=== PATIENT | male | born 1970 | race Caucasian/White ===

== ENCOUNTER 2018-05-17 09:54 | Emergency (ER) | payer OTHER ==
[~2018-05-17] VITALS: Ht 193 cm; Wt 104.3 kg
[2018-05-17] MEDS ORDERED: LISINOPRIL10 MG PO (10:18)
[2018-05-17] MEDS ORDERED: METFORMIN HCL1000 MG PO (10:18)
[2018-05-17] MEDS ORDERED: LANTUS SOL100 UNIT/1 SUB-Q (10:19)
[2018-05-17] MEDS ORDERED: NOVOLOG FL100 UNIT/1 SUB-Q (10:19)
[2018-05-17] MEDS ORDERED: AUGMENTIN 875-1 EACH PO (10:24)
[2018-05-17] MEDS ORDERED: SILVADENE20 GM TOP (10:24)
[2018-05-17] MEDS ORDERED: IRON18 MG PO (10:25)
[2018-05-17] MEDS ORDERED: AMITRIPTYLINE H25 MG PO (10:25)
[2018-05-17] MEDS ORDERED: NORCO 5-325 TA1 EACH PO (23:12)
== END 2018-05-17 10:55 | disposition home or self-care (01) ==
LOC: ED 09:54
PROC: 2W2TX4Z Dressing of Left Foot using Bandage (ICD-10-PCS; principal; 2018-05-17)
PROC: 2W2SX4Z Dressing of Right Foot using Bandage (ICD-10-PCS; principal; 2018-05-17)
DX: T25.222A Burn of second degree of left foot, initial encounter (principal); T25.221A Burn of second degree of right foot, initial encounter; T31.0 Burns involving less than 10% of body surface; E11.40 Type 2 diabetes mellitus with diabetic neuropathy, unspecified; F17.200 Nicotine dependence, unspecified, uncomplicated; Z88.8 Allergy status to other drugs, medicaments and biological substances; Z79.4 Long term (current) use of insulin; Z79.899 Other long term (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; X19.XXXA Contact with other heat and hot substances, initial encounter; Y93.01 Activity, walking, marching and hiking
CPT/HCPCS: 16020; 99283

== ENCOUNTER 2018-05-17 21:56 | Emergency (ER) | payer OTHER ==
[~2018-05-17] VITALS: Ht 193 cm; Wt 104.3 kg
[~2018-05-17 21:56] MED LIST: AMITRIPTYLINE H25 MG PO; AUGMENTIN 875-1 EACH PO; IRON18 MG PO; LANTUS SOL100 UNIT/1 SUB-Q; LISINOPRIL10 MG PO; METFORMIN HCL1000 MG PO; NOVOLOG FL100 UNIT/1 SUB-Q; SILVADENE20 GM TOP
[2018-05-17] MEDS ORDERED: NORCO 5-325 TA1 EACH PO (23:12)
== END 2018-05-17 23:50 | disposition home or self-care (01) ==
LOC: ED 21:56
PROC: 2W2TX4Z Dressing of Left Foot using Bandage (ICD-10-PCS; principal; 2018-05-17)
PROC: 2W2SX4Z Dressing of Right Foot using Bandage (ICD-10-PCS; principal; 2018-05-17)
DX: T25.222A Burn of second degree of left foot, initial encounter (principal); T25.221A Burn of second degree of right foot, initial encounter; T31.0 Burns involving less than 10% of body surface; E11.40 Type 2 diabetes mellitus with diabetic neuropathy, unspecified; F17.200 Nicotine dependence, unspecified, uncomplicated; Z88.8 Allergy status to other drugs, medicaments and biological substances; Z79.4 Long term (current) use of insulin; Z79.899 Other long term (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; X19.XXXA Contact with other heat and hot substances, initial encounter
CPT/HCPCS: 16020; 99283

== ENCOUNTER 2018-05-18 19:21 | Emergency (ER) | payer OTHER ==
[~2018-05-18] VITALS: Ht 193 cm; Wt 104.3 kg
[~2018-05-18 19:21] MED LIST changes: +NORCO 5-325 TA1 EACH PO
== END 2018-05-18 20:58 | disposition home or self-care (01) ==
LOC: ED 19:21
DX: T25.222D Burn of second degree of left foot, subsequent encounter (principal); T25.221D Burn of second degree of right foot, subsequent encounter; T31.0 Burns involving less than 10% of body surface; E11.40 Type 2 diabetes mellitus with diabetic neuropathy, unspecified; F17.200 Nicotine dependence, unspecified, uncomplicated; Z88.8 Allergy status to other drugs, medicaments and biological substances; Z79.4 Long term (current) use of insulin; Z79.899 Other long term (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; X19.XXXD Contact with other heat and hot substances, subsequent encounter
CPT/HCPCS: 99281

== ENCOUNTER 2019-02-28 15:12 | Emergency (ER) | payer OTHER ==
[~2019-02-28] VITALS: Ht 193 cm; Wt 81.6 kg
--- OUTSIDE RECORDS SUMMARY | ~2019-02-28 | XMS | Clinical Summary ---
Demographics + + + | Address | [address] | | | [place] [address] | + + + | Home Phone | | + + + | Preferred Language | Unknown | + + + | Marital Status | | + + + | Judaism Affiliation | Unknown | + + + | Race | Unknown | + + + | Ethnic Group | Unknown | + + + Author + + + | Author | [facility] | | | and [place] | + + + | Organization | [facility] | | | [...] Team Providers + +------+ + | Care Statistical Engineer Name | Role | Phone | [...] + +---------+------+------+-------+ Active Problems Not on file Encounters +--------+ + + + + | Date | Type | Specialty | Care Team | Description | +--------+ + + + + | 12/23/ | Telephone | | Carina Soria, | Other | | 2019 | | | RN | | +--------+ + + + + from Last 3 Months Family History + + +------+ + | [...] +--------+-------+---------+--------+ | [facility] | [facility] | [id number] | | | | Indemn | | [...] | [address] | | | al/Graeme | | 1970 | [phone] | [place] [address] | | | paul | | | 1 (Home) | | + +--------+ +--------+ + + Advance Directives Patient has advance care planning documents on file. For more information, please contact:[facility] [place] [address]
--- OUTSIDE RECORDS SUMMARY | ~2019-02-28 | XMS | Clinical Summary ---
Demographics + + + | Address | [address] | | | [place] [address] | + + + | Home Phone [...] + | Author | [facility] | | | and [place] | + + + | Organization | [facility] | | | [...] Team Providers + +------+ + | Care Coordinator Hotels Name | Role | Phone | + [...] +--------+-------+---------+--------+ | [facility] | VETERA | [id number] | | | | Indemn | | [...] | 1970 | [phone] | [place] [address] | | | paul | | | 1 (Home) | | + +--------+ +--------+ + + Advance Directives Patient has advance care planning documents on file. For more information, please contact:[facility] [place] [address]
--- OUTSIDE RECORDS SUMMARY | ~2019-02-28 | XMS | Encounter Summary ---
Demographics + + + | Address | [address] | | | [place] [address] | + + + | Home Phone | | + + + | Preferred Language | Unknown | + + + | Marital Status | | + + + | Latter-Day Affiliation | Unknown | + + + | Race | Unknown | + + + | Ethnic Group | Unknown | + + + Author + + + | Author | [facility] | | | and [place] | + + + | Organization | [facility] | | [...] Team Providers + +------+ + | Care Fibre Optics Jointer Name | Role | Phone | + +------+ + | Imer Woodard MD | PCP | | + +------+ + Reason for Visit +--------+ + | Reason | Comments | +--------+ + | Other | | +--------+ + Encounter Details +--------+ + + + + | Date | Type | Department | Care Team | Description | +--------+ + + + + | 01/31/ | Telephone | [facility] | Yang Beverlynayaan Dunaway, | Other | | 2018 | | [facility] | RN | | | | | SURGERY [address] | | | | | | [address] [place], | | | | | | [place] [address] | | | | | | [phone] | | | +--------+ + + + [...]
--- OUTSIDE RECORDS SUMMARY | ~2019-02-28 | XMS | Encounter Summary ---
Demographics + + + | Address | [address] | | | [place] [address] | + + + | Home Phone [...] Team Providers + +------+ + | Care Ball Winder Name | Role | Phone | + [...] | Telephone | [facility] | Yang Beverlynayana Dunaway, | Other | | 2018 | | HOSPITAL [facility] | RN | | | | | SURGERY [address] | | | | | | [address] [place] [place], | | | | | | [place] [address] | | | | | | [phone] | | | +--------+ + + + [...]
[2019-02-28] MEDS ORDERED: DOXYCYCLINE HY100 MG PO (15:34)
[2019-02-28] MEDS ORDERED: KEFLEX500 MG PO (15:34)
[2019-02-28] MEDS ORDERED: ONDANSETRON ODT8 MG PO (18:36)
[2019-02-28] MEDS ORDERED: PROMETHAZINE HC25 M1 PO (18:36)
== END 2019-02-28 19:00 | disposition home or self-care (01) ==
LOC: ED 15:12
DX: K29.00 Acute gastritis without bleeding (principal); D64.9 Anemia, unspecified; E11.40 Type 2 diabetes mellitus with diabetic neuropathy, unspecified; F43.10 Post-traumatic stress disorder, unspecified; Z87.891 Personal history of nicotine dependence; Z88.8 Allergy status to other drugs, medicaments and biological substances; Z79.899 Other long term (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
CPT/HCPCS: 80053; 83690; 85025; 96361; 96374; 99284-25; J2405; J7030

== ENCOUNTER 2019-03-31 08:40 | Emergency (ER) | payer OTHER ==
[~2019-03-31] VITALS: Ht 193 cm; Wt 84.4 kg
--- OUTSIDE RECORDS SUMMARY | ~2019-03-31 | XMS | Clinical Summary ---
Demographics + + + | Address | [address] | | | [place] [address] | + + + | Home Phone | | + + + | Preferred Language | Unknown | + + + | Marital Status | | + + + | Latter Day Affiliation | Unknown | + + + | Race | Unknown | + + + | Ethnic Group | Unknown | + + + Author + + + | Author | [facility] | | | and [place] | + + + | Organization | [facility] | | | and [...] Team Providers + +------+ + | Care Manager Acquisition Name | Role | Phone | + +------+ + | Imer Woodard MD | PP | | + +------+ + Allergies + [...] | + + + +---------+------+------+-------+ Active Problems Not on file Family History + + +------+ + | Medical History | Relation | Name | Comments | + + +------+ + | Diabetes [...] | | | + + +------+ + + +------+--------+ + | Relation | Name | Status | Comments | + +------+--------+ + | Father | | | | + +------+--------+ + | Paternal Grandfather | | | | + +------+--------+ + | Paternal Grandmother | | | | + +------+--------+ + Social History + +-------+ +--------+------+ | [...] + | Blood Pressure | 162/98 | 09/21/20181405 PDT | + + + [...] Weight | 94.3 kg (208 lb) | 09/08/20181328 PDT | + + + [...] | Vaccine: | | | | | Dtap/Tdap/Td (1 - | 1 | | | | Tdap) | | | | + + + + + | Vaccine: Influenza | | | | | (Season Ended) | 9 | | | + + + + [...] +--------+-------+---------+--------+ | [facility] [facility]MIN | VETERA | [id number] | | | | Indemn | | | NS | | 018-Pr | | | ity | | | CHOICE | | esent | | | | [...] Person | Self | [birth year] | [address] | | | al/Fam | | 1970 | [phone] | [place] [address] | | | paul | | | 1 (Home) | | + +--------+ +--------+ + + Advance Directives Patient has advance care planning documents on file. For more information, please contact:[facility] [place] [address]
--- OUTSIDE RECORDS SUMMARY | ~2019-03-31 | XMS | Clinical Summary ---
Demographics + + + | Address | [address] | | | [place] [address] | + + + | Home Phone | | + + + | Preferred Language | Unknown | + + + | Marital Status | | + + + | Anglican Affiliation | Unknown | + + + | Race | Unknown | + + + | Ethnic Group | Unknown | + + + Author + + + | Author | [facility] | | | and [place] | + + + | Organization | [facility] | | [...] Team Providers + +------+ + | Care Baggage Porter Name | Role | Phone | + [...] +--------+-------+---------+--------+ | [facility] | VETERA | [id number] | | | | Indemn | | [...] | 1970 | [phone] | [place] [address] | | | paul | | | 1 (Home) | | + +--------+ +--------+ + + Advance Directives Patient has advance care planning documents on file. For more information, please contact:[facility] [place] [address]
[~2019-03-31 08:40] MED LIST changes: +DOXYCYCLINE HY100 MG PO; +KEFLEX500 MG PO; +ONDANSETRON ODT8 MG PO; +PROMETHAZINE HC25 M1 PO
[2019-03-31] MEDS ORDERED: PROBIOTIC1 EAC1 PO (09:12)
[2019-03-31] MEDS ORDERED: ZOFRAN4 MG PO (11:36)
== END 2019-03-31 11:45 | disposition home or self-care (01) ==
LOC: ED 08:40
DX: G43.A0 Cyclical vomiting, in migraine, not intractable (principal); E11.9 Type 2 diabetes mellitus without complications; Z95.5 Presence of coronary angioplasty implant and graft; Z88.5 Allergy status to narcotic agent; Z88.8 Allergy status to other drugs, medicaments and biological substances; Z79.84 Long term (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; Z79.899 Other long term (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
CPT/HCPCS: 80053; 81001; 83690; 85025; 96361; 96374; 99283-25; J2405; J7030

== ENCOUNTER 2019-05-23 16:21 | Observation (INO) | payer OTHER ==
[~2019-05-23] VITALS: Ht 193 cm; Wt 82.3 kg
[~2019-05-23 16:21] MED LIST changes: -METFORMIN HCL1000 MG PO; +METFORMIN HCL500 M3 PO; +PROBIOTIC1 EAC1 PO; +ZOFRAN4 MG PO
[2019-05-23] MEDS ORDERED: FERROUS GLUCON324 M1 PO (17:04)
[2019-05-23] MEDS ORDERED: ASPIRIN325 MG PO (17:04)
[2019-05-23] MEDS ORDERED: VITAMIN C500 M1 PO (17:04)
--- NOTE | 2019-05-23 21:45 | NUR ---
PT ADMITTED TO ROOM 115, FROM ED. PLAN IS TO RECEIVED PRBC, BOWEL PREP. A/O, ROOM AIR, SELF TRANSFERED FROM STRETCHER TO THE BED. HAS WALKING BOOT ON RIGHT FOOT, STATING THAT HE HAS "SORE" ON BOTTOM OF HIS FOOT, IS DIABETIC. 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 PT DAUGHTER WITH PT.
--- NOTE | 2019-05-23 22:45 | NUR ---
FIRST UNIT OF PRBC STARTED, VERIFIED WITH INVENTORY CONTROL ASSOCIATE. PATIENT'S VS STABLE, BP ELEAVTED. PATIENT STATES THIS IS NORMAL FOR HIM. NO REACTION NOTED AFTER 15MINS. INCREASED RATE TO RUN OVER 2 HOURS. EDUCATION PROVIDED ON SIGNS OF REACTION FROM BLOOD ADMINISTRATION.
--- NOTE | 2019-05-23 23:30 | NUR ---
ASSESSMENT COMPLETE. PATIENT IS AAOX4. REPORTS MILD ANXIETY. PAIN 8/10, CHRONICALLY 5/10 IN BACK/NECK/KNEES. PRN MEDS PROVIDED. PATIENT REPORTS CHRONIC NAUSEA, DECLINES NEED FOR PRN ZOFRAN THE NAUSEA IS RELATED TO "NASAL DRIP" PER THE PATIENT. ABD IS FLAT, NONTENDER, BOWEL SOUNDS ACTIVE. WOUND NOTED ON LEFT SANTOYO, PATIENT REPORTS FRAGILE SKIN IN THIS AREA AND FREQUENT INJURY. WOUND ON LATERAL SIDE OF PAD ON RIGHT FOOT, [facility] TODAY. PATIENT REPORTS THIS IS TO BE LEFT UNTIL HIS FOLLOW UP NEXT WEEK. HE HAS SUPPLIES IF DRESSING BECOMES SOILED. PATIENT HAS BEEN DRINKING THE BOWEL PREP, 1 LARGE BM OF NOW. GOOD URINE OUTPUT. PATIENT REPORTS TROUBLE EMPTYING HIS BLADDER, THIS IS A CHRONIC PROBLEM HE RELATED TO AN ENLARGED PROSTATE. PATIENT IS STEADY ON HIS FEET. HIS DAUGHTER IS IN THE ROOM.
--- NOTE | 2019-05-24 01:35 | NUR ---
FIRST UNIT PRBC FINISHED. VS STABLE. NO SIGN OF REACTION. PATIENT UP TO THE BATHROOM. HAVING MULTIPLE BMS, BUT STILL SEMI-FORMED. PATIENT REPORTS PHANTOM PAIN IN HIS FEET, THIS IS NORMAL FOR HIM AT NIGHT. SECOND UNIT OF PRBC STARTED. VERIFIED WITH PROTECTION CHIEF INDUSTRIAL PLANT. RN IN ROOM FOR FIRST 15MINS. NO SIGN OF REACTION. VS DONE. PATIENT RESTING IN BED. DENIES NEEDS. CALL LIGHT IN REACH.
--- NOTE | 2019-05-24 03:50 | NUR ---
SECOND UNIT PRBC FINSIHED. VS STABLE. NO SIGN OF REACTION. PATIENT ATTEMPTING TO SLEEP. DENIES ANY NEEDS. REPORTS FREQUENT TRIPS TO THE BATHROOM. STOOL CONTINUES TO BE FORMED. IV FLUIDS PER ORDER.
--- NOTE | 2019-05-24 05:00 | NUR ---
PATIENT UP TO THE BATHROOM. MEDIUM LIDUID STOOL, DARK BROWN IN COLOR. PATIENT RETURNED TO BED. DENIES ANY NEEDS.
--- NOTE | 2019-05-24 06:27 | NUR ---
PT CALLED, HAD ANOTHER BM, LOOSE, BROWN WITH FLECKS OF SOLID. BACK TO BED, EYES CLOSED, RESP EVEN AND UNLABORED.
--- NOTE | 2019-05-24 06:43 | NUR ---
PATIENT RECEIVED 2 UNITS PRBC. LR @ 75. BOWEL PREP FINISHED. SEVERAL BMS, DARK BROWN LIQUID THIS AM. URINE OUTPUT QS. VS STABLE. CBG Q6H. INDEPENDENT IN THE ROOM. PRN PAIN MEDS FOR CHRONIC PAIN. NPO AT 0800. CHRONIC NAUSEA, NO EMESIS. WOUND ON RIGHT FOOT, WRAPPED BY PRIMARY AT [facility]. APPEARS CDI.
--- NOTE | 2019-05-24 07:00 | NUR ---
SPOKE TO ABOUT PATIENT'S BOWEL CARE. 1 BOTTLE OF MAG CITRATE ORDERED. VERIFIED VIA REPEAT BACK.
--- NOTE | 2019-05-24 08:10 | NUR ---
Pt now npo per doc order. Personal supplies and call light within reach.
--- NOTE | 2019-05-24 14:58 | NUR ---
PATIENT WAITING TO GO FOR SCOPE PROCEDURE. HE HAS BEEN WAITING ALL DAY. WANTS TO GET IT OVER WITH SO HE CAN EAT. STATES HE HAS A DIETITIAN AT [facility]. HE WAS DIAGNOSED WITH DIABETES ABOUT 12 YRS AGO. USED TO BE ON INSULIN. HE USED TO WEIGH 320 LBS 10 YRS AGO. SMOKES POT AND EATS SMALLER PORTIONS AND HE CONTRIBUTES THESE TO HELPING CONTROL HIS BLOOD SUGARS. HE JUST WENT SHOPPING THE OTHER DAY AND BOUGHT MORE HEALTHY FOODS. HE SAID HE IS GOING TO START PAYING MORE ATTENTION TO WHAT HE EATS. HE DRINKS WATER AND GATORADE ZERO. I MENTIONED THAT HE DOESN'T HAVE TO ELIMINATE ALL CARBS, BUT HE SHOULD KEEP HIS INTAKE CONSISTENT. HE DECLINED ANY WRITTEN INFO. JUST WANTS TO GET THIS SCOPE DONE SO HE CAN GO HOME.
--- NOTE | 2019-05-24 15:17 | NUR ---
PT CALL LIGHT ON. PT STATES HIS IV PUMP IS ALARMING. THIS RN TO ROOM. "DISTAL OCCLUSION. PT STATES IV IS "ALWAYS BEEPING." PT VERY UPSET ABOUT DELAY IN PROCEEDURE AND "CONSTANT BEEPING" OF THE IV. PT OFFERED A NEW IV SITE. PT STATES "YES, PLEASE START A NEW IV. ANYTHING TO STOP THE BEEPING." NEW PIV STARTED PER PROTOCOL IN RIGHT HAND. IV INFUSION MOVED TO RIGHT HAND PIV. LEFT AC PIV SALINE LOCKED, ALCOHOL CAPS APPLIED. PTS RN NOTIFIED. BED RAILS UP. CALL LIGHT WITHIN REACH.
[2019-05-24] MEDS ORDERED: ZYRTEC10 MG PO (16:43)
[2019-05-24] MEDS ORDERED: FLONASE ALLERG9.9 ML NAS (16:44)
[2019-05-24] MEDS ORDERED: GLUCOSE4 GM PO (16:49)
[2019-05-24] MEDS ORDERED: LIPITOR40 MG PO (16:52)
[2019-05-24] MEDS ORDERED: SILDENAFIL CIT100 MG PO (16:53)
--- NOTE | 2019-05-24 17:18 | NUR ---
PT SITTING UP IN BED, PLAYING WITH GRANDSON. NO C/O PAIN OR NAUSEA. PT DID STATE THAT HE IS "FRUSTRATED" WITH WAITING FOR HIS PROCEDURES. PT DENIED NEEDS. PERSONAL SUPPLIES AND CALL LIGHT IN REACH.
[2019-05-24] MEDS ORDERED: CYCLOBENZAPRINE10 MG PO (18:35)
--- NOTE | 2019-05-24 19:51 | NUR ---
[birth year]191950 Rocio Sethi 1935 PT ARRIVED TO PACU ON 4L VIA NC. PT ASLEEP AND RESP RATE INCREASED NOTED BY DEBONING TEAM LEADER. 1944 PT WAKES TO TACTILES STIMULI AND BEGINS COUGHING. PT REORIENTED TO PACU. 1949 PT REACHING FOR O2 NC, O2 REMOVED. PT REORIENTED TO PACU, PT DENIES NAUSEA AND PAIN AND REPORTS BEING DROWSY. PT ROLLS TO RIGHT SIDE AND IS BACK TO SLEEP.
--- NOTE | 2019-05-24 19:58 | CONS ---
[facility] [address], [place] [address] Signed DATE OF CONSULTATION: 05/23/2019 REQUESTING PHYSICIAN: Aleisha Armijo MD REASON FOR CONSULTATION: Profoundly low hematocrit. Emergency consultation for consideration of upper and lower endoscopic evaluation. HISTORY OF PRESENT ILLNESS: This 48-year-old white man was admitted to the hospital due to profound anemia with a hemoglobin of only 6.7. He was seen by Dr. Raymundo at the [facility] and was referred directly to the emergency room for further evaluation and treatment. He was considered to have acute on chronic microcytic anemia. He has been on iron supplementation for quite some time. The patient underwent upper endoscopy in [place], [place] some time back, the day I am not entirely sure of, and a plan for colonoscopy was made for the same purpose of evaluating for anemia. Unfortunately, the prep was completely inadequate and colonoscopy was not performed. The upper endoscopy was not said to show any ulcer or other findings of that sort. The patient has had no blood per rectum or hematemesis. The patient's health would be defined as poor overall. He does have type 2 diabetes, peripheral neuropathy. 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 He also had hypertension and some level of heart disease requiring stenting in 2002. He does have hyperlipidemia. He denies alcohol and recent tobacco use, but does smoke marijuana three times a day. He has a history of IV drug abuse, not currently active, or at least said not to be. He is considered to have allergy to "heparin" causing severe bleeding and trazodone and opiates that are Demerol related. MEDICATIONS: At admission included metformin, lisinopril, a probiotic, ferrous sulfate, aspirin, and vitamin C. SOCIAL HISTORY: He is accompanied by his daughter. He lives in [place]. He is self described as "retired", though he never had steady work after his discharge from the [employer] a number of years ago. The patient was evaluated in the emergency room, thought to have heme-positive stool on Electronically Signed By: MICHELLE LEO MD 05/24/191957 PATIENT NAME: SONIA VIVAS CONSULTATION DATE OF : 74 REPORT #: [id number] PHYSICIAN: MICHELLE LEO MD PCP: YADIRA RAYMUNDO MD REPORT IS CONFIDENTIAL AND NOT TO BE RELEASED WITHOUT AUTHORIZATION [facility] [address], [place] [address] Signed guaiac testing. He denies fatigue, shortness of breath or lightheadedness. He has had some vague upper abdominal pain. Most notably, he has had a considerable amount of weight loss over time for reasons that are not quite clear. REVIEW OF SYSTEMS: He denies any shortness of breath or chest pain per se. Denies dysphagia. He has extensive family history of cancer, but uncertain regarding colon or gastrointestinal cancers. There is family history of prostate cancer apparently. He does have urinary hesitancy and incomplete voiding pattern, though he has not ever been on Flomax or other preparation. PHYSICAL EXAMINATION: GENERAL: A bearded, thin, chronically ill-appearing, mulitply tattooed white man, accompanied by his daughter at this time. NECK: Shows no thyromegaly or cervical adenopathy. Trachea is midline. CHEST: Clear. HEART: Regular without murmur. ABDOMEN: Scaphoid and nondistended. There is no focal mass or tenderness. I detect no ascites. EXTREMITIES: Show chronic excoriation of left and right lower extremities, and minimal edema. LAB STUDIES: Show a hematocrit a white count of 9.2, hematocrit 22.6, hemoglobin 6.6, platelets 433,000. Coag studies show a normal pro time of 13.4 with an INR of 0.9. Chem profile is essentially normal. Creatinine is 0.52, glucose is 138, subsequently 128. Liver enzymes show elevated alkaline phosphatase of 201, LDH 232, albumin is 3.3, and alpha-thalassemia HBA1 is pending. ASSESSMENT: The patient has chronic anemia which has been incompletely evaluated. Upper endoscopy done in the past in [facility] did not show abnormalities that he is aware of. It is uncertain if he underwent duodenal testing to assess for celiac disease. His overall countenance is suggestive of it, though of course it is an uncommon though increasingly recognized cause of chronic anemia in some patients. I would recommend upper endoscopy be performed again to assess for peptic disease as a source of his anemia and subsequently a colonoscopy. A bowel prep with MiraLAX has been initiated this evening. The risk of bleeding, infection, perforation, and so forth were reviewed with him and his daughter. They understand and wished to proceed. We will plan to do this tomorrow, probably in the late morning. He should be n.p.o. after midnight, but can have as many liquids as he wishes tonight along with his prep. Electronically Signed By: MICHELLE LEO MD 05/24/191957 PATIENT NAME: SONIA VIVAS CONSULTATION DATE OF : 74 REPORT #: [id number] PHYSICIAN: MICHELLE LEO MD PCP: YADIRA RAYMUNDO MD REPORT IS CONFIDENTIAL AND NOT TO BE RELEASED WITHOUT AUTHORIZATION [facility] [address] [place], [place] [address] Signed MD HANNA Geller/DEXTER /[id number] cc: MD Yadira Mchugh MD Copies: ALEISHA ARMIJO MICAIAH MATTHEW MD ~ Electronically Signed By: MICHELLE LEO MD 05/24/19 1958 PATIENT NAME: SANGEETHASONIA Minna CONSULTATION DATE OF : 74 REPORT #: [id number] PHYSICIAN: MICHELLE LEO MD PCP: YADIRA RAYMUNDO MD REPORT IS CONFIDENTIAL AND NOT TO BE RELEASED WITHOUT AUTHORIZATION
--- NOTE | 2019-05-24 20:00 | NUR ---
RECEIVED REPORT FROM DAY SHIFT RN. PATIENT IS IN DAY SURGERY DEPT AT THIS TIME. FAMILY PRESENT IN ROOM. FAMILY DENIES ANY NEEDS.
--- NOTE | 2019-05-24 20:20 | NUR ---
PT ARRIVED TO FLOOR FROM PACU, A/O, SELF TRANSFERED FROM STRETCHER TO BED. RA, DENIES NEEDS, DISAPPOINTED HEISN'T GOING HOME, BUT STATES UNDERSTANDING. PRIOR TO PT ARRIVING TO FLOOR, DR LEO IN TO DISCUSS PT WITH PT'S DAUGHTER. DAUGHTER AND MALE FREIND WITH BABY, PRESENT IN ROOM AT THIS TIME.
--- NOTE | 2019-05-24 20:21 | NUR ---
PATIENT ARRIVED TO THE FLOOR. PATIENTS VITALS TAKEN AND RECORDED BY PULP BLEACHER. PATIENT DENIES ANY NEEDS AT THIS TIME. REPORT RECEIVED FROM TRACY SURGERY RN. CALL LIGHT IN REACH.
--- NOTE | 2019-05-24 21:15 | NUR ---
PATIENT IS REQUESTING HOME MEDS. [employer] PROFESSOR PLACED CALL TO . TO PUT IN NEW ORDERS.
--- NOTE | 2019-05-24 21:45 | NUR ---
PATIENT ASSESEMENT COMPLETED. PATIENT IS SITTING UP AT THE EDGE OF THE BED. PATIENT PROVIDED WITH SOUP AND CRACKERS. PATIENT HAS FAMILY AT THE BEDSIDE. PATIENT DENIES ANY PAIN OR NAUSEA. PATIENT GIVEN EVENING MEDICATIONS GIVEN PER ORDER. PATIENT APPEARS UPBEAT. PATIENT DENIES ANY COMMENTS, QUESTIONS OR CONCERNS ABOUT NEW DIAGNOSIS. PATIENT DENIES ANY NEEDS. FAMILY PROVIDED WITH BEDDING AND WATER. NO FURTHER NEEDS. NOTED. CALL LIGHT IN REACH.
--- NOTE | 2019-05-24 23:23 | NUR ---
CALL LIGHT ANSWERED. PATIENT WANTS WARM BLANKET FOR HIM AND HIS DAUGHTER. WARM BLANKET AND HEAVY BLANKET PROVIDED.
--- NOTE | 2019-05-25 00:31 | NUR ---
PATIENT IS RESTING IN BED WITH EYES CLOSED, RR 17. CALL LIGHT IN REACH. DAUGHTER ASLEEP ON THE COUCH.
--- NOTE | 2019-05-25 01:47 | NUR ---
PATIENTS VITALS TAKEN AND RECORDED. PATIENTS BS CHECKED AND SS GIVEN PER ORDER. PATIENT DENIES ANY PAIN OR NAUSEA. NO NEEDS NOTED. INTAKE AND OUPUT RECORDED. CALL LIGHT IN REACH.
--- NOTE | 2019-05-25 03:33 | NUR ---
PATIENT IS RESTING IN BED WITH EYES CLOSED, RR 18. CALL LIGHT IN REACH.
--- NOTE | 2019-05-25 04:55 | NUR ---
PATIENT RESTED WELL THROUGHOUT THE SHIFT. PATIENT IS ON AN ADA/60g CARB DIET, TOLERATING IT WELL AND NO COMPLAINTS OF NAUSEA. PATIENT IS INDEPENDENT IN THE ROOM. PATIENT IS SL. PATIENT DENIED ANY PAIN OR NAUSEA. PATIENT IS VOIDING WELL. PATIENT HAS SCHEDULED BS CHECKS. PATIENT IS AAOX3 AND USES CALL LIGHT APPROPRIATELY.
--- NOTE | 2019-05-25 06:10 | NUR ---
PATIENTS VITALS TAKEN AND RECORDED. PATIENTS INTAKE AND OUPUT RECORDED. PATIENT DENIES ANY PAIN OR NAUSEA. PATIENTS BREAKFAST ORDER. PATIENT DENIES ANY NEEDS. CALL LIGHT IN REACH. PATIENTS DAUGHTER REMAINS IN THE ROOM.
--- NOTE | 2019-05-25 07:20 | NUR ---
RECIEVED REPORT FROM LIVIA GONSALES. PT RESTING QUIELTY IN THE DARK. RESPIRATIONS EVEN AND UNLABORED. CALL LIGHT WITHIN REACH.
--- NOTE | 2019-05-25 07:55 | NUR ---
PATIENT SITTING UP ON THE EDGE OF THE BED TAKING BREAKFAST. FAMILY IN ROOM. PATIENT REFUSED TO TAKE A SHOWER TODAY BECAUSE HE THINKS HE IS GOING TO BE DISCHARGE TO HOME AND HE PREFERS TO TAKE A SHOWER AT HOME. ICE WATER GIVEN. CALL LIGHT WITHIN REACH. NO OTHER NEEDS AT THIS TIME
--- NOTE | 2019-05-25 09:29 | NUR ---
PT RESTING QUIETLY IN HOSPITAL BED WITH DAUGHTER AT BEDSIDE. PT ATE 100% OF MEAL. PT DECLINED INSULIN STATING HE DOES NOT BELIEVE ITS AN ACCURATE BS DUE TO EATING MULTIPLE TIMES AFTER HE CAME OFF OF NPO. PT ALSO DECLINED NURSE TO LOOK AT WOUND ON FOOT. PT STATES THAT [facility] AND HE WOULD LIKE TO KEEP IT COVERED AT THIS TIME. ASSESSMENT COMPLETE AND AM MEDICATIONS GIVEN. PT HAVING CT WITH CONTRAST AT 1145. XRAY CONTACTED US TO GIVE ORAL CONTRAST AT 0845 AND 0945 AND THEY WILL BE HERE AROUND 1140 TO GET PT. PT EDUCATED ON THE PLAN FOR TODAY. PT WOULD LIKE TO LEAVE BUT DOES UNDERSTAND THAT HE NEEDS TO BE HERE. CALL LIGHT WITHIN REACH. NO NEEDS/CONCERNS AT THIS TIME.
--- NOTE | 2019-05-25 10:05 | NUR ---
PT ADMINSITERED 2ND DOSE OF GASTROGRAFIN AT THIS TIME
--- NOTE | 2019-05-25 10:08 | NUR ---
PATIENT RESTING IN BED. VITAL SIGNS AND I&O DONE. CALL LIGHT WITHIN REACH. NO OTHER NEEDS AT THIS TIME
--- NOTE | 2019-05-25 11:40 | NUR ---
PT RESTING IN BED WITH DAUGHTER AT BEDSIDE. IMAGINING CALLED STATING THAT THEY WILL BE COMING UP TO GET PT SHORTLY. PT REQUESTING SODA AND DIET COLA WAS PROVIDED. PT HAS NO FURTHER NEEDS/CONCERNS AT THIS TIME. CALL LIGHT WITHIN REACH.
--- NOTE | 2019-05-25 13:05 | NUR ---
PT RESTING IN HOSPITAL BED. PT HAS DAUGHTER AT BEDSIDE AND PLAYING WITH MANUEL WHO IS 5 MONTHS OLD. PT IS READY TO LEAVE AND WOULD LIKE TO BE DC SOON. MD AWAITING ON CT SCAN RESULTS. PT STATES AN UNDERSTANDING. CALL LIGHT WITHIN REACH.
[2019-05-25] MEDS ORDERED: BIOTIN300 MCG PO (13:44)
[2019-05-25] MEDS ORDERED: TOPAMAX25 MG PO (13:46)
--- NOTE | 2019-05-25 13:47 | NUR ---
MED REC COMPLETE
[2019-05-25] MEDS ORDERED: LISINOPRIL20 MG PO (14:07)
--- NOTE | 2019-05-25 14:20 | NUR ---
PATIENT SITTING UP ON THE EDGE OF THE BED. DAUGHTER IN ROOM. VITAL SIGNS AND I&O DONE. HIGH BLOOD PRESSURE. RN NOTIFIED. ICE WATER GIVEN. CALL LIGHT WITHIN REACH. NO OTHER NEEDS AT THIS TIME
--- NOTE | 2019-05-25 14:46 | NUR ---
LIVIA MARADIAGA REQUESTED I VISIT PT BEFORE HE IS DC'D. HE HAS RECEIVED NEWS THAT CANCER IS PRESENT AND HAS METS. CHECKED ON PT, HE IS SITTING ON SIDE OF BED, DRESSED WITH FAMILY IN RM. GAVE ENCOURAGEMENT, AND WHAT TO EXPECT FOR DC WITH STAFF. HE THANKED ME, SHOOK MY HAND. WILL FOLLOW NEEDED
--- NOTE | 2019-05-25 16:02 | OR ---
[facility] [address], [place] [address] Signed DATE OF OPERATION: 05/24/2019 SURGEON: Michelle Leo MD PREOPERATIVE DIAGNOSIS: Profound anemia (symptomatic). POSTOPERATIVE DIAGNOSES: 1. Hiatal hernia without esophagitis. 2. Colon cancer at cecum. 3. Pedunculated large polyp at 35 cm. PROCEDURES: 1. Esophagogastroduodenoscopy with biopsy. 2. Total colonoscopy to cecum with biopsy of cecal mass and hot snare polypectomy of polyp at 35 cm. ANESTHESIA: Propofol infusion; Estefani Soni CRNA. INDICATIONS: This 48-year-old white man presented to the emergency room upon referral from Dr. Raymundo of the [facility] with profound anemia with a hemoglobin of about 6. The patient was noted to have microcytic anemia in July 2018. At that time, he underwent upper endoscopy at the end of August 2018, which was unremarkable. Colonoscopy is unable to be performed as the patient failed to do a prep. He was scheduled, but never followed through with additional evaluation. He has numerous other medical problems. More recently, he has had weight loss. He denies any rectal bleeding, hematemesis, or other issue. He is considered to have hyperlipidemia, gastroesophageal reflux symptoms, hypertension, and anemia as described. He does smoke marijuana on routine basis at least three times a day, though he does not smoke cigarettes. He was admitted at this time to undergo upper endoscopy and colonoscopy to better characterize the source of his anemia. He understands the risks of bleeding, infection, and perforation related to upper endoscopy and colonoscopy and wished to proceed. FINDINGS: Upper endoscopy showed a hiatal hernia without signs of esophagitis. There was mild gastritis, but not much. 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 Electronically Signed By: MICHELLE LEO MD 05/25/19 1602 PATIENT NAME: SONIA VIVAS OPERATIVE REPORT DATE OF : 74 REPORT #: [id number] PHYSICIAN: MICHELLE LEO MD PCP: YADIRA RAYMUNDO MD REPORT IS CONFIDENTIAL AND NOT TO BE RELEASED WITHOUT AUTHORIZATION [facility] [address], [place] [address] Signed Biopsies were obtained. There was a pedunculated large adenomatous polyp at 35 cm, which was excised completely. There were no other findings of concern. DESCRIPTION OF PROCEDURE: The patient was brought to the endoscopy suite given topical Hurricaine spray hypopharyngeal anesthesia and placed in lateral decubitus position. He was given intravenous sedation to the point of slurred speech and nystagmus by the rotary lithographic press operator with propofol infusional technique. A bite block was placed. An Olympus video upper endoscope was passed in the hypopharynx. Vocal cords appeared normal. Esophagus throughout its length was normal. Scope was passed to the stomach, which was inflated with air. Rugal folds were normal. Pylorus was normal. Scope was passed through it into the duodenum, which was normal overall, though there was mild duodenitis. Biopsies were taken of the duodenum. Scope was withdrawn. A biopsy was taken of the antrum for both DEBORAH and pathologic testing. Retroflexed view confirmed hiatal hernia. Scope was straightened and withdrawn. A biopsy was then taken of the distal esophagus. Remaining esophagus was normal, though not actively inflamed. There was some scar tissue at the esophageal junction. Plans were then made for colonoscopy. Digital rectal examination was found to be normal. An Olympus video colonoscope was passed in the rectum and manipulated throughout the colon showing a very good bowel prep. Intubation of the cecum was undertaken confirming a large cecal tumor. It was circumferential rather firm. Multiple biopsies were taken to affirm the diagnosis clinically made of adenocarcinoma of the cecum. The scope was then withdrawn and examination throughout undertaken. At 35 cm from the anal verge, a pedunculated adenomatous polyp was noted. This was excised with hot snare polypectomy technique. A Martin Net was used to grasp the polyp. The scope was further withdrawn and no other findings of note. The patient was taken to recovery room in good condition. 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 He has had anemia since at least July of last year. I would recommend he undergo a CT scan and a CEA level, particularly under the auspices of his weight loss over time. Distant metastatic disease is more likely than not under those circumstances. In any case, right colectomy would be recommended. Given his primary care at the [facility], it is less likely I would be approved to provide this service, so I am willing to do so. We will forward this information more fully to the [facility] for further determination of that. Electronically Signed By: MICHELLE LEO MD 05/25/19 1602 PATIENT NAME: SONIA VIVAS OPERATIVE REPORT DATE OF : 74 REPORT #: [id number] PHYSICIAN: MICHELLE LEO MD PCP: YADIRA RAYMUNDO MD REPORT IS CONFIDENTIAL AND NOT TO BE RELEASED WITHOUT AUTHORIZATION [address] [address] Signed Michelle Leo MD JM/MODL /[id number] cc: MD Yadira Mchugh MD Copies: ALEISHA WALTON MICAIAH MATTHEW MD ~ Electronically Signed By: MICHELLE LEO MD 05/25/19 1602 PATIENT NAME: SONIA VIVAS OPERATIVE REPORT DATE OF : 74 REPORT #: [id number] PHYSICIAN: MICHELLE LEO MD PCP: YADIRA RAYMUNDO MD REPORT IS CONFIDENTIAL AND NOT TO BE RELEASED WITHOUT AUTHORIZATION
[2019-05-28] MEDS ORDERED: ZOFRAN4 MG SL (08:47)
[2019-05-28] MEDS ORDERED: NORCO 5-325 TA1 EACH PO (08:47)
== END 2019-05-25 15:25 | disposition home or self-care (01) ==
LOC: ED 16:21 → MS 16:23
PROVIDERS: Surgery; ADMIT Student in an Organized Health Care Education/Training Program
PROC: 30233N1 Transfusion of Nonautologous Red Blood Cells into Peripheral Vein, Percutaneous Approach (ICD-10-PCS; 2019-05-23)
PROC: 0DBH8ZX Excision of Cecum, Via Natural or Artificial Opening Endoscopic, Diagnostic (ICD-10-PCS; 2019-05-24)
PROC: 0DBE8ZX Excision of Large Intestine, Via Natural or Artificial Opening Endoscopic, Diagnostic (ICD-10-PCS; 2019-05-24)
PROC: 0DB38ZX Excision of Lower Esophagus, Via Natural or Artificial Opening Endoscopic, Diagnostic (ICD-10-PCS; principal; 2019-05-24 08:00)
PROC: 0DB68ZX Excision of Stomach, Via Natural or Artificial Opening Endoscopic, Diagnostic (ICD-10-PCS; 2019-05-24 08:00)
DX: C18.0 Malignant neoplasm of cecum (principal); C79.9 Secondary malignant neoplasm of unspecified site; K63.5 Polyp of colon; E11.42 Type 2 diabetes mellitus with diabetic polyneuropathy; F43.10 Post-traumatic stress disorder, unspecified; K29.70 Gastritis, unspecified, without bleeding; K29.80 Duodenitis without bleeding; D63.0 Anemia in neoplastic disease; D50.9 Iron deficiency anemia, unspecified; I10 Essential (primary) hypertension; E78.5 Hyperlipidemia, unspecified; K44.9 Diaphragmatic hernia without obstruction or gangrene; Z95.5 Presence of coronary angioplasty implant and graft; Z88.8 Allergy status to other drugs, medicaments and biological substances; Z79.84 Long term (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; Z79.82 Long term (current) use of aspirin; Z79.899 Other long term (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; Z87.74 Personal history of (corrected) congenital malformations of heart and circulatory system
CPT/HCPCS: 36415; 36430; 74177; 80048; 80053; 82378; 82728; 83021; 83540; 83615; 83735; 84466; 85025; 85045; 85610; 85730; 86850; 86880; 86900; 86901; 86920; 96361; 96365; 96366; 96375; 96376; 99285; C9113; G0378; J1815; J2250; J2405; J2704; J3010; J3475; J3480; J7060; J7120; P9016; Q9967

== ENCOUNTER 2019-07-14 05:35 | Day surgery (SDC) | payer OTHER ==
[~2019-07-14] VITALS: Ht 193 cm; Wt 74.8 kg
[~2019-07-14 05:35] MED LIST changes: +ASPIRIN325 MG PO; +BIOTIN300 MCG PO; +CYCLOBENZAPRINE10 MG PO; +FAMOTIDINE20 MG PO; +FERROUS GLUCON324 M1 PO; +FLONASE ALLERG9.9 ML NAS; +GLUCOSE4 GM PO; +IBUPROFEN600 MG PO; +LIPITOR40 MG PO; +LISINOPRIL20 MG PO; +NEURONTIN300 MG PO; +SILDENAFIL CIT100 MG PO; +TOPAMAX25 MG PO; +TYLENOL EXTRA500 MG PO; +VITAMIN C500 M1 PO; +ZOFRAN4 MG SL; +ZYRTEC10 MG PO
--- NOTE | 2019-07-14 08:58 | NUR ---
07/14/19 0858 Emmy Garcia 0843-PATIENT ARRIVED TO PACU ON RA.RR EVEN. SR. PATIENT DROWSY AROUSES TO VERBAL STIMULI GLUCOSE CHECKED 155. DRESSING TO RIGHT CHEST CDI. REPORTS PAIN 3/10 AND IS TOLERABLE FOR NOW. PATIENT REPORTS NEEDS TO VOID 0850-PATIENT VOIDED 600 MLS USING URINAL 0857-XRAY AT BEDSIDE FOR PORTACATH PLACEMENT. PATIENT AWAKE DENIES NAUSEA.
[2019-07-14] MEDS ORDERED: IBUPROFEN600 MG PO (08:59)
[2019-07-14] MEDS ORDERED: TYLENOL325 MG PO (08:59)
--- NOTE | 2019-07-15 17:19 | OR ---
[facility] [address] [place], [place] [address] Signed DATE OF OPERATION: 07/14/2019 SURGEON: Michelle Leo MD PREOPERATIVE DIAGNOSIS: Stage IV colon cancer with hepatic metastasis. POSTOPERATIVE DIAGNOSIS: Stage IV colon cancer with hepatic metastasis. PROCEDURES: 1. Placement of right internal jugular Port-A-Cath device. 2. Surgeon-directed fluoroscopy. ANESTHESIA: Local with monitored anesthesia care; Abdirizak Elvie, AIR CARRIER OPERATIONS INSPECTOR, and local 10 mL of 0.25% Marcaine with epinephrine. INDICATION: This is a 48-year-old white man who is a patient of Dr. Raymundo of the [facility]. He presented to the hospital with anemia and found on colonoscopy to have a large right colon tumor. A CT scan showed multiple hepatic metastases. He underwent right colectomy by ga on June 02, 2019, found to have stage IV colon cancer. He has no ascites or carcinomatosis, but extensive metastatic disease to the liver. He has been considered for palliative chemotherapy and evaluated by Dr. Lundberg. He is now to undergo a Port-A-Cath placement for palliative chemotherapy. The risks of bleeding, infection, pneumothorax, and other unforeseen complications related to placement of a Port-A-Cath device were reviewed with him in detail. He understands and wished to proceed. The patient prefers to have a right-sided port as he is left handed. FINDINGS: Access to the right internal jugular vein was without difficulties. Dark nonpulsatile blood was noted. Catheter was placed without complication. The tip of it in the atrial caval junction. Good function of the catheter was noted at the conclusion of the procedure. Fluoroscopy confirmed that there was no kink or other abnormality associated with the curvature of the catheter itself. DESCRIPTION OF PROCEDURE: The patient was brought to the operating room and placed in the supine position, mild Electronically Signed By: MICHELLE LEO MD 07/15/19 6469 PATIENT NAME: SONIA VIVAS OPERATIVE REPORT DATE OF : 74 REPORT #: [id number] PHYSICIAN: MICHELLE LEO MD PCP: YADIRA RAYMUNDO MD REPORT IS CONFIDENTIAL AND NOT TO BE RELEASED WITHOUT AUTHORIZATION [facility] [address] [place], [place] [address] Signed Trendelenburg position, head turned to the left. He was given intravenous sedation by the staple shear operator and arms placed at the side. The upper torso and neck were clipped and prepared with chlorhexidine solution and draped sterilely. He received preoperative antibiotic Ancef. Sequential compression device stockings used as was heparin subcutaneously administered. 0.25% Marcaine with epinephrine was injected inferior to the crossing vein in the region of the right sternocleidomastoid muscle. Using the Seldinger technique, a single pass access to the right internal jugular vein was noted. Dark nonpulsatile blood was noted. A flexible J-wire was passed down the needle. Due to one of the fluoroscopes in the department being dysfunctional, delay occurred before availability of the fluoroscope, but once available, examination of the neck with surgeon-directed fluoroscopy showed the wire to be in the right heart system. A transverse incision had been made in the right pectoral area after injection of anesthetic and a pocket created with blunt electrocautery dissection. A port device had been partially secured to the fascia at that time. Incision was made in the right neck at the site of the wire egressing from the neck with an #11 blade. The site was dilated, and the dilator and peel-away sheath introducer passed over the wire. The wire and the dilator were removed showing vigorous retrograde nonpulsatile dark bleeding. A previously inspected Groshong type catheter with a Bard port system was passed down the sheath introducer and the peel-away introducer removed showing symmetric remnants of the sheath. The catheter was stabilized upon removal of the sheath. Fluoroscopy was once again undertaken at this time with the patient in neutral position and the tip of the catheter withdrawn to appropriate position in the atrial caval junction. Aspiration and flushing of the catheter showed it to be highly functional. A tunneling device was used to pass the catheter from the neck over the clavicle to the pocket of the right pectoral area. The catheter was trimmed to the appropriate length attached to the port device and secured with the collar device per manufacture's instructions. The port was secured to the fascia more fully with 2-0 Vicryl suture. Access to the port with an angled Hutson needle allowed for aspiration showing easy withdrawal of blood and easy infusion of heparinized saline. Fluoroscopy was once again used to confirm the configuration of the catheter showing no sign of kinking or impediment and the tip of the catheter noted to be at the atrial caval junction. The pocket was then closed with interrupted 2-0 Vicryl and a running subcuticular 3-0 Vicryl for the skin. Steri-Strips were applied. Access percutaneously was undertaken showing continued optimal function of the catheter. Steri-Strips were applied as well as a Mepilex silver sponge dressing and an OpSite. The patient was Electronically Signed By: MICHELLE LEO MD 07/15/19 1719 PATIENT NAME: SONIA VIVAS Minna OPERATIVE REPORT DATE OF : 74 REPORT #: [id number] PHYSICIAN: MICHELLE LEO MD PCP: YADIRA RAYMUNDO MD REPORT IS CONFIDENTIAL AND NOT TO BE RELEASED WITHOUT AUTHORIZATION [facility] [address] [place] [address] Signed returned to the recovery room in good condition having suffered no complication. Blood loss was minimal. MD HANNA Geller/DEXTER /[id number] cc: MD Sundeep Tenorio MD Copies: YADIRA RAYMUNDO MD, ROBERT C MD ~ Electronically Signed By: MICHELLE LEO MD 07/15/19 1719 PATIENT NAME: SONIA VIVAS OPERATIVE REPORT DATE OF : 74 REPORT #: [id number] PHYSICIAN: MICHELLE LEO MD PCP: YADIRA RAYMUNDO MD REPORT IS CONFIDENTIAL AND NOT TO BE RELEASED WITHOUT AUTHORIZATION
== END 2019-07-14 09:30 | disposition home or self-care (01) ==
LOC: DS 05:35
PROVIDERS: Surgery
PROC: 05HM33Z Insertion of Infusion Device into Right Internal Jugular Vein, Percutaneous Approach (ICD-10-PCS; 2019-07-14)
PROC: B513YZA Fluoroscopy of Right Jugular Veins using Other Contrast, Guidance (ICD-10-PCS; 2019-07-14)
PROC: 0JH60WZ Insertion of Totally Implantable Vascular Access Device into Chest Subcutaneous Tissue and Fascia, Open Approach (ICD-10-PCS; principal; 2019-07-14 06:45)
DX: C18.9 Malignant neoplasm of colon, unspecified (principal); D63.0 Anemia in neoplastic disease; C78.7 Secondary malignant neoplasm of liver and intrahepatic bile duct; K21.9 Gastro-esophageal reflux disease without esophagitis; G47.33 Obstructive sleep apnea (adult) (pediatric); I11.9 Hypertensive heart disease without heart failure; I25.2 Old myocardial infarction; F43.10 Post-traumatic stress disorder, unspecified; Z95.5 Presence of coronary angioplasty implant and graft; Z88.8 Allergy status to other drugs, medicaments and biological substances; Z79.899 Other long term (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; Z79.51 Long term (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 of inhaled steroids; Z79.84 Long term (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
CPT/HCPCS: 00532; 71045; 77001; C1788; J0690; J1644; J2704; J7120

== ENCOUNTER 2019-07-24 02:42 | Emergency (ER) | payer OTHER ==
[~2019-07-24] VITALS: Ht 193 cm; Wt 74.8 kg
[~2019-07-24 02:42] MED LIST changes: +LORAZEPAM1 MG PO; +ONDANSETRON HCL8 MG PO; +TYLENOL325 MG PO
--- OUTSIDE RECORDS SUMMARY | 2019-07-24 02:44 | XMS ---
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 Care History Medical/Surgical 06/20/2019 [facility] - PATIENT STATED HE HAS SOMEONE COMING FROM [facility] TO COME AND EVALUATE HIS HOME FOR SAFETY/FALL RISK THIS WEEK. - PATIENT DECLINED ANY FURTHER SERVICES/RESOURCES AT THIS TIME-STATED HE IS WORKING WITH THE [facility]. 05/30/2019 [facility] - PATIENT HAS A PCP- DR RAYMUNDO THROUGH THE [facility]. E.DSara VISIT COUNT (12 MO.) 6 [facility]. TOTAL 6 NOTE: Visits indicate total known visits. ED/UCC VISIT TRACKING (12 MO.) 07/24/2019 02:43 [facility] [place] TYPE: Emergency COMPLAINT: - NECK PAIN/PORT ISSUE 06/16/2019 07:47 [facility] [place] TYPE: Emergency COMPLAINT: - HEAD PAIN/FALL DIAGNOSES: - Acquired absence of other organs - Contusion of unspecified part of head, initial encounter - Abrasion of unspecified back wall of thorax, initial encounter - Allergy status to narcotic agent status - Unspecified injury of head, initial encounter - Personal history of nicotine dependence - Abrasion, left lower leg, initial encounter - [facility] (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 - Fall on same level from slipping, tripping and stumbling without subsequent striking against object, initial encounter - Type 2 diabetes mellitus with diabetic neuropathy, unspecified - Allergy status to other drugs, medicaments and biological substances status - Personal history of other malignant neoplasm of large intestine - Other care home (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 05/28/2019 06:21 [facility] [place] TYPE: Emergency COMPLAINT: - VOMITING/DIARRHEA/HEADACHE DIAGNOSES: - Allergy status to other drugs, medicaments and biological substances status - Allergy status to narcotic agent status - Generalized abdominal pain - Secondary malignant neoplasm of large intestine and rectum - Other termite helper (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 - Type 2 diabetes mellitus without complications - Dehydration - [facility] (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 of aspirin - Personal history of nicotine dependence - Nausea with vomiting, unspecified 05/23/2019 16:22 [facility] [place] TYPE: Emergency COMPLAINT: - ANEMIA 03/31/2019 08:43 [facility] [place] TYPE: Emergency COMPLAINT: - VOMITING DIAGNOSES: - Unspecified abdominal pain - Allergy status to other drugs, medicaments and biological substances status - Presence of coronary angioplasty implant and graft - Type 2 diabetes mellitus without complications - superintendent terminal (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 - Other care home (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 - Allergy status to narcotic agent status - Cyclical vomiting, not intractable 02/28/2019 15:13 [facility] [place] TYPE: Emergency COMPLAINT: - VOMITING DIAGNOSES: - Allergy status to other drugs, medicaments and biological substances status - Nausea with vomiting, unspecified - Acute gastritis without bleeding - Type 2 diabetes mellitus with diabetic neuropathy, unspecified - Personal history of nicotine dependence - Other termite helper (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 - Post-traumatic stress disorder, unspecified - Anemia, unspecified INPATIENT VISIT TRACKING (12 MO.) 06/01/2019 12:13 [facility] [place] TYPE: Medical Surgical COMPLAINT: - DEHYDRATION, NEW OBSTRUCTION CANCER DIAGNOSES: - Malignant neoplasm of cecum - Major depressive disorder, single episode, unspecified - Personal history of nicotine dependence - Opioid dependence, in remission - Anemia in neoplastic disease - Dehydration - Gastro-esophageal reflux disease without esophagitis - Cachexia - Other acute postprocedural pain - Opioid dependence, in remission - Anemia in neoplastic disease - Major depressive disorder, single episode, unspecified - Gastro-esophageal reflux disease without esophagitis - Post-traumatic stress disorder, unspecified - Dehydration - Iron deficiency anemia secondary to blood loss (chronic) - Prediabetes - Other acute postprocedural pain - 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uct - Post-traumatic stress disorder, unspecified - superintendent terminal (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 of inhaled steroids - Iron deficiency anemia secondary to blood loss (chronic) - Allergy status to other drugs, medicaments and biological substances status - Hyperlipidemia, unspecified - Other termite helper (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 - Body mass index (BMI) 20.0-20.9, adult - Essential (primary) hypertension - Allergy status to narcotic agent status - Allergy status to narcotic agent status - Other seasonal allergic rhinitis - superintendent terminal (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 of inhaled steroids - 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uct - Prediabetes - Other seasonal allergic rhinitis - Essential (primary) hypertension - Personal history of nicotine dependence - Cachexia - Allergy status to other drugs, medicaments and biological substances status - Other termite helper (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 - Hyperlipidemia, unspecified - Obstructive sleep apnea (adult) (pediatric) - Obstructive sleep apnea (adult) (pediatric) - Body mass index (BMI) 20.0-20.9, adult 05/23/2019 16:[address] [facility] [place] TYPE: Observation COMPLAINT: - ANEMIA DIAGNOSES: - [facility] (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 of aspirin - Gastritis, unspecified, without bleeding - Presence of coronary angioplasty implant and graft - Polyp of colon - Duodenitis without bleeding - Personal history of (corrected) congenital malformations of heart and circulatory system - Hyperlipidemia, unspecified - Essential (primary) hypertension - Iron deficiency anemia, unspecified - superintendent terminal (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 - Diaphragmatic hernia without obstruction or gangrene - Anemia, unspecified - Post-traumatic stress disorder, unspecified - Malignant neoplasm of cecum - Allergy status to other drugs, medicaments and biological substances status - Other termite helper (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 - Type 2 diabetes mellitus with diabetic polyneuropathy - Anemia in neoplastic disease - Secondary malignant neoplasm of unspecified site [email or web address]
== END 2019-07-24 05:41 | disposition home or self-care (01) ==
LOC: ED 02:42
DX: I10 Essential (primary) hypertension (principal); C18.9 Malignant neoplasm of colon, unspecified; E11.40 Type 2 diabetes mellitus with diabetic neuropathy, unspecified; F43.10 Post-traumatic stress disorder, unspecified; D64.9 Anemia, unspecified; Z87.891 Personal history of nicotine dependence; Z88.8 Allergy status to other drugs, medicaments and biological substances; Z88.5 Allergy status to narcotic agent; Z79.899 Other long term (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; Z79.84 Long term (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
CPT/HCPCS: 70450; 80053; 85025; 85610; 85730; 96374; 96375; 99284-25; J1200; J2765

== ENCOUNTER 2019-07-26 10:52 | Emergency (ER) | payer OTHER ==
[~2019-07-26] VITALS: Ht 193 cm; Wt 67.1 kg
--- OUTSIDE RECORDS SUMMARY | 2019-07-26 10:56 | XMS ---
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 05/30/2019-Current PHONE: Unknown Jamal has no Care Guidelines for this patient. Care History Medical/Surgical 06/20/2019 [facility] - PATIENT STATED HE HAS SOMEONE COMING FROM THE [place] TO COME AND EVALUATE HIS HOME FOR SAFETY/FALL RISK THIS WEEK. - PATIENT DECLINED ANY FURTHER SERVICES/RESOURCES AT THIS TIME-STATED HE IS WORKING WITH THE [facility] AND [facility]. 05/30/2019 [facility] - PATIENT HAS A PCP- DR RAYMUNDO THROUGH THE [facility]. E.DSara VISIT COUNT (12 MO.) 7 [facility]. TOTAL 7 NOTE: Visits indicate total known visits. ED/UCC VISIT TRACKING (12 MO.) 07/26/2019 10:53 [facility] [place] TYPE: Emergency COMPLAINT: - VOMITTING, NAUSEA 07/24/2019 02:43 [facility] [place] TYPE: Emergency [...] malignant neoplasm of large intestine - Other longwall headgate operator (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 05/28/2019 06:21 [facility] [place] TYPE: Emergency COMPLAINT: - VOMITING/DIARRHEA/HEADACHE DIAGNOSES: - Allergy status to other drugs, medicaments and biological substances status - Allergy status to narcotic agent status - Generalized abdominal pain - Secondary malignant neoplasm of large intestine and rectum - Other nursing home (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 - Type 2 diabetes [...] Type 2 diabetes mellitus without complications - [facility] (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 - Other longwall headgate operator (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 - Allergy status to [...] Personal history of nicotine dependence - Other nursing home (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 - Post-traumatic stress disorder, [...] duct - Post-traumatic stress disorder, unspecified - [facility] (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 of inhaled steroids - Iron deficiency anemia secondary to blood loss (chronic) - Allergy status to other drugs, medicaments and biological substances status - Hyperlipidemia, unspecified - Other longwall headgate operator (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 - Body mass index (BMI) 20.0-20.9, adult - Essential (primary) hypertension - Allergy status to narcotic agent status - Allergy status to narcotic agent status - Other seasonal allergic rhinitis - [facility] (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 of inhaled steroids - 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uct - Prediabetes - Other seasonal allergic rhinitis - Essential (primary) hypertension - Personal history of nicotine dependence - Cachexia - Allergy status to other drugs, medicaments and biological substances status - Other nursing home (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 - Hyperlipidemia, unspecified - Obstructive sleep apnea (adult) (pediatric) - Obstructive sleep apnea (adult) (pediatric) - Body mass index (BMI) 20.0-20.9, adult 05/23/2019 16:23 [facility] [place] TYPE: Observation COMPLAINT: - ANEMIA DIAGNOSES: - sleep lab technologist (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 of aspirin - Gastritis, unspecified, without bleeding - Presence of coronary angioplasty implant and graft - Polyp of colon - Duodenitis without bleeding - Personal history of (corrected) congenital malformations of heart and circulatory system - Hyperlipidemia, unspecified - Essential (primary) hypertension - Iron deficiency anemia, unspecified - sleep lab technologist (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 - Diaphragmatic hernia without obstruction or gangrene - Anemia, unspecified - Post-traumatic stress disorder, unspecified - Malignant neoplasm of cecum - Allergy status to other drugs, medicaments and biological substances status - Other longwall headgate operator (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 - Type 2 diabetes mellitus with diabetic polyneuropathy - Anemia in neoplastic disease - Secondary malignant neoplasm of unspecified site [email or web address]
[2019-07-26] MEDS ORDERED: PHENERGAN12.5 MG PR (15:05)
[2019-07-26] MEDS ORDERED: PROMETHAZINE12.5 M1 PO (15:05)
== END 2019-07-26 15:18 | disposition home or self-care (01) ==
LOC: ED 10:52
DX: G43.909 Migraine, unspecified, not intractable, without status migrainosus (principal); E87.6 Hypokalemia; E83.42 Hypomagnesemia; C18.9 Malignant neoplasm of colon, unspecified; C78.7 Secondary malignant neoplasm of liver and intrahepatic bile duct; E11.40 Type 2 diabetes mellitus with diabetic neuropathy, unspecified; Z95.5 Presence of coronary angioplasty implant and graft; Z87.891 Personal history of nicotine dependence; Z88.5 Allergy status to narcotic agent; Z88.8 Allergy status to other drugs, medicaments and biological substances; Z79.84 Long term (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; Z79.899 Other long term (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
CPT/HCPCS: 80053; 81001; 83690; 83735; 85025; 96361; 96365; 96375; 99284-25; J1200; J1885; J2405; J2550; J2765; J3475; J3480; J7030; J7120

== ENCOUNTER 2019-08-25 12:38 | Emergency (ER) | payer OTHER ==
[~2019-08-25] VITALS: Ht 193 cm; Wt 77.1 kg
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
--- OUTSIDE RECORDS SUMMARY | ~2019-08-25 | XMS | Clinical Summary ---
Demographics + + + | Address | [address] | | | [place] [address] | + + + | Home Phone | | + + + | Preferred Language | Unknown | + + + | Marital Status | | + + + | Quaker Affiliation | Unknown | + + + | Race | Unknown | + + + | Ethnic Group | Unknown | + + + Author + + + | Author | [facility] | | | and Dieterana | + + + | Organization | [facility] | | | and [place]eterana [...] Team Providers + +------+ + | Care Mess Attendant Crew Name | Role | Phone | + [...] +--------+-------+---------+--------+ | [employer] [place] | [id number] | | | | Indemn | | | CHOICE | | 018-Pr | | | ity | | | PC3 | | esent | | | | + +--------+ +--------+-------+---------+--------+ | [employer] [place] | [id number] | | | | Indemn | | [...] | 1970 | [phone] | [place] [address] | | | paul | | | 1 (Home) | | + +--------+ +--------+ + + | Oh Moreno | Person | Self | [birth year] | [address] | | | al/Fam | | 1970 | [phone] | [place] [address] | | | paul | | | 1 (Home) | | + +--------+ +--------+ + + Advance Directives Patient has advance care planning documents on file. For more information, please contact:[facility] [place] [address]
[~2019-08-25 12:38] MED LIST changes: +MARIJUANA; +PHENERGAN12.5 MG PR; +PROMETHAZINE12.5 M1 PO
--- OUTSIDE RECORDS SUMMARY | 2019-08-25 12:42 | XMS ---
PreManage Notification: SONIA VIVAS Security [employer] Events No recent Security Events currently on file CRITERIA MET - 6 ED Visits in 6 Months - [facility] - Has Care Guidelines - [facility] - 2 Visits in 30 Days CARE PROVIDERS YADIRA RAYMUNDO [facility] 05/30/2019-Current PHONE: Unknown Jamal has no Care Guidelines for this patient. Care History Medical/Surgical 06/20/2019 [facility] - PATIENT ST[place]ALUATE HIS HOME FOR SAFETY/FALL RISK THIS WEEK. - PATIENT DECLINED ANY FURTHER SERVICES/RESOURCES AT THIS TIME-STATED [place] [facility]. 05/30/2019 [facility] - PATIENT HAS A PCP- [place]UN[place]OUGH THE [place] E.DSara VISIT COUNT (12 MO.) 8 [facility]. TOTAL 8 NOTE: Visits indicate total known visits. ED/UCC VISIT TRACKING (12 MO.) 08/25/2019 12:39 [facility] [place] TYPE: Emergency COMPLAINT: - VOMITING 07/26/2019 10:53 [facility] [place] TYPE: Emergency COMPLAINT: - VOMITING, NAUSEA DIAGNOSES: - Hypomagnesemia - Allergy status to other drugs, medicaments and biological substances status - Presence of coronary angioplasty implant and graft - Hypokalemia - Allergy status to narcotic agent status - 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uct - Malignant neoplasm of colon, unspecified - Personal history of nicotine dependence - Type 2 diabetes mellitus with diabetic neuropathy, unspecified - penitentiary (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 - Vomiting, unspecified - Other assisted (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 - Migraine, unspecified, not intractable, without status migrainosus 07/24/2019 02:43 [facility] [place] TYPE: Emergency COMPLAINT: - NECK PAIN/PORT ISSUE DIAGNOSES: - Essential (primary) hypertension - Personal history of nicotine dependence - Cervicalgia - Malignant neoplasm of colon, unspecified - Type 2 diabetes mellitus with diabetic neuropathy, unspecified - Anemia, unspecified - Allergy status to narcotic agent status - penitentiary (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 - Post-traumatic stress disorder, unspecified - Other supervisor intermediates (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 - Allergy status to other drugs, medicaments and biological substances status 06/16/2019 07:47 [facility] [place] TYPE: Emergency [...] Abrasion, left lower leg, initial encounter - buttermaker helper (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 - Fall on same level from slipping, tripping and stumbling without subsequent striking against object, initial encounter - Type 2 diabetes mellitus with diabetic neuropathy, unspecified - Allergy status to other drugs, medicaments and biological substances status - Personal history of other malignant neoplasm of large intestine - Other supervisor intermediates (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 05/28/2019 06:21 [facility] [place] TYPE: Emergency COMPLAINT: - VOMITING/DIARRHEA/HEADACHE DIAGNOSES: - Allergy status to other drugs, medicaments and biological substances status - Allergy status to narcotic agent status - Generalized abdominal pain - Secondary malignant neoplasm of large intestine and rectum - Other supervisor intermediates (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 - Type 2 diabetes mellitus without complications - Dehydration - penitentiary (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 of aspirin - Personal history [...] Type 2 diabetes mellitus without complications - buttermaker helper (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 - Other assisted (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 - Allergy status to [...] Personal history of nicotine dependence - Other assisted (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 - Post-traumatic stress disorder, [...] duct - Post-traumatic stress disorder, unspecified - penitentiary (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 of inhaled steroids - Iron deficiency anemia secondary to blood loss (chronic) - Allergy status to other drugs, medicaments and biological substances status - Hyperlipidemia, unspecified - Other supervisor intermediates (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 - Body mass index (BMI) 20.0-20.9, adult - Essential (primary) hypertension - Allergy status to narcotic agent status - Allergy status to narcotic agent status - Other seasonal allergic rhinitis - penitentiary (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 of inhaled steroids - 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uct - Prediabetes - Other seasonal allergic rhinitis - Essential (primary) hypertension - Personal history of nicotine dependence - Cachexia - Allergy status to other drugs, medicaments and biological substances status - Other supervisor intermediates (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 - Hyperlipidemia, unspecified - Obstructive sleep apnea (adult) (pediatric) - Obstructive sleep apnea (adult) (pediatric) - Body mass index (BMI) 20.0-20.9, adult 05/23/2019 16:[address] [facility] [place] TYPE: Observation COMPLAINT: - ANEMIA DIAGNOSES: - penitentiary (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 of aspirin - Gastritis, unspecified, without bleeding - Presence of coronary angioplasty implant and graft - Polyp of colon - Duodenitis without bleeding - Personal history of (corrected) congenital malformations of heart and circulatory system - Hyperlipidemia, unspecified - Essential (primary) hypertension - Iron deficiency anemia, unspecified - buttermaker helper (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 - Diaphragmatic hernia without obstruction or gangrene - Anemia, unspecified - Post-traumatic stress disorder, unspecified - Malignant neoplasm of cecum - Allergy status to other drugs, medicaments and biological substances status - Other assisted (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 - Type 2 diabetes mellitus with diabetic polyneuropathy - Anemia in neoplastic disease - Secondary malignant neoplasm of unspecified site [email or web address]
[2019-08-25] MEDS ORDERED: NORCO 5-325 TA1 EACH PO (13:24)
== END 2019-08-25 18:24 | disposition home or self-care (01) ==
LOC: ED 12:38
DX: R11.2 Nausea with vomiting, unspecified (principal); T45.1X5A Adverse effect of antineoplastic and immunosuppressive drugs, initial encounter; E11.40 Type 2 diabetes mellitus with diabetic neuropathy, unspecified; F43.10 Post-traumatic stress disorder, unspecified; D64.9 Anemia, unspecified; Z87.891 Personal history of nicotine dependence; Z79.899 Other long term (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; Z88.5 Allergy status to narcotic agent; Z88.8 Allergy status to other drugs, medicaments and biological substances; Z79.84 Long term (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
CPT/HCPCS: 80053; 96361; 96374; 96375; 99284-25; J2550; J2765; J7030

== ENCOUNTER 2019-09-19 11:52 | Emergency (ER) | payer OTHER ==
[~2019-09-19] VITALS: Ht 193 cm; Wt 77.1 kg
--- OUTSIDE RECORDS SUMMARY | ~2019-09-19 | XMS | Encounter Summary ---
Demographics + + + | Address | [address] | | | [place] [address] | + + + | Home Phone | | + + + | Preferred Language | Unknown | + + + | Marital Status | | + + + | Hindu Affiliation | Unknown | + + + | Race | Unknown | + + + | Ethnic Group | Unknown | + + + Author + + + | Author | [facility] | | | and Dieterana | + + + | Organization | [facility] | | | and [...] Team Providers + +------+ + | Care Evaluator Name | Role | Phone | + [...] + + | 09/05/ | Telephone | [facility] | Tamika, | Patient Concerns | | 2019 | | [facility] CTR MED[facility] | Sundeep Ramirez MD [address] | | | | [facility] [address] | [address] [place] | | | | | [address] [place] | [place] [address] | | | | | [place] [address] | [phone] | | | | | [phone] | | | +--------+ + + + [...]
--- OUTSIDE RECORDS SUMMARY | ~2019-09-19 | XMS | Encounter Summary ---
Demographics + + + | Address | [address] | | | [place] [address] | + + + | Home Phone [...] | Author | [facility] | | | and Dieterana | + + + | Organization | [facility] | | | and Dieterana [...] Team Providers + +------+ + | Care Manufacturing Inspector Name | Role | Phone | + [...] + + | 08/29/ | Emergency | [facility] | [place], | Cellulitis of right | | 2019 | | MED CTR EMERGENCY | Sundeep Keller MD [address] | foot (Primary Dx); | | | | CENTER [address] | [address] [place] | Ulcer of right foot, | | | | [place], [place] | [place] [address] | unspecified ulcer | | | | [address] | [phone] | stage ([facility]); | | | | [phone] | | Peripheral sensory | | | [...] O?MRN: | | | | | | [id number] | | | [id number] | | | riteri | | | [...] | | | St. | | | [place] | | | y | | | [...] | | | St. | | | [place] | | | y | | | [...] | | | St. | | | [place] | | | y | | | [...] | | | St. | | | [place] | | | y | | | [...] | | | St. | | | [place] | | | y H. | | [...] | | | St. | | | [place] | | | y H. | | [...] | | | St. | | | [place] | | | y H. | | [...] | | | St. | | | [place] | | | y H. | | [...] | | | St. | | | [place] | | | y H. | | [...] | | | St. | | | [place] | | | y H. | | | [place] | | | [place] | | | Emerge | | | ncy | | | Chief | | | Compla | | | int: | | | ANEMIA | | | May | | | 9, | | | 2019 | | | [facility] | | | [place] | | | y H. | | [...] | | | St. | | | [place] | | | y H. | | [...] | | | St. | | | [place] | | | y H. | | [...] | | | St. | | | [place] | | | y H. | | [...] | | | [id number] | | | [id number] | | | 7c | | | [...] ST. | [address] | [place], [place] | [phone] | | [facility] | | [address] | | | - LABORATORY | | [...] [address] | [place] | [phone] | | [facility] | | [address] | | | - LABORATORY | | [...] [address] | [place] | [phone] | | [facility] | | [address] | | | - LABORATORY | | [...] + | [facility] | [address] | [place] | [phone] | | [facility] | | [address] | | | - LABORATORY | | [...] + | [facility] | [address] | [place], [place] | [phone] | | [facility] | | [address] | | | - LABORATORY | | [...] + | [facility] | [address] | [place] | [phone] | | [facility] | | [address] | | | - LABORATORY | | [...]
--- OUTSIDE RECORDS SUMMARY | ~2019-09-19 | XMS | Encounter Summary ---
Demographics + + + | Address | [address] | | | [place] [address] | + + + | Home Phone [...] Author | [facility] | | | and Dieterana | + + + | Organization | [facility] | | | and [...] Team Providers + +------+ + | Care Report Manager Name | Role | Phone | [...] + | 09/05/ | Telephone | [facility] | Tamika, | Patient Concerns | | 2019 | | MED CTR MEDICAL | Sundeep Ramirez MD [address] | | | | | [facility]Y CLIN[facility] [address] | [address] | | | | | [place] | [place] [address] | | | | | [place] [address] | [phone] | | | | | [phone] | | | +--------+ + + + [...]
--- OUTSIDE RECORDS SUMMARY | ~2019-09-19 | XMS | Encounter Summary ---
Demographics + + + | Address | [address] | | | [place] [address] | + + + | Home Phone | | + + + | Preferred Language | Unknown | + + + | Marital Status | | + + + | Jehovah'S Witness Affiliation | Unknown | + + + | Race | Unknown | + + + | Ethnic Group | Unknown | + + + Author + + + | Author | [facility] | | | and Dieterana | + + + | Organization | [facility] | | | and Dieterana [...] Team Providers + +------+ + | Care Qa Intern Name | Role | Phone | [...] | 08/29/ | Emergency | [facility] | [place], | Cellulitis of right | | 2019 | | MED CTR EMERGENCY | Sundeep Keller MD [address] | foot (Primary Dx); | | | | CENTER [address] | [address] [place] | Ulcer of right foot, | | | | [place], [place] | [place] [address] | unspecified ulcer | | | | [address] | [phone] | stage ([facility]); | | | | [phone] | | Peripheral sensory | | | | | | neuropathy due to | | | | | | type 2 diabetes | | | | | | mellitus ([facility]) | +--------+ + + + + Social [...] O?MRN: | | | | | | [id number] | | | [id number] | | | riteri | | | [...] | | | St. | | | [place] | | | y | | | [...] | | | St. | | | [place] | | | y | | | [...] | | | St. | | | [place] | | | y | | | [...] | | | St. | | | [place] | | | y | | | [...] | | | St. | | | [place] | | | y H. | | [...] | | | St. | | | [place] | | | y H. | | [...] | | | St. | | | [place] | | | y H. | | [...] | | | St. | | | [place] | | | y H. | | [...] | | | St. | | | [place] | | | y H. | | [...] | | | St. | | | [place] | | | y H. | | | [place] | | | [place] | | | Emerge | | | ncy | | | Chief | | | Compla | | | int: | | | ANEMIA | | | May | | | 9, | | | 2019 | | | [facility] | | | [facility] | | | [place] | | | y H. | | [...] | | | St. | | | [place] | | | y H. | | [...] | | | St. | | | [place] | | | y H. | | [...] | | | St. | | | [place] | | | y H. | | [...] | | | [id number] | | | [id number] | | | 7c | | | [...] ST. | [address] | [place], [place] | [phone] | | [facility] | | [address] | | | - LABORATORY | | [...] [address] | [place] | [phone] | | [facility] | | [address] | | | - LABORATORY | | [...] [address] | [place] | [phone] | | [facility] | | [address] | | | - LABORATORY | | [...] + | [facility] | [address] | [place] | [phone] | | [facility] | | [address] | | | - LABORATORY | | [...] + | [facility] | [address] | [place], [place] | [phone] | | [facility] | | [address] | | | - LABORATORY | | [...] + | [facility] | [address] | [place] | [phone] | | [facility] | | [address] | | | - LABORATORY | | [...]
--- OUTSIDE RECORDS SUMMARY | ~2019-09-19 | XMS | Clinical Summary ---
Demographics + + + | Address | [address] | | | [place] [address] | + + + | Home Phone [...] Author | [facility] | | | and Dieterana | + + + | Organization | [facility] | | | and Dieterana [...] Team Providers + +------+ + | Care Rose Grader Name | Role | Phone | + [...] | | | | | | stage ([facility]); | | | | | | Peripheral [...] + | Blood Pressure | 179/106 | 08/29/20196 PDT | + + + + | Pulse | 100 | 08/29/20196 PDT | + + + [...] O?MRN: | | | | | | [id number] | | | [id number] | | | riteri | | | [...] | | | St. | | | [place] | | | y | | | [...] | | | St. | | | [place] | | | y | | | [...] | | | St. | | | [place] | | | y | | | [...] | | | St. | | | [place] | | | y | | | [...] | | | St. | | | [place] | | | y H. | | [...] | | | St. | | | [place] | | | y H. | | [...] | | | St. | | | [place] | | | y H. | | [...] | | | St. | | | [place] | | | y H. | | [...] | | | St. | | | [place] | | | y H. | | [...] | | | St. | | | [place] | | | y H. | | | [place] | | | [place] | | | Emerge | | | ncy | | | Chief | | | Compla | | | int: | | | ANEMIA | | | May | | | 9, | | | 2019 | | | [facility] | | | [facility] | | | [place] | | | y H. | | [...] | | | St. | | | [place] | | | y H. | | [...] | | | St. | | | [place] | | | y H. | | [...] | | | St. | | | [place] | | | y H. | | [...] | | | [id number] | | | [id number] | | | 7c | | | [...] + | [facility] | [address] | [place] | [phone] | | [facility] | | [address] | | | - LABORATORY | | [...] [address] | [place] | [phone] | | [facility] | | [address] | | | - LABORATORY | | [...] + | [facility] | [address] | [place] | [phone] | | [facility] | | [address] | | | - LABORATORY | | | | + + + + + CBC with Differential (08/29/2019 12:20 PDT) + + + + + + | Component | Value | Ref Range | Performed | Pathologist | | | | | At | Signature | + + + + + + | WBC | 4.7 | 4.0 - 11.0 K/uL | [facility] | | | | | | [facility] [...] [address] | [place] | [phone] | | [facility] | | [address] | | | - LABORATORY | | [...] +--------+-------+---------+--------+ | [facility] | [place] | [id number] | | | | Indemn | | | CHOICE | | 018-Pr | | | ity | | | PC3 | | esent | | | | + +--------+ +--------+-------+---------+--------+ | [facility] | [place] | [id number] | | | | Indemn | | | CHOICE | | 019-Pr | | | ity | | | PC3 | | esent | | | | + +--------+ +--------+-------+---------+--------+ | [employer] | [facility] | [id number] | | | | Indemn | | [...] | 1970 | [phone] | [place] [address] | | | paul | | | 1 (Home) | | + +--------+ +--------+ + + | Oh Moreno | Person | Self | [birth year] | [address] | | | al/Fam | | 1970 | [phone] | [place] [address] | | | paul | | | 1 (Home) | | + +--------+ +--------+ + + Advance Directives Patient has advance care planning documents on file. For more information, please contact:[facility] [place] [address]
--- OUTSIDE RECORDS SUMMARY | ~2019-09-19 | XMS | Clinical Summary ---
Demographics + + + | Address | [address] | | | [place] [address] | + + + | Home Phone [...] Author | [facility] | | | and Dieterana | + + + | Organization | [facility] | | | and [...] Team Providers + +------+ + | Care Video Games Mechanic Name | Role | Phone | + +------+ + | Iemr Woodard MD | PCP | | + [...] | | | | | | stage ([facility]); | | | | | | Peripheral [...] O?MRN: | | | | | | [id number] | | | [id number] | | | riteri | | | [...] | | | St. | | | [place] | | | y | | [...] | | | St. | | | [place] | | | y | | [...] | | | St. | | | [place] | | | y | | [...] | | | St. | | | [place] | | | y | | [...] | | | St. | | | [place] | | | y H. | [...] | | | St. | | | [place] | | | y H. | [...] | | | St. | | | [place] | | | y H. | [...] | | | St. | | | [place] | | | y H. | [...] | | | St. | | | [place] | | | y H. | [...] | | | St. | | | [place] | | | y H. | | | [place] | | | [place] | | | Emerge | | | ncy | | | Chief | | | Compla | | | int: | | | ANEMIA | | | May | | | 9, | | | 2019 | | | [facility] | | | St[facility] | | | [place] | | | y H. | [...] | | | St. | | | [place] | | | y H. | [...] | | | St. | | | [place] | | | y H. | [...] | | | St. | | | [place] | | | y H. | [...] | | | [id number] | | | [id number] | | | 7c | | | [...] + | [facility] | [address] | [place] | [phone] | | [facility] | | [address] | | | - LABORATORY | | [...] [address] | [place] | [phone] | | [facility] | | [address] | | | - LABORATORY | | [...] + | [facility] | [address] | [place] | [phone] | | [facility] | | [address] | | | - LABORATORY | | [...] | nRBC | | K/uL | ST. [facility] | [...] [address] | [place] | [phone] | | [facility] | | [address] | | | - LABORATORY | | [...] +--------+-------+---------+--------+ | [facility] | [place] | [id number] | | | | Indemn | | | CHOICE | | 018-Pr | | | ity | | | PC3 | | esent | | | | + +--------+ +--------+-------+---------+--------+ | [facility] | [place] | [id number] | | | | Indemn | | | CHOICE | | 019-Pr | | | ity | | | PC3 | | esent | | | | + +--------+ +--------+-------+---------+--------+ | [employer] | [facility] | [id number] | | | | Indemn | | [...] | 1970 | [phone] | [place] [address] | | | paul | | | 1 (Home) | | + +--------+ +--------+ + + | Oh Moreno | Person | Self | [birth year] | [address] | | | al/Fam | | 1970 | [phone] | [place] [address] | | | paul | | | 1 (Home) | | + +--------+ +--------+ + + Advance Directives Patient has advance care planning documents on file. For more information, please contact:[facility] [place] [address]
--- OUTSIDE RECORDS SUMMARY | 2019-09-19 11:56 | XMS ---
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 Care History Medical/Surgical 08/29/2019 [facility] - PATIENT NOW HAS DR MARII LION PATIENT PCP AT [facility]. - PATIENT DOES HAVE IN HOME CARE SERVICES THROUGH THE CT- RN HOME VISITS ALONG WITH PROVIDER IN HOME VISITS. 06/20/2019 [facility] - PATIENT STATED HE HAS SOMEONE COMING FROM THE CT TO COME AND EVALUATE HIS HOME FOR SAFETY/FALL RISK THIS WEEK. - PATIENT DECLINED ANY FURTHER SERVICES/RESOURCES AT THIS TIME-STATED HE IS WORKING WITH THE [facility]. 05/30/2019 [facility] - PATIENT HAS A PCP- DR RAYMUNDO THROUGH THE CT. E.D. VISIT COUNT (12 MO.) 1 [facility] 9 [facility] [place] [facility]. TOTAL 10 NOTE: Visits indicate total known visits. ED/UCC VISIT TRACKING (12 MO.) 09/19/2019 11:53 STE[facility] TYPE: Emergency COMPLAINT: - FOOT WOUND 08/29/2019 10:53 [facility] Eric MARINO TYPE: Emergency DIAGNOSES: - Wound Check - Non-prs chronic ulcer oth prt right foot w unsp severity - Cellulitis of right lower limb - 1 Type 2 diabetes mellitus with diabetic polyneuropathy - wound care/rt foot - Foot Pain 08/25/2019 12:39 [facility] [place] TYPE: Emergency COMPLAINT: - VOMITING DIAGNOSES: - Personal history of nicotine dependence - Nausea with vomiting, unspecified - 1 Type 2 diabetes mellitus with diabetic neuropathy, unsp - Adverse effect of antineoplastic and immunosup drugs, init - Other extermination supervisor (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 - Post-traumatic stress disorder, unspecified - nursing home (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 - Allergy status to narcotic agent status - Allergy status to oth drug/meds/biol subst status - Anemia, unspecified 07/26/2019 10:53 [facility] [place] TYPE: Emergency COMPLAINT: - VOMITING, NAUSEA DIAGNOSES: - Hypomagnesemia - Allergy status to oth drug/meds/biol subst status - Presence of coronary angioplasty implant and graft - Hypokalemia - Allergy status to narcotic agent status - 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 - Malignant neoplasm of colon, unspecified - Personal history of nicotine dependence - 1 Type 2 diabetes mellitus with diabetic neuropathy, unsp - nursing home (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 - Vomiting, unspecified - Other skilled nursing (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 - Migraine, unsp, not intractable, without status migrainosus 07/24/2019 02:43 [facility] [place] TYPE: Emergency COMPLAINT: - NECK PAIN/PORT ISSUE DIAGNOSES: - Essential (primary) hypertension - Personal history of nicotine dependence - Cervicalgia - Malignant neoplasm of colon, unspecified - 1 Type 2 diabetes mellitus with diabetic neuropathy, unsp - Anemia, unspecified - Allergy status to narcotic agent status - nursing home (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 - Post-traumatic stress disorder, unspecified - Other extermination supervisor (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 - Allergy status to oth drug/meds/biol subst status 06/16/2019 07:47 [facility] [place] TYPE: Emergency COMPLAINT: - HEAD PAIN/FALL DIAGNOSES: - Acquired absence of other organs - Contusion of unspecified part of head, initial encounter - Abrasion of unspecified back wall of thorax, init encntr - Allergy status to narcotic agent status - Unspecified injury of head, initial encounter - Personal history of nicotine dependence - Abrasion, left lower leg, initial encounter - terminal computer operator (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 - Fall same lev from slip/trip w/o strike against object, init - 1 Type 2 diabetes mellitus with diabetic neuropathy, unsp - Allergy status to oth drug/meds/biol subst status - Personal history of malignant neoplasm of large intestine - Other skilled nursing (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 05/28/2019 06:21 [facility] [place] TYPE: Emergency COMPLAINT: - VOMITING/DIARRHEA/HEADACHE DIAGNOSES: - Allergy status to oth drug/meds/biol subst status - Allergy status to narcotic agent status - Generalized abdominal pain - Secondary malignant neoplasm of large intestine and rectum - Other skilled nursing (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 - 1 Type 2 diabetes mellitus without complications - Dehydration - terminal computer operator (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 of aspirin - Personal history of nicotine dependence - Nausea with vomiting, unspecified 05/23/2019 16:22 STE[facility] Re[facility] TYPE: Emergency COMPLAINT: - ANEMIA 03/31/2019 08:43 [facility] [place] TYPE: Emergency COMPLAINT: - VOMITING DIAGNOSES: - Unspecified abdominal pain - Allergy status to oth drug/meds/biol subst status - Presence of coronary angioplasty implant and graft - 1 Type 2 diabetes mellitus without complications - terminal computer operator (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 - Other skilled nursing (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 - Allergy status to narcotic agent status - Cyclical vomiting, in migraine, not intractable 02/28/2019 15:13 [facility] [place] TYPE: Emergency COMPLAINT: - VOMITING DIAGNOSES: - Allergy status to oth drug/meds/biol subst status - Nausea with vomiting, unspecified - Acute gastritis without bleeding - 1 Type 2 diabetes mellitus with diabetic neuropathy, unsp - Personal history of nicotine dependence - Other skilled nursing (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 - Post-traumatic stress disorder, [...] - Other acute postprocedural pain - 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 - Post-traumatic stress disorder, unspecified - terminal computer operator (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 of inhaled steroids - Iron deficiency anemia secondary to blood loss (chronic) - Allergy status to oth drug/meds/biol subst status - Hyperlipidemia, unspecified - Other extermination supervisor (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 - Body mass index (BMI) 20.0-20.9, adult - Essential (primary) hypertension - Allergy status to narcotic agent status - Allergy status to narcotic agent status - Other seasonal allergic rhinitis - terminal computer operator (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 of inhaled steroids - 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 - Prediabetes - Other seasonal allergic rhinitis - Essential (primary) hypertension - Personal history of nicotine dependence - Cachexia - Allergy status to oth drug/meds/biol subst status - Other extermination supervisor (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 - Hyperlipidemia, unspecified - Obstructive sleep apnea (adult) (pediatric) - Obstructive sleep apnea (adult) (pediatric) - Body mass index (BMI) 20.0-20.9, adult 05/23/2019 16:[address] [facility] [place] TYPE: Observation COMPLAINT: - ANEMIA DIAGNOSES: - nursing home (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 of aspirin - Gastritis, unspecified, without bleeding - Presence of coronary angioplasty implant and graft - Polyp of colon - Duodenitis without bleeding - 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 - Hyperlipidemia, unspecified - Essential (primary) hypertension - Iron deficiency anemia, unspecified - nursing home (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 - Diaphragmatic hernia without obstruction or gangrene - Anemia, unspecified - Post-traumatic stress disorder, unspecified - Malignant neoplasm of cecum - Allergy status to oth drug/meds/biol subst status - Other extermination supervisor (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 - 1 Type 2 diabetes mellitus with diabetic polyneuropathy - Anemia in neoplastic disease - Secondary malignant neoplasm of unspecified site [email or web address]
== END 2019-09-19 17:43 | disposition home or self-care (01) ==
LOC: ED 11:52
DX: E11.621 Type 2 diabetes mellitus with foot ulcer (principal); L97.519 Non-pressure chronic ulcer of other part of right foot with unspecified severity; E11.40 Type 2 diabetes mellitus with diabetic neuropathy, unspecified; Z85.038 Personal history of other malignant neoplasm of large intestine; Z88.5 Allergy status to narcotic agent; Z88.8 Allergy status to other drugs, medicaments and biological substances; Z79.899 Other long term (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; Z79.84 Long term (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
CPT/HCPCS: 73630; 80053; 83605; 85025; 96365; 99283-25; J0696

== ENCOUNTER 2019-09-30 20:11 | Emergency (ER) | payer OTHER ==
[~2019-09-30] VITALS: Ht 193 cm; Wt 77.1 kg
--- OUTSIDE RECORDS SUMMARY | ~2019-09-30 | XMS | Encounter Summary ---
Demographics + + + | Address | [address] | | | [place] [address] | + + + | Home Phone [...] | [facility] | | | and Dieterana | + + + | Organization | [facility] | | [...] Team Providers + +------+ + | Care Fleet Sales Manager Name | Role | Phone | + +------+ + | Imer Woodard MD | PCP | | + +------+ + Reason for Visit + + + | Reason | Comments | + + + | Patient Concerns | | + + + Encounter Details +--------+ + + + + | Date | Type | Department | Care Team | Description | +--------+ + + + + | 09/05/ | Telephone | [facility] | Tamika, | Patient Concerns | | 2019 | | MED CTR MEDICAL | Sundeep Ramirez MD [address] | | | | [address] | [address] [place] | | | | | [address] [place] | [place] [address] | | | | | [place] [address] | [phone] | | | | | [phone] | | | +--------+ + + + [...]
--- OUTSIDE RECORDS SUMMARY | ~2019-09-30 | XMS | Encounter Summary ---
Demographics + + + | Address | [address] | | | [place] [address] | + + + | Home Phone | | + + + | Preferred Language | Unknown | + + + | Marital Status | | + + + | Catholic Affiliation | Unknown | + + + | Race | Unknown | + + + | Ethnic Group | Unknown | + + + Author + + + | Author | [facility] | | | and Dieterana | + + + | Organization | [facility] | | | and Dieterana [...] Team Providers + +------+ + | Care Blade Grinder Name | Role | Phone | [...] + | 09/05/ | Telephone | [facility] | Tamika, | Patient Concerns | | 2019 | | MED CTR MEDICAL | Sundeep Ramirez MD [address] | | | | | [address] | [address] | | | | | [address] [place] | [place] [address] | | | | | [place] [address] | [phone] | | | | | [phone] | | | +--------+ + + + [...]
--- OUTSIDE RECORDS SUMMARY | ~2019-09-30 | XMS | Clinical Summary ---
Demographics + + + | Address | [address] | | | [place] [address] | + + + | Home Phone | | + + + | Preferred Language | Unknown | + + + | Marital Status | | + + + | Baptism Affiliation | Unknown | + + + | Race | Unknown | + + + | Ethnic Group | Unknown | + + + Author + + + | Author | [facility] | | | and Dieterana | + + + | Organization | [facility] | | | and Dieterana [...] Team Providers + +------+ + | Care Transportation Coordinator Name | Role | Phone | [...] | 1 | 10/3 | 10/3 | Expir | | (CARAFATE) 1 g | mouth 4 times daily. | tablet | | 0/20 | 0/20 | ed | | tablet | | | | 18 | 19 | | + + + +---------+------+------+-------+ | sucralfate | Take 1 tablet by | 120 | 1 | 10/3 | 10/3 | Expir | | (CARAFATE) 1 g | mouth 4 times daily. | tablet | | 0/20 | 0/20 | ed | | tablet | | | | 18 | 19 | | + + + +---------+------+------+-------+ | cephalexin | Take 1 capsule by | 40 | 0 | 10/0 | 10/1 | Expir | | (KEFLEX) 500 mg | mouth 4 times daily | capsule | | 7/20 | 7/20 | ed | | capsule | for 10 days. | | | 19 | 19 | | + + + +---------+------+------+-------+ | | Take 1 tablet by | 20 | 0 | 10/0 | 10/1 | Expir | | sulfamethoxazole-tri | mouth 2 times daily | tablet | | 7/20 | 7/20 | ed | | methoprim (BACTRIM | for 10 days. | | | 19 | 19 | | | DS) 800-160 mg per [...] | 04/15/2019 | + + + | Induratio penis plastica | 04/15/2019 | + + + [...] | 9 | + + + + Encounters +--------+ + + + + | Date | Type | Specialty | Care Team | Description | +--------+ + + + + | 09/05/ | Telephone | Oncology | Tamika, | Patient Concerns | | 2019 | | | Sundeep Ramirez MD | | +--------+ + + + + | 08/29/ | Emergency | Emergency Medicine | [place], | Cellulitis of right | | 2018 | | | Sundeep Keller MD | foot (Primary Dx); | | | | | | Ulcer of right foot, | | | | | | unspecified ulcer | | | | | | stage ([facility]); | | | | | | Peripheral sensory | | | | | | neuropathy due to | | | | | | type 2 diabetes | | | | | | mellitus (HCC) | +--------+ + + + + from [...] | Blood Pressure | 179/106 | 08/29/2019 1116 PDT | + + + + | Pulse | 100 | 08/29/20191115 PDT | + + + + | Temperature | 36.4 C (97.5 F) | 08/29/20191115 PDT | + + + + | Respiratory Rate | 20 | 08/29/20191115 PDT | + + + + | Oxygen Saturation | 99% | 08/29/20191115 PDT | + + + + | Inhaled Oxygen | - | - | | Concentration | | | + + + + | Weight | 81.6 kg (180 lb) | 08/29/20191115 PDT | + + + + | Height | 193 cm (6' 4") | 08/29/20191115 PDT | + + + + | Body Mass Index | 21.91 | 08/29/20191115 PDT | + + + + Plan [...] | | 07/24/2018, 12/07/2017, | | | (#1) | 9 | 10/26/2013, Additional history | | | [...] | | + + + + + Procedures + +--------+ + + + | Procedure Name | Priori | Date/Time | Associated Diagnosis | Comments | | | ty | | | | + +--------+ + + + | CULTURE, BLOOD | STAT | 08/29/2019 | | Results for this | | | | 12:48 PDT | | procedure are in the | | | | | | results section. | + +--------+ + + + | XR FOOT RIGHT 3 + VW | STAT | 08/29/2019 | | Results for this | | | | 12:24 PDT | | procedure are in the | | | | | | results section. | + +--------+ + + + | EXTRA BLUE TOP TUBE | Routin | 08/29/2019 | | Results for this | | | e | 12:24 PDT | | procedure are in the | | | | | | results section. | + +--------+ + + + | EXTRA GREEN TOP TUBE | Routin | 08/29/2019 | | Results for this | | | e | 12:24 PDT | | procedure are in the | | | | | | results section. | + +--------+ + + + | EXTRA GREEN TOP TUBE | Routin | 08/29/2019 | | Results for this | | | e | 12:24 PDT | | procedure are in the | | | | | | results section. | + +--------+ + + + | CBC WITH | STAT | 08/29/2019 | | Results for this | | DIFFERENTIAL | | 12:20 PDT | | procedure are in the | | | | | | results section. | + +--------+ + + + | CULTURE, BLOOD | STAT | 08/29/2019 | | Results for this | | | | 12:20 PDT | | procedure are in the | | | | | | results section. | + +--------+ + + + | ED INFORMATION | Routin | 08/29/2019 | | | | EXCHANGE | e | 10:54 PDT | | | + +--------+ + + + +---+--------+ | | | | | Proced | | | ure | | | Note - | | | Taj, | | | Lab In | | | | | | Hlseve | | | n - | | | 08/29/ | | | 2019 | | | 1055 | | | PDT | | | Format | | | [...] O?MRN: | | | | | | [id number] | | | [id number] | | | riteri | | | [...] | | | [id number] | | | 0 | | | 12:00 | | | AM | | | [facility] | | | y | | | [...] | | | St. | | | Halfway | | | y | | | [...] | | | St. | | | Halfway | | | y | | | [...] | | | St. | | | Halfway | | | y | | | [...] | | | St. | | | Halfway | | | y H. | | [...] | | | St. | | | Halfway | | | y H. | | [...] | | | St. | | | Halfway | | | y H. | | [...] | | | St. | | | Halfway | | | y H. | | [...] | | | St. | | | Halfway | | | y H. | | [...] | | | St. | | | Halfway | | | y H. | | | [place] | | | [place] | | | Emerge | | | ncy | | | Chief | | | Compla | | | int: | | | ANEMIA | | | May | | | 9, | | | 2019 | | | [facility] | [facility] | | | [facility] | | | y H. | | [...] | | | St. | | | Halfway | | | y H. | | [...] | | | St. | | | Halfway | | | y H. | | [...] | | | St. | | | Halfway | | | y H. | | [...] | | | [id number] | | | [id number] | | | 7c | | | [...] [email or web address] | | | m | +---+--------+ from Last 3 Months Results Culture, Blood (08/29/2019 12:48 PDT)Only the most recent of 2 results within the time lelia od is included. + + + + + + | [...] + | [facility] | [address] | [place] | [phone] | | [facility] | | [address] | | | - LABORATORY | | | | + + + + + XR Foot Right 3 + Vw (08/29/2019 12:24 PDT) + + | Specimen | + [...] | Taj, Rad Results In - 08/29/2019 1230 PDT EXAM:XR FOOT RIGHT 3 + VW [...] | | + +---------+ + + Extra Green Top Tube (08/29/2019 12:24 PDT)Only the most recent of 2 results within the is included. + +-------+ + + + | Component [...] [address] | [place] | [phone] | | [facility] | | [address] | | | - LABORATORY | | | | + + + + + Extra Blue Top Tube (08/29/2019 12:24 PDT) + +-------+ + + + | [...] + | [facility] | [address] | [place] | [phone] | | [facility] | | [address] | | | - LABORATORY | | | | + + + + + CBC with Differential (08/29/2019 12:20 PDT) + + + + + + | Component | Value | Ref Range | Performed | Pathologist | | | | | At | Signature | + + + + + + | WBC | 4.7 | 4.0 - 11.0 K/uL | [facility] | | | | | | [facility] | | | | | | [...] [address] | [place] | [phone] | | [facility] | | [address] | | | - LABORATORY | | | | + + + + + from Last 3 Months Insurance + +--------+ +--------+-------+---------+--------+ | Payer | Benefi | Subscriber | Effect | Phone | Address | Type | | | t Plan | ID | gustabo | | | | | | / | | Dates | | | | | | Group | | | | | | + +--------+ +--------+-------+---------+--------+ | [employer] [place] | [id number] | | | | Indemn | | | CHOICE | | 018-Pr | | | ity | | | PC3 | | esent | | | | + +--------+ +--------+-------+---------+--------+ | [employer] [place] | [id number] | | | | Indemn | | | CHOICE | | 019-Pr | | | ity | | | PC3 | | esent | | | | + +--------+ +--------+-------+---------+--------+ | [employer] | [place] | [id number] | | | | Indemn | | [...] | [birth year] | | [address] | | | al/Fam | | 1970 | [phone] | [place] [address] | | | paul | | | 1 (Home) | | + +--------+ +--------+ + + | Oh Moreno | Person | Self | [birth year] | [address] | | | al/Fam | | 1970 | [phone] | [place] [address] | | | paul | | | 1 (Home) | | + +--------+ +--------+ + + Advance Directives Patient has advance care planning documents on file. For more information, please contact:[facility] [place] [address]
--- OUTSIDE RECORDS SUMMARY | ~2019-09-30 | XMS | Encounter Summary ---
Demographics + + + | Address | [address] | | | [place] [address] | + + + | Home Phone | | + + + | Preferred Language | Unknown | + + + | Marital Status | | + + + | Zoroastrianism Affiliation | Unknown | + + + | Race | Unknown | + + + | Ethnic Group | Unknown | + + + Author + + + | Author | [facility] | | | and Dieterana | + + + | Organization | [facility] | | | and [...] Team Providers + +------+ + | Care Toll Relief Operator Name | Role | Phone | [...] + + | 08/29/ | Emergency | [facility] | [place], | Cellulitis of right | | 2019 | | MED CTR EMER[facility]Y | Sundeep Keller MD [address] | foot (Primary Dx); | | | | CENTER [address] | [address] [place] | Ulcer of right foot, | | | | [place], [place] | [place] [address] | unspecified ulcer | | | | [address] | [phone] | stage ([facility]); | | | | [phone] | | Peripheral sensory | | | | | | neuropathy due to | | | | | | type 2 diabetes | | | | | | mellitus ([facility]) | +--------+ + + + [...] Height | 193 cm (6' 4") | 08/29/20196 PDT | + + + + | Body Mass Index | 21.91 | 08/29/20196 PDT | + + + + documented in this [...] of this encounter Plan of Treatment + +--------+ + + | Name | Priori | Associated Diagnoses | Date/Time | | | ty | | | + +--------+ + + | ED INFORMATION EXCHANGE | Routin | | 08/29/2019 10:54 PDT | | | e | | | + +--------+ + + documented as of this encounter [...] | | | 2018 | | | 1055 | | | [...] | | | ON?10/ | | | 07/201 | | | 9 | | | 10:53? | | | [place], | | | [place] | | | O?MRN: | | | | | | [id number] | | | [id number] | | | riteri | | | [...] | | | St. | | | [place] | | | y | | | [...] | | | St. | | | [place] | | | y | | | [...] | | | St. | | | [place] | | | y | | | [...] | | | St. | | | [place] | | | y | | | [...] | | | St. | | | [place] | | | y H. | | [...] | | | St. | | | [place] | | | y H. | | [...] | | | St. | | | [place] | | | y H. | | [...] | | | St. | | | [place] | | | y H. | | [...] | | | St. | | | [place] | | | y H. | | [...] | | | St. | | | [place] | | | y H. | | | [place] | | | [place] | | | Emerge | | | ncy | | | Chief | | | Compla | | | int: | | | ANEMIA | | | May | | | 9, | | | 2019 | | | [facility] | | [facility] | | | [place] | | | y H. | | [...] | | | St. | | | [place] | | | y H. | | [...] | | | St. | | | [place] | | | y H. | | [...] | | | St. | | | [place] | | | y H. | | [...] | | | [id number] | | | [id number] | | | 7c | | | [...] this encounter Results Culture, Blood (08/29/2019 12:48 PDT) + + + + + + [...] ST. | [address] | [place], [place] | [phone] | | [facility] | | [address] | | | - LABORATORY | | [...] [address] | [place] | [phone] | | [facility] | | [address] | | | - LABORATORY | | | | + + + + + Extra Green Top Tube (08/29/2019 12:24 PDT) + +-------+ + + + | Component | Value | Ref Range | Performed | Pathologist | | | | | At | Signature | + +-------+ + + + | Extra Green | Done | | [facility] | | | Top Tube | | | [facility] | | [...] [address] | [place] | [phone] | | [facility] | | [address] | | | - LABORATORY | | | | + + + + + Extra Green Top Tube (08/29/2019 12:24 PDT) + +-------+ [...] + | [facility] | [address] | [place] | [phone] | | [facility] | | [address] | | | - LABORATORY | | | | + + + + + Culture, Blood (08/29/2019 12:20 PDT) + + + + + + | Component | Value | Ref Range | Performed | Pathologist | | | | | At | Signature | + + + + + + | Culture | No growth after 5 days | | [facility] | | | | incubation. | | [facility] | | | | | | [...] + | [facility] | [address] | [place], [place] | [phone] | | [facility] | | [address] | | | - LABORATORY | | [...] + | [facility] | [address] | [place] | [phone] | | [facility] | | [address] | | | - LABORATORY | | [...] | IVPB 3 g, Intravenous, | | PDT | | | | | Administer over 30 Minutes, ONCE, | | | | | | | 08/29/19 at 1140, For 1 dose, | | | | | | | Activate system and mix before | | | | | | | use., Indications: Purulent Skin | | | | | | | and Soft Tissue Infection | | | | | | + +---------+ +------+-------+------+ +---+---+ | | | +---+---+ documented in this encounter
--- OUTSIDE RECORDS SUMMARY | ~2019-09-30 | XMS | Clinical Summary ---
Demographics + + + | Address | [address] | | | [place] [address] | + + + | Home Phone [...] | Author | [facility] | | | and Dieterana | + + + | Organization | [facility] | | | and Dieterana | [...] Team Providers + +------+ + | Care Grand Jury Deputy Sheriff Name | Role | Phone | + [...] | | | | stage ([facility]); | | | | | | [...] O?MRN: | | | | | | [id number] | | | [id number] | | | riteri | | | [...] | | | St. | | | [place] | | | y | | | [...] | | | St. | | | [place] | | | y | | | [...] | | | St. | | | [place] | | | y | | | [...] | | | St. | | | [place] | | | y | | | [...] | | | St. | | | [place] | | | y H. | | [...] | | | St. | | | [place] | | | y H. | | [...] | | | St. | | | [place] | | | y H. | | [...] | | | St. | | | [place] | | | y H. | | [...] | | | St. | | | [place] | | | y H. | | [...] | | | St. | | | [place] | | | y H. | | | [place] | | | [place] | | | Emerge | | | ncy | | | Chief | | | Compla | | | int: | | | ANEMIA | | | May | | | 9, | | | 2019 | | | [facility] | | | [facility] | | | [place] | | | y H. | | [...] | | | St. | | | [place] | | | y H. | | [...] | | | St. | | | [place] | | | y H. | | [...] | | | St. | | | [place] | | | y H. | | [...] | | | [id number] | | | [id number] | | | 7c | | | [...] + | [facility] | [address] | [place] | [phone] | | [facility] | | [address] | | | - LABORATORY | | [...] [address] | [place] | [phone] | | [facility] | | [address] | | | - LABORATORY | | [...] + | [facility] | [address] | [place] | [phone] | | [facility] | | [address] | | | - LABORATORY | | [...] [address] | [place] | [phone] | | [facility] | | [address] | | | - LABORATORY | | [...] +--------+-------+---------+--------+ | [employer] [place] | [id number] | | | | Indemn | | | CHOICE | | 018-Pr | | | ity | | | PC3 | | esent | | | | + +--------+ +--------+-------+---------+--------+ | [employer] | [place] | [id number] | | | | Indemn | | | CHOICE | | 019-Pr | | | ity | | | PC3 | | esent | | | | + +--------+ +--------+-------+---------+--------+ | [employer] | [place] | [id number] | | | | Indemn | | [...] | 1970 | [phone] | [place] [address] | | | paul | | | 1 (Home) | | + +--------+ +--------+ + + | Oh Moreno | Person | Self | [birth year] | [address] | | | al/Fam | | 1970 | [phone] | [place] [address] | | | paul | | | 1 (Home) | | + +--------+ +--------+ + + Advance Directives Patient has advance care planning documents on file. For more information, please contact:[facility] [place] [address]
--- OUTSIDE RECORDS SUMMARY | ~2019-09-30 | XMS | Encounter Summary ---
Demographics + + + | Address | [address] | | | [place] [address] | + + + | Home Phone [...] | Author | [facility] | | | and Dieterana | + + + | Organization | [facility] | | [...] Team Providers + +------+ + | Care Cloud Systems Administrator Name | Role | Phone [...] + + | 08/29/ | Emergency | [facility] | [place], | Cellulitis of right | | 2019 | | [facility] EM[facility] | Sundeep Keller MD [address] | foot (Primary Dx); | | | | CENTER [address] | [address] [place] | Ulcer of right foot, | | | | [place], [place] | [place] [address] | unspecified ulcer | | | | [address] | [phone] | stage ([facility]); | | | | [phone] | | Peripheral sensory | | | | | | neuropathy due to | | | | | | type 2 diabetes | | | | | | mellitus ([facility]) | +--------+ + + + + Social [...] O?MRN: | | | | | | [id number] | | | [id number] | | | riteri | | | [...] | | | St. | | | [place] | | | y | | | [...] | | | St. | | | [place] | | | y | | | [...] | | | St. | | | [place] | | | y | | | [...] | | | St. | | | [place] | | | y | | | [...] | | | St. | | | [place] | | | y H. | | [...] | | | St. | | | [place] | | | y H. | | [...] | | | St. | | | [place] | | | y H. | | [...] | | | St. | | | [place] | | | y H. | | [...] | | | St. | | | [place] | | | y H. | | [...] | | | St. | | | [place] | | | y H. | | | [place] | | | [place] | | | Emerge | | | ncy | | | Chief | | | Compla | | | int: | | | ANEMIA | | | May | | | 9, | | | 2019 | | | [facility] | | | [facility] | | | [place] | | | y H. | | [...] | | | St. | | | [place] | | | y H. | | [...] | | | St. | | | [place] | | | y H. | | [...] | | | St. | | | [place] | | | y H. | | [...] | | | [id number] | | | [id number] | | | 7c | | | [...] ST. | [address] | [place], [place] | [phone] | | [facility] | | [address] | | | - LABORATORY | | [...] [address] | [place] | [phone] | | [facility] | | [address] | | | - LABORATORY | | [...] [address] | [place] | [phone] | | [facility] | | [address] | | | - LABORATORY | | [...] + | [facility] | [address] | [place] | [phone] | | [facility] | | [address] | | | - LABORATORY | | [...] + | [facility] | [address] | [place], [place] | [phone] | | [facility] | | [address] | | | - LABORATORY | | [...] | | Count | | | [facility] | | | | [...] + | [facility] | [address] | [place] | [phone] | | [facility] | | [address] | | | - LABORATORY | | [...]
--- OUTSIDE RECORDS SUMMARY | 2019-09-30 20:14 | XMS ---
PreManage Notification: SONIA VIVAS Security Overage Shortage And Damage Clerk Events No recent Security Events currently on file CRITERIA MET - 6 ED Visits in 6 Months - [facility] - Has Care Guidelines - PDMP - [facility] - 2 Visits in 30 Days CARE PROVIDERS YADIRA RAYMUNDO [facility] 05/30/2019-Current PHONE: Unknown Jamal has no Care Guidelines for this patient. Care History Medical/Surgical 09/20/2019 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 08/29/2019 [facility] - PATIENT NOW HAS DR MARII LION PATIENT PCP AT [facility]. - PATIENT DOES HAVE IN HOME CARE SERVICES THROUGH THE [facility]- RN HOME VISITS ALONG WITH PROVIDER IN HOME VISITS. 06/20/2019 [facility] - PATIENT STATED HE HAS SOMEONE COMING FROM THE [facility] TO COME AND EVALUATE HIS HOME FOR SAFETY/FALL RISK THIS WEEK. - PATIENT DECLINED ANY FURTHER SERVICES/RESOURCES AT THIS TIME-STATED HE IS WORKING WITH THE [facility] AND [facility] AT [facility]. E.D. VISIT COUNT (12 MO.) 1 [place] Eric 10 STE[facility] [place] TOTAL 11 NOTE: Visits indicate total known visits. ED/UCC VISIT TRACKING (12 MO.) 09/30/2019 20:11 [facility] [place] TYPE: Emergency COMPLAINT: - POST OP PROBLEM 09/19/2019 11:53 [facility] [place] TYPE: Emergency COMPLAINT: - FOOT WOUND DIAGNOSES: - Allergy status to oth drug/meds/biol subst status - 1 Type 2 diabetes mellitus with foot ulcer - Allergy status to narcotic agent status - 1 Type 2 diabetes mellitus with diabetic neuropathy, unsp - Other prison (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 - ad terminal makeup operator (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 - Pain in right foot - Non-prs chronic ulcer oth prt right foot w unsp severity - Personal history of malignant neoplasm of large intestine [facility] DIAGNOSES: - Wound Check [...] antineoplastic and immunosup drugs, init - Other manager long term care (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 - Post-traumatic stress disorder, unspecified - ad terminal makeup operator (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 [...] diabetes mellitus with diabetic neuropathy, unsp - [facility] (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 - Vomiting, unspecified - Other prison (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 - Migraine, unsp, not intractable, without status migrainosus 07/24/2019 02:43 [facility] [place] TYPE: Emergency COMPLAINT: - NECK PAIN/PORT ISSUE DIAGNOSES: - Essential (primary) hypertension - Personal history of nicotine dependence - Cervicalgia - Malignant neoplasm of colon, unspecified - 1 Type 2 diabetes mellitus with diabetic neuropathy, unsp - Anemia, unspecified - Allergy status to narcotic agent status - M[facility] (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 - Post-traumatic stress disorder, unspecified - Other manager long term care (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 - Allergy status to [...] Abrasion, left lower leg, initial encounter - [facility] (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 - Fall same lev from slip/trip w/o strike against object, init - 1 Type 2 diabetes mellitus with diabetic neuropathy, unsp - Allergy status to oth drug/meds/biol subst status - Personal history of malignant neoplasm of large intestine - Other prison (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 05/28/2019 06:21 [facility] [place] TYPE: Emergency COMPLAINT: - VOMITING/DIARRHEA/HEADACHE DIAGNOSES: - Allergy status to oth drug/meds/biol subst status - Allergy status to narcotic agent status - Generalized abdominal pain - Secondary malignant neoplasm of large intestine and rectum - Other manager long term care (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 - 1 Type 2 diabetes mellitus without complications - Dehydration - [facility] (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 of aspirin - Personal history [...] Type 2 diabetes mellitus without complications - ad terminal makeup operator (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 - Other prison (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 - Allergy status to [...] Personal history of nicotine dependence - Other manager long term care (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 - Post-traumatic stress disorder, [...] duct - Post-traumatic stress disorder, unspecified - ad terminal makeup operator (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 of inhaled steroids - Iron deficiency anemia secondary to blood loss (chronic) - Allergy status to oth drug/meds/biol subst status - Hyperlipidemia, unspecified - Other prison (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 - Body mass index (BMI) 20.0-20.9, adult - Essential (primary) hypertension - Allergy status to narcotic agent status - Allergy status to narcotic agent status - Other seasonal allergic rhinitis - ad terminal makeup operator (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 of inhaled steroids - 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 - Prediabetes - Other seasonal allergic rhinitis - Essential (primary) hypertension - Personal history of nicotine dependence - Cachexia - Allergy status to oth drug/meds/biol subst status - Other prison (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 - Hyperlipidemia, unspecified - Obstructive sleep apnea (adult) (pediatric) - Obstructive sleep apnea (adult) (pediatric) - Body mass index (BMI) 20.0-20.9, adult 05/23/2019 16:23 [facility] [place] TYPE: Observation COMPLAINT: - ANEMIA DIAGNOSES: - MCC (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 of aspirin - Gastritis, unspecified, without bleeding - Presence of coronary angioplasty implant and graft - Polyp of colon - Duodenitis without bleeding - 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 - Hyperlipidemia, unspecified - Essential (primary) hypertension - Iron deficiency anemia, unspecified - MCC (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 - Diaphragmatic hernia without obstruction or gangrene - Anemia, unspecified - Post-traumatic stress disorder, unspecified - Malignant neoplasm of cecum - Allergy status to oth drug/meds/biol subst status - Other prison (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 - 1 Type 2 diabetes mellitus with diabetic polyneuropathy - Anemia in neoplastic disease - Secondary malignant neoplasm of unspecified site [id number]
== END 2019-09-30 20:41 | disposition home or self-care (01) ==
LOC: ED 20:11
DX: Z48.01 Encounter for change or removal of surgical wound dressing (principal); E11.40 Type 2 diabetes mellitus with diabetic neuropathy, unspecified; Z87.891 Personal history of nicotine dependence; Z79.899 Other long term (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
CPT/HCPCS: 99283

== ENCOUNTER 2019-10-22 18:48 | Emergency (ER) | payer OTHER ==
[~2019-10-22] VITALS: Ht 193 cm; Wt 77.1 kg
--- OUTSIDE RECORDS SUMMARY | ~2019-10-22 | XMS | Encounter Summary ---
Demographics + + + | Address | [address] | | | [place] [address] | + + + | Home Phone | | + + + | Preferred Language | Unknown | + + + | Marital Status | | + + + | Yarsani Affiliation | Unknown | + + + | Race | Unknown | + + + | Ethnic Group | Unknown | + + + Author + + + | Author | [facility] | | | and Dieterana | + + + | Organization | [facility] | | | and Dieterana | + + + | Address | Unknown | + + + | Phone | Unavailable | + + + Support + + +---------+ + | Name | Relationship | Address | Phone | + + +---------+ + | Dagmar Scruggs | ECON | Unknown | | + + +---------+ + | Cintia Josh | ECON | Unknown | | + + +---------+ + Care Team Providers + +------+ + | Care Hydrostatic Tubing Tester Name | Role | Phone | + +------+ + PCP | Unavailable | + +------+ + Encounter Details +--------+ + + + + | Date | Type | Department | Care Team | Description | +--------+ + + + + | 08/19/ | Abstract | [facility] | Carina Soria, | | | 2018 | | [facility] | RN | | | | | SURGERY [address] | | | | | | [address] [place], | | | | | | [place] [address] | | | | | | [phone] | | | +--------+ + + + + Social History + +-------+ +--------+------+ | Tobacco Use | Types | Packs/Day | Years | Date | | | | | Used | | + +-------+ +--------+------+ | Never Assessed | | | | | + +-------+ +--------+------+ + + + | Sex Assigned at | Date Recorded | | | | + + + | Not on file | | + + + + + + + | Job Start Date | Occupation | Industry | + + + + | Not on file | Not on file | Not on file | + + + + + + + + | Travel History | Travel Start | Travel End | + + + + + + | No recent travel history available. | + + documented as of this encounter Plan of Treatment Not on filedocumented as of this encounter Visit Diagnoses Not on filedocumented in this encounter"
--- OUTSIDE RECORDS SUMMARY | ~2019-10-22 | XMS | Encounter Summary ---
Demographics + + + | Address | [address] | | | [place] [address] | + + + | Home Phone | | + + + | Preferred Language | Unknown | + + + | Marital Status | | + + + | Taoist Affiliation | Unknown | + + + | Race | Unknown | + + + | Ethnic Group | Unknown | + + + Author + + + | Author | [facility] | | | and Dieterana | + + + | Organization | [facility] | | | and Dieterana [...] Team Providers + +------+ + | Care Ruffler Name | Role | Phone | + [...] | | | EGD COLO | [address] [place] | | | | | | Jonathan | [place] | | | | | | Drive [place] | [place], [place] | | | | | | [place] | [address] | | | | | | [address] | Phone: | | | | | | Phone: | [phone] | | | | | | [phone] | Fax: | | | | | | Fax: | [phone] | | | | | | [phone] | | +--------+--------+ + + + + [...] | SURGERY [address] | MD [address] | | | | | [address] [place], | [place], [place] | | | | | [place] [address] | [address] | | | | | [phone] | [phone] | | | | | | | [...] this note might be different from the [facility] Manoj Jolly M.D [address] [place] [address] [place], [place] [address] - PATIENT NAME: Oh Moreno IF YOU [...] get. documented in this encounter Progress Notes Leighton Martino MD - 09/08/2018 1:30 PM PDT GENERAL [...] Needle Localization [] Lumpectomy [] Mastectomy [] Dunbar Node Biopsy [] Isosulfan Blue Dye [] Technesium 99 HERNIA [] Left [] Right [] Bilateral [] Inguinal [] Ventral [] Umbilical [] Open [] Laparoscopic COLON [] Right [] Left [] Sigmoid [] Open [] Laparoscopic [] Preop Ureteral Stent Placement - [] Left / [] Right GALLBLADDER [] Planned Cholangiogram oodwort h, Leighton Malagon MD - 09/08/2018 1:30 PM [...] seizure. 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 documented in this encounter Plan of Treatment Not on filedocumented as of this encounter Visit Diagnoses + + | Diagnosis | + + | Nausea - Primary Nausea alone | + + | Microcytic anemia Iron deficiency anemia, unspecified | + + documented in this encounter
--- OUTSIDE RECORDS SUMMARY | ~2019-10-22 | XMS | Encounter Summary ---
Demographics + + + | Address | [address] | | | [place] [address] | + + + | Home Phone | | + + + | Preferred Language | Unknown | + + + | Marital Status | | + + + | Druze Affiliation | Unknown | + + + | Race | Unknown | + + + | Ethnic Group | Unknown | + + + Author + + + | Author | [facility] | | | and Dieterana | + + + | Organization | [facility] | | | and Dieterana [...] Team Providers + +------+ + | Care Fireman Name | Role | Phone | + [...] | | | | | | | [place] | | | | | | | COLONOSCOPY | | | | | | | FLX DX | | | | | | | W/COLLJ SPEC | | | | | | | WHEN PFRMD | | | | | | | [place] | | | | | | | ESOPHAGOGAST | | | | | | | RODUODENOSCO | | | | | | | PY TRANSORAL | | | | | | | DIAGNOSTIC | | | | | | | [place] EGD | | | | | | [...] Description | +--------+---------+ + + + | 09/21/ | Surgery | [facility] | [place], | EGD | | 2018 | | HOSPITAL [facility] OP | Leighton Malagon, | | | | | [address] [place] | MD [address] | | | | | [place], [place] | [place], [place] | | | | | [address] | [address] | | | | | [phone] | [phone] | | | | | | | [...] after normal business hours, please contact the [facility] at . documented in this encounter [...] + + + + + + | CLOTEST | Negative | Negative | [place] | | | | | | [facility] | | | | [facility] [...] + + | [facility] | [address] | [place] [address] | [phone] | | HOSPITAL LABORATORY | | | | + + [...] ANESTHESIA: Sedation | | | ANESTHESIA PROVIDER: SEED TESTER: Manas Sears CRNA SPECIMEN: | | | [...] complications. | | | Electronically Signed by: Leigthon Martino MD, | | | 09/21/2018 13:13 [facility] This note was | | | transcribed using voice recognition software; there may be speech | | | recognition errors which escaped detection during solar maintenance technician. | | | | | + + + POC Glucose (09/21/2018 10:53 AM PDT) + +---------+ + + + | Component | Value | Ref Range | Performed | Pathologist | | | | | At | Signature | + +---------+ + + + | Glucose, | 279 (H) | 70 - 110 mg/dL | [facility] | | | POC | | | [facility] | | | | | | [facility] [...] + + | [facility] | [address] | [place] [address] | [phone] | | HOSPITAL LABORATORY | | | | + + [...] | | technical component was performed by [facility] | | | [facility], [address] [place] [address] (Medical | | | Director: Samir Leija MD; CLIA# [id number]). Professional | | | interpretation was performed by [facility] | | | [place] [address] (Medical | | | Director: Samir Leija MD; CLIA# [id number]). ADDITIONAL | | | NOTES: Immunohistochemical and/or in situ hybridization studies were | | | performed on this case with the appropriate positive controls that | | | react as expected. This test was developed and its performance | | | characteristics determined by [facility]. It has not been | | | cleared or approved by the U.S. Food and Drug Administration. The | | | FDA has determined that such clearance or approval is not necessary. | | | This test is used for clinical purposes. It should not be regarded | | | as investigational or for research. [facility] is certified | | | under the Clinical Laboratory Improvement Amendments of 1988 (CLIA) | | | as qualified to perform high complexity clinical laboratory testing. | | | The technical component was performed by [facility], [facility] | | | [facility] [address] (Customs Agent: Sindy Bernal MD; | | | CLIA# [id number]). Professional interpretation was performed by | | | [facility] | | | [place] [address] (Customs Agent: Samir Leija MD; CLIA# | | | [id number]). PAS stain: The technical component was performed by | | | [facility] | | | [place] [address] (Customs Agent: Samir Leija MD; CLIA# | | | [id number]). Professional interpretation was performed by [employer] | | | [address] | | | [place] [address] (Customs Agent: Samir Leija MD; CLIA# | | | [id number]). REASON FOR ADDENDUM: To add the results [...] positive control. The results are detailed above. NRT:[facility] [address] | | | Diagnostician: Clarissa Perdue MD Pathologist Electronically | | | Signed 09/27/2018 | | + + + + +---------+ + + | Performing | Address | City/State[facility] | Phone Number | | Organization | [...] see admin | | | instruction, Starting Tue | | | 09/21/18 at 1111, CORRECTION [...] ringers (LR) infusion | New Bag | 10/30/20 | | | | | at 10-100 [...]
--- OUTSIDE RECORDS SUMMARY | ~2019-10-22 | XMS | Encounter Summary ---
Demographics + + + | Address | [address] | | | [place] [address] | + + + | Home Phone | | + + + | Preferred Language | Unknown | + + + | Marital Status | | + + + | Zoroastrianism Affiliation | Unknown | + + + | Race | Unknown | + + + | Ethnic Group | Unknown | + + + Author + + + | Author | [facility] | | | and Dieterana | + + + | Organization | [facility] | | | and [...] Team Providers + +------+ + | Care Optical Effects Line Up Person Name | Role | Phone | + +------+ + | Imer Woodard MD | PCP | | + +------+ + Encounter Details +--------+ + + + + | Date | Type | Department | Care Team | Description | +--------+ + + + + | 05// | Abstract | [facility] | Provider, | | | 2018 | | GASTROENTEROLOGY | MD [address] | | | | | [address] [facility] | Moshe Longo | | | | | [address] [place] | [place] [address] | | | | | [address] | | | | | | [phone] | | | +--------+ + + + [...]
--- OUTSIDE RECORDS SUMMARY | ~2019-10-22 | XMS | Encounter Summary ---
Demographics + + + | Address | [address] | | | [place] [address] | + + + | Home Phone | | + + + | Preferred Language | Unknown | + + + | Marital Status | | + + + | Scientology Affiliation | Unknown | + + + | Race | Unknown | + + + | Ethnic Group | Unknown | + + + Author + + + | Author | [facility] | | | and Dieterana | + + + | Organization | [facility] | | | and Dieterana | [...] Team Providers + +------+ + | Care Rn Examiner Name | Role | Phone | + [...] | | | | | | [place] [address] | | | | | | [phone] | | | +--------+ + + + [...]
--- OUTSIDE RECORDS SUMMARY | ~2019-10-22 | XMS | Encounter Summary ---
Demographics + + + | Address | [address] | | | [place] [address] | + + + | Home Phone | | + + + | Preferred Language | Unknown | + + + | Marital Status | | + + + | Amish Affiliation | Unknown | + + + | Race | Unknown | + + + | Ethnic Group | Unknown | + + + Author + + + | Author | [facility] | | | and Dieterana | + + + | Organization | [facility] | | | and [...] Team Providers + +------+ + | Care Emissions Testing And Repair Technician Name | Role | Phone | [...] | | | | | | | [place] | | | | | | | COLONOSCOPY | | | | | | | FLX DX | | | | | | | W/COLLJ SPEC | | | | | | | WHEN PFRMD | | | | | | | [place] | | | | | | | ESOPHAGOGAST | | | | | | | RODUODENOSCO | | | | | | | PY TRANSORAL | | | | | | | DIAGNOSTIC | | | | | | | [place] EGD | | | | | | [...] | | [place], [place] | [place] [address] | | | | | [address] | [phone] | | | | | [phone] | | | +--------+ + + + + Anesthesia Record + + + + + | Procedure Name | Responsible | Anesthesia Start | Anesthesia Stop Time | | | Anesthesiologist | Time | | + + + + + | KAMALA (N/A Bogdan) | Manas Sears, | 09/21/18 1248 | 09/21/18 1323 | | | [facility] | | | + + + + [...]
--- OUTSIDE RECORDS SUMMARY | ~2019-10-22 | XMS | Encounter Summary ---
Demographics + + + | Address | [address] | | | [place] [address] | + + + | Home Phone | | + + + | Preferred Language | Unknown | + + + | Marital Status | | + + + | Denominational Affiliation | Unknown | + + + | Race | Unknown | + + + | Ethnic Group | Unknown | + + + Author + + + | Author | [facility] | | | and Dieterana | + + + | Organization | [facility] | | | and Dieterana [...] Team Providers + +------+ + | Care Flush Tester Name | Role | Phone | [...] | | [place], [place] | [place] [address] | | | | | [address] | [phone] | | | | | [phone] | | | +--------+ + + + + Anesthesia Record + + + + + | Procedure Name | Responsible | Anesthesia Start | Anesthesia Stop Time | | | Anesthesiologist | Time | | + + + + + | KAMALA (N/A Bogdan) | Manas Sears, | 09/21/18 1248 | 09/21/18 1323 | | | WELDING MACHINE OPERATOR ELECTROSLAG | | | + + + + [...]
--- OUTSIDE RECORDS SUMMARY | ~2019-10-22 | XMS | Encounter Summary ---
Demographics + + + | Address | [address] | | | [place] [address] | + + + | Home Phone | | + + + | Preferred Language | Unknown | + + + | Marital Status | | + + + | Lutheran Affiliation | Unknown | + + + | Race | Unknown | + + + | Ethnic Group | Unknown | + + + Author + + + | Author | [facility] | | | and Dieterana | + + + | Organization | [facility] | | | and Dieterana [...] Team Providers + +------+ + | Care Machine Shorthand Reporter Name | Role | Phone | + [...] | | | | | | | [place] | | | | | | | COLONOSCOPY | | | | | | | FLX DX | | | | | | | W/COLLJ SPEC | | | | | | | WHEN PFRMD | | | | | | | [place] | | | | | | | ESOPHAGOGAST | | | | | | | RODUODENOSCO | | | | | | | PY TRANSORAL | | | | | | | DIAGNOSTIC | | | | | | | [place] EGD | | | | | | [...] 09/21/ | Hospital | [facility] | [place], | | | 2018 | Encounter | [facility] | Leighton Malagon, | | | | | [address] [place] | MD [address] | | | | | [place], [place] | [place], [place] | | | | | [address] | [address] | | | | | [phone] | [phone] | | | | | | | [...] any questions, call your physician at or [phone]. If you need assistance after normal business hours, please contact the [facility] at . documented in this encounter Medications [...] + + | [facility] | [address] | [place] [address] | [phone] | | HOSPITAL LABORATORY | | | [...] ANESTHESIA: Sedation | | | ANESTHESIA PROVIDER: COPY OPERATOR: Manas Sears CRNA SPECIMEN: | | [...] MD, | | | 09/21/2018 13:13 CC [facility] This note was | | | transcribed using voice recognition software; there may be speech | | | recognition errors which escaped detection during composition floor setter. | | | | | + + [...] + + | [facility] | [address] | [place] | [phone] | | HOSPITAL LABORATORY | | | [...] | | technical component was performed by [facility] | | | [facility], [address] [place] [address] (Medical | | | Director: Samir Leija MD; CLIA# [id number]). Professional | | | interpretation was performed by [facility] | | | [place] [address] (Medical | | | Director: Samir Leija MD; CLIA# [id number]). ADDITIONAL | | | NOTES: Immunohistochemical and/or in situ hybridization studies were | | | performed on this case with the appropriate positive controls that | | | react as expected. This test was developed and its performance | | | characteristics determined by [facility]. It has not been | | | cleared or approved by the U.S. Food and Drug Administration. The | | | FDA has determined that such clearance or approval is not necessary. | | | This test is used for clinical purposes. It should not be regarded | | | as investigational or for research. [facility] is certified | | | under the Clinical Laboratory Improvement Amendments of 1988 (CLIA) | | | as qualified to perform high complexity clinical laboratory testing. | | | The technical component was performed by [facility], [facility] | | | [facility] [address] (Manager Of Drilling: Sindy Bernal MD; | | | CLIA# [id number]). Professional interpretation was performed by | | | [facility] | | | [place] [address] (Manager Of Drilling: Samir Leija MD; CLIA# | | | [id number]). PAS stain: The technical component was performed by | | | [facility], [address] | | | [place] [address] (Manager Of Drilling: Samir Leija MD; CLIA# | | | [id number]). Professional interpretation was performed by [facility] | | | [address] | | | [place] [address] (Manager Of Drilling: Samir Leija MD; CLIA# | | | [id number]). REASON FOR ADDENDUM: To add the results [...] positive control. The results are detailed above. NRT:[facility] | | | Diagnostician: Clarissa Perdue MD [...]
--- OUTSIDE RECORDS SUMMARY | ~2019-10-22 | XMS | Clinical Summary ---
Demographics + + + | Address | [address] | | | [place] [address] | + + + | Home Phone [...] | Author | [facility] | | | and Dieterana | + + + | Organization | [facility] | | | and [...] Team Providers + +------+ + | Care Environmental Health Safety Engineer Name | Role | Phone | [...] | 04/15/2019 | + + + | Edytatinyelizabethanita millera | 04/15/2019 | + + + | [...] | | 2019 | | | Sundeep C, MD | | +--------+ + + + + | 08/29/ | Emergency | Emergency Medicine | [place], | Cellulitis of right | | 2018 | | | Sundeep Keller MD | foot (Primary Dx); | | | | | | Ulcer of right foot, | | | | | | unspecified ulcer | | | | | | stage ([facility]); | | | | | | 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 | | | [place] | | | y | | | [...] | | | VISITS | | | ./29/ | | | 19 | | | 12:00 | | | AM | | | [facility] | | | [place] | | | y | | | [...] | | | St. | | | [place] | | | y | | | [...] | | | St. | | | [place] | | | y | | | [...] | | | St. | | | [place] | | | y H. | | [...] | | | St. | | | [place] | | | y H. | | [...] | | | St. | | | [place] | | | y H. | | [...] | | | St. | | | [place] | | | y H. | | [...] | | | St. | | | [place] | | | y H. | | [...] | | | St. | | | [place] | | | y H. | | | [place] | | | [place] | | | Emerge | | | ncy | | | Chief | | | Compla | | | int: | | | ANEMIA | | | May | | | 9, | | | 2019 | | | [facility] | | | [facility] | | | [place] | | | y H. | | [...] | | | St. | | | [place] | | | y H. | | [...] | | | St. | | | [place] | | | y H. | | [...] | | | St. | | | [place] | | | y H. | | [...] | | | [id number] | | | [id number] | | | 7c | | | [...] 3 Months Results Culture, Blood (08/29/2019 12:48 PM PDT)Only the most recent of 2 results within the time p dariniod is included. + + + + + [...] ST. | [address] | [place] | [phone] | | [facility] | | [address] | | | - LABORATORY | | | | + + + + + XR Foot Right 3 + Damari (08/29/2019 12:24 PM PDT) + + | [...] Extra Green Top Tube (08/29/2019 12:24 PM PDT)Only the most recent of 2 results within the time period is included. + +-------+ + + + [...] + | [facility] | [address] | [place] | [phone] | | [facility] | | [address] | | | - LABORATORY | | [...] + + | [facility] | [address] | [place] | [phone] | | [facility] | | [address] | | | - LABORATORY | | | | + + + + + CBC with Differential (08/29/2019 12:20 PM PDT) + + + + + + | Component | Value | Ref Range | Performed | Pathologist | | | | | At | Signature | + + + + + + | WBC | 4.7 | 4.0 - 11.0 K/uL | [facility] | | | | | | ST. [...] | 0.00 | 0.00 - 0.01 | [facility] | | | nRBC | | K/uL [...] [address] | [place] | [phone] | | [facility] | | [address] | | | - LABORATORY | | [...] +--------+-------+---------+--------+ | VETERANS ADMIN | [place] | [id number] | | | | Indemn | | | CHOICE | | 018-Pr | | | ity | | | PC3 | | esent | | | | + +--------+ +--------+-------+---------+--------+ | VET[place]ANS ADMIN | [place] | [id number] | | | | Indemn | | | CHOICE | | 019-Pr | | | ity | | | PC3 | | esent | | | | + +--------+ +--------+-------+---------+--------+ | VETERANS ADMIN | [place]ET[place]A | [id number] | | | | Indemn | | [...] | 1970 | [phone] | [place] [address] | | | paul | | | 1 (Home) | | + +--------+ +--------+ + + | Oh Moreno | Person | Self | [birth year] | [address] | | | al/Graeme | | 1970 | [phone] | [place] [address] | | | paul | | | 1 (Home) | | + +--------+ +--------+ + + Advance Directives + + + + + | Type | Date Recorded | Patient | Explanation | | | | Pay Station Attendant | | + + + + + | Power of | | | | | Biochemistry Technician | | | | + + + + + | Advance | 09/21/2018 | | | | Directive | 10:15 AM | | | + + + + +
--- OUTSIDE RECORDS SUMMARY | ~2019-10-22 | XMS | Encounter Summary ---
Demographics + + + | Address | [address] | | | [place] [address] | + + + | Home Phone [...] | Author | [facility] | | | and Dieterana | + + + | Organization | [facility] | | | and Dieterana [...] Team Providers + +------+ + | Care Software Engineer Mobile Name | Role | Phone | + [...] + + | 08/29/ | Emergency | [facility] | [place], | Cellulitis of right | | 2019 | | [facility] | Sundeep Keller MD [address] | foot (Primary Dx); | | | | CENTER [address] | [address] [place] | Ulcer of right foot, | | | | [place], [place] | [place] [address] | unspecified ulcer | | | | [address] | [phone] | stage ([facility]); | | | | [phone] | | 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 | | | [place] | | | y | | | [...] | | | St. | | | [place] | | | y | | | [...] | | | St. | | | [place] | | | y | | | [...] | | | St. | | | [place] | | | y | | | [...] | | | St. | | | [place] | | | y H. | | [...] | | | St. | | | [place] | | | y H. | | [...] | | | St. | | | [place] | | | y H. | | [...] | | | St. | | | [place] | | | y H. | | [...] | | | St. | | | [place] | | | y H. | | [...] | | | St. | | | [place] | | | y H. | | | [place] | | | [place] | | | Emerge | | | ncy | | | Chief | | | Compla | | | int: | | | ANEMIA | | | May | | | 9, | | | 2019 | | | [facility] | | | [facility] | | | [place] | | | y H. | | [...] | | | St. | | | [place] | | | y H. | | [...] | | | St. | | | [place] | | | y H. | | [...] | | | St. | | | [place] | | | y H. | | [...] | | | ne | | | Juloi 8, | | | 2019 | | [...] | | | [id number] | | | [id number] | | | 7c | | | [...] ST. | [address] | [place] | [phone] | | [facility] | | [address] | | | - LABORATORY | | [...] + | [facility] | [address] | [place] | [phone] | | [facility] | | [address] | | | - LABORATORY | | [...] [address] | [place] | [phone] | | [facility] | | [address] | | | - LABORATORY | | [...] [address] | [place] | [phone] | | [facility] | | [address] | | | - LABORATORY | | [...] + | [facility] | [address] | [place] | [phone] | | [facility] | | [address] | | | - LABORATORY | | [...] [address] | [place] | [phone] | | [facility] | | [address] | | | - LABORATORY | | [...]
--- OUTSIDE RECORDS SUMMARY | ~2019-10-22 | XMS | Encounter Summary ---
Demographics + + + | Address | [address] | | | [place] [address] | + + + | Home Phone | | + + + | Preferred Language | Unknown | + + + | Marital Status | | + + + | Druze Affiliation | Unknown | + + + | Race | Unknown | + + + | Ethnic Group | Unknown | + + + Author + + + | Author | [facility] | | | and Dieterana | + + + | Organization | [facility] | | | and [...] Team Providers + +------+ + | Care Lead Cargo Mover Name | Role | Phone | + [...] [address] [place] | MD [address] | | | | | [place], [place] | [place], [place] | | | | | [address] | [address] | | | | | [phone] | [phone] | | | | | | | [...] any questions, call your physician at or [phone]. If you need assistance after normal business hours, please contact the [facility] at . documented in this encounter [...] + + | [facility] | [address] | [place] [address] | [phone] | | HOSPITAL LABORATORY | | | [...] ANESTHESIA: Sedation | | | ANESTHESIA PROVIDER: CARPET OR RUG LAYER HELPER: Manas Sears CRNA SPECIMEN: | | | [...] MD, | | | 09/21/2018 13:13 CC [facility] This note was | | | transcribed using voice recognition software; there may be speech | | | recognition errors which escaped detection during civil division deputy sheriff. | | | | | + + [...] + + | [facility] | [address] | [place] [address] | [phone] | | HOSPITAL LABORATORY | | | [...] | | | the patient's name Oh Moerno and date of 1970. A. | | [...] | | technical component was performed by [facility] | | | [facility], [address] [place] [address] (Medical | | | Director: Samir Leija MD; CLIA# [id number]). Professional | | | interpretation [facility] | | | [place] [address] (Medical | | | Director: Samir Leija MD; CLIA# [id number]). ADDITIONAL | | | NOTES: Immunohistochemical and/or in situ hybridization studies were | | | performed on this case with the appropriate positive controls that | | | react as expected. This test was developed and its performance | | | characteristics determined by [employer]. It has not been | | | cleared or approved by the U.S. Food and Drug Administration. The | | | FDA has determined that such clearance or approval is not necessary. | | | This test is used for clinical purposes. It should not be regarded | | | as investigational or for research. [employer] is certified | | | under the Clinical Laboratory Improvement Amendments of 1988 (CLIA) | | | as qualified to perform high complexity clinical laboratory testing. | | | The technical component was performed by [employer], [facility] | | | [facility] [address] (Procedure Manager: Sindy Bernal MD; | | | CLIA# [id number]). Professional interpretation was performed by | | | [facility] [facility] | | | [place] [address] (Procedure Manager: Samir Leija MD; CLIA# | | | [id number]). PAS stain: The technical component was performed by | | | [facility] [facility] | | | [place] [address] (Procedure Manager: Samir Leija MD; CLIA# | | | [id number]). Professional interpretation was performed by [email or web address] | | | [address] | | | [place] [address] (Procedure Manager: Samir Leija MD; CLIA# | | | [id number]). REASON FOR ADDENDUM: To add the results [...] positive control. The results are detailed above. NRT:[facility] | | | Diagnostician: Clarissa Perdue MD Pathologist Electronically | | | Signed 09/27/2018 | | + + + + +---------+ + + | Performing | Address | City/State/[facility] | Phone Number | | Organization | [...]
--- OUTSIDE RECORDS SUMMARY | ~2019-10-22 | XMS | Encounter Summary ---
Demographics + + + | Address | [address] | | | [place] [address] | + + + | Home Phone | | + + + | Preferred Language | Unknown | + + + | Marital Status | | + + + | Anabaptist Affiliation | Unknown | + + + | Race | Unknown | + + + | Ethnic Group | Unknown | + + + Author + + + | Author | [facility] | | | and Dieterana | + + + | Organization | [facility] | | [...] Team Providers + +------+ + | Care Nuisance Wildlife Control Operator Name | Role | Phone | [...] | | | | | | [place] [address] | | | | | | [phone] | | | +--------+ + + + [...]
--- OUTSIDE RECORDS SUMMARY | ~2019-10-22 | XMS | Clinical Summary ---
Demographics + + + | Address | [address] | | | [place] [address] | + + + | Home Phone | | + + + | Preferred Language | Unknown | + + + | Marital Status | | + + + | Restoration Affiliation | Unknown | + + + | Race | Unknown | + + + | Ethnic Group | Unknown | + + + Author + + + | Author | [facility] | | | and Dieterana | + + + | Organization | [facility] | | | and Dieterana [...] Team Providers + +------+ + | Care Writer Producer Name | Role | Phone | + [...] | | | | | | stage ([facility]); | | | | | | Peripheral sensory | | | | | | neuropathy due to | | | | | | type 2 diabetes | | | | | | mellitus ([facility]) | +--------+ + + + [...] O?MRN: | | | | | | [id number] | | | [id number] | | | riteri | | | [...] | | | St. | | | [place] | | | y | | | [...] | | | St. | | | [place] | | | y | | | [...] | | | St. | | | [place] | | | y | | | [...] | | | St. | | | [place] | | | y | | | [...] | | | St. | | | [place] | | | y H. | | [...] | | | St. | | | [place] | | | y H. | | [...] | | | St. | | | [place] | | | y H. | | [...] | | | St. | | | [place] | | | y H. | | [...] | | | St. | | | [place] | | | y H. | | [...] | | | St. | | | [place] | | | y H. | | | [place] | | | [place] | | | Emerge | | | ncy | | | Chief | | | Compla | | | int: | | | ANEMIA | | | May | | | 9, | | | 2019 | | | [facility] | | | [facility] | | | [place] | | | y H. | | [...] | | | St. | | | [place] | | | y H. | | [...] | | | St. | | | [place] | | | y H. | | [...] | | | St. | | | [place] | | | y H. | | [...] | | | 7-0b0c | | | [id number] | | | 7c | | | [...] ST. | [address] | [place] | [phone] | | [facility] | | [address] | | | - LABORATORY | | [...] [address] | [place] | [phone] | | [facility] | | [address] | | | - LABORATORY | | [...] [address] | [place] | [phone] | | [facility] | | [address] | | | - LABORATORY | | [...] [address] | [place] | [phone] | | [facility] | | [address] | | | - LABORATORY | | [...] +--------+-------+---------+--------+ | VET[place] ADMIN | [place] | [id number] | | | | Indemn | | | CHOICE | | 018-Pr | | | ity | | | PC3 | | esent | | | | + +--------+ +--------+-------+---------+--------+ | [place]ET[place] ADMIN | [place] | [id number] | | | | Indemn | | | CHOICE | | 019-Pr | | | ity | | | PC3 | | esent | | | | + +--------+ +--------+-------+---------+--------+ | VETERANS ADMIN | [place]ET[place] | [id number] | | | | Indemn | | [...] | 1970 | [phone] | [place] [address] | | | paul | | | 1 (Home) | | + +--------+ +--------+ + + | Oh Moreno | Person | Self | [birth year] | [address] | | | al/Graeme | | 1970 | [phone] | [place] [address] | | | paul | | | 1 (Home) | | + +--------+ +--------+ + + Advance Directives + + + + + | Type | Date Recorded | Patient | Explanation | | | | Residential Roofer | | + + + + + | Power of | | | | | Manager Image | | | | + + + + + | Advance | 09/21/2018 | | | | Directive | 10:15 AM | | | + + + + +
--- OUTSIDE RECORDS SUMMARY | ~2019-10-22 | XMS | Encounter Summary ---
Demographics + + + | Address | [address] | | | [place] [address] | + + + | Home Phone | | + + + | Preferred Language | Unknown | + + + | Marital Status | | + + + | Sikh Affiliation | Unknown | + + + | Race | Unknown | + + + | Ethnic Group | Unknown | + + + Author + + + | Author | [facility] | | | and Dieterana | + + + | Organization | [facility] | | | and Dieterana [...] Team Providers + +------+ + | Care Patient Portal Representative Name | Role | Phone | [...] | | | | | | [place] [address] | | | | | | [phone] | | | +--------+ + + + [...]
--- OUTSIDE RECORDS SUMMARY | ~2019-10-22 | XMS | Encounter Summary ---
Demographics + + + | Address | [address] | | | [place] [address] | + + + | Home Phone [...] | Author | [facility] | | | and Dieterana | + + + | Organization | [facility] | | | and [...] Team Providers + +------+ + | Care Bond Clerk Name | Role | Phone | [...] [place] | | | | | [address] [place] | [place] [address] | | | | | [place] [address] | [phone] | | | | | [phone] | | | +--------+ + + + [...]
--- OUTSIDE RECORDS SUMMARY | ~2019-10-22 | XMS | Encounter Summary ---
Demographics + + + | Address | [address] | | | [place] [address] | + + + | Home Phone [...] + | Author | [facility] | | | and Dieterana | + + + | Organization | [facility] [...] Team Providers + +------+ + | Care Barrel Rifler Name | Role | Phone | + [...] | | | | | | [place] [address] | | | | | | [phone] | | | +--------+ + + + [...]
--- OUTSIDE RECORDS SUMMARY | ~2019-10-22 | XMS | Encounter Summary ---
Demographics + + + | Address | [address] | | | [place] [address] | + + + | Home Phone [...] | Author | [facility] | | | and Dieterana | + + + | Organization | [facility] | | | and [...] Team Providers + +------+ + | Care High School Tutor Name | Role | Phone | + [...] + + | 08/29/ | Emergency | [facility] | [place], | Cellulitis of right | | 2019 | | MED CTR EM[facility]GENCY | Sundeep Keller MD [address] | foot (Primary Dx); | | | | CENTER [address] | [address] [place] | Ulcer of right foot, | | | | [place], [place] | [place] [address] | unspecified ulcer | | | | [address] | [phone] | stage ([facility]); | | | | [phone] | | Peripheral sensory | | | | | | neuropathy due to | | | | | | type 2 diabetes | | | | | | mellitus ([facility]) | +--------+ + + + + Social [...] O?MRN: | | | | | | [id number] | | | [id number] | | | riteri | | | [...] | | | St. | | | [place] | | | y | | | [...] | | | St. | | | [place] | | | y | | | [...] | | | St. | | | [place] | | | y | | | [...] | | | St. | | | [place] | | | y | | | [...] | | | St. | | | [place] | | | y H. | | [...] | | | St. | | | [place] | | | y H. | | [...] | | | St. | | | [place] | | | y H. | | [...] | | | St. | | | [place] | | | y H. | | [...] | | | St. | | | [place] | | | y H. | | [...] | | | St. | | | [place] | | | y H. | | | [place] | | | [place] | | | Emerge | | | ncy | | | Chief | | | Compla | | | int: | | | ANEMIA | | | May | | | 9, | | | 2019 | | | [facility] | | [facility] | | | [place] | | | y H. | | [...] | | | St. | | | [place] | | | y H. | | [...] | | | St. | | | [place] | | | y H. | | [...] | | | St. | | | [place] | | | y H. | | [...] | | | 7-0b0c | | | [id number] | | | 7c | | | [...] ST. | [address] | [place] | [phone] | | [facility] | | [address] | | | - LABORATORY | | [...] + | [facility] | [address] | [place] | [phone] | | [facility] | | [address] | | | - LABORATORY | | [...] [address] | [place] | [phone] | | [facility] | | [address] | | | - LABORATORY | | [...] [address] | [place] | [phone] | | [facility] | | [address] | | | - LABORATORY | | [...] + | [facility] | [address] | [place] | [phone] | | [facility] | | [address] | | | - LABORATORY | | [...] [address] | [place] | [phone] | | [facility] | | [address] | | | - LABORATORY | | [...]
--- OUTSIDE RECORDS SUMMARY | ~2019-10-22 | XMS | Encounter Summary ---
Demographics + + + | Address | [address] | | | [place] [address] | + + + | Home Phone | | + + + | Preferred Language | Unknown | + + + | Marital Status | | + + + | Tenriism Affiliation | Unknown | + + + | Race | Unknown | + + + | Ethnic Group | Unknown | + + + Author + + + | Author | [facility] | | | and Dieterana | + + + | Organization | [facility] | | | and Dieterana [...] Team Providers + +------+ + | Care Chair Mechanic Name | Role | Phone | [...] | | | | | | [place] [address] | | | | | | [phone] | | | +--------+ + + + [...]
--- OUTSIDE RECORDS SUMMARY | ~2019-10-22 | XMS | Encounter Summary ---
Demographics + + + | Address | [address] | | | [place] [address] | + + + | Home Phone [...] + + | Author | [facility] | | | and Dieterana | + + + | Organization | [facility] | [...] Team Providers + +------+ + | Care Soil Technician Name | Role | Phone | [...] WALL | | | | | [address] | [place] [address] | | | | | [place] [address] | [phone] | | | | | [phone] | | | +--------+ + + + [...]
--- OUTSIDE RECORDS SUMMARY | ~2019-10-22 | XMS | Encounter Summary ---
Demographics + + + | Address | [address] | | | [place] [address] | + + + | Home Phone | | + + + | Preferred Language | Unknown | + + + | Marital Status | | + + + | Anabaptist Affiliation | Unknown | + + + | Race | Unknown | + + + | Ethnic Group | Unknown | + + + Author + + + | Author | [facility] | | | and Dieterana | + + + | Organization | [facility] | | [...] Team Providers + +------+ + | Care Dealership Manager Name | Role | Phone | [...] | | | [address] | [place], [place] | | | | | | [place] | [address] | | | | | | [address] | Phone: | | | | | | Phone: | [phone] | | | | | | [phone] | Fax: | | | | | | Fax: | [phone] | | | | | | [phone] | | +--------+--------+ + + + + [...] | SURGERY [address] | MD [address] | | | | | DR DEWAYNE VAZQUEZ, | [place], [place] | | | | | [place] [address] | [address] | | | | | [phone] | [phone] | | | | | | | [...] note might be [facility] Man[facility] Jolly M.D [address] [place] [address] [place], [place] [address] - PATIENT NAME: Oh Moreno IF YOU [...] Needle Localization [] Lumpectomy [] Mastectomy [] Epes Node Biopsy [] Isosulfan Blue Dye [] [...] speech recognition errors which escaped detection during jewelry inspector. documented in this encounter Plan of Treatment Not on filedocumented as of this encounter Visit Diagnoses + + | Diagnosis | + + | Nausea - Primary Nausea alone | + + | Microcytic anemia Iron deficiency anemia, unspecified | + + documented in this encounter
--- OUTSIDE RECORDS SUMMARY | ~2019-10-22 | XMS | Encounter Summary ---
Demographics + + + | Address | [address] | | | [place] [address] | + + + | Home Phone [...] + | Author | [facility] | | | and Dieterana | + + + | Organization | [facility] | | | and Dieterana [...] Team Providers + +------+ + | Care On Line Csr Name | Role | Phone | + +------+ + | Imer Woodard MD | PCP | | + +------+ + Encounter Details +--------+ + + + + | Date | Type | Department | Care Team | Description | +--------+ + + + + | 05// | Abstract | [facility] | Provider, | | | 2018 | | GASTROENTEROLOGY | MD [address] | | | | | [address] [facility] | Moshe Longo | | | | | [address] [place] | [place] [address] | | | | | [address] | | | | | | [phone] | | | +--------+ + + + [...]
--- OUTSIDE RECORDS SUMMARY | ~2019-10-22 | XMS | Encounter Summary ---
Demographics + + + | Address | [address] | | | [place] [address] | + + + | Home Phone [...] | Author | [facility] | | | and Dieterana | + + + | Organization | [facility] | | | and Dieterana [...] Team Providers + +------+ + | Care Ship Keeper Name | Role | Phone | [...] [address] [place] | MD [address] | | | | | [place], [place] | [place], [place] | | | | | [address] | [address] | | | | | [phone] | [phone] | | | | | | | [...] + + | [place] [facility] | [address] | [place] [address] | [phone] | | HOSPITAL LABORATORY | | | [...] ANESTHESIA: Sedation | | | ANESTHESIA PROVIDER: COMMUNITY [facility]ALTH OUTREACH WORKER: Manas Sears CRNA SPECIMEN: | | | [...] MD, | | | 09/21/2018 13:13 [facility] This note was | | | transcribed using voice recognition software; there may be speech | | | recognition errors which escaped detection during clothing sorter. | | | | | + + [...] + + | [place] [facility] | [address] | [place] | [phone] | | HOSPITAL LABORATORY | | | [...] | | technical component was performed by [facility] | [facility] | | | [facility], [address] [place] [address] (Medical | | | Director: Samir Leija MD; CLIA# [id number]). Professional | | | interpretation was performed by [facility] | [facility] | | | [place] [address] (Medical | | | Director: Samir Leija MD; CLIA# [id number]). ADDITIONAL | | | NOTES: Immunohistochemical and/or in situ hybridization studies were | | | performed on this case with the appropriate positive controls that | | | react as expected. This test was developed and its performance | | | characteristics determined by [facility] | [facility]. It has not been | | | cleared or approved by the U.S. Food and Drug Administration. The | | | FDA has determined that such clearance or approval is not necessary. | | | This test is used for clinical purposes. It should not be regarded | | | as investigational or for research. [facility] | [facility] is certified | | | under the Clinical Laboratory Improvement Amendments of 1988 (CLIA) | | | as qualified to perform high complexity clinical laboratory testing. | | | The technical component was performed by [facility] | [facility], [facility] | | | [facility] [address] (Validation Manager: Sindy Bernal MD; | | | CLIA# [id number]). Professional interpretation was performed by | | | Travel[facility] | [facility] | | | [place] [address] (Validation Manager: Samir Leija MD; CLIA# | | | [id number]). PAS stain: The technical component was performed by | | | [facility] | [facility], [address] | | | [place] [address] (Validation Manager: Samir Leija MD; CLIA# | | | [id number]). Professional interpretation was performed by [facility] | | | [address] | | | [place] [address] (Validation Manager: Samir Leija MD; CLIA# | | | [id number]). REASON FOR ADDENDUM: To add the results [...] positive control. The results are detailed above. NRT:[facility] | | | Diagnostician: Clarissa Perdue MD [...]
[~2019-10-22 18:48] MED LIST changes: +ADRUCIL500 MG/10 IV; +CINVANTI130 MG/18 IV; +DIPHENHYDR50 MG/1 M1 IV; +LEUCOVORIN CAL200 MG IV; +ONDANSETRON4 MG/2 M1 IV; +OXALIPLATI100 MG/20 IV
--- OUTSIDE RECORDS SUMMARY | 2019-10-22 18:52 | XMS ---
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 Care History Medical/Surgical 09/20/2019 [facility] - PATIENT PCP- DR RAYMUNDO HAS MADE A REFERRAL TO DR LEONE - [place] PUBLICATION DIRECTOR. 08/29/2019 [facility] - PATIENT NOW HAS DR MARII LION PATIENT PCP AT [facility]. - PATIENT DOES HAVE IN HOME CARE SERVICES THROUGH THE [place]- RN HOME VISITS ALONG WITH PROVIDER IN HOME VISITS. 06/20/2019 [facility] - PATIENT STATED HE HAS SOMEONE COMING FROM THE [place] TO COME AND EVALUATE HIS HOME FOR SAFETY/FALL RISK THIS WEEK. - PATIENT DECLINED ANY FURTHER SERVICES/RESOURCES AT THIS TIME-STATED HE IS WORKING WITH THE [place] AND [facility]. E.D. VISIT COUNT (12 MO.) [address] Liz Reyes [facility] TOTAL 12 NOTE: Visits indicate total known visits. 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 09/19/2019 11:53 [facility] [place] TYPE: Emergency COMPLAINT: - FOOT WOUND DIAGNOSES: - Allergy status to oth drug/meds/biol subst status - 1 Type 2 diabetes mellitus with foot ulcer - Allergy status to narcotic agent status - 1 Type 2 diabetes mellitus with diabetic neuropathy, unsp - Other prison (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 - assisted (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 - Pain in right foot - Non-prs chronic ulcer oth prt right foot w unsp severity - Personal history of malignant neoplasm of large intestine [facility] DIAGNOSES: - Wound Check [...] antineoplastic and immunosup drugs, init - 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 - Post-traumatic stress disorder, unspecified - assisted (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 - [...] diabetes mellitus with diabetic neuropathy, unsp - assisted (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 - [...] Allergy status to narcotic agent status - buttermaker continuous churn (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 - Post-traumatic stress disorder, unspecified - 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 - Allergy status to [...] Abrasion, left lower leg, initial encounter - assisted (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 - Fall same lev from slip/trip w/o strike against object, init - 1 Type 2 diabetes mellitus with diabetic neuropathy, unsp - Allergy status to oth drug/meds/biol subst status - Personal history of malignant neoplasm of large intestine - 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 05/28/2019 06:21 [facility] [place] TYPE: Emergency COMPLAINT: - VOMITING/DIARRHEA/HEADACHE DIAGNOSES: - Allergy status to oth drug/meds/biol subst status - Allergy status to narcotic agent status - Generalized abdominal pain - Secondary malignant neoplasm of large intestine and rectum - 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 - 1 Type 2 diabetes mellitus without complications - Dehydration - assisted (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 of aspirin - Personal history [...] 2 diabetes mellitus without complications - buttermaker continuous churn (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 - [...] Personal history of nicotine dependence - Other prison (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 - Post-traumatic stress disorder, [...] duct - Post-traumatic stress disorder, unspecified - assisted (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 of inhaled steroids - Iron deficiency anemia secondary to blood loss (chronic) - Allergy status to oth drug/meds/biol subst status - Hyperlipidemia, unspecified - Other prison (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 - Body mass index (BMI) 20.0-20.9, adult - Essential (primary) hypertension - Allergy status to narcotic agent status - Allergy status to narcotic agent status - Other seasonal allergic rhinitis - buttermaker continuous churn (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 of inhaled steroids - 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 - Hyperlipidemia, unspecified - Essential (primary) hypertension - Iron deficiency anemia, unspecified - buttermaker continuous churn (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 - Diaphragmatic hernia without obstruction or gangrene - Anemia, unspecified - Post-traumatic stress disorder, unspecified - Malignant neoplasm of cecum - Allergy status to oth drug/meds/biol subst status - Other prison (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 - 1 Type 2 diabetes mellitus with diabetic polyneuropathy - Anemia in neoplastic disease - Secondary malignant neoplasm of unspecified site [email or web address]
== END 2019-10-23 01:54 | disposition home or self-care (01) ==
LOC: ED 18:48
DX: R11.10 Vomiting, unspecified (principal); E11.40 Type 2 diabetes mellitus with diabetic neuropathy, unspecified; D64.9 Anemia, unspecified; Z88.8 Allergy status to other drugs, medicaments and biological substances; Z88.6 Allergy status to analgesic agent; Z79.899 Other long term (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; Z79.84 Long term (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
CPT/HCPCS: 80053; 83690; 85025; 96361; 96374; 96375; 96376; 99284-25; J1200; J2405; J2550; J2765; J7030

== ENCOUNTER 2019-11-23 22:19 | Emergency (ER) | payer OTHER ==
[~2019-11-23] VITALS: Ht 193 cm; Wt 79.4 kg
--- OUTSIDE RECORDS SUMMARY | ~2019-11-23 | XMS | Encounter Summary ---
Demographics + + + | Address | [address] | | | [place] [address] | + + + | Home Phone | | + + + | Preferred Language | Unknown | + + + | Marital Status | | + + + | Catholic Affiliation | Unknown | + + + | Race | Unknown | + + + | Ethnic Group | Unknown | + + + Author + + + | Author | [facility] | | | and [place] | + + + | Organization | [facility] | | | and [place] | + + + | Address | Unknown | + + + | Phone | Unavailable | + + + Support + + +---------+ + | Name | Relationship | Address | Phone | + + +---------+ + | Dagmar Scruggs | ECON | Unknown | | + + +---------+ + | Cintia Moreno | ECON | Unknown | | + + +---------+ + Care Team Providers + +------+ + | Care Candy Roller Name | Role | Phone | + +------+ + | Imer Woodard MD | PCP | | + +------+ + Encounter Details +--------+ + + + + | Date | Type | Department | Care Team | Description | +--------+ + + + + | 05// | Abstract | [facility] | Provider, | | | 2018 | | GASTROENTEROLOGY | MD [address] | | | | | [address] [facility] | Moshe Longo | | | | | [address] [place] | [place] [address] | | | | | [id number] | | | | | | [phone] | | | +--------+ + + + + Social History + +-------+ +--------+------+ | Tobacco Use | Types | Packs/Day | Years | Date | | | | | Used | | + +-------+ +--------+------+ | Former Smoker | | | | | + +-------+ +--------+------+ + +---+---+---+ | Smokeless Tobacco: | | | | | Former User | | | | + +---+---+---+ + + +---------+ + | Alcohol Use | Drinks/Week | oz/Week | Comments | + + +---------+ + | Yes | | | rarely | + + +---------+ + + + + | Sex Assigned at [...] Not on filedocumented as of this encounter Procedures + +--------+ + + + | Procedure Name | Priori | Date/Time | Associated Diagnosis | Comments | | | ty | | | | + +--------+ + + + | EXTERNAL LAB: ARTHUR | Routin | 03/23/2019 | | Results for this | | | e | | | procedure are in the | | | | | | results section. | + +--------+ + + + | EXTERNAL LAB: ARTHUR | Routin | 03/23/2019 | | Results for this | | | e | | | procedure are in the | | | | | | results section. | + +--------+ + + + | SEDIMENTATION RATE | Routin | 03/23/2019 | | Results for this | | | e | | | procedure are in the | | | | | | results section. | + +--------+ + + + | CBC WITH | Routin | 03/23/2019 | | Results for this | | DIFFERENTIAL | e | | | procedure are in the | | | | | | results section. | + +--------+ + + + | C-REACTIVE PROTEIN | Routin | 03/23/2019 | | Results for this | | | e | | | procedure are in the | | | | | | results section. | + +--------+ + + + | EXTERNAL LAB: ARTHUR | Routin | 03/14/2019 | | Results for this | | | e | | | procedure are in the | | | | | | results section. | + +--------+ + + + | SEDIMENTATION RATE | Routin | 03/14/2019 | | Results for this | | | e | | | procedure are in the | | | | | | results section. | + +--------+ + + + | CBC WITH | Routin | 03/14/2019 | | Results for this | | DIFFERENTIAL | e | | | procedure are in the | | | | | | results section. | + +--------+ + + + | EXTERNAL LAB: BUN | Routin | 02/14/2019 | | Results for this | | | e | | | procedure are in the | | | | | | results section. | + +--------+ + + + | EXTERNAL LAB: | Routin | 02/14/2019 | | Results for this | | GLUCOSE | e | | | procedure are in the | | | | | | results section. | + +--------+ + + + | EXTERNAL LAB: | Routin | 02/14/2019 | | Results for this | | CALCIUM | e | | | procedure are in the | | | | | | results section. | + +--------+ + + + | EXTERNAL LAB: CARBON | Routin | 02/14/2019 | | Results for this | | DIOXIDE | e | | | procedure are in the | | | | | | results section. | + +--------+ + + + | EXTERNAL LAB: | Routin | 02/14/2019 | | Results for this | | CHLORIDE | e | | | procedure are in the | | | | | | results section. | + +--------+ + + + | EXTERNAL LAB: | Routin | 02/14/2019 | | Results for this | | POTASSIUM | e | | | procedure are in the | | | | | | results section. | + +--------+ + + + | EXTERNAL LAB: SODIUM | Routin | 02/14/2019 | | Results for this | | | e | | | procedure are in the | | | | | | results section. | + +--------+ + + + | EXTERNAL LAB: CBC | Routin | 02/14/2019 | | Results for this | | | e | | | procedure are in the | | | | | | results section. | + +--------+ + + + | EXTERNAL LAB: EGFR | Routin | 02/14/2019 | | Results for this | | | e | | | procedure are in the | | | | | | results section. | + +--------+ + + + | EXTERNAL LAB: | Routin | 02/14/2019 | | Results for this | | CREATININE | e | | | procedure are in the | | | | | | results section. | + +--------+ + + + | CULTURE, AEROBIC + | Routin | 02/14/2019 | | Results for this | | ANAEROBIC | e | | | procedure are in the | | | | | | results section. | + +--------+ + + + | SEDIMENTATION RATE | Routin | 02/14/2019 | | Results for this | | | e | | | procedure are in the | | | | | | results section. | + +--------+ + + + | CBC WITH | Routin | 02/14/2019 | | Results for this | | DIFFERENTIAL | e | | | procedure are in the | | | | | | results section. | + +--------+ + + + | C-REACTIVE PROTEIN | Routin | 02/14/2019 | | Results for this | | | e | | | procedure are in the | | | | | | results section. | + +--------+ + + + | HEMOGLOBIN A1C | Routin | 02/14/2019 | | Results for this | | | e | | | procedure are in the | | | | | | results section. | + +--------+ + + + | EXTERNAL LAB: BUN | Routin | 08/06/2018 | | Results for this | | | e | | | procedure are in the | | | | | | results section. | + +--------+ + + + | EXTERNAL LAB: | Routin | 08/06/2018 | | Results for this | | GLUCOSE | e | | | procedure are in the | | | | | | results section. | + +--------+ + + + | EXTERNAL LAB: ALT | Routin | 08/06/2018 | | Results for this | | | e | | | procedure are in the | | | | | | results section. | + +--------+ + + + | EXTERNAL LAB: AST | Routin | 08/06/2018 | | Results for this | | | e | | | procedure are in the | | | | | | results section. | + +--------+ + + + | EXTERNAL LAB: | Routin | 08/06/2018 | | Results for this | | ALKALINE PHOSPHATASE | e | | | procedure are in the | | | | | | results section. | + +--------+ + + + | EXTERNAL LAB: | Routin | 08/06/2018 | | Results for this | | BILIRUBIN, TOTAL | e | | | procedure are in the | | | | | | results section. | + +--------+ + + + | EXTERNAL LAB: | Routin | 08/06/2018 | | Results for this | | ALBUMIN | e | | | procedure are in the | | | | | | results section. | + +--------+ + + + | EXTERNAL LAB: | Routin | 08/06/2018 | | Results for this | | PROTEIN, TOTAL | e | | | procedure are in the | | | | | | results section. | + +--------+ + + + | EXTERNAL LAB: | Routin | 08/06/2018 | | Results for this | | CALCIUM | e | | | procedure are in the | | | | | | results section. | + +--------+ + + + | EXTERNAL LAB: CARBON | Routin | 08/06/2018 | | Results for this | | DIOXIDE | e | | | procedure are in the | | | | | | results section. | + +--------+ + + + | EXTERNAL LAB: | Routin | 08/06/2018 | | Results for this | | CHLORIDE | e | | | procedure are in the | | | | | | results section. | + +--------+ + + + | EXTERNAL LAB: | Routin | 08/06/2018 | | Results for this | | POTASSIUM | e | | | procedure are in the | | | | | | results section. | + +--------+ + + + | EXTERNAL LAB: SODIUM | Routin | 08/06/2018 | | Results for this | | | e | | | procedure are in the | | | | | | results section. | + +--------+ + + + | EXTERNAL LAB: | Routin | 08/06/2018 | | Results for this | | TRIGLYCERIDES | e | | | procedure are in the | | | | | | results section. | + +--------+ + + + | EXTERNAL LAB: | Routin | 08/06/2018 | | Results for this | | CHOLESTEROL, HDL | e | | | procedure are in the | | | | | | results section. | + +--------+ + + + | EXTERNAL LAB: | Routin | 08/06/2018 | | Results for this | | CHOLESTEROL, TOTAL | e | | | procedure are in the | | | | | | results section. | + +--------+ + + + | EXTERNAL LAB: EGFR | Routin | 08/06/2018 | | Results for this | | | e | | | procedure are in the | | | | | | results section. | + +--------+ + + + | EXTERNAL LAB: | Routin | 08/06/2018 | | Results for this | | CREATININE | e | | | procedure are in the | | | | | | results section. | + +--------+ + + + | LIPID PANEL | Routin | 08/06/2018 | | Results for this | | | e | | | procedure are in the | | | | | | results section. | + +--------+ + + + | HEMOGLOBIN A1C | Routin | 08/06/2018 | | Results for this | | | e | | | procedure are in the | | | | | | results section. | + +--------+ + + + | COMPREHENSIVE | Routin | 08/06/2018 | | Results for this | | METABOLIC PANEL | e | | | procedure are in the | | | | | | results section. | + +--------+ + + + | EXTERNAL LAB: DOUG | Routin | 06/24/2018 | | Results for this | | | e | | | procedure are in the | | | | | | results section. | + +--------+ + + + | EXTERNAL LAB: | Routin | 06/24/2018 | | Results for this | | GLUCOSE | e | | | procedure are in the | | | | | | results section. | + +--------+ + + + | EXTERNAL LAB: CHRISTINE | Routin | 06/24/2018 | | Results for this | | | e | | | procedure are in the | | | | | | results section. | + +--------+ + + + | EXTERNAL LAB: LUIS ENRIQUE | Routin | 06/24/2018 | | Results for this | | | e | | | procedure are in the | | | | | | results section. | + +--------+ + + + | EXTERNAL LAB: | Routin | 06/24/2018 | | Results for this | | ALKALINE PHOSPHATASE | e | | | procedure are in the | | | | | | results section. | + +--------+ + + + | EXTERNAL LAB: | Routin | 06/24/2018 | | Results for this | | BILIRUBIN, TOTAL | e | | | procedure are in the | | | | | | results section. | + +--------+ + + + | EXTERNAL LAB: | Routin | 06/24/2018 | | Results for this | | ALBUMIN | e | | | procedure are in the | | | | | | results section. | + +--------+ + + + | EXTERNAL LAB: | Routin | 06/24/2018 | | Results for this | | PROTEIN, TOTAL | e | | | procedure are in the | | | | | | results section. | + +--------+ + + + | EXTERNAL LAB: | Routin | 06/24/2018 | | Results for this | | CALCIUM | e | | | procedure are in the | | | | | | results section. | + +--------+ + + + | EXTERNAL LAB: CARBON | Routin | 06/24/2018 | | Results for this | | DIOXIDE | e | | | procedure are in the | | | | | | results section. | + +--------+ + + + | EXTERNAL LAB: | Routin | 06/24/2018 | | Results for this | | CHLORIDE | e | | | procedure are in the | | | | | | results section. | + +--------+ + + + | EXTERNAL LAB: | Routin | 06/24/2018 | | Results for this | | POTASSIUM | e | | | procedure are in the | | | | | | results section. | + +--------+ + + + | EXTERNAL LAB: SODIUM | Routin | 06/24/2018 | | Results for this | | | e | | | procedure are in the | | | | | | results section. | + +--------+ + + + | EXTERNAL LAB: CBC | Routin | 06/24/2018 | | Results for this | | | e | | | procedure are in the | | | | | | results section. | + +--------+ + + + | EXTERNAL LAB: | Routin | 06/24/2018 | | Results for this | | TRIGLYCERIDES | e | | | procedure are in the | | | | | | results section. | + +--------+ + + + | EXTERNAL LAB: | Routin | 06/24/2018 | | Results for this | | CHOLESTEROL, HDL | e | | | procedure are in the | | | | | | results section. | + +--------+ + + + | EXTERNAL LAB: | Routin | 06/24/2018 | | Results for this | | CHOLESTEROL, TOTAL | e | | | procedure are in the | | | | | | results section. | + +--------+ + + + | EXTERNAL LAB: | Routin | 06/24/2018 | | Results for this | | CHOLESTEROL, LDL | e | | | procedure are in the | | | | | | results section. | + +--------+ + + + | EXTERNAL LAB: EGFR | Routin | 06/24/2018 | | Results for this | | | e | | | procedure are in the | | | | | | results section. | + +--------+ + + + | EXTERNAL LAB: | Routin | 06/24/2018 | | Results for this | | CREATININE | e | | | procedure are in the | | | | | | results section. | + +--------+ + + + | LIPID PANEL | Routin | 06/24/2018 | | Results for this | | | e | | | procedure are in the | | | | | | results section. | + +--------+ + + + | CBC WITH | Routin | 06/24/2018 | | Results for this | | DIFFERENTIAL | e | | | procedure are in the | | | | | | results section. | + +--------+ + + + | HEMOGLOBIN A1C | Routin | 06/24/2018 | | Results for this | | | e | | | procedure are in the | | | | | | results section. | + +--------+ + + + | COMPREHENSIVE | Routin | 06/24/2018 | | Results for this | | METABOLIC PANEL | e | | | procedure are in the | | | | | | results section. | + +--------+ + + + documented in this encounter Results External Lab: CBC (03/23/2019) + +-------+ + + + | Component | Value | Ref Range | Performed | Pathologist | | | | | At | Signature | + +-------+ + + + | Neutrophils | 6 | 1.2 - 7 | EXTERNAL | | | , Absolute, | | | LAB | | | External | | | | | + +-------+ + + + | Lymphocytes | 1.7 | 0.6 - 3.4 | EXTERNAL | | | , Absolute, | | | LAB | | | External | | | | | + +-------+ + + + | Monocytes, | 0.5 | 0.2 - 1 | EXTERNAL | | | Absolute, | | | LAB | | | External | | | | | + +-------+ + + + | Eosinophils | 0.3 | 0 - 0.5 | EXTERNAL | | | , Absolute | | | LAB | | + +-------+ + + + | Basophils, | 0 | 0 - 0.2 | EXTERNAL | | | Absolute | | | LAB | | + +-------+ + + + + +---------+ + + | Performing | Address | City/State/Zipcode | Phone Number | | Organization | | | | + +---------+ + + | EXTERNAL LAB | | | | + +---------+ + + C-Reactive Protein (03/23/2019) + +-------+ + + + | Component | Value | Ref Range | Performed | Pathologist | | | | | At | Signature | + +-------+ + + + | CRP | 23.2 | mg/L | | | + +-------+ + + + + + | Specimen | + + | Blood | + + Sedimentation Rate (03/23/2019) + +--------+ + + + | Component | Value | Ref Range | Performed | Pathologist | | | | | At | Signature | + +--------+ + + + | ESR | 43 (A) | 0 - 10 mm/hr | | | + +--------+ + + + + + | Specimen | + + | Blood | + + CBC with Differential (03/23/2019) + + + + + + | Component | Value | Ref Range | Performed | Pathologist | | | | | At | Signature | + + + + + + | MCH | 17 (A) | 27 - 31 | | | + + + + + + | MCHC | 26.8 (A) | 32 - 36 | | | + + + + + + | Basophils % | 0.5 | 0 - 2 | | | + + + + + + + + | Specimen | + + | Blood | + + External Lab: CBC (03/23/2019) + + + + + + | Component | Value | Ref Range | Performed | Pathologist | | | | | At | Signature | + + + + + + | WBC, | 8.6 | 3 - 10.6 | EXTERNAL | | | External | | | LAB | | + + + + + + | HGB, | 8.4 (A) | 11.8 - 17.1 | EXTERNAL | | | External | | | LAB | | + + + + + + | HCT, | 31.4 (A) | 36 - 51 | EXTERNAL | | | External | | | LAB | | + + + + + + | PLT, | 411 (A) | 150 - 400 | EXTERNAL | | | External | | | LAB | | + + + + + + | Neutrophils | 70.3 | 44 - 74 | EXTERNAL | | | %, | | | LAB | | | External | | | | | + + + + + + | Lymphocytes | 19.7 | 15 - 42 | EXTERNAL | | | %, | | | LAB | | | External | | | | | + + + + + + | Monocytes | 6.3 | 4 - 13 | EXTERNAL | | | %, External | | | LAB | | + + + + + + | Eosinophils | 3 | 0 - 7 | EXTERNAL | | | %, | | | LAB | | | External | | | | | + + + + + + | RBC, | 4.93 | 3.86 - 5.7 | EXTERNAL | | | External | | | LAB | | + + + + + + | MCV, | 64 (A) | 81 - 102 | EXTERNAL | | | External | | | LAB | | + + + + + + | RDW, | 18 (A) | 11.2 - 16.2 | EXTERNAL | | | External | | | LAB | | + + + + + + + +---------+ + + | Performing | Address | City/State/Zipcode | Phone Number | | Organization | | | | + +---------+ + + | EXTERNAL LAB | | | | + +---------+ + + Sedimentation Rate (03/14/2019) + +--------+ + + + | Component | Value | Ref Range | Performed | Pathologist | | | | | At | Signature | + +--------+ + + + | ESR | 43 (A) | 0 - 10 mm/hr | | | + +--------+ + + + + + | Specimen | + + | Blood | + + CBC with Differential (03/14/2019) + +-------+ + + + | Component | Value | Ref Range | Performed | Pathologist | | | | | At | Signature | + +-------+ + + + | MCH | 16.9 | | | | + +-------+ + + + | MCHC | 26.5 | | | | + +-------+ + + + | Basophils % | 0.4 | | | | + +-------+ + + + + + | Specimen | + + | Blood | + + External Lab: CBC (03/14/2019) + +-------+ + + + | Component | Value | Ref Range | Performed | Pathologist | | | | | At | Signature | + +-------+ + + + | WBC, | 9.5 | | EXTERNAL | | | External | | | LAB | | + +-------+ + + + | HGB, | 8.4 | | EXTERNAL | | | External | | | LAB | | + +-------+ + + + | HCT, | 31.7 | | EXTERNAL | | | External | | | LAB | | + +-------+ + + + | PLT, | 382 | | EXTERNAL | | | External | | | LAB | | + +-------+ + + + | Neutrophils | 75.5 | | EXTERNAL | | | %, | | | LAB | | | External | | | | | + +-------+ + + + | Lymphocytes | 16.5 | | EXTERNAL | | | %, | | | LAB | | | External | | | | | + +-------+ + + + | Monocytes | 5 | | EXTERNAL | | | %, External | | | LAB | | + +-------+ + + + | Eosinophils | 2.4 | | EXTERNAL | | | %, | | | LAB | | | External | | | | | + +-------+ + + + | RBC, | 4.97 | | EXTERNAL | | | External | | | LAB | | + +-------+ + + + | MCV, | 64 | | EXTERNAL | | | External | | | LAB | | + +-------+ + + + | RDW, | 18 | | EXTERNAL | | | External | | | LAB | | + +-------+ + + + + +---------+ + + | Performing | Address | City/State/Zipcode | Phone Number | | Organization | | | | + +---------+ + + | EXTERNAL LAB | | | | + +---------+ + + Culture, Aerobic + Anaerobic (02/14/2019) + + + + + + | Component | Value | Ref Range | Performed | Pathologist | | | | | At | Signature | + + + + + + | Gram Stain | rare epithelial cells. | | | | | Result | moderate gram positive | | | | | | cocci | | | | + + + + + + | Culture | Staphylococcus Aureus. | | | | | Result | moderate growth | | | | + + + + + + + + | Specimen | + + | | + + + + +--------+ + | Organism | Antibiotic | Method | Susceptibility | + + +--------+ + | Staphylococcus | Ciprofloxacin | | Sensitive | | aureus | | | | + + +--------+ + | Staphylococcus | Clindamycin | | Sensitive | | aureus | | | | + + +--------+ + | Staphylococcus | Erythromycin | | Sensitive | | aureus | | | | + + +--------+ + | Staphylococcus | Gentamicin | | Sensitive | | aureus | | | | + + +--------+ + | Staphylococcus | Linezolid | | Sensitive | | aureus | | | | + + +--------+ + | Staphylococcus | Oxacillin | | Sensitive | | aureus | | | | + + +--------+ + | Staphylococcus | Tetracycline | | Sensitive | | aureus | | | | + + +--------+ + | Staphylococcus | Trimethoprim + | | Sensitive | | aureus | Sulfamethoxazole | | | + + +--------+ + | Staphylococcus | Vancomycin | | Sensitive | | aureus | | | | + + +--------+ + C-Reactive Protein (02/14/2019) + + + + + + | Component | Value | Ref Range | Performed | Pathologist | | | | | At | Signature | + + + + + + | CRP | 35.4 (A) | 0 - 10 mg/L | | | + + + + + + + + | Specimen | + + | Blood | + + Sedimentation Rate (02/14/2019) + +-------+ + + + | Component | Value | Ref Range | Performed | Pathologist | | | | | At | Signature | + +-------+ + + + | ESR | 28 | mm/hr | | | + +-------+ + + + + + | Specimen | + + | Blood | + + CBC with Differential (02/14/2019) + +-------+ + + + | Component | Value | Ref Range | Performed | Pathologist | | | | | At | Signature | + +-------+ + + + | MCH | 16.9 | | | | + +-------+ + + + | MCHC | 26.5 | | | | + +-------+ + + + | Basophils % | 0.5 | | | | + +-------+ + + + + + | Specimen | + + | Blood | + + Hemoglobin A1C (02/14/2019) + +-------+ + + + | Component | Value | Ref Range | Performed | Pathologist | | | | | At | Signature | + +-------+ + + + | Hemoglobin | 10.3 | % | EXTERNAL | | | A1c | | | LAB | | + +-------+ + + + + + | Specimen | + + | Blood | + + + +---------+ + + | Performing | Address | City/State/Zipcode | Phone Number | | Organization | | | | + +---------+ + + | EXTERNAL LAB | | | | + +---------+ + + External Lab: DOUG (02/14/2019) + +-------+ + + + | Component | Value | Ref Range | Performed | Pathologist | | | | | At | Signature | + +-------+ + + + | BUN, | 11 | 7 - 23 | EXTERNAL | | | External | | | LAB | | + +-------+ + + + + +---------+ + + | Performing | Address | City/State/Zipcode | Phone Number | | Organization | | | | + +---------+ + + | EXTERNAL LAB | | | | + +---------+ + + External Lab: Glucose (02/14/2019) + +---------+ + + + | Component | Value | Ref Range | Performed | Pathologist | | | | | At | Signature | + +---------+ + + + | Glucose, | 188 (A) | 71 - 109 | EXTERNAL | | | External | | | LAB | | + +---------+ + + + + +---------+ + + | Performing | Address | City/State/Zipcode | Phone Number | | Organization | | | | + +---------+ + + | EXTERNAL LAB | | | | + +---------+ + + External Lab: Calcium (02/14/2019) + +-------+ + + + | Component | Value | Ref Range | Performed | Pathologist | | | | | At | Signature | + +-------+ + + + | Calcium, | 9 | 8.4 - 10.5 | EXTERNAL | | | External | | | LAB | | + +-------+ + + + + +---------+ + + | Performing | Address | City/State/Zipcode | Phone Number | | Organization | | | | + +---------+ + + | EXTERNAL LAB | | | | + +---------+ + + External Lab: Carbon Dioxide (02/14/2019) + +-------+ + + + | Component | Value | Ref Range | Performed | Pathologist | | | | | At | Signature | + +-------+ + + + | Carbon | 30 | 21 - 32 | EXTERNAL | | | Dioxide, | | | LAB | | | External | | | | | + +-------+ + + + + +---------+ + + | Performing | Address | City/State/Zipcode | Phone Number | | Organization | | | | + +---------+ + + | EXTERNAL LAB | | | | + +---------+ + + External Lab: Chloride (02/14/2019) + +--------+ + + + | Component | Value | Ref Range | Performed | Pathologist | | | | | At | Signature | + +--------+ + + + | Chloride, | 97 (A) | 98 - 107 | EXTERNAL | | | External | | | LAB | | + +--------+ + + + + +---------+ + + | Performing | Address | City/State/Zipcode | Phone Number | | Organization | | | | + +---------+ + + | EXTERNAL LAB | | | | + +---------+ + + External Lab: Potassium (02/14/2019) + +-------+ + + + | Component | Value | Ref Range | Performed | Pathologist | | | | | At | Signature | + +-------+ + + + | Potassium, | 3.9 | 3.5 - 5.1 | EXTERNAL | | | External | | | LAB | | + +-------+ + + + + +---------+ + + | Performing | Address | City/State/Zipcode | Phone Number | | Organization | | | | + +---------+ + + | EXTERNAL LAB | | | | + +---------+ + + External Lab: Sodium (02/14/2019) + +-------+ + + + | Component | Value | Ref Range | Performed | Pathologist | | | | | At | Signature | + +-------+ + + + | Sodium, | 136 | 133 - 145 | EXTERNAL | | | External | | | LAB | | + +-------+ + + + + +---------+ + + | Performing | Address | City/State/Zipcode | Phone Number | | Organization | | | | + +---------+ + + | EXTERNAL LAB | | | | + +---------+ + + External Lab: CBC (02/14/2019) + +-------+ + + + | Component | Value | Ref Range | Performed | Pathologist | | | | | At | Signature | + +-------+ + + + | WBC, | 8.5 | | EXTERNAL | | | External | | | LAB | | + +-------+ + + + | HGB, | 9.2 | | EXTERNAL | | | External | | | LAB | | + +-------+ + + + | HCT, | 34.7 | | EXTERNAL | | | External | | | LAB | | + +-------+ + + + | PLT, | 495 | | EXTERNAL | | | External | | | LAB | | + +-------+ + + + | Neutrophils | 69.4 | | EXTERNAL | | | %, | | | LAB | | | External | | | | | + +-------+ + + + | Lymphocytes | 19.3 | | EXTERNAL | | | %, | | | LAB | | | External | | | | | + +-------+ + + + | Monocytes | 7.3 | | EXTERNAL | | | %, External | | | LAB | | + +-------+ + + + | Eosinophils | 3.1 | | EXTERNAL | | | %, | | | LAB | | | External | | | | | + +-------+ + + + | RBC, | 5.45 | | EXTERNAL | | | External | | | LAB | | + +-------+ + + + | MCV, | 64 | | EXTERNAL | | | External | | | LAB | | + +-------+ + + + | RDW, | 17.4 | | EXTERNAL | | | External | | | LAB | | + +-------+ + + + + +---------+ + + | Performing | Address | City/State/Zipcode | Phone Number | | Organization | | | | + +---------+ + + | EXTERNAL LAB | | | | + +---------+ + + External Lab: eGFR (02/14/2019) + +-------+ + + + | Component | Value | Ref Range | Performed | Pathologist | | | | | At | Signature | + +-------+ + + + | eGFR, | >60 | 60 - 99,999 | EXTERNAL | | | External | | | LAB | | + +-------+ + + + + + | Specimen | + + | Blood | + + + +---------+ + + | Performing | Address | City/State/Zipcode | Phone Number | | Organization | | | | + +---------+ + + | EXTERNAL LAB | | | | + +---------+ + + External Lab: Creatinine (02/14/2019) + +---------+ + + + | Component | Value | Ref Range | Performed | Pathologist | | | | | At | Signature | + +---------+ + + + | Creatinine, | 0.6 (A) | 0.8 - 1.5 | EXTERNAL | | | External | | | LAB | | + +---------+ + + + + + | Specimen | + + | Blood | + + + +---------+ + + | Performing | Address | City/State/Zipcode | Phone Number | | Organization | | | | + +---------+ + + | EXTERNAL LAB | | | | + +---------+ + + Lipid Panel (08/06/2018) + +-------+ + + + | Component | Value | Ref Range | Performed | Pathologist | | | | | At | Signature | + +-------+ + + + | Chol/HDL | 7.7 | | | | | Ratio | | | | | + +-------+ + + + | Non HDL | 202 | | | | | Chol. | | | | | | (LDL+VLDL) | | | | | + +-------+ + + + + + | Specimen | + + | Blood | + + Comprehensive Metabolic Panel (08/06/2018) + +-------+ + + + | Component | Value | Ref Range | Performed | Pathologist | | | | | At | Signature | + +-------+ + + + | Globulin | 3.2 | 2.3 - 3.5 | | | + +-------+ + + + + + | Specimen | + + | Blood | + + Hemoglobin A1C (08/06/2018) + +-------+ + + + | Component | Value | Ref Range | Performed | Pathologist | | | | | At | Signature | + +-------+ + + + | Hemoglobin | 11.0 | % | EXTERNAL | | | A1c | | | LAB | | + +-------+ + + + + + | Specimen | + + | Blood | + + + +---------+ + + | Performing | Address | City/State/Zipcode | Phone Number | | Organization | | | | + +---------+ + + | EXTERNAL LAB | | | | + +---------+ + + External Lab: BUN (08/06/2018) + +-------+ + + + | Component | Value | Ref Range | Performed | Pathologist | | | | | At | Signature | + +-------+ + + + | BUN, | 8 | 7 - 23 | EXTERNAL | | | External | | | LAB | | + +-------+ + + + + +---------+ + + | Performing | Address | City/State/Zipcode | Phone Number | | Organization | | | | + +---------+ + + | EXTERNAL LAB | | | | + +---------+ + + External Lab: Glucose (08/06/2018) + +---------+ + + + | Component | Value | Ref Range | Performed | Pathologist | | | | | At | Signature | + +---------+ + + + | Glucose, | 298 (A) | 71 - 109 | EXTERNAL | | | External | | | LAB | | + +---------+ + + + + +---------+ + + | Performing | Address | City/State/Zipcode | Phone Number | | Organization | | | | + +---------+ + + | EXTERNAL LAB | | | | + +---------+ + + External Lab: ALT (08/06/2018) + +-------+ + + + | Component | Value | Ref Range | Performed | Pathologist | | | | | At | Signature | + +-------+ + + + | ALT, | 12 | 9 - 57 | EXTERNAL | | | External | | | LAB | | + +-------+ + + + + +---------+ + + | Performing | Address | City/State/Zipcode | Phone Number | | Organization | | | | + +---------+ + + | EXTERNAL LAB | | | | + +---------+ + + External Lab: AST (08/06/2018) + +--------+ + + + | Component | Value | Ref Range | Performed | Pathologist | | | | | At | Signature | + +--------+ + + + | AST, | 12 (A) | 14 - 44 | EXTERNAL | | | External | | | LAB | | + +--------+ + + + + +---------+ + + | Performing | Address | City/State/Zipcode | Phone Number | | Organization | | | | + +---------+ + + | EXTERNAL LAB | | | | + +---------+ + + External Lab: Alkaline Phosphatase (08/06/2018) + +---------+ + + + | Component | Value | Ref Range | Performed | Pathologist | | | | | At | Signature | + +---------+ + + + | ALP, | 173 (A) | 45 - 129 | EXTERNAL | | | External | | | LAB | | + +---------+ + + + + +---------+ + + | Performing | Address | City/State/Zipcode | Phone Number | | Organization | | | | + +---------+ + + | EXTERNAL LAB | | | | + +---------+ + + External Lab: Bilirubin, Total (08/06/2018) + +-------+ + + + | Component | Value | Ref Range | Performed | Pathologist | | | | | At | Signature | + +-------+ + + + | Bilirubin, | 0.3 | 0.2 - 1.3 | EXTERNAL | | | Total, | | | LAB | | | External | | | | | + +-------+ + + + + +---------+ + + | Performing | Address | City/State/Zipcode | Phone Number | | Organization | | | | + +---------+ + + | EXTERNAL LAB | | | | + +---------+ + + External Lab: Albumin (08/06/2018) + +-------+ + + + | Component | Value | Ref Range | Performed | Pathologist | | | | | At | Signature | + +-------+ + + + | Albumin, | 4.7 | 3.5 - 5 | EXTERNAL | | | External | | | LAB | | + +-------+ + + + + +---------+ + + | Performing | Address | City/State/Zipcode | Phone Number | | Organization | | | | + +---------+ + + | EXTERNAL LAB | | | | + +---------+ + + External Lab: Protein, Total (08/06/2018) + +-------+ + + + | Component | Value | Ref Range | Performed | Pathologist | | | | | At | Signature | + +-------+ + + + | Protein, | 7.9 | 6.5 - 8.2 | EXTERNAL | | | Total, | | | LAB | | | External | | | | | + +-------+ + + + + +---------+ + + | Performing | Address | City/State/Zipcode | Phone Number | | Organization | | | | + +---------+ + + | EXTERNAL LAB | | | | + +---------+ + + External Lab: Calcium (08/06/2018) + +-------+ + + + | Component | Value | Ref Range | Performed | Pathologist | | | | | At | Signature | + +-------+ + + + | Calcium, | 9.8 | 8.4 - 10.5 | EXTERNAL | | | External | | | LAB | | + +-------+ + + + + +---------+ + + | Performing | Address | City/State/Zipcode | Phone Number | | Organization | | | | + +---------+ + + | EXTERNAL LAB | | | | + +---------+ + + External Lab: Carbon Dioxide (08/06/2018) + +-------+ + + + | Component | Value | Ref Range | Performed | Pathologist | | | | | At | Signature | + +-------+ + + + | Carbon | 27 | 21 - 32 | EXTERNAL | | | Dioxide, | | | LAB | | | External | | | | | + +-------+ + + + + +---------+ + + | Performing | Address | City/State/Zipcode | Phone Number | | Organization | | | | + +---------+ + + | EXTERNAL LAB | | | | + +---------+ + + External Lab: Chloride (08/06/2018) + +--------+ + + + | Component | Value | Ref Range | Performed | Pathologist | | | | | At | Signature | + +--------+ + + + | Chloride, | 94 (A) | 98 - 107 | EXTERNAL | | | External | | | LAB | | + +--------+ + + + + +---------+ + + | Performing | Address | City/State/Zipcode | Phone Number | | Organization | | | | + +---------+ + + | EXTERNAL LAB | | | | + +---------+ + + External Lab: Potassium (08/06/2018) + +-------+ + + + | Component | Value | Ref Range | Performed | Pathologist | | | | | At | Signature | + +-------+ + + + | Potassium, | 3.9 | 3.5 - 5.1 | EXTERNAL | | | External | | | LAB | | + +-------+ + + + + +---------+ + + | Performing | Address | City/State/Zipcode | Phone Number | | Organization | | | | + +---------+ + + | EXTERNAL LAB | | | | + +---------+ + + External Lab: Sodium (08/06/2018) + +-------+ + + + | Component | Value | Ref Range | Performed | Pathologist | | | | | At | Signature | + +-------+ + + + | Sodium, | 136 | 133 - 145 | EXTERNAL | | | External | | | LAB | | + +-------+ + + + + +---------+ + + | Performing | Address | City/State/Zipcode | Phone Number | | Organization | | | | + +---------+ + + | EXTERNAL LAB | | | | + +---------+ + + External Lab: Triglycerides (08/06/2018) + +-------+ + + + | Component | Value | Ref Range | Performed | Pathologist | | | | | At | Signature | + +-------+ + + + | Triglycerid | 415 | | EXTERNAL | | | es, | | | LAB | | | External | | | | | + +-------+ + + + + + | Specimen | + + | Blood | + + + +---------+ + + | Performing | Address | City/State/Zipcode | Phone Number | | Organization | | | | + +---------+ + + | EXTERNAL LAB | | | | + +---------+ + + External Lab: Cholesterol, HDL (08/06/2018) + +-------+ + + + | Component | Value | Ref Range | Performed | Pathologist | | | | | At | Signature | + +-------+ + + + | HDL | 30 | mg/dl | EXTERNAL | | | Cholesterol | | | LAB | | | , External | | | | | + +-------+ + + + + + | Specimen | + + | Blood | + + + +---------+ + + | Performing | Address | City/State/Zipcode | Phone Number | | Organization | | | | + +---------+ + + | EXTERNAL LAB | | | | + +---------+ + + External Lab: Cholesterol, Total (08/06/2018) + +-------+ + + + | Component | Value | Ref Range | Performed | Pathologist | | | | | At | Signature | + +-------+ + + + | Cholesterol | 232 | mg/dl | EXTERNAL | | | , Total, | | | LAB | | | External | | | | | + +-------+ + + + + + | Specimen | + + | Blood | + + + +---------+ + + | Performing | Address | City/State/Zipcode | Phone Number | | Organization | | | | + +---------+ + + | EXTERNAL LAB | | | | + +---------+ + + External Lab: eGFR (08/06/2018) + +-------+ + + + | Component | Value | Ref Range | Performed | Pathologist | | | | | At | Signature | + +-------+ + + + | eGFR, | >60 | 60 - 99,999 | EXTERNAL | | | External | | | LAB | | + +-------+ + + + + + | Specimen | + + | Blood | + + + +---------+ + + | Performing | Address | City/State/Zipcode | Phone Number | | Organization | | | | + +---------+ + + | EXTERNAL LAB | | | | + +---------+ + + External Lab: Creatinine (08/06/2018) + +---------+ + + + | Component | Value | Ref Range | Performed | Pathologist | | | | | At | Signature | + +---------+ + + + | Creatinine, | 0.6 (A) | 0.8 - 1.5 | EXTERNAL | | | External | | | LAB | | + +---------+ + + + + + | Specimen | + + | Blood | + + + +---------+ + + | Performing | Address | City/State/Zipcode | Phone Number | | Organization | | | | + +---------+ + + | EXTERNAL LAB | | | | + +---------+ + + External Lab: Triglycerides (06/24/2018) + +-------+ + + + | Component | Value | Ref Range | Performed | Pathologist | | | | | At | Signature | + +-------+ + + + | Triglycerid | 231 | | EXTERNAL | | | es, | | | LAB | | | External | | | | | + +-------+ + + + + + | Specimen | + + | Blood | + + + +---------+ + + | Performing | Address | City/State/Zipcode | Phone Number | | Organization | | | | + +---------+ + + | EXTERNAL LAB | | | | + +---------+ + + External Lab: Cholesterol, HDL (06/24/2018) + +-------+ + + + | Component | Value | Ref Range | Performed | Pathologist | | | | | At | Signature | + +-------+ + + + | HDL | 36 | mg/dl | EXTERNAL | | | Cholesterol | | | LAB | | | , External | | | | | + +-------+ + + + + + | Specimen | + + | Blood | + + + +---------+ + + | Performing | Address | City/State/Zipcode | Phone Number | | Organization | | | | + +---------+ + + | EXTERNAL LAB | | | | + +---------+ + + External Lab: Cholesterol, Total (06/24/2018) + +-------+ + + + | Component | Value | Ref Range | Performed | Pathologist | | | | | At | Signature | + +-------+ + + + | Cholesterol | 180 | mg/dl | EXTERNAL | | | , Total, | | | LAB | | | External | | | | | + +-------+ + + + + + | Specimen | + + | Blood | + + + +---------+ + + | Performing | Address | City/State/Zipcode | Phone Number | | Organization | | | | + +---------+ + + | EXTERNAL LAB | | | | + +---------+ + + External Lab: Cholesterol, LDL (06/24/2018) + +-------+ + + + | Component | Value | Ref Range | Performed | Pathologist | | | | | At | Signature | + +-------+ + + + | LDL | 98 | | EXTERNAL | | | Cholesterol | | | LAB | | | , Direct, | | | | | | External | | | | | + +-------+ + + + + + | Specimen | + + | Blood | + + + +---------+ + + | Performing | Address | City/State/Zipcode | Phone Number | | Organization | | | | + +---------+ + + | EXTERNAL LAB | | | | + +---------+ + + Lipid Panel (06/24/2018) + +-------+ + + + | Component | Value | Ref Range | Performed | Pathologist | | | | | At | Signature | + +-------+ + + + | Chol/HDL | 5.0 | | | | | Ratio | | | | | + +-------+ + + + | Non HDL | 144 | | | | | Chol. | | | | | | (LDL+VLDL) | | | | | + +-------+ + + + + + | Specimen | + + | Blood | + + CBC with Differential (06/24/2018) + +-------+ + + + | Component | Value | Ref Range | Performed | Pathologist | | | | | At | Signature | + +-------+ + + + | MCH | 17.9 | | | | + +-------+ + + + | MCHC | 27.8 | | | | + +-------+ + + + | Basophils % | 0.8 | | | | + +-------+ + + + + + | Specimen | + + | Blood | + + Comprehensive Metabolic Panel (06/24/2018) + +-------+ + + + | Component | Value | Ref Range | Performed | Pathologist | | | | | At | Signature | + +-------+ + + + | Globulin | 2.8 | 2.3 - 3.5 | | | + +-------+ + + + + + | Specimen | + + | Blood | + + Hemoglobin A1C (06/24/2018) + +-------+ + + + | Component | Value | Ref Range | Performed | Pathologist | | | | | At | Signature | + +-------+ + + + | Hemoglobin | 10.7 | % | EXTERNAL | | | A1c | | | LAB | | + +-------+ + + + + + | Specimen | + + | Blood | + + + +---------+ + + | Performing | Address | City/State/Zipcode | Phone Number | | Organization | | | | + +---------+ + + | EXTERNAL LAB | | | | + +---------+ + + External Lab: DOUG (06/24/2018) + +-------+ + + + | Component | Value | Ref Range | Performed | Pathologist | | | | | At | Signature | + +-------+ + + + | DOUG, | 9 | 7 - 23 | EXTERNAL | | | External | | | LAB | | + +-------+ + + + + +---------+ + + | Performing | Address | City/State/Zipcode | Phone Number | | Organization | | | | + +---------+ + + | EXTERNAL LAB | | | | + +---------+ + + External Lab: Glucose (06/24/2018) + +---------+ + + + | Component | Value | Ref Range | Performed | Pathologist | | | | | At | Signature | + +---------+ + + + | Glucose, | 248 (A) | 71 - 109 | EXTERNAL | | | External | | | LAB | | + +---------+ + + + + +---------+ + + | Performing | Address | City/State/Zipcode | Phone Number | | Organization | | | | + +---------+ + + | EXTERNAL LAB | | | | + +---------+ + + External Lab: ALT (06/24/2018) + +-------+ + + + | Component | Value | Ref Range | Performed | Pathologist | | | | | At | Signature | + +-------+ + + + | ALT, | <10 | 9 - 57 | EXTERNAL | | | External | | | LAB | | + +-------+ + + + + +---------+ + + | Performing | Address | City/State/Zipcode | Phone Number | | Organization | | | | + +---------+ + + | EXTERNAL LAB | | | | + +---------+ + + External Lab: AST (06/24/2018) + +--------+ + + + | Component | Value | Ref Range | Performed | Pathologist | | | | | At | Signature | + +--------+ + + + | AST, | 10 (A) | 14 - 44 | EXTERNAL | | | External | | | LAB | | + +--------+ + + + + +---------+ + + | Performing | Address | City/State/Zipcode | Phone Number | | Organization | | | | + +---------+ + + | EXTERNAL LAB | | | | + +---------+ + + External Lab: Alkaline Phosphatase (06/24/2018) + +---------+ + + + | Component | Value | Ref Range | Performed | Pathologist | | | | | At | Signature | + +---------+ + + + | ALP, | 136 (A) | 45 - 129 | EXTERNAL | | | External | | | LAB | | + +---------+ + + + + +---------+ + + | Performing | Address | City/State/Zipcode | Phone Number | | Organization | | | | + +---------+ + + | EXTERNAL LAB | | | | + +---------+ + + External Lab: Bilirubin, Total (06/24/2018) + +-------+ + + + | Component | Value | Ref Range | Performed | Pathologist | | | | | At | Signature | + +-------+ + + + | Bilirubin, | 0.3 | 0.2 - 1.3 | EXTERNAL | | | Total, | | | LAB | | | External | | | | | + +-------+ + + + + +---------+ + + | Performing | Address | City/State/Zipcode | Phone Number | | Organization | | | | + +---------+ + + | EXTERNAL LAB | | | | + +---------+ + + External Lab: Albumin (06/24/2018) + +-------+ + + + | Component | Value | Ref Range | Performed | Pathologist | | | | | At | Signature | + +-------+ + + + | Albumin, | 4.2 | 3.5 - 5 | EXTERNAL | | | External | | | LAB | | + +-------+ + + + + +---------+ + + | Performing | Address | City/State/Zipcode | Phone Number | | Organization | | | | + +---------+ + + | EXTERNAL LAB | | | | + +---------+ + + External Lab: Protein, Total (06/24/2018) + +-------+ + + + | Component | Value | Ref Range | Performed | Pathologist | | | | | At | Signature | + +-------+ + + + | Protein, | 7 | 6.5 - 8.2 | EXTERNAL | | | Total, | | | LAB | | | External | | | | | + +-------+ + + + + +---------+ + + | Performing | Address | City/State/Zipcode | Phone Number | | Organization | | | | + +---------+ + + | EXTERNAL LAB | | | | + +---------+ + + External Lab: Calcium (06/24/2018) + +-------+ + + + | Component | Value | Ref Range | Performed | Pathologist | | | | | At | Signature | + +-------+ + + + | Calcium, | 8.9 | 8.4 - 10.5 | EXTERNAL | | | External | | | LAB | | + +-------+ + + + + +---------+ + + | Performing | Address | City/State/Zipcode | Phone Number | | Organization | | | | + +---------+ + + | EXTERNAL LAB | | | | + +---------+ + + External Lab: Carbon Dioxide (06/24/2018) + +-------+ + + + | Component | Value | Ref Range | Performed | Pathologist | | | | | At | Signature | + +-------+ + + + | Carbon | 28 | 21 - 32 | EXTERNAL | | | Dioxide, | | | LAB | | | External | | | | | + +-------+ + + + + +---------+ + + | Performing | Address | City/State/Zipcode | Phone Number | | Organization | | | | + +---------+ + + | EXTERNAL LAB | | | | + +---------+ + + External Lab: Chloride (06/24/2018) + +-------+ + + + | Component | Value | Ref Range | Performed | Pathologist | | | | | At | Signature | + +-------+ + + + | Chloride, | 98 | 98 - 107 | EXTERNAL | | | External | | | LAB | | + +-------+ + + + + +---------+ + + | Performing | Address | City/State/Zipcode | Phone Number | | Organization | | | | + +---------+ + + | EXTERNAL LAB | | | | + +---------+ + + External Lab: Potassium (06/24/2018) + +-------+ + + + | Component | Value | Ref Range | Performed | Pathologist | | | | | At | Signature | + +-------+ + + + | Potassium, | 3.9 | 3.5 - 5.1 | EXTERNAL | | | External | | | LAB | | + +-------+ + + + + +---------+ + + | Performing | Address | City/State/Zipcode | Phone Number | | Organization | | | | + +---------+ + + | EXTERNAL LAB | | | | + +---------+ + + External Lab: Sodium (06/24/2018) + +-------+ + + + | Component | Value | Ref Range | Performed | Pathologist | | | | | At | Signature | + +-------+ + + + | Sodium, | 136 | 133 - 145 | EXTERNAL | | | External | | | LAB | | + +-------+ + + + + +---------+ + + | Performing | Address | City/State/Zipcode | Phone Number | | Organization | | | | + +---------+ + + | EXTERNAL LAB | | | | + +---------+ + + External Lab: CBC (06/24/2018) + +-------+ + + + | Component | Value | Ref Range | Performed | Pathologist | | | | | At | Signature | + +-------+ + + + | WBC, | 6.2 | | EXTERNAL | | | External | | | LAB | | + +-------+ + + + | HGB, | 10.3 | | EXTERNAL | | | External | | | LAB | | + +-------+ + + + | HCT, | 37.1 | | EXTERNAL | | | External | | | LAB | | + +-------+ + + + | Eosinophils | 4.5 | | EXTERNAL | | | %, | | | LAB | | | External | | | | | + +-------+ + + + | RBC, | 5.74 | | EXTERNAL | | | External | | | LAB | | + +-------+ + + + | MCV, | 65 | | EXTERNAL | | | External | | | LAB | | + +-------+ + + + + +---------+ + + | Performing | Address | City/State/Zipcode | Phone Number | | Organization | | | | + +---------+ + + | EXTERNAL LAB | | | | + +---------+ + + External Lab: eGFR (06/24/2018) + +-------+ + + + | Component | Value | Ref Range | Performed | Pathologist | | | | | At | Signature | + +-------+ + + + | eGFR, | >60 | 60 - 99,999 | EXTERNAL | | | External | | | LAB | | + +-------+ + + + + + | Specimen | + + | Blood | + + + +---------+ + + | Performing | Address | City/State/Zipcode | Phone Number | | Organization | | | | + +---------+ + + | EXTERNAL LAB | | | | + +---------+ + + External Lab: Creatinine (06/24/2018) + +---------+ + + + | Component | Value | Ref Range | Performed | Pathologist | | | | | At | Signature | + +---------+ + + + | Creatinine, | 0.6 (A) | 0.8 - 1.5 | EXTERNAL | | | External | | | LAB | | + +---------+ + + + + + | Specimen | + + | Blood | + + + +---------+ + + | Performing | Address | City/State/Zipcode | Phone Number | | Organization | | | | + +---------+ + + | EXTERNAL LAB | | | | + +---------+ + + documented in this encounter Visit Diagnoses Not on filedocumented in this encounter"
--- OUTSIDE RECORDS SUMMARY | ~2019-11-23 | XMS | Encounter Summary ---
Demographics + + + | Address | [address] | | | [place] [address] | + + + | Home Phone | | + + + | Preferred Language | Unknown | + + + | Marital Status | | + + + | Confucianism Affiliation | Unknown | + + + | Race | Unknown | + + + | Ethnic Group | Unknown | + + + Author + + + | Author | [facility] | | | and [place] | + + + | Organization | [facility] | | | and [place] [...] Team Providers + +------+ + | Care Plasma Center Technician Name | Role | Phone | + +------+ + | Imer Woodard MD | PCP | | + +------+ + Reason for Visit +--------+ + | Reason | Comments | +--------+ + | Other | | +--------+ + Encounter Details +--------+ + + + + | Date | Type | Department | Care Team | Description | +--------+ + + + + | 12/23/ | Telephone | [facility] | Carina Soria, | Other | | 2018 | | [facility] | RN | | | | | SURGERY [address] | | | | | | [address] [place], | | | | | | [place] [address] | | | | | | [phone] | | | +--------+ + + + [...]
--- OUTSIDE RECORDS SUMMARY | ~2019-11-23 | XMS | Encounter Summary ---
Demographics + + + | Address | [address] | | | [place] [address] | + + + | Home Phone | | + + + | Preferred Language | Unknown | + + + | Marital Status | | + + + | Judaism Affiliation | Unknown | + + + | Race | Unknown | + + + | Ethnic Group | Unknown | + + + Author + + + | Author | Located [facility] | | | and [place] | + + + | Organization | Loc[facility] | | | and [place] | [...] Team Providers + +------+ + | Care Battery Loader Name | Role | Phone | + +------+ + | Imer Woodard MD | PCP | | + +------+ + Reason for Visit +--------+ + | Reason | Comments | +--------+ + | Other | | +--------+ + Encounter Details +--------+ + + + + | Date | Type | Department | Care Team | Description | +--------+ + + + + | 10/27/ | Telephone | [facility] | Carina Soria, | Other | | 2017 | | [facility] | RN | | | | | SURGERY [address] | | | | | | [address] [place], | | | | | | [place] [address] | | | | | | [phone] | | | +--------+ + + + [...]
--- OUTSIDE RECORDS SUMMARY | ~2019-11-23 | XMS | Encounter Summary ---
Demographics + + + | Address | [address] | | | [place] [address] | + + + | Home Phone | | + + + | Preferred Language | Unknown | + + + | Marital Status | | + + + | Hinduism Affiliation | Unknown | + + + | Race | Unknown | + + + | Ethnic Group | Unknown | + + + Author + + + | Author | [facility] | | | and Dieterana | + + + | Organization | 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 | | | [place], | | | [place] | | | O?MRN: | | | | | | [id number] | | | [id number] | | | riteri | | | [...] | | | St. | | | [place] | | | y | | | [...] | | | St. | | | [place] | | | y | | | [...] | | | St. | | | [place] | | | y | | | [...] | | | St. | | | [place] | | | y | | | [...] | | | St. | | | [place] | | | y H. | | [...] | | | St. | | | [place] | | | y H. | | [...] | | | St. | | | [place] | | | y H. | | [...] | | | St. | | | [place] | | | y H. | | [...] | | | St. | | | [place] | | | y H. | | [...] | | | St. | | | [place] | | | y H. | | | [place] | | | [place] | | | Emerge | | | ncy | | | Chief | | | Compla | | | int: | | | ANEMIA | | | May | | | 9, | | | 2019 | | | [facility] | | | [facility] | | | [place] | | | y H. | | [...] | | | St. | | | [place] | | | y H. | | [...] | | | St. | | | [place] | | | y H. | | [...] | | | ence | | | Juloi 1, | | | 2019 | | | [facility] | | | [facility] | | | [place] | | | y H. | | [...] | | | [id number] | | | [id number] | | | 7c | | | [...] | | | ed.? | | | 2018 | | | Colle[facility] | | | [...] + | [facility] | [address] | [place] | [phone] | | [facility] | | [address] | | | - LABORATORY | | [...] + | [facility] | [address] | [place] | [phone] | | [facility] | | [address] | | | - LABORATORY | | [...] | | Top Tube | | | [facility] | | [...] [address] | [place] | [phone] | | [facility] | | [address] | | | - LABORATORY | | [...] [address] | [place] | [phone] | | [facility] | | [address] | | | - LABORATORY | | [...] + | [facility] | [address] | [place] | [phone] | | [facility] | | [address] | | | - LABORATORY | | [...] [facility] | | | | | | [facility] | | | | | | MEDICAL | | | | | | CENTER - | | | | | | LABORATORY | | + + + + + + | RBC | 4.43 | 4.30 - 5.70 | [facility] | | | | | M/uL | [facility] | | | | | | MEDICAL | | | | | | CENTER - | | | | | | LABORATORY | | + + + + + + | Hemoglobin | 9.8 (L) | 13.5 - 18.0 | [facility] | | | | | g/dL | [facility] | | | | [...] | | Neutrophils | | K/uL | [facility] | | | | | | MEDICAL | | | | | | CENTER - | | | | | | LABORATORY | | + + + + + + | Absolute | 1.57 | 0.60 - 3.20 | [facility] | | | Lymphocytes | | K/uL | [facility] | | | | | | MEDICAL | | | | | | CENTER - | | | | | | LABORATORY | | + + + + + + | Absolute | 0.33 | 0.00 - 1.00 | [facility] | | | Monocytes | | K/uL | [facility] | | | | [...] + | [facility] | [address] | [place] | [phone] | | [facility] | | [address] | | | - LABORATORY | | [...]
--- OUTSIDE RECORDS SUMMARY | ~2019-11-23 | XMS | Encounter Summary ---
Demographics + + + | Address | [address] | | | [place] [address] | + + + | Home Phone | | + + + | Preferred Language | Unknown | + + + | Marital Status | | + + + | Mu-Ism Affiliation | Unknown | + + + | Race | Unknown | + + + | Ethnic Group | Unknown | + + + Author + + + | Author | [facility] | | | and Dieterana | + + + | Organization | [facility] | | | and Dieterana | [...] Team Providers + +------+ + | Care Liquid Waste Treatment Plant Operator Name | Role | Phone | [...] | | | Drive [place] | [place], [place] | | | | | | [place] | [address] | | | | | | [address] | Phone: | | | | | | Phone: | [phone] | | | | | | [phone] | Fax: | | | | | | Fax: | [phone] | | | | | | [phone] | | +--------+--------+ + + + + [...] | SURGERY [address] | MD [address] | | | | | DR DEWAYNE VAZQUEZ, | [place], [place] | | | | | [place] [address] | [address] | | | | | [phone] | [phone] | | | | | | | [...] this note might be different from the [facility] Manoj Jolly M.D [address] [place] [address] [place], [place] [address] - PATIENT NAME: Oh Moreno IF YOU [...] Needle Localization [] Lumpectomy [] Mastectomy [] [place] Node Biopsy [] Isosulfan Blue Dye [] [...] seizure. 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 documented in this encounter Plan of Treatment Not on filedocumented as of this encounter Visit Diagnoses + + | Diagnosis | + + | Nausea - Primary Nausea alone | + + | Microcytic anemia Iron deficiency anemia, unspecified | + + documented in this encounter
--- OUTSIDE RECORDS SUMMARY | ~2019-11-23 | XMS | Encounter Summary ---
Demographics + + + | Address | [address] | | | [place] [address] | + + + | Home Phone [...] | [facility] | | | and Dieterana | + + + | Organization | [facility] | | | and Dieterana | [...] Team Providers + +------+ + | Care Timing Adjuster Name | Role | Phone | + [...] | | | | | | [place] [address] | | | | | | [phone] | | | +--------+ + + + [...]
--- OUTSIDE RECORDS SUMMARY | ~2019-11-23 | XMS | Encounter Summary ---
Demographics + + + | Address | [address] | | | [place] [address] | + + + | Home Phone | | + + + | Preferred Language | Unknown | + + + | Marital Status | | + + + | Holiness Affiliation | Unknown | + + + | Race | Unknown | + + + | Ethnic Group | Unknown | + + + Author + + + | Author | [facility] | | | and Dieterana | + + + | Organization | [facility] | | | and [...] Team Providers + +------+ + | Care General Machinist Name | Role | Phone | + [...] | | | | | | | [place] | | | | | | | COLONOSCOPY | | | | | | | FLX DX | | | | | | | W/COLLJ SPEC | | | | | | | WHEN PFRMD | | | | | | | [place] | | | | | | | ESOPHAGOGAST | | | | | | | RODUODENOSCO | | | | | | | PY TRANSORAL | | | | | | | DIAGNOSTIC | | | | | | | [place] EGD | | | | | | [...] [place] [facility] | [place], | | | 2018 | Event | HOSPITAL MP INTRA OP | [address] | | | | | [address] [place] | [address] [place] | | | | | [place], [place] | [place] [address] | | | | | [address] | [phone] | | | | | [phone] | | | +--------+ + + + + Anesthesia Record + + + + + | Procedure Name | Responsible | Anesthesia Start | Anesthesia Stop Time | | | Anesthesiologist | Time | | + + + + + | KAMALA (N/A Bogdan) | Manas Sears, | 09/21/18 1248 | 09/21/18 1323 | | | CHEMICAL RESEARCH ENGINEER | | | + + + + [...] | | | | Intravenous, PRN, Starting Tu | | 18 12:50 | | | [...]
--- OUTSIDE RECORDS SUMMARY | ~2019-11-23 | XMS | Encounter Summary ---
Demographics + + + | Address | [address] | | | [place] [address] | + + + | Home Phone | | + + + | Preferred Language | Unknown | + + + | Marital Status | | + + + | Jewish Affiliation | Unknown | + + + | Race | Unknown | + + + | Ethnic Group | Unknown | + + + Author + + + | Author | [facility] | | | and Dieetrana | + + + | Organization | [facility] | | | and Dieterana [...] Team Providers + +------+ + | Care Privacy Director Name | Role | Phone | [...] | | | | | | | [place] | | | | | | | COLONOSCOPY | | | | | | | FLX DX | | | | | | | W/COLLJ SPEC | | | | | | | WHEN PFRMD | | | | | | | [place] | | | | | | | ESOPHAGOGAST | | | | | | | RODUODENOSCO | | | | | | | PY TRANSORAL | | | | | | | DIAGNOSTIC | | | | | | | [place] EGD | | | | | | [...] [address] [place] | MD [address] | | | | | [place], [place] | [place], [place] | | | | | [address] | [address] | | | | | [phone] | [phone] | | | | | | | [...] any questions, call your physician at or [phone]. If you need assistance after normal business hours, please contact the [facility] at . documented in this encounter [...] + + | [place] [facility] | [address] | [place] [address] | [phone] | | HOSPITAL LABORATORY | | | [...] ANESTHESIA: Sedation | | | ANESTHESIA PROVIDER: CHILD & ADOLESCENT PSYCHIATRIST: Manas Sears CRNA SPECIMEN: | | | [...] MD, | | | 09/21/2018 13:13 [facility] This note was | | | transcribed using voice recognition software; there may be speech | | | recognition errors which escaped detection during nurses' association executive director. | | | | | + + [...] + + | [place] [facility] | [address] | [place] [address] | [phone] | | HOSPITAL LABORATORY | | | [...] | | technical component was performed by [facility] | | | [facility], [address] [place] [address] (Medical | | | Director: Samir Leija MD; CLIA# [id number]). Professional | | | interpretation was performed by [facility] | | | [place] [address] (Medical | | | Director: Samir Leija MD; CLIA# [id number]). ADDITIONAL | | | NOTES: Immunohistochemical and/or in situ hybridization studies were | | | performed on this case with the appropriate positive controls that | | | react as expected. This test was developed and its performance | | | characteristics determined by [facility]. It has not been | | | cleared or approved by the U.S. Food and Drug Administration. The | | | FDA has determined that such clearance or approval is not necessary. | | | This test is used for clinical purposes. It should not be regarded | | | as investigational or for research. [facility] is certified | | | under the Clinical Laboratory Improvement Amendments of 1988 (CLIA) | | | as qualified to perform high complexity clinical laboratory testing. | | | The technical component was performed by [facility], [facility] | | | [facility] [address] (Predictive Maintenance Specialist: Sindy Bernal MD; | | | CLIA# [id number]). Professional interpretation was performed by | | | [facility] | | | [place] [address] (Predictive Maintenance Specialist: Samir Leija MD; CLIA# | | | [id number]). PAS stain: The technical component was performed by | | | [facility] | | | [place] [address] (Predictive Maintenance Specialist: Samir Leija MD; CLIA# | | | [id number]). Professional interpretation was performed by [facility] | | | [address] | | | [place] [address] (Predictive Maintenance Specialist: Samir Leija MD; CLIA# | | | [id number]). REASON FOR ADDENDUM: To add the results [...] positive control. The results are detailed above. NRT:[facility] | | | Diagnostician: Clarissa Perdue MD Pathologist Electronically | | | Signed 09/27/2018 | | + + + + +---------+ + + | Performing | Address | City/State/[facility] | Phone Number | | Organization [...]
--- OUTSIDE RECORDS SUMMARY | ~2019-11-23 | XMS | Clinical Summary ---
Demographics + + + | Address | [address] | | | [place] [address] | + + + | Home Phone | | + + + | Preferred Language | Unknown | + + + | Marital Status | | + + + | Sabianism Affiliation | Unknown | + + + | Race | Unknown | + + + | Ethnic Group | Unknown | + + + Author + + + | Author | [facility] | | | and Dieterana | + + + | Organization | [facility] | | | and [...] Team Providers + +------+ + | Care Aluminum Molder Name | Role | Phone | + [...] | | | | stage ([facility]); | | | | | | [...] O?MRN: | | | | | | [id number] | | | [id number] | | | riteri | | | [...] | | | St. | | | [facility] | | | y | | | [...] | | | St. | | | [facility] | | | y | | | [...] | | | St. | | | [facility] | | | y | | | [...] | | | St. | | | [facility] | | | y | | | [...] | | | St. | | | [facility] | | | y H. | | [...] | | | St. | | | [facility] | | | y H. | | [...] | | | St. | | | [facility] | | | y H. | | [...] | | | St. | | | [facility] | | | y H. | | [...] | | | St. | | | [facility] | | | y H. | | [...] | | | St. | | | [facility] | | | y H. | | | [place] | | | [place] | | | Emerge | | | ncy | | | Chief | | | Compla | | | int: | | | ANEMIA | | | May | | | 9, | | | 2019 | | | [facility] | | | [facility] | | | [facility] | | | y H. | | [...] | | | St. | | | [facility] | | | y H. | | [...] | | | St. | | | [facility] | | | y H. | | [...] | | | St. | | | [facility] | | | y H. | | [...] | | | [id number] | | | [id number] | | | 7c | | | [...] ST. | [address] | [place] | [phone] | | [facility] | | [address] | | | - LABORATORY | | [...] [address] | [place] | [phone] | | [facility] | | [address] | | | - LABORATORY | | [...] [address] | [place] | [phone] | | [facility] | | [address] | | | - LABORATORY | | [...] [address] | [place] | [phone] | | [facility] | | [address] | | | - LABORATORY | | [...] +--------+-------+---------+--------+ | [place] | [place] | [id number] | | | | Indemn | | | CHOICE | | 018-Pr | | | ity | | | PC3 | | esent | | | | + +--------+ +--------+-------+---------+--------+ | [place] [place] | [place] | [id number] | | | | Indemn | | | CHOICE | | 019-Pr | | | ity | | | PC3 | | esent | | | | + +--------+ +--------+-------+---------+--------+ | [employer]MIN | [place] | [id number] | | | | Indemn | | [...] | 1970 | [phone] | [place] [address] | | | paul | | | 1 (Home) | | + +--------+ +--------+ + + | Oh Moreno | Person | Self | [birth year] | [address] | | | al/Graeme | | 1970 | [phone] | [place] [address] | | | paul | | | 1 (Home) | | + +--------+ +--------+ + + Advance Directives + + + + + | Type | Date Recorded | Patient | Explanation | | | | Glaze Carrier | | + + + + + | Power of | | | | | Medical Chief Technician | | | | + + + + + | Advance | 09/21/2018 | | | | Directive | 10:15 AM | | | + + + + +
--- OUTSIDE RECORDS SUMMARY | ~2019-11-23 | XMS | Encounter Summary ---
Demographics + + + | Address | [address] | | | [place] [address] | + + + | Home Phone [...] + + | Author | [facility] | | | and Dieterana | + + + | Organization | [facility] | | | and Dieterana [...] Team Providers + +------+ + | Care Assault Amphibious Vehicle Officer Name | Role | Phone | + [...] + + | 08/29/ | Emergency | [facility] | [place], | Cellulitis of right | | 2019 | | MED CTR EMERGENCY | Sundeep Keller MD [address] | foot (Primary Dx); | | | | CENTER [address] | [address] [place] | Ulcer of right foot, | | | | [place], [place] | [place] [address] | unspecified ulcer | | | | [address] | [phone] | stage (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) | +--------+ + + + + [...] O?MRN: | | | | | | [id number] | | | [id number] | | | riteri | | | [...] | | | St. | | | [place] | | | y | | | [...] | | | St. | | | [place] | | | y | | | [...] | | | St. | | | [place] | | | y | | | [...] | | | St. | | | [place] | | | y | | | [...] | | | St. | | | [place] | | | y H. | | [...] | | | St. | | | [place] | | | y H. | | [...] | | | St. | | | [place] | | | y H. | | [...] | | | St. | | | [place] | | | y H. | | [...] | | | St. | | | [place] | | | y H. | | [...] | | | St. | | | [place] | | | y H. | | | [place] | | | [place] | | | Emerge | | | ncy | | | Chief | | | Compla | | | int: | | | ANEMIA | | | May | | | 9, | | | 2019 | | | [facility] | | | [facility] | | | [place] | | | y H. | | [...] | | | St. | | | [place] | | | y H. | | [...] | | | St. | | | [place] | | | y H. | | [...] | | | St. | | | [place] | | | y H. | | [...] | | | [id number] | | | [id number] | | | 7c | | | [...] ST. | [address] | [place] | [phone] | | [facility] | | [address] | | | - LABORATORY | | [...] + | [facility] | [address] | [place] | [phone] | | [facility] | | [address] | | | - LABORATORY | | [...] [address] | [place] | [phone] | | [facility] | | [address] | | | - LABORATORY | | [...] [address] | [place] | [phone] | | [facility] | | [address] | | | - LABORATORY | | [...] + | [facility] | [address] | [place] | [phone] | | [facility] | | [address] | | | - LABORATORY | | [...] [address] | [place] | [phone] | | [facility] | | [address] | | | - LABORATORY | | [...]
--- OUTSIDE RECORDS SUMMARY | ~2019-11-23 | XMS | Encounter Summary ---
Demographics + + + | Address | [address] | | | [place] [address] | + + + | Home Phone | | + + + | Preferred Language | Unknown | + + + | Marital Status | | + + + | Methodist Affiliation | Unknown | + + + | Race | Unknown | + + + | Ethnic Group | Unknown | + + + Author + + + | Author | [facility] | | | and Dieterana | + + + | Organization | [facility] | | | and Dieterana [...] Team Providers + +------+ + | Care Head Mixer Name | Role | Phone | + [...] | | | | | | [place] [address] | | | | | | [phone] | | | +--------+ + + + [...]
--- OUTSIDE RECORDS SUMMARY | ~2019-11-23 | XMS | Encounter Summary ---
Demographics + + + | Address | [address] | | | [place] [address] | + + + | Home Phone | | + + + | Preferred Language | Unknown | + + + | Marital Status | | + + + | Sabianist Affiliation | Unknown | + + + | Race | Unknown | + + + | Ethnic Group | Unknown | + + + Author + + + | Author | [facility] | | | and Dieterana | + + + | Organization | [facility] [...] Team Providers + +------+ + | Care Personal Care Home Administrator Name | Role | Phone | [...] | | | [address] | [place], [place] | | | | | | [place] | [address] | | | | | | [address] | Phone: | | | | | | Phone: | [phone] | | | | | | [phone] | Fax: | | | | | | Fax: | [phone] | | | | | | [phone] | | +--------+--------+ + + + + [...] | SURGERY [address] | MD [address] | | | | | DR DEWAYNE VAZQUEZ, | [place], [place] | | | | | [place] [address] | [address] | | | | | [phone] | [phone] | | | | | | | [...] this note [facility] be [facility] Manoj Jolly M.D [address] [place] [address] [place], [place] [address] - PATIENT NAME: Oh Moreno IF YOU [...] Needle Localization [] Lumpectomy [] Mastectomy [] [place] Node Biopsy [] Isosulfan Blue Dye [] [...] seizure. 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 documented in this encounter Plan of Treatment Not on filedocumented as of this encounter Visit Diagnoses + + | Diagnosis | + + | Nausea - Primary Nausea alone | + + | Microcytic anemia Iron deficiency anemia, unspecified | + + documented in this encounter
--- OUTSIDE RECORDS SUMMARY | ~2019-11-23 | XMS | Encounter Summary ---
Demographics + + + | Address | [address] | | | [place] [address] | + + + | Home Phone | | + + + | Preferred Language | Unknown | + + + | Marital Status | | + + + | Jainism Affiliation | Unknown | + + + | Race | Unknown | + + + | Ethnic Group | Unknown | + + + Author + + + | Author | [facility] | | | and Dieterana | + + + | Organization | [facility] | | | and Dieterana [...] Team Providers + +------+ + | Care Pot Annealer Name | Role | Phone | + +------+ + | Imer Woodard MD | PCP | | + +------+ + Encounter Details +--------+ + + + + | Date | Type | Department | Care Team | Description | +--------+ + + + + | 05// | Abstract | [facility] | Provider, | | | 2018 | | GASTROENTEROLOGY | MD [address] | | | | | [address] [facility] | Moshe Longo | | | | | [address] [place] | [place] [address] | | | | | [address] | | | | | | [phone] | | | +--------+ + + + [...]
--- OUTSIDE RECORDS SUMMARY | ~2019-11-23 | XMS | Encounter Summary ---
Demographics + + + | Address | [address] | | | [place] [address] | + + + | Home Phone [...] + | Author | [facility] | | | and Dieterana | + + + | Organization | [facility] | | | and [...] Team Providers + +------+ + | Care Butt Trimmer Name | Role | Phone | + [...] | | | | | | [place] [address] | | | | | | [phone] | | | +--------+ + + + [...]
--- OUTSIDE RECORDS SUMMARY | ~2019-11-23 | XMS | Encounter Summary ---
Demographics + + + | Address | [address] | | | [place] [address] | + + + | Home Phone | | + + + | Preferred Language | Unknown | + + + | Marital Status | | + + + | Shinto Affiliation | Unknown | + + + | Race | Unknown | + + + | Ethnic Group | Unknown | + + + Author + + + | Author | [facility] | | | and Dieterana | + + + | Organization | [facility] | | | and [...] Team Providers + +------+ + | Care Motor [place] Clerk Name | Role | Phone | [...] + | 09/05/ | Telephone | [facility] | Tamika, | Patient Concerns | | 2019 | | [facility] MED[facility] | Sundeep Ramirez MD [address] | | | | | [facility] [address] [place] | | | | | [address] [place] | [place] [address] | | | | | [place] [address] | [phone] | | | | | [phone] | | | +--------+ + + + [...]
--- OUTSIDE RECORDS SUMMARY | ~2019-11-23 | XMS | Encounter Summary ---
Demographics + + + | Address | [address] | | | [place] [address] | + + + | Home Phone [...] | Author | [facility] | | | and Dieterana | + + + | Organization | [facility] [...] Team Providers + +------+ + | Care Histology Tech Name | Role | Phone | + [...] [address] [place] | MD [address] | | | | | [place], [place] | Chase [place], [place] | | | | | [address] | [address] | | | | | [phone] | [phone] | | | | | | | [...] any questions, call your physician at or [phone]. If you need assistance after normal business hours, please contact the [facility] at . documented in this encounter [...] + + | [place] [facility] | [address] | [place] [address] | [phone] | | HOSPITAL LABORATORY | | | [...] ANESTHESIA: Sedation | | | ANESTHESIA PROVIDER: MANAGER PROGRESSIVE CARE: Manas Sears CRNA SPECIMEN: | | | [...] MD, | | | 09/21/2018 13:13 CC [facility] This note was | | | transcribed using voice recognition software; there may be speech | | | recognition errors which escaped detection during sheet metal foreman. | | | | | + + [...] + + | [place] [facility] | [address] | [place] | [phone] | | HOSPITAL LABORATORY | | | [...] | | technical component was performed by [facility] | | | [facility], [address] [place] [address] (Medical | | | Director: Samir Leija MD; CLIA# [id number]). Professional | | | interpretation [facility] | | | [place] [address] (Medical | | | Director: Samir Leija MD; CLIA# [id number]). ADDITIONAL | | | NOTES: Immunohistochemical and/or in situ hybridization studies were | | | performed on this case with the appropriate positive controls that | | | react as expected. This test was developed and its performance | | | characteristics determined by [facility]. It has not been | | | cleared or approved by the U.S. Food and Drug Administration. The | | | FDA has determined that such clearance or approval is not necessary. | | | This test is used for clinical purposes. It should not be regarded | | | as investigational or for research. [facility] is certified | | | under the Clinical Laboratory Improvement Amendments of 1988 (CLIA) | | | as qualified to perform high complexity clinical laboratory testing. | | | The technical component was performed by [employer], [facility] | | | [facility] [address] (Trucking Contractor: Sindy Bernal MD; | | | CLIA# [id number]). Professional interpretation was performed by | | | [facility] | | | [place] [address] (Trucking Contractor: Samir Leija MD; CLIA# | | | [id number]). PAS stain: The technical component was performed by | | | [facility], [address] | | | [place] [address] (Trucking Contractor: Samir Leija MD; CLIA# | | | [id number]). Professional interpretation was performed by [facility] | | | [address] | | | [place] [address] (Trucking Contractor: Samir Leija MD; CLIA# | | | [id number]). REASON FOR ADDENDUM: To add the results [...] positive control. The results are detailed above. NRT:[facility] | | | Diagnostician: Clarissa Perdue MD [...]
--- OUTSIDE RECORDS SUMMARY | ~2019-11-23 | XMS | Encounter Summary ---
Demographics + + + | Address | [address] | | | [place] [address] | + + + | Home Phone | | + + + | Preferred Language | Unknown | + + + | Marital Status | | + + + | Yarsanism Affiliation | Unknown | + + + | Race | Unknown | + + + | Ethnic Group | Unknown | + + + Author + + + | Author | [facility] | | | and Dieterana | + + + | Organization | [facility] | [...] Team Providers + +------+ + | Care Will Call Order Clerk Name | Role | Phone | [...] | | | | | | [place] [address] | | | | | | [phone] | | | +--------+ + + + [...]
--- OUTSIDE RECORDS SUMMARY | ~2019-11-23 | XMS | Encounter Summary ---
Demographics + + + | Address | [address] | | | [place] [address] | + + + | Home Phone [...] Author | [facility] | | | and Dieterana | + + + | Organization | [facility] | | | and [...] Team Providers + +------+ + | Care Rug Weaver Name | Role | Phone | + [...] | | | | | | | [place] | | | | | | | COLONOSCOPY | | | | | | | FLX DX | | | | | | | W/COLLJ SPEC | | | | | | | WHEN PFRMD | | | | | | | [place] | | | | | | | ESOPHAGOGAST | | | | | | | RODUODENOSCO | | | | | | | PY TRANSORAL | | | | | | | DIAGNOSTIC | | | | | | | [place] EGD | | | | | | [...] [address] [place] | MD [address] | | | | | [place], [place] | Leonor RayVermillion, [place] | | | | | [address] | [address] | | | | | [phone] | [phone] | | | | | | | [...] any questions, call your physician at or [phone]. If you need assistance after normal business hours, please contact the [facility] at . documented in this encounter [...] + + | [place] [facility] | [address] | [place] [address] | [phone] | | HOSPITAL LABORATORY | | | [...] ANESTHESIA: Sedation | | | ANESTHESIA PROVIDER: RESEARCH ARCHAEOLOGIST: Manas Sears CRNA SPECIMEN: | | | [...] MD, | | | 09/21/2018 13:13 CC [facility] This note was | | | transcribed using voice recognition software; there may be speech | | | recognition errors which escaped detection during primary education professor. | | | | | + + [...] + + | [place] [facility] | [address] | [place] [address] | [phone] | | HOSPITAL LABORATORY | | | [...] | | technical component was performed by [facility] | | | [facility], [address] [place] [address] (Medical | | | Director: Samir Leija MD; CLIA# [id number]). Professional | | | interpretation was [facility] by [facility] | | | [place] [address] (Medical | | | Director: Samir Leija MD; CLIA# [id number]). ADDITIONAL | | | NOTES: Immunohistochemical and/or in situ hybridization studies were | | | performed on this case with the appropriate positive controls that | | | react as expected. This test was developed and its performance | | | characteristics determined by [employer]. It has not been | | | cleared or approved by the U.S. Food and Drug Administration. The | | | FDA has determined that such clearance or approval is not necessary. | | | This test is used for clinical purposes. It should not be regarded | | | as investigational or for research. [employer] is certified | | | under the Clinical Laboratory Improvement Amendments of 1988 (CLIA) | | | as qualified to perform high complexity clinical laboratory testing. | | | The technical component was performed by [employer], [facility] | | | [facility] [address] (Silverware Etcher: Sindy Bernal MD; | | | CLIA# [id number]). Professional interpretation was performed by | | | [employer] | | | [place] [address] (Silverware Etcher: Samir Leija MD; CLIA# | | | [id number]). PAS stain: The technical component was performed by | | | [employer] | | | [place] [address] (Silverware Etcher: Samir Leija MD; CLIA# | | | [id number]). Professional interpretation was performed by [facility] | | | [address] | | | [place] [address] (Silverware Etcher: Samir Leija MD; CLIA# | | | [id number]). REASON FOR ADDENDUM: To add the results [...] positive control. The results are detailed above. NRT:[facility] | | | Diagnostician: Clarissa Perdue MD Pathologist Electronically | | | Signed 09/27/2018 | | + + + + +---------+ + + | Performing | Address | City/State[facility] | Phone Number | | Organization | [...]
--- OUTSIDE RECORDS SUMMARY | ~2019-11-23 | XMS | Encounter Summary ---
Demographics + + + | Address | [address] | | | [place] [address] | + + + | Home Phone [...] | [facility] | | | and Dieterana | + + + | Organization | [facility] | | | and [...] + +------+ + | Care Director Of Broadcast Name | Role | Phone | + [...] [address] | | | | | [address] | [place] [address] | | | | | [place] [address] | [phone] | | | | | [phone] | | | +--------+ + + + [...]
--- OUTSIDE RECORDS SUMMARY | ~2019-11-23 | XMS | Encounter Summary ---
Demographics + + + | Address | [address] | | | [place] [address] | + + + | Home Phone [...] | [facility] | | | and Dieterana | + + + | Organization | [facility] | | | and Dieterana [...] Team Providers + +------+ + | Care Brine Plant Operator Name | Role | Phone [...] | | [place], [place] | [place] [address] | | | | | [address] | [phone] | | | | | [phone] | | | +--------+ + + + + Anesthesia Record + + + + + | Procedure Name | Responsible | Anesthesia Start | Anesthesia Stop Time | | | Anesthesiologist | Time | | + + + + + | KAMALA (N/A Bogdan) | Manas Sears, | 09/21/18 1248 | 09/21/18 1323 | | | POLICE DETECTIVE | | | + + + + [...]
--- OUTSIDE RECORDS SUMMARY | ~2019-11-23 | XMS | Clinical Summary ---
Demographics + + + | Address | [address] | | | [place] [address] | + + + | Home Phone | | + + + | Preferred Language | Unknown | + + + | Marital Status | | + + + | Mormonism Affiliation | Unknown | + + + | Race | Unknown | + + + | Ethnic Group | Unknown | + + + Author + + + | Author | [facility] | | | and Dieterana | + + + | Organization | [facility] | | | and [...] Team Providers + +------+ + | Care Aircraft Systems Technician Name | Role | Phone | [...] | | | | stage ([facility]); | | | | | | Peripheral sensory | | | | | | neuropathy due to | | | | | | type 2 diabetes | | | | | | mellitus ([facility]) | +--------+ + + + + from [...] O?MRN: | | | | | | [id number] | | | [id number] | | | riteri | | | [...] | | | St. | | | [place] | | | y | | | [...] | | | St. | | | [place] | | | y | | | [...] | | | St. | | | [place] | | | y | | | [...] | | | St. | | | [place] | | | y | | | [...] | | | St. | | | [place] | | | y H. | | [...] | | | St. | | | [place] | | | y H. | | [...] | | | St. | | | [place] | | | y H. | | [...] | | | St. | | | [place] | | | y H. | | [...] | | | St. | | | [place] | | | y H. | | [...] | | | St. | | | [place] | | | y H. | | | [place] | | | [place] | | | Emerge | | | ncy | | | Chief | | | Compla | | | int: | | | ANEMIA | | | May | | | 9, | | | 2019 | | | [facility] | | | [facility] | | | [place] | | | y H. | | [...] | | | St. | | | [place] | | | y H. | | [...] | | | St. | | | [place] | | | y H. | | [...] | | | St. | | | [place] | | | y H. | | [...] | | | [id number] | | | [id number] | | | 7c | | | [...] ST. | [address] | [place] | [phone] | | [facility] | | [address] | | | - LABORATORY | | [...] [address] | [place] | [phone] | | [facility] | | [address] | | | - LABORATORY | | [...] [address] | [place] | [phone] | | [facility] | | [address] | | | - LABORATORY | | [...] [address] | [place] | [phone] | | [facility] | | [address] | | | - LABORATORY | | [...] +--------+-------+---------+--------+ | [place] | [place] | [id number] | | | | Indemn | | | CHOICE | | 018-Pr | | | ity | | | PC3 | | esent | | | | + +--------+ +--------+-------+---------+--------+ | [place]MIN | [place] | [id number] | | | | Indemn | | | CHOICE | | 019-Pr | | | ity | | | PC3 | | esent | | | | + +--------+ +--------+-------+---------+--------+ | [employer] ADMIN | [place] | [id number] | | | | Indemn | | [...] | 1970 | [phone] | [place] [address] | | | paul | | | 1 (Home) | | + +--------+ +--------+ + + | Oh Moreno | Person | Self | [birth year] | [address] | | | al/Graeme | | 1970 | [phone] | [place] [address] | | | paul | | | 1 (Home) | | + +--------+ +--------+ + + Advance Directives + + + + + | Type | Date Recorded | Patient | Explanation | | | | Manager Of Information | | + + + + + | Power of | | | | | Systems Admin | | | | + + + + + | Advance | 09/21/2018 | | | | Directive | 10:15 AM | | | + + + + +
--- OUTSIDE RECORDS SUMMARY | ~2019-11-23 | XMS | Encounter Summary ---
Demographics + + + | Address | [address] | | | [place] [address] | + + + | Home Phone [...] + | Author | [facility] | | | and Dieterana | + + + | Organization | [facility] | | | and Dieterana [...] Team Providers + +------+ + | Care Transmission And Coordination Engineer Name | Role | Phone | [...] | | | | | | | [place] | | | | | | | COLONOSCOPY | | | | | | | FLX DX | | | | | | | W/COLLJ SPEC | | | | | | | WHEN PFRMD | | | | | | | [place] | | | | | | | ESOPHAGOGAST | | | | | | | RODUODENOSCO | | | | | | | PY TRANSORAL | | | | | | | DIAGNOSTIC | | | | | | | [place] EGD | | | | | | [...] [address] [place] | MD [address] | | | | | [place], [place] | [place], [place] | | | | | [address] | [address] | | | | | [phone] | | | | | | | [...] any questions, call your physician at or [phone]. If you need assistance after normal business hours, please contact the [facility] at . documented in this encounter [...] + + | [place] [facility] | [address] | [place] [address] | [phone] | | HOSPITAL LABORATORY | | | [...] ANESTHESIA: Sedation | | | ANESTHESIA PROVIDER: BAND SHOVER: Manas Sears CRNA SPECIMEN: | | | [...] | | | 09/21/2018 13:13 CC [facility] This note was | | | transcribed using voice recognition software; there may be speech | | | recognition errors which escaped detection during dental mold maker. | | | | | + + [...] + + | [place] [facility] | [address] | [place] | [phone] | | HOSPITAL LABORATORY | | | [...] | | technical component was performed by [facility] | | | [facility], [address] [place] [address] (Medical | | | Director: Samir Leija MD; CLIA# [id number]). Professional | | | [facility] | | | [place] [address] (Medical | | | Director: Samir Leija MD; CLIA# [id number]). ADDITIONAL | | | NOTES: Immunohistochemical and/or in situ hybridization studies were | | | performed on this case with the appropriate positive controls that | | | react as expected. This test was developed and its performance | | | characteristics determined by [employer]. It has not been | | | cleared or approved by the U.S. Food and Drug Administration. The | | | FDA has determined that such clearance or approval is not necessary. | | | This test is used for clinical purposes. It should not be regarded | | | as investigational or for research. [employer] is certified | | | under the Clinical Laboratory Improvement Amendments of 1988 (CLIA) | | | as qualified to perform high complexity clinical laboratory testing. | | | The technical component was performed by [employer], [facility] | | | [facility] [address] (Living Skills Advisor: Sindy Bernal MD; | | | CLIA# [id number]). Professional interpretation was performed by | | | [facility] | | | [place] [address] (Living Skills Advisor: Samir Leija MD; CLIA# | | | [id number]). PAS stain: The technical component was performed by | | | [employer], [address] | | | [place] [address] (Living Skills Advisor: Saimr Leija MD; CLIA# | | | [id number]). Professional interpretation was performed by [employer] | | | [address] | | | [place] [address] (Living Skills Advisor: Samir Leija MD; CLIA# | | | [id number]). REASON FOR ADDENDUM: To add the results [...] positive control. The results are detailed above. NRT:[facility] | | | Diagnostician: Clarissa Perdue MD [...]
--- OUTSIDE RECORDS SUMMARY | 2019-11-23 22:22 | XMS ---
PreManage Notification: SONIA VIVAS Security Security Dispatcher Events No recent Security Events currently on file CRITERIA MET - 6 ED Visits in 6 Months - [facility] - Has Care Guidelines - PDMP CARE PROVIDERS YADIRA RAYMUNDO [facility] 05/30/2019-Current PHONE: Unknown Jamal has no Care Guidelines for this patient. Care History Medical/Surgical 09/20/2019 [facility] - PATIENT PCP- DR RAYMUNDO HAS MADE A REFERRAL TO DR LEONE - [facility] DIRECTOR DERMATOLOGY. 08/29/2019 [facility] - PATIENT NOW HAS DR MARII LION PATIENT PCP AT [facility]. - PATIENT DOES HAVE IN [facility] C[facility]OUGH [facility]- RN HOME VISITS ALONG WITH PROVIDER IN HOME VISITS. 06/20/2019 [facility] - PATIENT STATED HE HAS SOMEONE COMING FROM [facility] TO COME AND EVALUATE HIS HOME FOR SAFETY/FALL RISK THIS WEEK. - PATIENT DECLINED ANY FURTHER SERVICES/RESOURCES AT THIS TIME-STATED HE IS WORKING WITH [facility] [place] AND [facility]. E.D. VISIT COUNT (12 MO.) [address] [place] [address] [facility] [facility] [place] TOTAL 13 NOTE: Visits indicate total known visits. ED/UCC VISIT TRACKING (12 MO.) 11/23/2019 22:20 [facility] [place] TYPE: Emergency COMPLAINT: - VOMITING 10/22/2019 18:49 [facility] [place] TYPE: Emergency COMPLAINT: - VOMITING DIAGNOSES: - 1 Type 2 diabetes mellitus with diabetic neuropathy, unsp - Allergy status to analgesic agent status - lobsterman (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 - Allergy status to oth drug/meds/biol subst status - Anemia, unspecified - Other salvage determiner (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 - Vomiting, unspecified 09/30/2019 20:11 [facility] [place] TYPE: Emergency COMPLAINT: - POST OP PROBLEM DIAGNOSES: - Encounter for change or removal of surgical wound dressing - Encounter for change or removal of surgical wound dressing - 1 Type 2 diabetes mellitus with diabetic neuropathy, unsp - Personal history of nicotine dependence - Other fdc (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 09/19/2019 11:53 [facility] TYPE: Emergency COMPLAINT: - FOOT WOUND DIAGNOSES: - Allergy status to oth drug/meds/biol subst status - 1 Type 2 diabetes mellitus with foot ulcer - Allergy status to narcotic agent status - 1 Type 2 diabetes mellitus with diabetic neuropathy, unsp - Other fdc (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 - lobsterman (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 - Pain in right foot - Non-prs chronic ulcer oth prt right foot w unsp severity - Personal history of malignant neoplasm of large intestine 08/29/2019 10:53 [facility] Eric MARINO TYPE: Emergency DIAGNOSES: - Wound [...] antineoplastic and immunosup drugs, init - Other fdc (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 - Post-traumatic stress disorder, unspecified - lobsterman (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 - [...] diabetes mellitus with diabetic neuropathy, unsp - correction (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 - Vomiting, unspecified - Other salvage determiner (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 - Migraine, unsp, not intractable, without status migrainosus 07/24/2019 02:43 [facility] [place] TYPE: Emergency COMPLAINT: - NECK PAIN/PORT ISSUE DIAGNOSES: - Essential (primary) hypertension - Personal history of nicotine dependence - Cervicalgia - Malignant neoplasm of colon, unspecified - 1 Type 2 diabetes mellitus with diabetic neuropathy, unsp - Anemia, unspecified - Allergy status to narcotic agent status - lobsterman (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 - Post-traumatic stress disorder, unspecified - Other salvage determiner (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 - Allergy status to [...] Abrasion, left lower leg, initial encounter - lobsterman (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 - Fall same lev from slip/trip w/o strike against object, init - 1 Type 2 diabetes mellitus with diabetic neuropathy, unsp - Allergy status to oth drug/meds/biol subst status - Personal history of malignant neoplasm of large intestine - Other fdc (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 05/28/2019 06:21 [facility] [place] TYPE: Emergency COMPLAINT: - VOMITING/DIARRHEA/HEADACHE DIAGNOSES: - Allergy status to oth drug/meds/biol subst status - Allergy status to narcotic agent status - Generalized abdominal pain - Secondary malignant neoplasm of large intestine and rectum - Other salvage determiner (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 - 1 Type 2 diabetes mellitus without complications - Dehydration - correction (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 of aspirin - Personal history [...] Type 2 diabetes mellitus without complications - lobsterman (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 - Other salvage determiner (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 - Allergy status to [...] Personal history of nicotine dependence - Other fdc (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 - Post-traumatic stress disorder, [...] duct - Post-traumatic stress disorder, unspecified - lobsterman (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 of inhaled steroids - Iron deficiency anemia secondary to blood loss (chronic) - Allergy status to oth drug/meds/biol subst status - Hyperlipidemia, unspecified - Other salvage determiner (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 - Body mass index (BMI) 20.0-20.9, adult - Essential (primary) hypertension - Allergy status to narcotic agent status - Allergy status to narcotic agent status - Other seasonal allergic rhinitis - correction (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 of inhaled steroids - 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 - Prediabetes - Other seasonal allergic rhinitis - Essential (primary) hypertension - Personal history of nicotine dependence - Cachexia - Allergy status to oth drug/meds/biol subst status - Other salvage determiner (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 - Hyperlipidemia, unspecified - Obstructive sleep apnea (adult) (pediatric) - Obstructive sleep apnea (adult) (pediatric) - Body mass index (BMI) 20.0-20.9, adult 05/23/2019 16:23 [facility] [place] TYPE: Observation COMPLAINT: - ANEMIA DIAGNOSES: - lobsterman (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 of aspirin - Gastritis, unspecified, without bleeding - Presence of coronary angioplasty implant and graft - Polyp of colon - Duodenitis without bleeding - 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 - Hyperlipidemia, unspecified - Essential (primary) hypertension - Iron deficiency anemia, unspecified - correction (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 - Diaphragmatic hernia without obstruction or gangrene - Anemia, unspecified - Post-traumatic stress disorder, unspecified - Malignant neoplasm of cecum - Allergy status to oth drug/meds/biol subst status - Other fdc (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 - 1 Type 2 diabetes mellitus with diabetic polyneuropathy - Anemia in neoplastic disease - Secondary malignant neoplasm of unspecified site [email or web address]
== END 2019-11-24 04:20 | disposition home or self-care (01) ==
LOC: ED 22:19
DX: K29.00 Acute gastritis without bleeding (principal); C18.9 Malignant neoplasm of colon, unspecified; E11.40 Type 2 diabetes mellitus with diabetic neuropathy, unspecified; F43.10 Post-traumatic stress disorder, unspecified; I10 Essential (primary) hypertension; Z87.891 Personal history of nicotine dependence; Z88.8 Allergy status to other drugs, medicaments and biological substances; Z88.5 Allergy status to narcotic agent; Z79.899 Other long term (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; Z79.84 Long term (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
CPT/HCPCS: 74177; 80053; 81001; 83735; 85025; 96361; 99284-25; C9113; J2405; J2550; J2765; J7030; Q9967

== ENCOUNTER 2019-12-25 02:50 | Emergency (ER) | payer OTHER ==
[~2019-12-25] VITALS: Ht 193 cm; Wt 81.7 kg
[~2019-12-25 02:50] MED LIST changes: +METOPROLOL TART50 MG PO; +OXYCODONE HCL5 MG PO
--- OUTSIDE RECORDS SUMMARY | 2019-12-25 02:52 | XMS ---
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 Care History Medical/Surgical 09/20/2019 [facility] - PATIENT PCP- DR RAYMUNDO HAS MADE A REFERRAL TO DR LEONE - [place] [employer]. 08/29/2019 [facility] - PATIENT NOW HAS DR MARII LION PATIENT PCP AT [facility]. - PATIENT DOES HAVE IN HOME CARE SERVICES THROUGH THE [facility]- RN HOME VISITS ALONG WITH PROVIDER IN HOME VISITS. 06/20/2019 [facility] - PATIENT STATED HE HAS SOMEONE COMING FROM THE [facility] TO COME AND EVALUATE HIS HOME FOR SAFETY/FALL RISK THIS WEEK. - PATIENT DECLINED ANY FURTHER SERVICES/RESOURCES AT THIS TIME-STATED HE IS WORKING WITH THE [facility] AND [facility]. E.D. VISIT COUNT (12 MO.) 1 [place] Liz DunawaySaraAshleySara 13 STEPHY Howard TOTAL 14 NOTE: Visits indicate total known visits. 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 - Post-traumatic stress disorder, unspecified - 1 Type 2 diabetes mellitus with diabetic neuropathy, unsp - Allergy status to narcotic agent status - Personal history of nicotine dependence - Essential (primary) hypertension - Other group home (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 - Vomiting, unspecified - Acute gastritis without bleeding 10/22/2019 18:49 STE[facility] [place] TYPE: Emergency COMPLAINT: - VOMITING DIAGNOSES: - 1 Type 2 diabetes mellitus with diabetic neuropathy, unsp - Allergy status to analgesic agent status - remote computer terminal operator (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 - Allergy status to oth drug/meds/biol subst status - Anemia, unspecified - Other long term acute care registered nurse (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 - Vomiting, unspecified 09/30/2019 20:11 STE[facility] [place] TYPE: Emergency COMPLAINT: - POST OP PROBLEM DIAGNOSES: - Encounter for change or removal of surgical wound dressing - Encounter for change or removal of surgical wound dressing - 1 Type 2 diabetes mellitus with diabetic neuropathy, unsp - Personal history of nicotine dependence - Other long term acute care registered nurse (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 09/19/2019 11:53 STE[facility] Lopez [place] TYPE: Emergency COMPLAINT: - FOOT WOUND DIAGNOSES: - Allergy status to oth drug/meds/biol subst status - 1 Type 2 diabetes mellitus with foot ulcer - Allergy status to narcotic agent status - 1 Type 2 diabetes mellitus with diabetic neuropathy, unsp - Other long term acute care registered nurse (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 - remote computer terminal operator (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 - Pain in right foot - Non-prs chronic ulcer oth prt right foot w unsp severity - Personal history of malignant neoplasm of large intestine 08/29/2019 10:53 [facility] Liz MARINO TYPE: Emergency DIAGNOSES: - Wound Check [...] antineoplastic and immunosup drugs, init - Other group home (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 - Post-traumatic stress disorder, unspecified - halfway (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 - [...] diabetes mellitus with diabetic neuropathy, unsp - halfway (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 - Vomiting, unspecified - Other group home (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 - Migraine, unsp, not intractable, without status migrainosus 07/24/2019 02:43 STEPHY Lopez [place] TYPE: Emergency COMPLAINT: - NECK PAIN/PORT ISSUE DIAGNOSES: - Essential (primary) hypertension - Personal history of nicotine dependence - Cervicalgia - Malignant neoplasm of colon, unspecified - 1 Type 2 diabetes mellitus with diabetic neuropathy, unsp - Anemia, unspecified - Allergy status to narcotic agent status - halfway (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 - Post-traumatic stress disorder, unspecified - Other long term acute care registered nurse (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 - Allergy status to [...] Abrasion, left lower leg, initial encounter - 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 computer terminal operator (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 - Fall same lev from slip/trip w/o strike against object, init - 1 Type 2 diabetes mellitus with diabetic neuropathy, unsp - Allergy status to oth drug/meds/biol subst status - Personal history of malignant neoplasm of large intestine - Other group home (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 05/28/2019 06:21 STEPHY Lopez [place] TYPE: Emergency COMPLAINT: - VOMITING/DIARRHEA/HEADACHE DIAGNOSES: - Allergy status to oth drug/meds/biol subst status - Allergy status to narcotic agent status - Generalized abdominal pain - Secondary malignant neoplasm of large intestine and rectum - Other long term acute care registered nurse (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 - 1 Type 2 diabetes mellitus without complications - Dehydration - remote computer terminal operator (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 of aspirin - Personal [...] Type 2 diabetes mellitus without complications - halfway (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 - Other group home (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 - Allergy status to narcotic agent status - Cyclical vomiting, in migraine, not intractable 02/28/2019 15:13 STEPHY Reeves TYPE: Emergency COMPLAINT: - VOMITING DIAGNOSES: - Allergy status to oth drug/meds/biol subst status - Nausea with vomiting, unspecified - Acute gastritis without bleeding - 1 Type 2 diabetes mellitus with diabetic neuropathy, unsp - Personal history of nicotine dependence - Other long term acute care registered nurse (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 - Post-traumatic stress disorder, [...] duct - Post-traumatic stress disorder, unspecified - halfway (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 of inhaled steroids - Iron deficiency anemia secondary to blood loss (chronic) - Allergy status to oth drug/meds/biol subst status - Hyperlipidemia, unspecified - Other long term acute care registered nurse (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 - Body mass index (BMI) 20.0-20.9, adult - Essential (primary) hypertension - Allergy status to narcotic agent status - Allergy status to narcotic agent status - Other seasonal allergic rhinitis - halfway (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 of inhaled steroids - 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 - Prediabetes - Other seasonal allergic rhinitis - Essential (primary) hypertension - Personal history of nicotine dependence - Cachexia - Allergy status to oth drug/meds/biol subst status - Other group home (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 - Hyperlipidemia, unspecified - Obstructive sleep apnea (adult) (pediatric) - Obstructive sleep apnea (adult) (pediatric) - Body mass index (BMI) 20.0-20.9, adult 05/23/2019 16:23 STEPHY Lopez [place] TYPE: Observation COMPLAINT: - ANEMIA DIAGNOSES: - remote computer terminal operator (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 of aspirin - Gastritis, unspecified, without bleeding - Presence of coronary angioplasty implant and graft - Polyp of colon - Duodenitis without bleeding - 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 - Hyperlipidemia, unspecified - Essential (primary) hypertension - Iron deficiency anemia, unspecified - halfway (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 - Diaphragmatic hernia without obstruction or gangrene - Anemia, unspecified - Post-traumatic stress disorder, unspecified - Malignant neoplasm of cecum - Allergy status to oth drug/meds/biol subst status - Other group home (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 - 1 Type 2 diabetes mellitus with diabetic polyneuropathy - Anemia in neoplastic disease - Secondary malignant neoplasm of unspecified site [email or web address]
[2019-12-25] MEDS ORDERED: CATAPRES0.1 MG PO (03:05)
[2019-12-25] MEDS ORDERED: PROMETHAZINE HC25 M1 PO (04:29)
== END 2019-12-25 04:45 | disposition home or self-care (01) ==
LOC: ED 02:50
DX: R11.2 Nausea with vomiting, unspecified (principal); R10.9 Unspecified abdominal pain; E11.40 Type 2 diabetes mellitus with diabetic neuropathy, unspecified; F43.10 Post-traumatic stress disorder, unspecified; I10 Essential (primary) hypertension; Z87.891 Personal history of nicotine dependence; Z88.8 Allergy status to other drugs, medicaments and biological substances; Z79.899 Other long term (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
CPT/HCPCS: 74022; 80053; 83690; 85025; 96361; 96374; 96375; 99284-25; J2270; J2550; J7030

== ENCOUNTER 2020-01-20 13:19 | Emergency (ER) | payer OTHER ==
[~2020-01-20] VITALS: Ht 193 cm; Wt 86.2 kg
[~2020-01-20 13:19] MED LIST changes: +CATAPRES0.1 MG PO
[2020-01-20] MEDS ORDERED: HALOPERIDOL10 MG PO (16:41)
[2020-01-20] MEDS ORDERED: PROMETHAZINE HC25 MG PR (16:41)
[2020-01-20] MEDS ORDERED: PROMETHAZINE HC25 M1 PO (16:41)
== END 2020-01-20 16:57 | disposition home or self-care (01) ==
LOC: ED 13:19
DX: R11.2 Nausea with vomiting, unspecified (principal); R10.9 Unspecified abdominal pain; E11.40 Type 2 diabetes mellitus with diabetic neuropathy, unspecified; F43.10 Post-traumatic stress disorder, unspecified; I10 Essential (primary) hypertension; Z87.891 Personal history of nicotine dependence; Z88.8 Allergy status to other drugs, medicaments and biological substances; Z79.899 Other long term (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; Z79.84 Long term (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
CPT/HCPCS: 80053; 83690; 85025; 96361; 96374; 96375; 96376; 99284-25; J1630; J2060; J2270; J2550; J7030

== ENCOUNTER 2020-04-05 10:54 | Emergency (ER) | payer MEDICARE, OTHER ==
[~2020-04-05] VITALS: Ht 193 cm; Wt 80.3 kg
--- OUTSIDE RECORDS SUMMARY | ~2020-04-05 | XMS | Encounter Summary ---
Demographics + + + | Address | [address] | | | [place] [address] | + + + | Home Phone | | + + + | Preferred Language | Unknown | + + + | Marital Status | | + + + | Jainism Affiliation | Unknown | + + + | Race | Unknown | + + + | Ethnic Group | Unknown | + + + Author + + + | Author | [facility] | | | and [place] | + + + | Organization | [facility] | | | and [place] | + + + | Address | Unknown | + + + | Phone | Unavailable | + + + Support + + + + + | Name | Relationship | Address | Phone | + + + + + | Cintia Moreno | ECON | Unknown | | + + + + + | Dayana Moreno | ECON | [address] | | | | | [place] | | | | | [address] | | + + + + + Care Team Providers + +------+ + | Care Senior Tax Specialist Name | Role | Phone | + +------+ + | Imer Woodard MD | PCP | | + +------+ + Reason for Visit Auth/Cert (Routine) +--------+--------+ + + + + | Status | Reason | Specialty | Diagnoses / | Referred By | Referred To | | | | | Procedures | Contact | Contact | +--------+--------+ + + + + | | | | Diagnoses | | | | | | | Nausea | | | | | | | Iron | | | | | | | deficiency | | | | | | | anemia, | | | | | | | unspecified | | | | | | | Procedures | | | | | | | OR | | | | | | | COLONOSCOPY | | | | | | | FLX DX | | | | | | | W/COLLJ SPEC | | | | | | | WHEN PFRMD | | | | | | | OR | | | | | | | ESOPHAGOGAST | | | | | | | RODUODENOSCO | | | | | | | PY TRANSORAL | | | | | | | DIAGNOSTIC | | | | | | | OR EGD | | | | | | | TRANSORAL | | | | | | | BIOPSY | | | | | | | SINGLE/MULTI | | | | | | | PLE | | | +--------+--------+ + + + + Encounter Details +--------+ + + + + | Date | Type | Department | Care Team | Description | +--------+ + + + + | 09/21/ | Hospital | [facility] | [place], | | | 2018 | Encounter | [facility] | Leighton Malagon, | | | | | [address] [place] | [address] | | | | | [place], [place] | [place] | | | | | [address] | [address] | | | | | [phone] | [phone] | | | | | | | | +--------+ + + + [...] + + documented as of this encounter Last Filed Vital Signs + + + + + | Vital Sign | Reading | Time Taken | Comments | + + + + + | Blood Pressure | 162/98 | 09/21/2018 2:06 PM | | | | | PDT | | + + + + + | Pulse | 86 | 09/21/2018 2:06 PM | | | | | PDT | | + + + + + | Temperature | 36.5 C (97.7 F) | 09/21/2018 2:05 PM | | | | | PDT | | + + + + + | Respiratory Rate | 16 | 09/21/2018 2:06 PM | | | | | PDT | | + + + + + | Oxygen Saturation | 100% | 09/21/2018 2:06 PM | | | | | PDT | | + + + + + | Inhaled Oxygen | - | - | | | Concentration | | | | + + + + + | Weight | - | - | | + + + + + | Height | - | - | | + + + + + | Body Mass Index | - | - | | + + + + + documented in this encounter Discharge Instructions Instructions Leighton Martino MD - 09/21/2018TO INSURE PROPER POST-SURGICAL RE COVERY, PLEASE FOLLOW THE HOME CARE INSTRUCTIONS MARKED BELOW FOLLOW-UP APPOINTMENTS: [x] No follow up appointment necessary [] Dr. Martino's office will call you to set up a follow up appointment MEDICATIONS: [] Take a stool softener while taking narcotic pain medication . [] When taking pain medications, you may experience drowsiness. Do not drink alcohol or dr montejo while you were taking these medications. [] Do not take Tylenol with your prescribed pain medication. [] You may take Ibuprofen (600 mg every 6 hours). [] You may take Tylenol (650 mg every 6 hours). WOUND CARE & HYGIENE: [] Ice to incision 20 minutes at a time for comfort. [x] May shower today. [] Your wound has glue on it as a dressing. Do not try to remove the glue. It will fall off in about 2 weeks. [] No tub baths, swimming pools, or hot tubs until seen by physician. [] observe for color changes, increased pain, or drainage. ANESTHESIA PRECAUTIONS: [] No special precautions. [x] A responsible adult should stay with you for at least 24 hours. You may experience drowsiness, lightheadedness, or mild nausea. [x] Do not operate a vehicle (automobile, bicycle, motorcycle), machinery or power tools. Do not make important decisions or drink any alcoholic beverages for at least 24 hours. [] Children: no riding bicycles, skateboards, swings, etc. for 24 hours. DIET: [] No dietary restrictions. [x] Drink plenty of fluids and a light meal today; resume regular diet tomorrow. ACTIVITY: [] No vigorous/strenuous activity for 2 weeks. [] Limit lifting to 10 pounds for the next 6 weeks. [] Resume normal activities in 24 hours. ADDITIONAL INSTRUCTIONS: Reschedule colonoscopy with a 2 day preparation. Begin omeprazole and Carafate as ordered REPORT ANY OF THE FOLLOWING SYMPTOMS TO YOUR SURGEON IMMEDIATELY: ? Fever over 101F by mouth ? Excessive bleeding. ? Pain not improved by medication ordered. ? Numb, tingling or cold fingers or toes. ? Increased redness, swelling or foul odor from surgical site. ? Inability to urinate. ? Difficulty breathing. ? Persistent nausea/vomiting. IF UNABLE TO REACH THE SURGEON AND YOUR SYMPTOMS ARE WORSENING, GO TO THE NEAREST EMERGENCY ROOM A follow-up call will be attempted by an Outpatient Surgery Nurse in 24-48 hours to check y our progress. If you have any questions, call your physician at or . If you need assistance after normal business hours, please contact the [facility] at . documented in this encounter Medications at Time of Discharge + + + +---------+ + + | Medication | Sig | Dispensed | Refills | Start | End Date | | | | | | Date | | + + + +---------+ + + | amitriptyline | Take 10 mg by mouth | | 0 | | | | (ELAVIL) 10 mg | nightly as needed | | | | | | tablet | for Insomnia. | | | | | + + + +---------+ + + | Ascorbic Acid | Take 100 mg by mouth | | 0 | | | | (VITAMIN C) 100 MG | Daily. | | | | | | tablet | | | | | | + + + +---------+ + + | atorvaSTATin | Take 40 mg by mouth | | 0 | | | | (LIPITOR) 10 mg | nightly. | | | | | | tablet | | | | | | + + + +---------+ + + | ferrous sulfate | Take 325 mg by mouth | | 0 | | | | 325 mg tablet | daily (with | | | | | | | breakfast). | | | | | + + + +---------+ + + | insulin glargine | Inject 38 Units | | 0 | | | | (LANTUS) 100 | under the skin | | | | | | units/mL injection | nightly. | | | | | | (vial) | | | | | | + + + +---------+ + + | lisinopril | Take 10 mg by mouth | | 0 | | | | (PRINIVIL, ZESTRIL) | Daily. | | | | | | 10 mg tablet | | | | | | + + + +---------+ + + | metFORMIN | Take 1,000 mg by | | 0 | | | | (GLUCOPHAGE) 1000 MG | mouth 2 times daily | | | | | | tablet | (with breakfast & | | | | | | | dinner). | | | | | + + + +---------+ + + | omeprazole | Take 1 capsule by | 30 | 0 | 09/21/20 | | | (PRILOSEC) 20 mg | mouth every morning | capsule | | 18 | | | capsule | (before breakfast). | | | | | + + + +---------+ + + | SUMATRIPTAN | Take by mouth. | | 0 | | | | SUCCINATE PO | | | | | | + + + +---------+ + + | sucralfate | Take 1 tablet by | 120 | 1 | 09/21/20 | 10/201 | | (CARAFATE) 1 g | mouth 4 times daily. | tablet | | 18 | 9 | | tablet | | | | | | + + + +---------+ + + | sucralfate | Take 1 tablet by | 120 | 1 | 1030/20 | 10/30/201 | | (CARAFATE) 1 g | mouth 4 times daily. | tablet | | 18 | 9 | | tablet | | | | | | + + + +---------+ + + documented as of this encounter Plan of Treatment Not on filedocumented as of this encounter Procedures + +--------+ + + + | Procedure Name | Priori | Date/Time | Associated Diagnosis | Comments | | | ty | | | | + +--------+ + + + | HELICOBACTER PYLORI | Routin | 09/21/2018 | | Results for this | | BIOPSY | e | 1:00 PM | | procedure are in the | | | | PDT | | results section. | + +--------+ + + + | ENDOSCOPY | Routin | 09/21/2018 | | Results for this | | | e | 12:51 PM | | procedure are in the | | | | PDT | | results section. | + +--------+ + + + | COLONOSCOPY | | 09/21/2018 | Unknown | | | | | 12:47 PM | | | | | | PDT | | | + +--------+ + + + | EGD | | 09/21/2018 | Unknown | | | | | 12:47 PM | | | | | | PDT | | | + +--------+ + + + | POC GLUCOSE | Routin | 09/21/2018 | | Results for this | | | e | 10:53 AM | | procedure are in the | | | | PDT | | results section. | + +--------+ + + + | SURGICAL PATHOLOGY | Routin | 09/21/2018 | | Results for this | | EXAM | e | 12:00 AM | | procedure are in the | | | | PDT | | results section. | + +--------+ + + + documented in this encounter Results Helicobactor pylori Biopsy (09/21/2018 1:00 PM PDT) + + + + + + | Component | Value | Ref Range | Performed | Pathologist | | | | | At | Signature | + + + + + + | Clotest | Negative | Negative | [facility] | | | ([facility]), | | | [facility] | | | Qualitative | | [facility] | | | | | | LAB[facility]ATORY | | + + + + + + + + | Specimen | + + | Tissue - Specimen | | from stomach | | (specimen) | + + + + + + + | Performing | Address | City/State/Zipcode | Phone Number | | Organization | | | | + + + + + | [facility] | [address] | [place] | [phone] | | [facility] | | [address] | | + + + + + Endoscopy Procedures (09/21/2018 12:51 PM PDT) + + + | Narrative | Performed At | + + + | Leighton Martino MD 09/21/2018 13:16 Endoscopy | | | Report OPERATION PERFORMED: Flexible EGD with biopsies | | | REFERRING PROVIDER: Imer Woodard PRE-OP DIAGNOSIS: Iron | | | deficiency anemia POST-OP DIAGNOSIS: Same SURGEON: | | | Leighton Martino MD ANESTHESIA: Sedation | | | ANESTHESIA PROVIDER: FOOD AND BEVERAGE ASSISTANT MANAGER: Manas Sears CRNA SPECIMEN: | | | ID Type Source Tests Collected by Time Destination A : fundus biopsy | | | Tissue SURGICAL PATHOLOGY EXAM Leighton Martino MD | | | 09/21/2018 1304 Pathology B : GE junction biopsy Tissue SURGICAL | | | PATHOLOGY EXAM Leighton Martino MD 09/21/2018 1306 | | | Pathology COMPLICATIONS: None INDICATIONS FOR PROCEDURE: | | | Oh Moreno is a 47 y.o. male PROCEDURE IN DETAIL: | | | With consent obtained, the patient was taken to the endoscopy suite | | | and placed in the left lateral decubitus position. A timeout was | | | taken, and the patient was adequately sedated by the department of | | | anesthesia. I began by advancing a flexible gastroscope into the | | | oropharynx and into the patient's esophagus under direct | | | visualization. I continued to advance the scope into the gastric | | | lumen. I traversed the pylorus and advanced the scope to the | | | second portion of the duodenum. The duodenal mucosa was normal | | | appearing without ulcer. The scope was withdrawn through the | | | pylorus. The antrum was inspected and was also fairly | | | normal-appearing without ulcer. Single biopsy was obtained for | | | CLOtest. At this point, the instrument was retroflexed. The | | | incisura was normal. The stomach was insufflated such that the | | | rugal folds flattened. There was no significant hiatal hernia but | | | there were hemorrhagic mucosal lesions in the fundal mucosa. These | | | were biopsied. The scope was anteverted and the remainder of the | | | gastric mucosa was inspected. No other abnormalities were | | | identified. The scope was slowly withdrawn through the GE | | | junction. The squamocolumnar mucosa was inspected and found to be | | | somewhat chronically inflamed. Biopsies were taken of the EG | | | junction. The instrument was ultimately removed from the | | | patient's mouth. Attention was then turned to the colonoscopy, | | | but it was apparent that there was no significant prep that had been | | | done. Decision was made to cancel the colonoscopy and talked to | | | the patient regarding a 2 day preparation. The patient tolerated | | | the procedure well and there were no immediate complications. | | | Electronically Signed by: Leighton Martino MD, | | | 09/21/2018 13:13 [facility] This note was | | | transcribed using voice recognition software; there may be speech | | | recognition errors which escaped detection during trumpet player. | | | | | + + + POC Glucose (09/21/2018 10:53 AM PDT) + +---------+ + + + | Component | Value | Ref Range | Performed | Pathologist | | | | | At | Signature | + +---------+ + + + | Glucose, | 279 (H) | 70 - 110 mg/dL [facility] | | | POC | | | [facility] | | | | | | HOSPITAL | | | | | | LABORATORY | | + +---------+ + + + + + | Specimen | + + | Blood | + + + + + + + | Performing | Address | City/State/Zipcode | Phone Number | | Organization | | | | + + + + + | [facility] | [address] | [place] | [phone] | | [facility] | | [address] | | + + + + + Surgical Pathology Exam (09/21/2018 12:00 AM PDT) + + | Specimen | + + | Tissue | + + + + + | Narrative | Performed At | + + + | THIS IS AN ADDENDUM REPORT SPECIMEN(S): A FUNDUS | [facility] | | BIOPSY SPECIMEN(S): B GE JUNCTION SPECIMEN SOURCE: A. FUNDUS | [facility] | | BIOPSY B. GE JUNCTION CLINICAL HISTORY: EGD, colonoscopy. | | | MICROSCOPIC DESCRIPTION: Histologic sections of all submitted blocks | | | are examined by light microscopy. These findings, together with the | | | gross examination, support the pathologic diagnosis. FINAL | | | PATHOLOGIC DIAGNOSIS: Stomach, fundus, biopsy: - Gastric body-type | | | mucosa with mild chronic, inactive gastritis. (see comment) - No | | | intestinal metaplasia or intraepithelial neoplasia identified. B. | | | Gastroesophageal junction, biopsy: - Squamocolumnar junctional | | | mucosa with chronic, active esophagogastritis and focal ulceration | | | with inflamed granulation tissue. (see comment) - No goblet cell | | | metaplasia identified. - Reactive-appearing epithelial changes are | | | present, but no definite intraepithelial neoplasia (no dysplasia) is | | | identified. COMMENT: A) An immunohistochemical stain for | | | Helicobacter pylori has been ordered on the stomach fundus biopsy | | | (specimen A), and the results will be reported in an addendum, when | | | available. B) A PAS stain for fungus has been ordered on the | | | gastroesophageal junction biopsy (specimen B), and the results will be | | | reported in an addendum, when available. NRT:cml:C2NR GROSS | | | DESCRIPTION: Two specimens are received in formalin each labeled with | | | the patient's name Oh Moreno and date of 1970. A. | | | Additionally labeled "fundus biopsy" is one irregularly shaped | | | fragment of pale tong soft tissue measuring 0.5 x 0.3 x 0.2 cm. The | | | specimen is entirely submitted between sponges in a single cassette | | | (A1). B. Additionally labeled "GE junction" are two irregularly | | | shaped fragments of pale tong soft tissue measuring 0.5 x 0.4 x 0.3 cm | | | in aggregate. The specimen is entirely submitted between sponges in | | | a single cassette (B1). na:NRT:cml PERFORMING LABORATORY: The | | | technical component was performed by [facility] | | | [place] [address] (Medical | | | Director: Samir Leija MD; CLIA# [id number]). Professional | | | interpretation was performed by [facility] | | | [place] [address] (Medical | | | Director: Samir Leija MD; CLIA# [id number]). ADDITIONAL | | | NOTES: Immunohistochemical and/or in situ hybridization studies were | | | performed on this case with the appropriate positive controls that | | | react as expected. This test was developed and its performance | | | characteristics determined by [facility]. It has not been | | | cleared or approved by the U.S. Food and Drug Administration. The | | | FDA has determined that such clearance or approval is not necessary. | | | This test is used for clinical purposes. It should not be regarded | | | as investigational or for research. [facility] is certified | | | under the Clinical Laboratory Improvement Amendments of 1988 (CLIA) | | | as qualified to perform high complexity clinical laboratory testing. | | | The technical component was performed by [facility], [facility] | | | [facility] [address] (Die Keeper: Sindy Bernal MD; | | | CLIA# [id number]). Professional interpretation was performed by | | | [facility] | | | [place], [place] [address] (Die Keeper: Samir Leija MD; CLIA# | | | [id number]). PAS stain: The technical component was performed by | | | [facility] | | | [place], [place] [address] (Die Keeper: Samir Leija MD; CLIA# | | | [id number]). Professional interpretation was performed by [facility] | | | [facility], [facility], [address] [place] [address], [place] | | | [place] [address] (Die Keeper: Samir Leija MD; CLIA# | | | [id number]). REASON FOR ADDENDUM: To add the results of | | | additional tests. ADDENUM PATHOLOGIC DIAGNOSIS: A. Stomach, | | | fundus, biopsy: - Negative for Helicobacter pylori-type organisms | | | on H. pylori stain. B. Gastroesophageal junction, biopsy: - | | | Negative for fungal organisms on PAS stain. ADDENDUM COMMENT: | | | A) An immunohistochemical stain for Helicobacter pylori was performed | | | on sections of the stomach fundus biopsy (specimen A), with an | | | appropriately positive control. The results are detailed above. B) | | | A PAS stain for fungus was performed on the sections of the | | | gastroesophageal junction biopsy (specimen B), with an appropriately | | | positive control. The results are detailed above. NRT:cml | | | Diagnostician: Clarissa Perdue MD Pathologist Electronically | | | Signed 09/27/2018 | | + + + + +---------+ + + | Performing | Address | City/State/Zipcode | Phone Number | | Organization | | | | + +---------+ + + | [facility] | | | | | [facility] | | | | + +---------+ + + documented in this encounter Visit Diagnoses Not on filedocumented in this encounter Administered Medications + +--------+---------+------+------+------+ | Medication Order | MAR | Action | Dose | Rate | Site | | | Action | Date | | | | + +--------+---------+------+------+------+ + +---+ | insulin lispro (humaLOG) 100 | | | units/mL injection (vial) 0-12 | | | Units 0-12 Units, Subcutaneous, | | | EVERY 2 HOURS PRN, see admin | | | instruction, Starting Tu | | | 09/21/18 at 1111, CORRECTION | | | INSULIN BG < 70 = Follow | | | hypoglycemia management order | | | BG 71 - 150 = no insulin BG 151 | | | - 200 = 2 units BG 201 - 250 = | | | 4 units BG 251 - 300 = 6 units | | | BG 301 - 350 = 8 units BG | | | 351 - 400 = 10 units BG > 400 | | | = 12 units Only for use | | | with U-100 insulin syringe., | | | Pre-op | | + +---+ | | | + +---+ + +---------+ +---+---+---+ | lactated ringers (LR) infusion | New Bag | 09/21/20 | | | | | at 10-100 mL/hr, Intravenous, | | 18 11:00 | | | | | CONTINUOUS, Starting 09/21/18 | | AM PDT | | | | | at 1130, TKO., Pre-op | | | | | | + +---------+ +---+---+---+ + +---+ | | | + +---+ | ondansetron (ZOFRAN) injection | | | 4 mg 4 mg, Intravenous, ONCE | | | PRN, Nausea, Starting Tue | | | 09/21/18 at 1350, For 1 dose, | | | Recovery/Phase I | | + +---+ | | | + +---+ documented in this encounter
--- OUTSIDE RECORDS SUMMARY | ~2020-04-05 | XMS | Encounter Summary ---
Demographics + + + | Address | [address] | | | [place] [address] | + + + | Home Phone | | + + + | Preferred Language | Unknown | + + + | Marital Status | | + + + | Religion Affiliation | Unknown | + + + | Race | Unknown | + + + | Ethnic Group | Unknown | + + + Author + + + | Author | [facility] | | | and [place] | + + + | Organization | [facility] | | | [...] [place] | | | | | [address] | | + + + + + Care Team Providers + +------+ + | Care Fan Blade Truer Name | Role | Phone | + [...] | | | | | | | [place] | | | | | | | COLONOSCOPY | | | | | | | FLX DX | | | | | | | W/COLLJ SPEC | | | | | | | WHEN PFRMD | | | | | | | [place] | | | | | | | ESOPHAGOGAST | | | | | | | RODUODENOSCO | | | | | | | PY TRANSORAL | | | | | | | DIAGNOSTIC | | | | | | | [place] EGD | | | | | | [...] [address] | | | | | [place], [place] | [place] [address] | | | | | [address] | [phone] | | | | | [phone] | | | +--------+ + + + + Anesthesia Record + + + + + | Procedure Name | Responsible | Anesthesia Start | Anesthesia Stop Time | | | Anesthesiologist | Time | | + + + + + | EGD (N/A Mouth) | Manas Sears, | 09/21/18 1248 | 09/21/18 1323 | | | EMPLOYEE COMMUNICATIONS COORDINATOR | | | + + + + [...] | | | | Intravenous, PRN, Starting Tue | | 18 12:50 | | | [...] | | | | | Anxiety, Starting 09/21/18 at | | PM PDT | | [...]
--- OUTSIDE RECORDS SUMMARY | ~2020-04-05 | XMS | Encounter Summary ---
Demographics + + + | Address | [address] | | | [place] [address] | + + + | Home Phone | | + + + | Preferred Language | Unknown | + + + | Marital Status | | + + + | Advent Affiliation | Unknown | + + + | Race | Unknown | + + + | Ethnic Group | Unknown | + + + Author + + + | Author | [facility] | | | and [place] | + + + | Organization | [facility] | | | [...] [place] | | | | | [address] | | + + + + + Care Team Providers + +------+ + | Care Shuttle Fitting Supervisor Name | Role | Phone | + [...] + + | 08/29/ | Emergency | [facility] | [place], | Cellulitis of right | | 2019 | | [facility] | Sundeep Keller MD [address] | foot (Primary Dx); | | | | CENTER [address] | [address] [place] | Ulcer of right foot, | | | | [place], [place] | [place] [address] | unspecified ulcer | | | | [address] | [phone] | stage ([facility]); | | | | [phone] | | 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 | | | [place] | | | y | | | [...] | | | St. | | | [place] | | | y | | | [...] | | | St. | | | [place] | | | y | | | [...] | | | St. | | | [place] | | | y | | | [...] | | | St. | | | [place] | | | y H. | | [...] | | | St. | | | [place] | | | y H. | | [...] | | | St. | | | [place] | | | y H. | | [...] | | | St. | | | [place] | | | y H. | | [...] | | | St. | | | [place] | | | y H. | | [...] | | | St. | | | [place] | | | y H. | | | [place] | | | [place] | | | [facility] | | | ncy | | | Chief | | | Compla | | | int: | | | ANEMIA | | | May | | | 9, | | | 2019 | | | [facility] | | | St[facility] | | | [place] | | | y H. | | [...] | | | St. | | | [place] | | | y H. | | [...] | | | St. | | | [place] | | | y H. | | [...] | | | St. | | | [place] | | | y H. | | [...] | | | Second | | | palbo | | | malign | | | [...] | | | [id number] | | | [id number] | | | 7c | | | [...] [address] | [place] | [phone] | | [facility] | | [address] | | | - LABORATORY | | [...] [address] | [place] | [phone] | | [facility] | | [address] | | | - LABORATORY | | [...] + | [address] | [address] | [place] | [phone] | | [facility] | | [address] | | | - LABORATORY | | [...] [address] | [place] | [phone] | | [facility] | | [address] | | | - LABORATORY | | [...] [address] | [place] | [phone] | | [facility] | | [address] | | | - LABORATORY | | [...] | | | | g/dL | [facility] | | | | | | MEDICAL [...] | Eosinophils | | K/uL | [facility] | [...] | Immature | | K/uL | [facility] | | | Granulocyte | | | [...] [address] | [place] | [phone] | | [facility] | | [address] | | | - LABORATORY | | [...]
--- OUTSIDE RECORDS SUMMARY | ~2020-04-05 | XMS | Encounter Summary ---
Demographics + + + | Address | [address] | | | [place] [address] | + + + | Home Phone | | + + + | Preferred Language | Unknown | + + + | Marital Status | | + + + | Caodaism Affiliation | Unknown | + + + | Race | Unknown | + + + | Ethnic Group | Unknown | + + + Author + + + | Author | [facility] | | | and [place] | + + + | Organization | [facility] | | | [...] [place], [place] | | | | | [address] | | + + + + + Care Team Providers + +------+ + | Care Human Resources Records Clerk Name | Role | Phone | + [...] | | | | | | [place] [address] | | | | | | [phone] | | | +--------+ + + + [...]
--- OUTSIDE RECORDS SUMMARY | ~2020-04-05 | XMS | Clinical Summary ---
Demographics + + + | Address | [address] | | | [place] [address] | + + + | Home Phone | | + + + | Preferred Language | Unknown | + + + | Marital Status | | + + + | Scientologist Affiliation | Unknown | + + + | Race | Unknown | + + + | Ethnic Group | Unknown | + + + Author + + + | Author | [facility] | | | and [place] | + + + | Organization | [facility] | | [...] [place] | | | | | [address] | | + + + + + Care Team Providers + +------+ + | Care Service Architect Name | Role | Phone | + [...] + | Vaccine: Influenza | | 07/24/2018, 12/07/2017, | | | (Season Ended) | 0 | 10/26/2013, Additional history | | | | | [...] +--------+-------+---------+--------+ | [place] | [place] | [id number] | | | | Indemn | | | CHOICE | | 018-Pr | | | ity | | | PC3 | | esent | | | | + +--------+ +--------+-------+---------+--------+ | [place]MIN | [place] | [id number] | | | | Indemn | | | CHOICE | | 019-Pr | | | ity | | | PC3 | | esent | | | | + +--------+ +--------+-------+---------+--------+ | [facility] ADMIN | [place]ET[place] | [id number] | | | | Indemn | | [...] | | al/Fam | | 1970 | [phone] | [place], [place] | | | paul | | | 1 (Home) | [address] | + +--------+ +--------+ + + | Oh Moreno | Person | Self | [birth year] | [address] | | | al/Fam | | 1969 | [phone] | [place], [place] | | | paul | | | 1 (Home) | [address] | + +--------+ +--------+ + + Advance Directives + + + + + | Type | Date Recorded | Patient | Explanation | | | | 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
--- OUTSIDE RECORDS SUMMARY | ~2020-04-05 | XMS | Encounter Summary ---
Demographics + + + | Address | [address] | | | [place] [address] | + + + | Home Phone | | + + + | Preferred Language | Unknown | + + + | Marital Status | | + + + | Episcopal Affiliation | Unknown | + + + | Race | Unknown | + + + | Ethnic Group | Unknown | + + + Author + + + | Author | [facility] | | | and [place] | + + + | Organization | [facility] | | | [...] [place] | | | | | [address] | | + + + + + Care Team Providers + +------+ + | Care Short Piece Handler Name | Role | Phone | + [...] | | | | MAURILIO THORPE, | [facility], [place] | | | | | | [place] [address] | [address] | | | | | | Phone: | Phone: | | | | | | [phone] | [phone] | | | | | | Fax: | Fax: | | | | | | [phone] | [phone] | +--------+--------+ + + + + Encounter [...] | SURGERY [address] | MD [address] | | | | | DR DEWAYNE VAZQUEZ, | [place], [place] | | | | | [place] [address] | [address] | | | | | [phone] | | | | | | | [...] note might be different from the original. [facility] Manoj Jolly M.D [address], [place], [place] [address] - PATIENT NAME: Oh Moreno IF YOU [...] Needle Localization [] Lumpectomy [] Mastectomy [] [place] Node Biopsy [] Isosulfan Blue Dye [] [...] seizure. 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 documented in this encounter Plan of Treatment Not on filedocumented as of this encounter Visit Diagnoses + + | Diagnosis | + + | Nausea - Primary Nausea alone | + + | Microcytic anemia Iron deficiency anemia, unspecified | + + documented in this encounter
--- OUTSIDE RECORDS SUMMARY | ~2020-04-05 | XMS | Encounter Summary ---
Demographics + + + | Address | [address] | | | [place] [address] | + + + | Home Phone | | + + + | Preferred Language | Unknown | + + + | Marital Status | | + + + | Congregation Affiliation | Unknown | + + + | Race | Unknown | + + + | Ethnic Group | Unknown | + + + Author + + + | Author | [facility] | | | and [place] | + + + | Organization | [facility] | [...] [place] | | | | | [address] | | + + + + + Care Team Providers + +------+ + | Care Veneer Taping Machine Operator Name | Role | Phone [...] + + | 09/05/ | Telephone | [facility] | Tamika, | Patient Concerns | | 2019 | | [facility] | Sundeep Ramirez MD [address] | | | | | [address] | [facility] | | | | | [facility] | [place] [address] | | | | | [place] [address] | [phone] | | | | | [phone] | | | +--------+ + + + [...]
--- OUTSIDE RECORDS SUMMARY | ~2020-04-05 | XMS | Encounter Summary ---
Demographics + + + | Address | [address] | | | [place] [address] | + + + | Home Phone | | + + + | Preferred Language | Unknown | + + + | Marital Status | | + + + | Presybeterian Affiliation | Unknown | + + + | Race | Unknown | + + + | Ethnic Group | Unknown | + + + Author + + + | Author | [facility] | | | and [place] | + + + | Organization | [facility] | | | [...] [place] | | | | | [address] | | + + + + + Care Team Providers + +------+ + | Care Tray Worker Name | Role | Phone | + [...] + + | 09/05/ | Telephone | [facility] | Tamika, | Patient Concerns | | 2019 | | MED CTR MEDICAL | Sundeep Ramirez MD [address] | | | | | [address] | [facility] | | | | | [facility] | [place] [address] | | | | | [place] [address] | [phone] | | | | | [phone] | | | +--------+ + + + [...]
--- OUTSIDE RECORDS SUMMARY | ~2020-04-05 | XMS | Encounter Summary ---
Demographics + + + | Address | [address] | | | [place] [address] | + + + | Home Phone | | + + + | Preferred Language | Unknown | + + + | Marital Status | | + + + | Pentecostal Affiliation | Unknown | + + + | Race | Unknown | + + + | Ethnic Group | Unknown | + + + Author + + + | Author | [facility] | | | and [place] | + + + | Organization | [facility] | | | and [...] [place] | | | | | [address] | | + + + + + Care Team Providers + +------+ + | Care Junior Systems Administrator Name | Role | Phone | + [...] | | | | | | [place] [address] | | | | | | [phone] | | | +--------+ + + + [...]
--- OUTSIDE RECORDS SUMMARY | ~2020-04-05 | XMS | Encounter Summary ---
Demographics + + + | Address | [address] | | | [place] [address] | + + + | Home Phone | | + + + | Preferred Language | Unknown | + + + | Marital Status | | + + + | Latter-Day Affiliation | Unknown | + + + | Race | Unknown | + + + | Ethnic Group | Unknown | + + + Author + + + | Author | [facility] | | | and [place] | + + + | Organization | [facility] | | | and [...] [place] | | | | | [address] | | + + + + + Care Team Providers + +------+ + | Care Placing Judge Name | Role | Phone | + [...] | | | | [address] [facility] | [place] | | | | | [address] | [place] [address] | | | | | [address] | | | | | | [phone] | | | +--------+ + + + [...] | EXTERNAL LAB: DOUG | Routin | 02/14/2019 | | Results [...] + +--------+ + + + | EXTERNAL BRODY: DOUG Good | 08/06/2018 | | Results for this [...] +-------+ + + + | DOUG, | 8 | 7 - 23 | [...] | + +--------+ + + + | LUIS ENRIQUE, | 12 (A) | 14 - 44 [...] + +---------+ + + External Lab: BUN (06/24/2018) + +-------+ + + + | [...]
--- OUTSIDE RECORDS SUMMARY | ~2020-04-05 | XMS | Clinical Summary ---
Demographics + + + | Address | [address] | | | [place] [address] | + + + | Home Phone | | + + + | Preferred Language | Unknown | + + + | Marital Status | | + + + | Christian Affiliation | Unknown | + + + | Race | Unknown | + + + | Ethnic Group | Unknown | + + + Author + + + | Author | [facility] | | | and [place] | + + + | Organization | [facility] | | [...] [place] | | | | | [address] | | + + + + + Care Team Providers + +------+ + | Care Welding Machine Setter Name | Role | Phone | + [...] +--------+-------+---------+--------+ | [place] | [place] | [id number] | | | | Indemn | | | CHOICE | | 018-Pr | | | ity | | | PC3 | | esent | | | | + +--------+ +--------+-------+---------+--------+ | [place]MIN | [place] | [id number] | | | | Indemn | | | CHOICE | | 019-Pr | | | ity | | | PC3 | | esent | | | | + +--------+ +--------+-------+---------+--------+ | VET[facility] ADMIN | [place] | [id number] | | | | Indemn | | [...] [place] | | | 1 (Home) | [address] | + +--------+ +--------+ + + | Oh Moreno | Person | Self | [birth year] | | [address] | | | al/Fam | | 1969 | [phone] | [place], [place] | | | paul | | | 1 (Home) | [address] | + +--------+ +--------+ + + Advance Directives + + + + + | Type | Date Recorded | Patient | Explanation | | | | Correctional Case Records 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
--- OUTSIDE RECORDS SUMMARY | ~2020-04-05 | XMS | Encounter Summary ---
Demographics + + + | Address | [address] | | | [place] [address] | + + + | Home Phone [...] [place] | | | | | [address] | | + + + + + Care Team Providers + +------+ + | Care Mdm Sr Name | Role | Phone | + [...] | | | | | | | CO | | | | | | | COLONOSCOPY | | | | | | | FLX DX | | | | | | | W/COLLJ SPEC | | | | | | | WHEN PFRMD | | | | | | | CO | | | | | | | ESOPHAGOGAST | | | | | | | RODUODENOSCO | | | | | | | PY TRANSORAL | | | | | | | DIAGNOSTIC | | | | | | | CO EGD | | | | | | [...] | [address] [place] | [address] | | | | | [place], [place] | [place] | | | | | [address] | [address] | | | | | [phone] | [phone] | | | | | | | [...] drowsiness. Do not drink alcohol or dr gustabo while you were taking these medications. [] [...] any questions, call your physician at or [phone]. If you need assistance after normal business [...] | 120 | 1 | 09/21/20 | 09/21/201 | | (CARAFATE) 1 g | mouth 4 times daily. | tablet | | 18 | 9 | | tablet | | | | | | + + + +---------+ + + | sucralfate | Take 1 tablet by | 120 | 1 | 1030/20 | 10/201 | | (CARAFATE) 1 g [...] + + | [place] | [address] | [place] | [phone] | | [facility] | | [address] | | + + + + + [...] ANESTHESIA: Sedation | | | ANESTHESIA PROVIDER: LEADERSHIP PROGRAM ASSOCIATE: Manas Sears CRNA SPECIMEN: | | | [...] | | | 09/21/2018 13:13 CC [facility] This note was | | | transcribed using voice recognition software; there may be speech | | | recognition errors which escaped detection during cellophane bath mixer. | | | | | + + + POC Glucose (09/21/2018 10:53 AM PDT) + +---------+ + + + | Component | Value | Ref Range | Performed | Pathologist | | | | | At | Signature | + +---------+ + + + | Glucose, | 279 (H) | 70 - 110 mg/dL | [facility] | | | POC | | | [...] + + | [place] | [address] | [place] | [phone] | | [facility]ITAL [facility] | | [address] | | + + + + + [...] | | technical component was performed by [facility] | | | [address] [address] (Medical | | | Director: Samir Leija MD; CLIA# [id number]). Professional | | | interpretation was performed by [facility] | | | [address] [address] (Medical | | | Director: Samir Leija MD; CLIA# [id number]). ADDITIONAL | | | NOTES: Immunohistochemical and/or in situ hybridization studies were | | | performed on this case with the appropriate positive controls that | | | react as expected. This test was developed and its performance | | | characteristics determined by [facility]. It has not been | | | cleared or approved by the U.S. Food and Drug Administration. The | | | FDA has determined that such clearance or approval is not necessary. | | | This test is used for clinical purposes. It should not be regarded | | | as investigational or for research. [facility] is certified | | | under the Clinical Laboratory Improvement Amendments of 1988 (CLIA) | | | as qualified to perform high complexity clinical laboratory testing. | | | The technical component was performed by [facility], [facility] | | | [facility] [address] (Patient Navigator: Sindy Bernal MD; | | | CLIA# [id number]). Professional interpretation was performed by | | | [facility] | | | [place], [place] [address] (Patient Navigator: Samir Leija MD; CLIA# | | | [id number]). PAS stain: The technical component was performed by | | | [facility] | | | [place], [place] [address] (Patient Navigator: Samir Leija MD; CLIA# | | | [id number]). Professional interpretation was performed by [facility] | | | [facility]ostics, [facility], [address] [facility] [address] | | | [place], [place] [address] (Patient Navigator: Samir Leija MD; EVELYN# | | | [id number]). REASON FOR ADDENDUM: To add the results [...]
--- OUTSIDE RECORDS SUMMARY | ~2020-04-05 | XMS | Encounter Summary ---
Demographics + + + | Address | [address] | | | [place] [address] | + + + | Home Phone | | + + + | Preferred Language | Unknown | + + + | Marital Status | | + + + | Mandaen Affiliation | Unknown | + + + | Race | Unknown | + + + | Ethnic Group | Unknown | + + + Author + + + | Author | [facility] | | | and [place] | + + + | Organization | [facility] | | [...] [place] | | | | | [address] | | + + + + + Care Team Providers + +------+ + | Care Compressor Station Chief Engineer Name | Role | Phone | [...] | | | | | | [place] [address] | | | | | | [phone] | | | +--------+ + + + [...]
--- OUTSIDE RECORDS SUMMARY | ~2020-04-05 | XMS | Encounter Summary ---
Demographics + + + | Address | [address] | | | [place] [address] | + + + | Home Phone | | + + + | Preferred Language | Unknown | + + + | Marital Status | | + + + | Episcopalian Affiliation | Unknown | + + + | Race | Unknown | + + + | Ethnic Group | Unknown | + + + Author + + + | Author | [facility] | | | and [place] | + + + | Organization | [facility] | | | [...] [place] | | | | | [address] | | + + + + + Care Team Providers + +------+ + | Care Rrts Name | Role | Phone | + [...] | | | | MAURILIO THORPE, | [facility], [place] | | | | | | [place] [address] | [address] | | | | | | Phone: | Phone: | | | | | | [phone] | [phone] | | | | | | Fax: | Fax: | | | | | | [phone] | [phone] | +--------+--------+ + + + + Encounter [...] | SURGERY [address] | MD [address] | | | | | DR DEWAYNE VAZQUEZ, | [place], [place] | | | | | [place] [address] | [address] | | | | | [phone] | | | | | | | [...] note might be different from the original. [facility] Manoj Jolly M.D [address], [place], [place] [address] - PATIENT NAME: Oh Moreno IF YOU [...] Needle Localization [] Lumpectomy [] Mastectomy [] [place] Node Biopsy [] Isosulfan Blue Dye [] [...] seizure. 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 documented in this encounter Plan of Treatment Not on filedocumented as of this encounter Visit Diagnoses + + | Diagnosis | + + | Nausea - Primary Nausea alone | + + | Microcytic anemia Iron deficiency anemia, unspecified | + + documented in this encounter
--- OUTSIDE RECORDS SUMMARY | ~2020-04-05 | XMS | Encounter Summary ---
Demographics + + + | Address | [address] | | | [place] [address] | + + + | Home Phone | | + + + | Preferred Language | Unknown | + + + | Marital Status | | + + + | Rastafari Affiliation | Unknown | + + + [...] [place] | | | | | [address] | | + + + + + Care Team Providers + +------+ + | Care Stonemason Supervisor Name | Role | Phone | [...] + | 08/29/ | Emergency | [facility] | [place], | Cellulitis of right | | 2019 | | MED CTR EM[facility] | Sundeep Keller MD [address] | foot (Primary Dx); | | | | CENTER [address] | [address] [place] | Ulcer of right foot, | | | | [place], [place] | [place] [address] | unspecified ulcer | | | | [address] | [phone] | stage ([facility]); | | | | [phone] | | Peripheral sensory | | | [...] O?MRN: | | | | | | [id number] | | | [id number] | | | riteri | | | [...] | | | St. | | | Dante | | | y | | | [...] | | | St. | | | Dante | | | y | | | [...] | | | St. | | | Dante | | | y | | | [...] | | | St. | | | Dante | | | y | | | [...] | | | St. | | | Dante | | | y H. | | [...] | | | St. | | | Dante | | | y H. | | [...] | | | St. | | | Dante | | | y H. | | [...] | | | St. | | | Dante | | | y H. | | [...] | | | St. | | | Dante | | | y H. | | [...] | | | St. | | | [place] | | | y H. | | | [place] | | | [place] | | | Emerge | | | ncy | | | Chief | | | Compla | | | int: | | | ANEMIA | | | May | | | 9, | | | 2019 | | | [facility] | | | [facility] | | | [place] | | | y H. | | [...] | | | St. | | | Dante | | | y H. | | [...] | | | St. | | | Dante | | | y H. | | [...] | | | St. | | | Dante | | | y H. | | [...] | | | [id number] | | | [id number] | | | 7c | | | [...] [address] | [place] | [phone] | | [facility] | | [address] | | | - LABORATORY | | [...] [address] | [place] | [phone] | | [facility] | | [address] | | | - LABORATORY | | [...] + | [address] | [address] | [place] | [phone] | | [facility] | | [address] | | | - LABORATORY | | [...] [address] | [place] | [phone] | | [facility] | | [address] | | | - LABORATORY | | [...] [address] | [place] | [phone] | | [facility] | | [address] | | | - LABORATORY | | [...] [address] | [place] | [phone] | | [facility] | | [address] | | | - LABORATORY | | [...]
--- OUTSIDE RECORDS SUMMARY | ~2020-04-05 | XMS | Encounter Summary ---
Demographics + + + | Address | [address] | | | [place] [address] | + + + | Home Phone | | + + + | Preferred Language | Unknown | + + + | Marital Status | | + + + | Buddhism Affiliation | Unknown | + + + | Race | Unknown | + + + | Ethnic Group | Unknown | + + + Author + + + | Author | [facility] | | | and [place] | + + + | Organization | [facility] | | | [...] [place] | | | | | [address] | | + + + + + Care Team Providers + +------+ + | Care Travel Manager Name | Role | Phone | [...] | [address] [place] | [address] | | | | | [place], [place] | [place] | | | | | [address] | [address] | | | | | [phone] | | | | | | | [...] after normal business hours, please contact the hospital for special care at . documented in this encounter Medications [...] + + | [place] [facility] | [address] | [place] | [phone] | | [facility] | | [address] | | + + + + + [...] ANESTHESIA: Sedation | | | ANESTHESIA PROVIDER: FORESTRY PATROLMAN: Manas Sears CRNA SPECIMEN: | | | [...] | | | 09/21/2018 13:[address] [facility] This note was | | | transcribed using voice recognition software; there may be speech | | | recognition errors which escaped detection during stratigraphy teacher. | | | | | + + + POC Glucose (09/21/2018 10:53 AM PDT) + +---------+ + + + | Component | Value | Ref Range | Performed | Pathologist | | | | | At | Signature | + +---------+ + + + | Glucose, | 279 (H) | 70 - 110 mg/dL | [facility] | | | POC | | | [...] + + | [place] [facility] | [address] | [place] | [phone] | | HOSPITAL LABORATORY | | [address] | | + + + + + [...] | | technical component was performed by [facility] | | | [address] [address] (Medical | | | Director: Samir Leija MD; CLIA# [id number]). Professional | | | interpretation was performed by [facility] | | | [address] [address] (Medical | | | Director: Samir Leija MD; CLIA# [id number]). ADDITIONAL | | | NOTES: Immunohistochemical and/or in situ hybridization studies were | | | performed on this case with the appropriate positive controls that | | | react as expected. This test was developed and its performance | | | characteristics determined by [facility]. It has not been | | | cleared or approved by the U.S. Food and Drug Administration. The | | | FDA has determined that such clearance or approval is not necessary. | | | This test is used for clinical purposes. It should not be regarded | | | as investigational or for research. [facility] is certified | | | under the Clinical Laboratory Improvement Amendments of 1988 (CLIA) | | | as qualified to perform high complexity clinical laboratory testing. | | | The technical component was performed by [facility], [facility] | | | [facility] [address] (Wire Drawing Machine Tender: Sindy Bernal MD; | | | CLIA# [id number]). Professional interpretation was performed by | | | [facility] | | | [place], [place] [address] (Wire Drawing Machine Tender: Samir Leija MD; CLIA# | | | [id number]). PAS stain: The technical component was performed by | | | [facility] | | | [place], [place] [address] (Wire Drawing Machine Tender: Samir Leija MD; CLIA# | | | [id number]). Professional interpretation was performed by [facility] | | | Diagnostics, [facility], [address] [facility] [place] | | | [place], [place] [address] (Wire Drawing Machine Tender: Samir Leija MD; EVELYN# | | | [id number]). REASON FOR ADDENDUM: To add the results [...]
--- OUTSIDE RECORDS SUMMARY | ~2020-04-05 | XMS | Encounter Summary ---
Demographics + + + | Address | [address] | | | [place] [address] | + + + | Home Phone | | + + + | Preferred Language | Unknown | + + + | Marital Status | | + + + | Muslim Affiliation | Unknown | + + + [...] [place] | | | | | [address] | | + + + + + Care Team Providers + +------+ + | Care Venetian Blind Washer Name | Role | Phone | + [...] | | | | [address] [facility] | [place] | | | | | [address] | [place] [address] | | | | | [address] | | | | | | [phone] | | | +--------+ + + + [...]
--- OUTSIDE RECORDS SUMMARY | ~2020-04-05 | XMS | Encounter Summary ---
Demographics + + + | Address | [address] | | | [place] [address] | + + + | Home Phone | | + + + | Preferred Language | Unknown | + + + | Marital Status | | + + + | Sikh Affiliation | Unknown | + + + | Race | Unknown | + + + | Ethnic Group | Unknown | + + + Author + + + | Author | [facility] | | | and [place] | + + + | Organization | [facility] | | [...] [place] | | | | | [address] | | + + + + + Care Team Providers + +------+ + | Care Meat Dresser Name | Role | Phone | + [...] | | [place], [place] | [place] [address] | | | | | [address] | [phone] | | | | | [phone] | | | +--------+ + + + + Anesthesia Record + + + + + | Procedure Name | Responsible | Anesthesia Start | Anesthesia Stop Time | | | Anesthesiologist | Time | | + + + + + | EGD (N/A Mouth) | Manas Sears, | 09/21/18 1248 | 09/21/18 1323 | | | GOVERNMENT MINISTER | | | + + + + [...]
--- OUTSIDE RECORDS SUMMARY | ~2020-04-05 | XMS | Encounter Summary ---
Demographics + + + | Address | [address] | | | [place] [address] | + + + | Home Phone [...] [place] | | | | | [address] | | + + + + + Care Team Providers + +------+ + | Care Chemical Preparer Name | Role | Phone | + [...] | | | | | | [place] [address] | | | | | | [phone] | | | +--------+ + + + [...]
--- OUTSIDE RECORDS SUMMARY | ~2020-04-05 | XMS | Encounter Summary ---
Demographics + + + | Address | [address] | | | [place] [address] | + + + | Home Phone | | + + + | Preferred Language | Unknown | + + + | Marital Status | | + + + | Lutheran Affiliation | Unknown | + + + | Race | Unknown | + + + | Ethnic Group | Unknown | + + + Author + + + | Author | [facility] | | | and [place] | + + + | Organization | [facility] | | [...] [place] | | | | | [address] | | + + + + + Care Team Providers + +------+ + | Care Systems Management Consultant Name | Role | Phone | + [...] | | | | | | [place] [address] | | | | | | [phone] | | | +--------+ + + + [...]
--- OUTSIDE RECORDS SUMMARY | ~2020-04-05 | XMS | Encounter Summary ---
Demographics + + + | Address | [address] | | | [place] [address] | + + + | Home Phone [...] [place], [place] | | | | | [address] | | + + + + + Care Team Providers + +------+ + | Care Plumber'S Helper Name | Role | Phone | [...] | | | | | | [place] [address] | | | | | | [phone] | | | +--------+ + + + [...]
--- OUTSIDE RECORDS SUMMARY | ~2020-04-05 | XMS | Encounter Summary ---
Demographics + + + | Address | [address] | | | [place] [address] | + + + | Home Phone | | + + + | Preferred Language | Unknown | + + + | Marital Status | | + + + | Buddhism Affiliation | Unknown | + + + | Race | Unknown | + + + | Ethnic Group | Unknown | + + + Author + + + | Author | [facility] | | | and [place] | + + + | Organization | [facility] | | | [...] [place] | | | | | [address] | | + + + + + Care Team Providers + +------+ + | Care Compensator Name | Role | Phone | + [...] 09/21/ | Hospital | [facility] | [place], | | | 2018 | Encounter | [facility] | [facility], | | | | | [address] [place] | [address] | | | | | [place], [place] | [place] | | | | | [address] | [address] | | | | | [phone] | [phone] | | | | | | | [...] hours, please contact the [facility] at . documented in this encounter [...] + + | [facility] | [address] | [place] | [phone] | | [facility] | | [address] | | + + + + + [...] ANESTHESIA: Sedation | | | ANESTHESIA PROVIDER: LIQUOR INSPECTOR: Manas Sears CRNA SPECIMEN: | | | [...] | recognition errors which escaped detection during technical services rep. | | | | | + + + POC Glucose (09/21/2018 10:53 AM PDT) + +---------+ + + + | Component | Value | Ref Range | Performed | Pathologist | | | | | At | Signature | + +---------+ + + + | Glucose, | 279 (H) | 70 - 110 mg/dL [facility] | | | POC | | | [facility] | | | | | | HOSPITAL [...] + + | [facility] | [address] | [place] | [phone] | | HOSPITAL LAB[facility]ORY | | [address] | | + + + + + [...] | | technical component was performed by [facility] | | | [place] [address] (Medical | | | Director: Samir Leija MD; CLIA# [id number]). Professional | | | interpretation was performed by [facility] | | | [place] [address] (Medical | | | Director: Samir Leija MD; CLIA# [id number]). ADDITIONAL | | | NOTES: Immunohistochemical and/or in situ hybridization studies were | | | performed on this case with the appropriate positive controls that | | | react as expected. This test was developed and its performance | | | characteristics determined by [facility]. It has not been | | | cleared or approved by the U.S. Food and Drug Administration. The | | | FDA has determined that such clearance or approval is not necessary. | | | This test is used for clinical purposes. It should not be regarded | | | as investigational or for research. [facility] is certified | | | under the Clinical Laboratory Improvement Amendments of 1988 (CLIA) | | | as qualified to perform high complexity clinical laboratory testing. | | | The technical component was performed by [facility], [facility] | | | [facility] [address] (Principal Technical Writer: Sindy Bernal MD; | | | CLIA# [id number]). Professional interpretation was performed by | | | [facility] | | | [place], [place] [address] (Principal Technical Writer: Samir Leija MD; CLIA# | | | [id number]). PAS stain: The technical component was performed by | | | [facility] | | | [place], [place] [address] (Principal Technical Writer: Samir Leija MD; CLIA# | | | [id number]). Professional interpretation was performed by [facility] | | [facility], [facility], [address] [place] [address], [place] | | | [place] [address] (Principal Technical Writer: Samir Leija MD; CLIA# | | | [id number]). REASON FOR ADDENDUM: To add the results [...]
[~2020-04-05 10:54] MED LIST changes: +HALOPERIDOL10 MG PO; +PROMETHAZINE HC25 MG PR
--- OUTSIDE RECORDS SUMMARY | 2020-04-05 10:58 | XMS ---
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 05/30/2019-Current PHONE: Unknown Jamal has no Care Guidelines for this patient. Care History Medical/Surgical 09/20/2019 [facility] - PATIENT PCP- DR RAYMUNDO HAS MADE A REFERRAL TO DR LEONE - [place] [employer]. 08/29/2019 [facility] - PATIENT NOW HAS DR MARII LION PATIENT PCP AT [facility]. - PATIENT DOES HAVE IN [facility] CARE SERVICES [facility]OUGH [facility]- RN HOME VISITS ALONG WITH PROVIDER IN HOME VISITS. 06/20/2019 [facility] - PATIENT STATED HE HAS SOMEONE COMING [facility] TO COME AND EVALUATE HIS HOME FOR SAFETY/FALL RISK THIS WEEK. - PATIENT DECLINED ANY FURTHER SERVICES/RESOURCES AT THIS TIME-STATED HE IS WORKING WITH THE [facility] AND [facility] AT [facility]. E.D. VISIT COUNT (12 MO.) 1 [place] MSaraSara 13 [facility] HSara TOTAL 14 NOTE: Visits indicate total known visits. ED/UCC VISIT TRACKING (12 MO.) 04/05/2020 10:55 STE[facility] Lopez [place] TYPE: Emergency COMPLAINT: - LEFT SHOULDER PAIN 01/20/2020 13:20 STE[facility] Lopez [place] TYPE: Emergency COMPLAINT: - PAIN, WEAKNESS DIAGNOSES: - Personal history of nicotine dependence - Other custodial (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 - Type 2 diabetes mellitus with diabetic neuropathy, unspecifie - Essential (primary) hypertension - Allergy status to other drugs, medicaments and biological sub - Nausea with vomiting, unspecified - Unspecified abdominal pain - Post-traumatic stress disorder, unspecified - trapper bird (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 12/25/2019 02:51 STEPHY Lopez [place] TYPE: Emergency COMPLAINT: - NAUSEA DIAGNOSES: - Type 2 diabetes mellitus with diabetic neuropathy, unspecifie - Allergy status to other drugs, medicaments and biological sub - Post-traumatic stress disorder, unspecified - Personal history of nicotine dependence - Nausea with vomiting, unspecified - Unspecified abdominal pain - Essential (primary) hypertension - Other custodial (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 11/23/2019 22:20 STEPHY Lopez [place] TYPE: Emergency COMPLAINT: - VOMITING DIAGNOSES: - Malignant neoplasm of colon, unspecified - Allergy status to other drugs, medicaments and biological sub - snf (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 - Post-traumatic stress disorder, unspecified - Type 2 diabetes mellitus with diabetic neuropathy, unspecifie - Allergy status to narcotic agent status - Personal history of nicotine dependence - Essential (primary) hypertension - Other custodial (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 - Vomiting, unspecified - Acute gastritis without bleeding 10/22/2019 18:49 [facility] [place] TYPE: Emergency COMPLAINT: - VOMITING DIAGNOSES: - Type 2 diabetes mellitus with diabetic neuropathy, unspecifie - Allergy status to analgesic agent status - snf (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 - Allergy status to other drugs, medicaments and biological sub - Anemia, unspecified - Other custodial (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 - Vomiting, unspecified 09/30/2019 20:11 STEPHY Lopez [place] TYPE: Emergency COMPLAINT: - POST OP PROBLEM DIAGNOSES: - Encounter for change or removal of surgical wound dressing - Encounter for change or removal of surgical wound dressing - Type 2 diabetes mellitus with diabetic neuropathy, unspecifie - Personal history of nicotine dependence - Other custodial (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 09/19/2019 11:53 STE[facility] Lopez [place] TYPE: Emergency COMPLAINT: - FOOT WOUND DIAGNOSES: - Allergy status to other drugs, medicaments and biological sub - Type 2 diabetes mellitus with foot ulcer - Allergy status to narcotic agent status - Type 2 diabetes mellitus with diabetic neuropathy, unspecifie - Other high scaler (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 - trapper bird (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 - Pain in right foot - Non-pressure chronic ulcer of other part of right foot with u - Personal history of other malignant neoplasm of large intesti [facility] DIAGNOSES: - Wound Check - Non-pressure chronic ulcer of other part of right foot with u - Cellulitis of right lower limb - Type 2 diabetes mellitus with diabetic polyneuropathy - wound care/rt foot - Foot Pain 08/25/2019 12:39 STEPHY Reeves TYPE: Emergency COMPLAINT: - VOMITING DIAGNOSES: - Personal history of nicotine dependence - Nausea with vomiting, unspecified - Type 2 diabetes mellitus with diabetic neuropathy, unspecifie - Adverse effect of antineoplastic and immunosuppressive drugs, - Other high scaler (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 - Post-traumatic stress disorder, unspecified - trapper bird (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 - Allergy status to narcotic agent status - Allergy status to other drugs, medicaments and biological sub - Anemia, unspecified 07/26/2019 10:53 STEPHY Reeves TYPE: Emergency COMPLAINT: - VOMITING, NAUSEA DIAGNOSES: - Hypomagnesemia - Allergy status to other drugs, medicaments and biological sub - Presence of coronary angioplasty implant and graft - Hypokalemia - Allergy status to narcotic agent status - 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 - Malignant neoplasm of colon, unspecified - Personal history of nicotine dependence - Type 2 diabetes mellitus with diabetic neuropathy, unspecifie - trapper bird (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 - Vomiting, unspecified - Other high scaler (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 - Migraine, unspecified, not intractable, without status migrai 07/24/2019 02:43 STEPHY Lopez [place] TYPE: Emergency COMPLAINT: - NECK PAIN/PORT ISSUE DIAGNOSES: - Essential (primary) hypertension - Personal history of nicotine dependence - Cervicalgia - Malignant neoplasm of colon, unspecified - Type 2 diabetes mellitus with diabetic neuropathy, unspecifie - Anemia, unspecified - Allergy status to narcotic agent status - trapper bird (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 - Post-traumatic stress disorder, unspecified - Other custodial (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 - Allergy status to other drugs, medicaments and biological sub 06/16/2019 07:47 STE[facility] Lopez [place] TYPE: Emergency COMPLAINT: - HEAD PAIN/FALL DIAGNOSES: - Acquired absence of other organs - Contusion of unspecified part of head, initial encounter - Abrasion of unspecified back wall of thorax, initial encounte - Allergy status to narcotic agent status - Unspecified injury of head, initial encounter - Personal history of nicotine dependence - Abrasion, left lower leg, initial encounter - trapper bird (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 - Fall on same level from slipping, tripping and stumbling with - Type 2 diabetes mellitus with diabetic neuropathy, unspecifie - Allergy status to other drugs, medicaments and biological sub - Personal history of other malignant neoplasm of large intesti - Other custodial (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 05/28/2019 06:21 STE[facility] Loepz [place] TYPE: Emergency COMPLAINT: - VOMITING/DIARRHEA/HEADACHE DIAGNOSES: - Allergy status to other drugs, medicaments and biological sub - Allergy status to narcotic agent status - Generalized abdominal pain - Secondary malignant neoplasm of large intestine and rectum - Other high scaler (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 - Type 2 diabetes mellitus without complications - Dehydration - trapper bird (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 of aspirin - Personal history of nicotine dependence - Nausea with vomiting, unspecified 05/23/2019 16:22 STEPHY Lopez [place] TYPE: Emergency COMPLAINT: - ANEMIA INPATIENT VISIT TRACKING (12 MO.) 06/01/2019 12:13 [...] malignant neoplasm of liver and intrahepatic bile d - Post-traumatic stress disorder, unspecified - trapper bird (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 of inhaled steroids - Iron deficiency anemia secondary to blood loss (chronic) - Allergy status to other drugs, medicaments and biological sub - Hyperlipidemia, unspecified - Other custodial (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 - Body mass index (BMI) 20.0-20.9, adult - Essential (primary) hypertension - Allergy status to narcotic agent status - Allergy status to narcotic agent status - Other seasonal allergic rhinitis - snf (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 of inhaled steroids - 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 [place] TYPE: Observation COMPLAINT: - ANEMIA DIAGNOSES: - snf (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 of aspirin - Gastritis, unspecified, without bleeding - Presence of coronary angioplasty implant and graft - Polyp of colon - Duodenitis without bleeding - Personal history of (corrected) congenital malformations of h - Hyperlipidemia, unspecified - Essential (primary) hypertension - Iron deficiency anemia, unspecified - snf (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 - Diaphragmatic hernia without obstruction or gangrene - Anemia, unspecified - Post-traumatic stress disorder, unspecified - Malignant neoplasm of cecum - Allergy status to other drugs, medicaments and biological sub - Other custodial (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 - Type 2 diabetes mellitus with diabetic polyneuropathy - Anemia in neoplastic disease - Secondary malignant neoplasm of unspecified site [email or web address]
[2020-04-05] MEDS ORDERED: NORCO 5-325 TA1 EACH PO (12:37)
--- NOTE | 2020-04-05 15:55 | EKG ---
[facility] [address] [place] [address] Signed Normal sinus rhythm Left axis deviation Septal infarct (cited on or before 02-JUN-2019) Abnormal ECG When compared with ECG of 02-JUN-2019 17:32, Questionable change in initial forces of Septal leads Confirmed by JO ANN CRUZ MD ([id number]) on 04/05/2020 3:55:32 PM Electronically Signed By: JO ANN CRUZ MD 04/05/20 1555 PATIENT NAME: SANGEETHASONIA Minna Electrocardiogram DATE OF : 74 PHYSICIAN: JO ANN CRUZ MD REPORT #: [id number] REPORT IS CONFIDENTIAL AND NOT TO BE RELEASED WITHOUT AUTHORIZATION
== END 2020-04-05 12:49 | disposition home or self-care (01) ==
LOC: ED 10:54
DX: S46.912A Strain of unspecified muscle, fascia and tendon at shoulder and upper arm level, left arm, initial encounter (principal); E11.40 Type 2 diabetes mellitus with diabetic neuropathy, unspecified; I10 Essential (primary) hypertension; Z87.891 Personal history of nicotine dependence; Z88.8 Allergy status to other drugs, medicaments and biological substances; Z79.899 Other long term (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; Z79.84 Long term (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; X50.0XXA Overexertion from strenuous movement or load, initial encounter
CPT/HCPCS: 73030; 93005; 93010; 99283-25

== ENCOUNTER 2020-04-13 18:33 | Emergency (ER) | payer OTHER ==
[~2020-04-13] VITALS: Ht 193 cm; Wt 81.7 kg
--- OUTSIDE RECORDS SUMMARY | ~2020-04-13 | XMS | Encounter Summary ---
Demographics + + + | Address | [address] | | | [place] [address] | + + + | Home Phone | | + + + | Preferred Language | Unknown | + + + | Marital Status | | + + + | Mosque Affiliation | Unknown | + + + | Race | Unknown | + + + | Ethnic Group | Unknown | + + + Author + + + | Author | [facility] | | | and [place] | + + + | Organization | [facility] | | | and [...] | Dayana Moreno | ECON | [address] | | | | | [place] | | | | | [address] | | + + + + + Care Team Providers + +------+ + | Care Courtroom Deputy Name | Role | Phone | + +------+ + | Imer Woodard MD | PCP | | + +------+ + Reason for Visit + + + | Reason | Comments | + + + | Pre-op Exam | EGD/Colonoscopy | + + + Evaluate & Treat (Routine) +--------+--------+ + + + + | Status | Reason | Specialty | Diagnoses / | Referred By | Referred To | | | | | Procedures | Contact | Contact | +--------+--------+ + + + + | Closed | | General | Diagnoses | Yamilet, | [facility] | | | | Surgery | Anemia | Imer | General | | | | | Procedures | MD Socrates | Surgery [address] | | | | | EGD COLO | [address] | EHSAN COSTA | | | | | | [address]OL[address] [place] | | | | | | MAURILIO THORPE, | [facility] [place], [place] | | | | | | [place] [address] | [address] | | | | | | Phone: | Phone: | | | | | | [phone] | [phone] | | | | | | Fax: | Fax: | | | | | | [phone] | [phone] | +--------+--------+ + + + + Encounter Details +--------+---------+ + + + | Date | Type | Department | Care Team | Description | +--------+---------+ + + + | 09/08/ | Office | [facility] | [place], | Nausea (Primary Dx); | | 2018 | Visit | [facility] | Leighton Malagon, | Microcytic anemia | | | | SURGERY [address] | MD [address] | | | | | DR [place] [place], | [place], [place] | | | | | [place] [address] | [address] | | | | | [phone] | [phone] | | | | | | | | +--------+---------+ + + + Social History + +-------+ [...] + + + | Blood Pressure | 158/92 | 09/08/2018 1:29 PM | | | | | PDT | | + + + + + | Pulse | 92 | 09/08/2018 1:29 PM | | | | | PDT | | + + + + + | Temperature | - | - | | + + + + + | Respiratory Rate | 16 | 09/08/2018 1:29 PM | | | | | PDT | | + + + + + | Oxygen Saturation | 98% | 09/08/2018 1:29 PM | | | | | PDT | | + + + + + | Inhaled Oxygen | - | - | | | Concentration | | | | + + + + + | Weight | 94.3 kg (208 lb) | 09/08/2018 1:29 PM | | | | | PDT | | + + + + + | Height | 193 cm (6' 4") | 09/08/2018 1:29 PM | | | | | PDT | | + + + + + | Body Mass Index | 25.32 | 09/08/2018 1:29 PM | | | | | PDT | | + + + + + documented in this encounter Patient Instructions Patient Instructions Leighton Martino MD - 09/08/2018 1:30 PM PDTFormatting o f this note might be different from the original. [facility] Manoj Jolly M.D [address], [place], [place] [address] - PATIENT NAME: Oh Moreno IF YOU ARE TAKING ANY BLOOD THINN HAS BEEN DISCUSSED WITH YOUR PHYSICIAN PRIOR TO STA RTING YOUR PREP PURCHASE AT THE PHARMACY: 1. Two Dulcolax (bisacodyl) 5mg tablets 2. Miralax 238 gram bottle 3. 64 ounces of Gatorade (any color except red or purple) FIVE DAYS PRIOR TO YOUR PROCEDURE AVOID NUTS AND SEEDS ONE DAY PRIOR TO YOUR PROCEDURE: ? Clear liquids only such as: water, strained fruit juices without pulp (apple, white grape , lemonade) clear broth or bouillon, coffee and tea (without cream or a non-dairy creamer), Gatorade, carbonated and non-carbonated soft drink, Jose Rafael-aid, plain Jell-O, and Popsicles. ? Avoid red or purple drinks, red or purple Jell-O and dairy products ? Consume large amounts of fluid to avoid dehydration ? At 10am, take one Dulcolax tablet . At 3pm, take another Dulcolax tablet. You may experi ence cramps and stools after ingestion. ? At 5pm, mix the full bottle of Miralax into 64 ounces of Gatorade. Shake until completel y dissolved. ? Drink the first half (32 ounces) starting at 5pm. You will drink FOUR 8-ounce glasses of the mixture. Take one 8-ounce glass every 10-15 minutes until you have finished the first half. This will induce stools. THE DAY OF THE PROCEDURE ? Drink the second half (32 ounces) four hours before leaving the house. You must finish t he second half within three hours of starting your procedure so that your stomach is empty f or your exam. ? You may continue to drink clear liquids until three hours prior to the procedure ? Do NOT take anything by mouth for three hours prior to the procedure. ? If you take medication in the morning for your heart, blood pressure, seizures, or chroni c pain, you may take it with a small amount of water. ? Please bring a list of your current medications and correct dosage to your appointment ? You cannot drive home. If you cannot arrange for transportation home, your procedure vera l be cancelled. You MUST arrange for someone to drive you home. You cannot take a taxi or bus. ? You will be sedated for your procedure. Please plan on avoiding important decisions for the remainder of the day. WHY SHOULD I USE A SPLIT-DOSE PREP LIKE THIS? ? Your gut continues to make bile and mucus throughout the night, even when you are not eat ing. These secretions are sticky and can easily cover over and hide flat polyps, especially on the right side of your colon. Recent data shows that these polyps are frequently missed and are more concerning for causing colon cancer. Because of these secretions, timing of t he preparation is very important to get you the best exam possible. ? Because the volume is split into smaller components, patients tolerate the prep better wi th less nausea, bloating, and vomiting. IT S YOUR HEALTH CARE ? We acknowledge that the preparation may present inconveniences, such as setting an alarm clock and waking very early in the morning. The more confident we are that we got a good ex am with an excellent prep, however, the longer the screening interval might be. In the best case scenario, an excellent prep with no polyps and no family history would mean a recommen ded repeat colonoscopy in 10 years. If you have a fair or poor prep, however, we cannot be confident we did not miss polyps and the recommended interval would likely be shorter (1 yea r). The better job you do with the prep, the better exam you ll get. documented in this encounter Progress Notes [place], Leighton Malagon MD - 09/08/2018 1:30 PM PDT GENERAL SURGERY SCHEDULING - [place] PATIENT: Oh Moreno, 1970 PLANNED OPERATION: EGD and colonoscopy TIME ESTIMATE: 25 minutes SPECIAL INSTRUCTIONS: None URGENCY: [x] Next avaliable [] Within 2 weeks ASSIST: [] Yes [x] No STATUS: [] AM Admit [] Observation [x] O/P POSITION: [] Supine [] Lithotomy [] Left Lateral Decubitus [] Right Lateral Decubitus ANESTHESIA: [] General [] Local / Sedation [] Epidural ENDOSCOPY [x] Colonoscopy [x] EGD BREAST [] Left [] Right [] Bilateral [] Needle Localization [] Lumpectomy [] Mastectomy [] [place] Node Biopsy [] Isosulfan Blue Dye [] Technesium 99 HERNIA [] Left [] Right [] Bilateral [] Inguinal [] Ventral [] Umbilical [] Open [] Laparoscopic COLON [] Right [] Left [] Sigmoid [] Open [] Laparoscopic [] Preop Ureteral Stent Placement - [] Left / [] Right GALLBLADDER [] Planned Cholangiogram oodwnadege parsons, Leighton Malagon MD - 09/08/2018 1:30 PM PDT History & Physical HISTORY OF PRESENT ILLNESS Oh Moreno is a 47 y.o. male referred to me by Imer Woodard to discuss a history o f microcytic anemia for unclear reasons. He is also had about 6 months of a sensation of fe landy urgency and occasional diarrhea. He also has been having bouts of nausea, often daily, often after eating but sometimes in the morning when he wakes up. He has no history of ulce r disease and has not noticed any significant change in bowel pattern or blood in the stools . He does not have a strong family history of inflammatory bowel disease or cancer. PAST MEDICAL HISTORY Past Medical History: Diagnosis Date Depression Hyperlipidemia Hypertension Diabetes mellitus PAST SURGICAL HISTORY Past Surgical History: Procedure Laterality Date large to amputation Right NASAL SEPTUM SURGERY Rotator cuff surgery Left ulnar nerve tranfusi MEDICATIONS Current Outpatient Prescriptions Medication Sig Dispense Refill Ascorbic Acid (VITAMIN C) 100 MG tablet Take 100 mg by mouth Daily. atorvaSTATin (LIPITOR) 10 mg tablet Take 40 mg by mouth nightly. ferrous sulfate 325 mg tablet Take 325 mg by mouth daily (with breakfast). insulin glargine (LANTUS) 100 units/mL injection (vial) Inject 35 Units under the skin nightly. lisinopril (PRINIVIL, ZESTRIL) 10 mg tablet Take 10 mg by mouth Daily. metFORMIN (GLUCOPHAGE) 1000 MG tablet Take 1,000 mg by mouth 2 times daily (with breakf ast & dinner). No current facility-administered medications for this visit. ALLERGIES Allergies Allergen Reactions Heparin Other (See Comments) Drop platelet counts dangerously Trazodone Other (See Comments) Nightmares SOCIAL HISTORY Social History Social History Marital status: Unknown Spouse name: N/A Number of children: N/A Years of education: N/A Occupational History Not on file. Social History Main Topics Smoking status: Former Smoker Smokeless tobacco: Former User Alcohol use Yes Comment: rarely Drug use: Yes Types: Marijuana Sexual activity: No Other Topics Concern Not on file Social History Narrative No narrative on file FAMILY HISTORY Family History Problem Relation Age of Onset High blood pressure Father Diabetes Father High cholesterol Father Diabetes Paternal Grandmother Other cancer Paternal Grandfather lung REVIEW OF SYSTEMS CONSTITUTIONAL Denies recent unintentional weight loss, fevers, chills, or night sweats. HEAD Denies chronic headaches or history of concussion. EYES Denies pain, drainage or vision changes. EARS Denies pain or drainage. NOSE Denies pain, drainage or epistaxis. THROAT Denies pain, drainage, voice changes. NEUROLOGIC Denies ever having had a stroke or seizure. 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 Denies chest pain or dyspnea on exertion. PULMONARY Denies the use of a CPAP or supplemental oxygen. Denies cough, phlegm, or hemoptysis. GASTROINTESTINAL Denies ever having had hepatitis. Denies change in bowel habits, blood in the stools. GENITOURINARY No flank pain, dysuria, or hematuria. INTEGUMENTARY Denies tattoos, rashes. HEMATOLOGIC Denies bleeding tendencies and has never had a blood transfusion. PHYSICAL EXAM Vital Signs on Arrival: BP: (!) 158/92 Pulse: 92 Resp: 16 SpO2: 98 % on BMI: Body mass index is 25.32 kg/m. CONSTITUTIONAL Initial impression is that the patient appears of stated age and is in no acute distress. PSYCHIATRIC Patient has an appropriate mood and affect. NEUROLOGIC Extraocular muscles are intact and patient moves all four extremities. There are no appar ent focal deficits. HEENT Mucus membranes are moist without lesion. Sclera are non-icteric. NECK No thyromegaly, JVD, or bruits. LYMPHATIC No cervical or supraclavicular adenopathy. CARDIOVASCULAR Heart is regular rate and rhythm. There are no murmurs, rubs, or gallops. There is no pr etibial edema. PULMONARY Lungs are clear to auscultation bilaterally without wheeze, rales, or ronchi. There are n o retractions. ABDOMEN Soft, nondistended, and nontender. EXTREMITIES No cyanosis, clubbing, or edema. VASCULAR Peripheral pulses intact. No signs of venous or arterial insufficiency. BREAST Deferred. GENITOURINARY Deferred. RECTAL Deferred. INTEGUMENTARY Warm and dry. No obvious suspicious lesions. PERTINENT STUDIES None available ASSESSMENT 47-year-old male with a report of microcytic anemia as well as postprandial nausea, fecal u rgency with occasional diarrhea. Type II diabetes-poorly controlled with a hemoglobin A1c of over 11 Hypertension-diastolic number is high today PLAN Plan will be for upper and lower endoscopy in surgery Center with anesthesia help. He'll g et a MiraLAX Gatorade prep. He understands risks of bleeding, perforation, missed diagnosis , etc. and is anxious to proceed. He will use half his usual dose of insulin during the pre p period. Electronically signed by: Leighton Martino MD 09/08/2018 13:43 This note was transcribed using voice recognition software; there may be speech recognition errors which escaped detection during residential service technician. documented in this encounter Plan of Treatment Not on filedocumented as of this encounter Visit Diagnoses + + | Diagnosis | + + | Nausea - Primary Nausea alone | + + | Microcytic anemia Iron deficiency anemia, unspecified | + + documented in this encounter
--- OUTSIDE RECORDS SUMMARY | ~2020-04-13 | XMS | Encounter Summary ---
Demographics + + + | Address | [address] | | | [place] [address] | + + + | Home Phone | | + + + | Preferred Language | Unknown | + + + | Marital Status | | + + + | Hinduism Affiliation | Unknown | + + + | Race | Unknown | + + + | Ethnic Group | Unknown | + + + Author + + + | Author | [facility] | | | and [place] | + + + | Organization | [facility] | | | and [...] [address] | | | | | [place], [place] | | | | | [address] | | + + + + + Care Team Providers + +------+ + | Care Trade Mark Attorney Name | Role | Phone | + +------+ + PCP | Unavailable | + +------+ + Encounter Details +--------+ + + + + | Date | Type | Department | Care Team | Description | +--------+ + + + + | 08/19/ | Abstract | [facility] | Carina Soria, | | | 2017 | | [facility] | RN | | | | | SURGERY [address] | | | | | | [address] [place], | | | | | | [place] [address] | | | | | | [phone] | | | +--------+ + + + [...]
--- OUTSIDE RECORDS SUMMARY | ~2020-04-13 | XMS | Encounter Summary ---
Demographics + + + | Address | [address] | | | [place] [address] | + + + | Home Phone | | + + + | Preferred Language | Unknown | + + + | Marital Status | | + + + | Islam Affiliation | Unknown | + + + | Race | Unknown | + + + | Ethnic Group | Unknown | + + + Author + + + | Author | [facility] | | | and [place] | + + + | Organization | [facility] | | | [...] [place] | | | | | [address] | | + + + + + Care Team Providers + +------+ + | Care Commercial Diver Name | Role | Phone | + [...] + + | 08/29/ | Emergency | [facility] | [place], | Cellulitis of right | | 2019 | | [facility] | Sundeep Keller MD [address] | foot (Primary Dx); | | | | CENTER [address] | [address] [place] | Ulcer of right foot, | | | | [place], [place] | [place] [address] | unspecified ulcer | | | | [address] | [phone] | stage ([facility]); | | | | [phone] | | 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 | | | | | | 9 | | | 10:53? | | | [place], | | | [place] | | | O?MRN: | | | | | | [id number] | | | [id number] | | | riteri | | | [...] | | | St. | | | [facility] | | | y | | | [...] | | | St. | | | [facility] | | | y | | | [...] | | | St. | | | [facility] | | | y | | | [...] | | | St. | | | [facility] | | | y | | | [...] | | | St. | | | [facility] | | | y H. | | [...] | | | St. | | | [facility] | | | y H. | | [...] | | | St. | | | [facility] | | | y H. | | [...] | | | St. | | | [facility] | | | y H. | | [...] | | | St. | | | [facility] | | | y H. | | [...] | | | St. | | | [facility] | | | y H. | | | [place] | | | [place] | | | Emer[facility] | | | ncy | | | Chief | | | Compla | | | int: | | | ANEMIA | | | May | | | 9, | | | 2019 | | | [facility] | | | St[facility] | | | [facility] | | | y H. | | [...] | | | St. | | | [facility] | | | y H. | | [...] | | | St. | | | [facility] | | | y H. | | [...] | | | St. | | | [facility] | | | y H. | | [...] | | | [id number] | | | [id number] | | | 7c | | | [...] | | | incubation. | | [facility] | | | [...] + + | [facility] | [address] | [place] | [phone] | | [facility] | | [address] | | | - LABORATORY | | [...] ST. | [address] | [place] | [phone] | | [facility] | | [address] | | | - LABORATORY | | [...] + | [facility] | [address] | [place] | [phone] | | [facility] | | [address] | | | - LABORATORY | | [...] [address] | [place] | [phone] | | [facility] | | [address] | | | - LABORATORY | | [...] ST. | [address] | [place] | [phone] | | [facility] | | [address] | | | - LABORATORY | | | | + + + + + CBC with Differential (08/29/2019 12:20 PM PDT) + + + + + + | Component | Value | Ref Range | Performed | Pathologist | | | | | At | Signature | + + + + + + | WBC | 4.7 | 4.0 - 11.0 K/uL | [facility] | | | | | | [facility] | | | | | | MEDICAL | | | | | | CENTER - | | | | | | LABORATORY | | + + + + + + | RBC | 4.43 | 4.30 - 5.70 | [facility] | | | | | M/uL | [facility] | | | | | | MEDICAL | | | | | | CENTER - | | | | | | LABORATORY | | + + + + + + | Hemoglobin | 9.8 (L) | 13.5 - 18.0 | [facility] | | | | | g/dL | [facility] | | | | | | [...] | | Granulocyte | | | [facility] | | | s | | | MEDICAL | | | | | | CENTER - | | | | | | LABORATORY | | + + + + + + | Absolute | 2.48 | 1.80 - 8.50 | [facility] | | | Neutrophils | | K/uL | [facility] | | | | | | MEDICAL | | | | | | CENTER - | | | | | | LABORATORY | | + + + + + + | Absolute | 1.57 | 0.60 - 3.20 | [facility] | | | Lymphocytes | | K/uL | [facility] | | | | | | MEDICAL | | | | | | CENTER - | | | | | | LABORATORY | | + + + + + + | Absolute | 0.33 | 0.00 - 1.00 | [facility] | | | Monocytes | | K/uL | [facility] | | | | | | MEDICAL | | | | | | CENTER - | | | | | | LABORATORY | | + + + + + + | Absolute | 0.24 | 0.00 - 0.40 | [facility] | | | Eosinophils | | K/uL | [facility] | | | | | | MEDICAL | | | | | | CENTER - | | | | | | LABORATORY | | + + + + + + | Absolute | 0.03 | 0.00 - 0.10 | [facility] | | | Basophils | | K/uL | [facility] | | | | | | MEDICAL | | | | | | CENTER - | | | | | | LABORATORY | | + + + + + + | Absolute | 0.01 | 0.00 - 0.03 | [facility] | | | Immature | | K/uL | [facility] | | | Granulocyte | | | [...] | nRBC | | K/uL | [facility] | [...] + + | [facility] | [address] | [place] | [phone] | | [facility] | | [address] | | | - LABORATORY | | [...]
--- OUTSIDE RECORDS SUMMARY | ~2020-04-13 | XMS | Encounter Summary ---
Demographics + + + | Address | [address] | | | [place] [address] | + + + | Home Phone | | + + + | Preferred Language | Unknown | + + + | Marital Status | | + + + | Jehovah'S Witness Affiliation | Unknown | + + + | Race | Unknown | + + + | Ethnic Group | Unknown | + + + Author + + + | Author | [facility] | | | and [place] | + + + | Organization | [facility] | | | [...] [place] | | | | | [address] | | + + + + + Care Team Providers + +------+ + | Care Structures Engineer Name | Role | Phone | + [...] 09/21/ | Hospital | [facility] | [place], | | | 2018 | Encounter | [facility] | Leighton Malagon, | | | | | [address] [place] | [address] | | | | | [place], [place] | [place] | | | | | [address] | [address] | | | | | [phone] | [phone] | | | | | | | [...] after normal business hours, please contact the [facility] at . documented in this encounter [...] + + | [facility] | [address] | [place] | [phone] | | [facility] | | [address] | | + + + + + [...] ANESTHESIA: Sedation | | | ANESTHESIA PROVIDER: NYLON OPERATOR: Manas Sears CRNA SPECIMEN: | | | [...] MD, | | | 09/21/2018 13:13 CC [facility] This note was | | | transcribed using voice recognition software; there may be speech | | | recognition errors which escaped detection during regional sales manager. | | | | | + + + POC Glucose (09/21/2018 10:53 AM PDT) + +---------+ + + + | Component | Value | Ref Range | Performed | Pathologist | | | | | At | Signature | + +---------+ + + + | Glucose, | 279 (H) | 70 - 110 mg/dL [facility] | | | POC | | | [facility] | | | | | | HOSPITAL [...] + + | [facility] | [address] | [place] | [phone] | | HOSPITAL LABORATORY | | [address] | | + + + + + [...] | | technical component was performed by [facility] | | | [place] [address] (Medical | | | Director: Samir Leija MD; CLIA# [id number]). Professional | | | interpretation was performed by [facility] | | | [place] [address] (Medical | | | Director: Samir Leija MD; CLIA# [id number]). ADDITIONAL | | | NOTES: Immunohistochemical and/or in situ hybridization studies were | | | performed on this case with the appropriate positive controls that | | | react as expected. This test was developed and its performance | | | characteristics determined by [facility]. It has not been | | | cleared or approved by the U.S. Food and Drug Administration. The | | | FDA has determined that such clearance or approval is not necessary. | | | This test is used for clinical purposes. It should not be regarded | | | as investigational or for research. [facility] is certified | | | under the Clinical Laboratory Improvement Amendments of 1988 (CLIA) | | | as qualified to perform high complexity clinical laboratory testing. | | | The technical component was performed by [facility], [facility] | | | [facility] [address] ([place]: Sindy Bernal MD; | | | CLIA# [id number]). Professional interpretation was performed by | | | [facility] | | | [place], [place] [address] ([place]: Samir Leija MD; CLIA# | | | [id number]). PAS stain: The technical component was performed by | | | [facility] | | | [place], [place] [address] ([place]: Samir Leija MD; CLIA# | | | [id number]). Professional interpretation was performed by [facility] | | | [facility]ostics, [facility], [address] [place] [address], [place] | | | [place] [address] ([place]: Samir Leija MD; CLIA# | | | [id number]). REASON FOR ADDENDUM: To add the results [...]
--- OUTSIDE RECORDS SUMMARY | ~2020-04-13 | XMS | Encounter Summary ---
Demographics + + + | Address | [address] | | | [place] [address] | + + + | Home Phone | | + + + | Preferred Language | Unknown | + + + | Marital Status | | + + + | Pentecostalism Affiliation | Unknown | + + + [...] [place] | | | | | [address] | | + + + + + Care Team Providers + +------+ + | Care Gravity Prospecting Operator Name | Role | Phone | [...] + | 10/27/ | Telephone | [facility] | Carina Soria, | Other | | 2017 | | [facility] | RN | | | | | SURGERY [address] | | | | | | [address] [place], | | | | | | [place] [address] | | | | | | [phone] | | | +--------+ + + + [...]
--- OUTSIDE RECORDS SUMMARY | ~2020-04-13 | XMS | Encounter Summary ---
Demographics + + + | Address | [address] | | | [place] [address] | + + + | Home Phone | | + + + | Preferred Language | Unknown | + + + | Marital Status | | + + + | Shinto Affiliation | Unknown | + + + | Race | Unknown | + + + | Ethnic Group | Unknown | + + + Author + + + | Author | [facility] | | | and [place] | + + + | Organization | [facility] | | | [...] [place], [place] | | | | | [address] | | + + + + + Care Team Providers + +------+ + | Care Director Of Quality Improvement Name | Role | Phone | + [...] | | | | | | [place] [address] | | | | | | [phone] | | | +--------+ + + + [...]
--- OUTSIDE RECORDS SUMMARY | ~2020-04-13 | XMS | Encounter Summary ---
Demographics + + + | Address | [address] | | | [place] [address] | + + + | Home Phone [...] [place] | | | | | [address] | | + + + + + Care Team Providers + +------+ + | Care Activity Aide Name | Role | Phone | + [...] | | | | MAURILIO THORPE, | [facility], [place] | | | | | | [place] [address] | [address] | | | | | | Phone: | Phone: | | | | | | [phone] | [phone] | | | | | | Fax: | Fax: | | | | | | [phone] | [phone] | +--------+--------+ + + + + Encounter [...] | SURGERY [address] | MD [address] | | | | | DR DEWAYNE VAZ[place]Z, | [place], [place] | | | | | [place] [address] | [address] | | | | | [phone] | [phone] | | | | | | | [...] note might be different from the original. [facility] Manoj Jolly M.D [address], [place], [place] [address] - PATIENT NAME: Oh Moreno IF YOU [...] Needle Localization [] Lumpectomy [] Mastectomy [] [place] Node Biopsy [] Isosulfan Blue Dye [] [...] seizure. 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 documented in this encounter Plan of Treatment Not on filedocumented as of this encounter Visit Diagnoses + + | Diagnosis | + + | Nausea - Primary Nausea alone | + + | Microcytic anemia Iron deficiency anemia, unspecified | + + documented in this encounter
--- OUTSIDE RECORDS SUMMARY | ~2020-04-13 | XMS | Encounter Summary ---
Demographics + + + | Address | [address] | | | [place] [address] | + + + | Home Phone | | + + + | Preferred Language | Unknown | + + + | Marital Status | | + + + | Sikhism Affiliation | Unknown | + + + [...] [place] | | | | | [address] | | + + + + + Care Team Providers + +------+ + | Care Entry Level Recruiter Name | Role | Phone | + [...] + | 12/23/ | Telephone | [facility] [facility] | Carina Soria, | Other | | 2019 | | [facility] | RN | | | | | SURGERY [address] | | | | | | DR [place], | | | | | | [place] [address] | | | | | | [phone] | | | +--------+ + + + [...]
--- OUTSIDE RECORDS SUMMARY | ~2020-04-13 | XMS | Clinical Summary ---
Demographics + + + | Address | [address] | | | [place] [address] | + + + | Home Phone | | + + + | Preferred Language | Unknown | + + + | Marital Status | | + + + | Adventism Affiliation | Unknown | + + + | Race | Unknown | + + + | Ethnic Group | Unknown | + + + Author + + + | Author | [facility] | | | and [place] | + + + | Organization | [facility] | | [...] Dayana Moreno | ECON | [address] | | | | | [place] | | | | | [address] | | + + + + + Care Team Providers + +------+ + | Care Uat Tester Name | Role | Phone | [...] +--------+-------+---------+--------+ | [facility] | [place] | [id number] | | | | Indemn | | | COMMUN | | 018-Pr | | | ity | | | ITY | | esent | | | | | | CARE | | | | | | + +--------+ +--------+-------+---------+--------+ | [facility] | [place] | [id number] | | | | Indemn | | | COMMUN | | 019-Pr | | | ity | | | ITY | | esent | | | | | | CARE | | | | | | + +--------+ +--------+-------+---------+--------+ | [facility] | [place]ET[facility] | [id number] | | | | Indemn | | [...] paul | | | 1 (Home) | [address] | + +--------+ +--------+ + + | Oh Moreno | Person | Self | [birth year] | [address] | | | al/Fam | | 1970 | [phone] | [place], [place] | | | paul | | | 1 (Home) | [address] | + +--------+ +--------+ + + Advance Directives + + + + + | Type | Date Recorded | Patient | Explanation | | | | Refrigerator Assembler | | + + + + + | Power of | | | | | Journey Lineman | | | | + + + + + | Advance | 09/21/2018 | | | | Directive | 10:15 AM | | | + + + + +
--- OUTSIDE RECORDS SUMMARY | ~2020-04-13 | XMS | Clinical Summary ---
Demographics + + + | Address | [address] | | | [place] [address] | + + + | Home Phone | | + + + | Preferred Language | Unknown | + + + | Marital Status | | + + + | Yazidism Affiliation | Unknown | + + + | Race | Unknown | + + + | Ethnic Group | Unknown | + + + Author + + + | Author | [facility] | | | and [place] | + + + | Organization | [facility] | | [...] [place] | | | | | [address] | | + + + + + Care Team Providers + +------+ + | Care Choreography Director Name | Role | Phone | [...] +--------+-------+---------+--------+ | [facility] | [place] | [id number] | | | | Indemn | | | COMMUN | | 018-Pr | | | ity | | | ITY | | esent | | | | | | CARE | | | | | | + +--------+ +--------+-------+---------+--------+ | [facility] | [place] | [id number] | | | | Indemn | | | COMMUN | | 019-Pr | | | ity | | | ITY | | esent | | | | | | CARE | | | | | | + +--------+ +--------+-------+---------+--------+ | [facility] | [place]ET[place] | [id number] | | | | Indemn | | [...] paul | | | 1 (Home) | [address] | + +--------+ +--------+ + + | Oh Moreno | Person | Self | [birth year] | [address] | | | al/Fam | | 1970 | [phone] | [place], [place] | | | paul | | | 1 (Home) | [address] | + +--------+ +--------+ + + Advance Directives + + + + + | Type | Date Recorded | Patient | Explanation | | | | 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
--- OUTSIDE RECORDS SUMMARY | ~2020-04-13 | XMS | Encounter Summary ---
Demographics + + + | Address | [address] | | | [place] [address] | + + + | Home Phone | | + + + | Preferred Language | Unknown | + + + | Marital Status | | + + + | Christianity Affiliation | Unknown | + + + | Race | Unknown | + + + | Ethnic Group | Unknown | + + + Author + + + | Author | [facility] | | | and [place] | + + + | Organization | [facility] | | [...] | Dayana Moreno | ECON | [address] | | | | | [place] | | | | | [address] | | + + + + + Care Team Providers + +------+ + | Care Animal Scientist Name | Role | Phone | + [...] | | | | | | | [place] | | | | | | | COLONOSCOPY | | | | | | | FLX DX | | | | | | | W/COLLJ SPEC | | | | | | | WHEN PFRMD | | | | | | | [place] | | | | | | | ESOPHAGOGAST | | | | | | | RODUODENOSCO | | | | | | | PY TRANSORAL | | | | | | | DIAGNOSTIC | | | | | | | IN EGD | | | | | | [...] | | [place], [place] | [place] [address] | | | | | [address] | [phone] | | | | | [phone] | | | +--------+ + + + + Anesthesia Record + + + + + | Procedure Name | Responsible | Anesthesia Start | Anesthesia Stop Time | | | Anesthesiologist | Time | | + + + + + | EGD (N/A Mouth) | Manas Sears, | 09/21/18 1248 | 09/21/18 1323 | | | LIGHTING FIXTURE INSTALLER | | | + + + + [...] eral | Antecubital; 22 gauge; 0; | Patirzia Liao RN | Augusta Rodgers RN | [...]
--- OUTSIDE RECORDS SUMMARY | ~2020-04-13 | XMS | Encounter Summary ---
Demographics + + + | Address | [address] | | | [place] [address] | + + + | Home Phone | | + + + | Preferred Language | Unknown | + + + | Marital Status | | + + + | Orthodoxy Affiliation | Unknown | + + + | Race | Unknown | + + + | Ethnic Group | Unknown | + + + Author + + + | Author | [facility] | | | and [place] | + + + | Organization | [facility] | | | [...] [place] | | | | | [address] | | + + + + + Care Team Providers + +------+ + | Care Notch Machine Operator Name | Role | Phone [...] + + | 09/05/ | Telephone | [facility] | Tamika, | Patient Concerns | | 2019 | | [facility] | Sundeep Ramirez MD [address] | | | | [facility] [address] | [facility] | | | | | [facility] | [place] [address] | | | | | [place] [address] | [phone] | | | | | [phone] | | | +--------+ + + + [...]
--- OUTSIDE RECORDS SUMMARY | ~2020-04-13 | XMS | Encounter Summary ---
Demographics + + + | Address | [address] | | | [place] [address] | + + + | Home Phone [...] [place] | | | | | [address] | | + + + + + Care Team Providers + +------+ + | Care Learning Coordinator Name | Role | Phone | [...] | [address] [place] | [address] | | | | | [place], [place] | [place] | | | | | [address] | [address] | | | | | [phone] | [phone] | | | | | | | [...] any questions, call your physician at or [phone]. If you need assistance after normal business hours, please contact the [facility] at . documented in this [...] + + | [place] [facility] | [address] | [place] | [phone] | | [facility] | | [address] | | + + + + + [...] ANESTHESIA: Sedation | | | ANESTHESIA PROVIDER: VISION CARE ASSOCIATE: Manas Sears CRNA SPECIMEN: | | [...] MD, | | | 09/21/2018 13:13 CC [facility] This note was | | | transcribed using voice recognition software; there may be speech | | | recognition errors which escaped detection during sole tier. | | | | | + + + POC Glucose (09/21/2018 10:53 AM PDT) + +---------+ + + + | Component | Value | Ref Range | Performed | Pathologist | | | | | At | Signature | + +---------+ + + + | Glucose, | 279 (H) | 70 - 110 mg/dL | [facility] | | | POC | [...] + + | [place] [facility] | [address] | [place] | [phone] | | HOSPITAL LAB[facility]ATORY | | [address] | | + + + + + [...] | | technical component was performed by [facility] | | | [address] [address] (Medical | | | Director: Samir Leija MD; CLIA# [id number]). Professional | | | interpretation was performed by [facility] | | | [address] [address] (Medical | | | Director: Samir Leija MD; CLIA# [id number]). ADDITIONAL | | | NOTES: Immunohistochemical and/or in situ hybridization studies were | | | performed on this case with the appropriate positive controls that | | | react as expected. This test was developed and its performance | | | characteristics determined by [facility]. It has not been | | | cleared or approved by the U.S. Food and Drug Administration. The | | | FDA has determined that such clearance or approval is not necessary. | | | This test is used for clinical purposes. It should not be regarded | | | as investigational or for research. [facility] is certified | | | under the Clinical Laboratory Improvement Amendments of 1988 (CLIA) | | | as qualified to perform high complexity clinical laboratory testing. | | | The technical component was performed by [facility], [facility] | | | [facility] [address] (Manager Technical Support: Sindy Bernal MD; | | | CLIA# [id number]). Professional interpretation was performed by | | | [facility] | | | [place], [place] [address] (Manager Technical Support: Samir Leija MD; CLIA# | | | [id number]). PAS stain: The technical component was performed by | | | [facility] | | | [place], [place] [address] (Manager Technical Support: Samir Leija MD; CLIA# | | | [id number]). Professional interpretation was performed by [employer] | | | Diagnostics, [facility], [address] [facility] | | | [place], [place] [address] (Manager Technical Support: Samir Leija MD; EVELYN# | | | [id number]). REASON FOR ADDENDUM: To add the results [...]
--- OUTSIDE RECORDS SUMMARY | ~2020-04-13 | XMS | Encounter Summary ---
Demographics + + + | Address | [address] | | | [place] [address] | + + + | Home Phone | | + + + | Preferred Language | Unknown | + + + | Marital Status | | + + + | Gnosticism Affiliation | Unknown | + + + | Race | Unknown | + + + | Ethnic Group | Unknown | + + + Author + + + | Author | [facility] | | | and [place] | + + + | Organization | [facility] | | | [...] [place] | | | | | [address] | | + + + + + Care Team Providers + +------+ + | Care Nanotechnologist Name | Role | Phone | + [...] | | [address] [facility] | Moshe Longo | | | | | [address] | [place] [address] | | | | | [address] | | | | | | [phone] | | | +--------+ + + + [...]
--- OUTSIDE RECORDS SUMMARY | ~2020-04-13 | XMS | Encounter Summary ---
Demographics + + + | Address | [address] | | | [place] [address] | + + + | Home Phone [...] [place] | | | | | [address] | | + + + + + Care Team Providers + +------+ + | Care Optical Goods Worker Name | Role | Phone | [...] | | | | | | [place] [address] | | | | | | [phone] | | | +--------+ + + + [...]
--- OUTSIDE RECORDS SUMMARY | ~2020-04-13 | XMS | Encounter Summary ---
Demographics + + + | Address | [address] | | | [place] [address] | + + + | Home Phone [...] [place] | | | | | [address] | | + + + + + Care Team Providers + +------+ + | Care Cra Name | Role | Phone | + [...] | | | | | | | [place] | | | | | | | COLONOSCOPY | | | | | | | FLX DX | | | | | | | W/COLLJ SPEC | | | | | | | WHEN PFRMD | | | | | | | [place] | | | | | | | ESOPHAGOGAST | | | | | | | RODUODENOSCO | | | | | | | PY TRANSORAL | | | | | | | DIAGNOSTIC | | | | | | | [place] EGD | | | | | | [...] 09/21/ | Hospital | [place] [facility] | [place], | | | 2018 | Encounter | [facility] | Leighton Malagon, | | | | | [address] [place] | [address] | | | | | [place], [place] | [place] | | | | | [address] | [address] | | | | | [phone] | | | | | | | [...] + + | [place] [facility] | [address] | [place] | [phone] | | [facility] | | [address] | | + + + + + [...] ANESTHESIA: Sedation | | | ANESTHESIA PROVIDER: GREASE REFINER OPERATOR: Manas Sears CRNA SPECIMEN: | | [...] MD, | | | 09/21/2018 13:13 CC [facility] This note was | | | transcribed using voice recognition software; there may be speech | | | recognition errors which escaped detection during public works commissioner. | | | | | + + + POC Glucose (09/21/2018 10:53 AM PDT) + +---------+ + + + | Component | Value | Ref Range | Performed | Pathologist | | | | | At | Signature | + +---------+ + + + | Glucose, | 279 (H) | 70 - 110 mg/dL [facility] | | | POC | | | [facility] | | | | | | [...] + + | [place] [facility] | [address] | [place] | [phone] | | HOSPITAL LABORATORY | | [address] | | + + + + + [...] | | technical component was performed by [facility] | | | [place] [address] (Medical | | | Director: Samir Leija MD; CLIA# [id number]). Professional | | | interpretation was performed by [facility] | | | [place] [address] (Medical | | | Director: Samir Leija MD; CLIA# [id number]). ADDITIONAL | | | NOTES: Immunohistochemical and/or in situ hybridization studies were | | | performed on this case with the appropriate positive controls that | | | react as expected. This test was developed and its performance | | | characteristics determined by [facility]. It has not been | | | cleared or approved by the U.S. Food and Drug Administration. The | | | FDA has determined that such clearance or approval is not necessary. | | | This test is used for clinical purposes. It should not be regarded | | | as investigational or for research. [facility] is certified | | | under the Clinical Laboratory Improvement Amendments of 1988 (CLIA) | | | as qualified to perform high complexity clinical laboratory testing. | | | The technical component was performed by [facility], [facility] | | | [facility] [address] (Clinical Science Consultant: Sindy Bernal MD; | | | CLIA# [id number]). Professional interpretation was performed by | | | [facility] | | | [place], [place] [address] (Clinical Science Consultant: Samir Leija MD; CLIA# | | | [id number]). PAS stain: The technical component was performed by | | | [facility] | | | [place], [place] [address] (Clinical Science Consultant: Samir Leija MD; CLIA# | | | [id number]). Professional interpretation was performed by [employer] | | | Diagnostics, [facility], [address] [place] [address], [place] | | | [place] [address] (Clinical Science Consultant: Samir Leija MD; CLIA# | | | [id number]). REASON FOR ADDENDUM: To add the results [...]
--- OUTSIDE RECORDS SUMMARY | ~2020-04-13 | XMS | Encounter Summary ---
Demographics + + + | Address | [address] | | | [place] [address] | + + + | Home Phone [...] | Author | [facility] | | | and [place] | + + + | Organization | [facility] | | | [...] [place] | | | | | [address] | | + + + + + Care Team Providers + +------+ + | Care Violin Mechanic Name | Role | Phone | + [...] | | | | | | | [place] | | | | | | | COLONOSCOPY | | | | | | | FLX DX | | | | | | | W/COLLJ SPEC | | | | | | | WHEN PFRMD | | | | | | | [place] | | | | | | | ESOPHAGOGAST | | | | | | | RODUODENOSCO | | | | | | | PY TRANSORAL | | | | | | | DIAGNOSTIC | | | | | | | [place] EGD | | | | | | [...] | | [place], [place] | [place] [address] | | | | | [address] | [phone] | | | | | [phone] | | | +--------+ + + + + Anesthesia Record + + + + + | Procedure Name | Responsible | Anesthesia Start | Anesthesia Stop Time | | | Anesthesiologist | Time | | + + + + + | EGD (N/A Mouth) | Manas Sears, | 09/21/18 1248 | 09/21/18 1323 | | | CARBON CUTTER | | | + + + + [...]
--- OUTSIDE RECORDS SUMMARY | ~2020-04-13 | XMS | Encounter Summary ---
Demographics + + + | Address | [address] | | | [place] [address] | + + + | Home Phone | | + + + | Preferred Language | Unknown | + + + | Marital Status | | + + + | Yazidism Affiliation | Unknown | + + + | Race | Unknown | + + + | Ethnic Group | Unknown | + + + Author + + + | Author | [facility] | | | and [place] | + + + | Organization | [facility] | | | and [...] [place] | | | | | [address] | | + + + + + Care Team Providers + +------+ + | Care Carpenter Mate Name | Role | Phone | + [...] | | | | | | [place] [address] | | | | | | [phone] | | | +--------+ + + + [...]
--- OUTSIDE RECORDS SUMMARY | ~2020-04-13 | XMS | Encounter Summary ---
Demographics + + + | Address | [address] | | | [place] [address] | + + + | Home Phone | | + + + | Preferred Language | Unknown | + + + | Marital Status | | + + + | Spiritism Affiliation | Unknown | + + + | Race | Unknown | + + + | Ethnic Group | Unknown | + + + Author + + + | Author | [facility] | | | and [place] | + + + | Organization | [facility] | | [...] [place] | | | | | [place] | | | | | [address] | | + + + + + Care Team Providers + +------+ + | Care Sour Bleaching Pleater Name | Role | Phone | + [...] | [address] [place] | [address] | | | | | [place], [place] | [place] | | | | | [address] | [address] | | | | | [phone] | | | | | | | [...] after normal business hours, please contact the [facility] at . documented in this encounter [...] + + | [place] [facility] | [address] | [place] | [phone] | | [facility] | | [address] | | + + + + + [...] ANESTHESIA: Sedation | | | ANESTHESIA PROVIDER: TEA TASTER: Manas Sears CRNA SPECIMEN: | | | [...] MD, | | | 09/21/2018 13:13 CC [facility] This note was | | | transcribed using voice recognition software; there may be speech | | | recognition errors which escaped detection during tour narrator. | | | | | + + + POC Glucose (09/21/2018 10:53 AM PDT) + +---------+ + + + | Component | Value | Ref Range | Performed | Pathologist | | | | | At | Signature | + +---------+ + + + | Glucose, | 279 (H) | 70 - 110 mg/dL | [facility] | | | POC | [...] + + | [place] [facility] | [address] | [place] | [phone] | | HOSPITAL LABORATORY | | [address] | | + + + + + [...] | | technical component was performed by [facility] | | | [address] [address] (Medical | | | Director: Samir Leija MD; CLIA# [id number]). Professional | | | interpretation was performed by [facility] | | | [address] [address] (Medical | | | Director: Samir Leija MD; CLIA# [id number]). ADDITIONAL | | | NOTES: Immunohistochemical and/or in situ hybridization studies were | | | performed on this case with the appropriate positive controls that | | | react as expected. This test was developed and its performance | | | characteristics determined by [facility]. It has not been | | | cleared or approved by the U.S. Food and Drug Administration. The | | | FDA has determined that such clearance or approval is not necessary. | | | This test is used for clinical purposes. It should not be regarded | | | as investigational or for research. [facility] is certified | | | under the Clinical Laboratory Improvement Amendments of 1988 (CLIA) | | | as qualified to perform high complexity clinical laboratory testing. | | | The technical component was performed by [facility], [facility] | | | [facility] [address] (Cream Buyer: Sindy Bernal MD; | | | CLIA# [id number]). Professional interpretation was performed by | | | [facility] | | | [place], [place] [address] (Cream Buyer: Samir Leija MD; CLIA# | | | [id number]). PAS stain: The technical component was performed by | | | [facility] | | | [place], [place] [address] (Cream Buyer: Samir Leija MD; CLIA# | | | [id number]). Professional interpretation was performed by [facility] | | | Diagnostics, [facility], [address] [facility] | | | [place], [place] [address] (Cream Buyer: Samir Leija MD; EVELYN# | | | [id number]). REASON FOR ADDENDUM: To add the results [...]
--- OUTSIDE RECORDS SUMMARY | ~2020-04-13 | XMS | Encounter Summary ---
Demographics + + + | Address | [address] | | | [place] [address] | + + + | Home Phone | | + + + | Preferred Language | Unknown | + + + | Marital Status | | + + + | Moravian Affiliation | Unknown | + + + | Race | Unknown | + + + | Ethnic Group | Unknown | + + + Author + + + | Author | Located Within [facility] | | | and [place] | + + + | Organization | Located Within [facility] | | [...] [place] | | | | | [address] | | + + + + + Care Team Providers + +------+ + | Care Supportive Employment Case Manager Name | Role | Phone | [...] + | 08/29/ | Emergency | [facility] | [place], | Cellulitis of right | | 2019 | | [facility] | Sundeep Keller MD [address] | foot (Primary Dx); | | | | CENTER [address] | [address] [place] | Ulcer of right foot, | | | | [place], [place] | [place] [address] | unspecified ulcer | | | | [address] | [phone] | stage (FORMERLY [facility]); | | | | [phone] | | 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 | | | [place] | | | y | | | [...] | | | St. | | | [place] | | | y | | | [...] | | | St. | | | [place] | | | y | | | [...] | | | St. | | | [place] | | | y | | | [...] | | | St. | | | [place] | | | y H. | | [...] | | | St. | | | [place] | | | y H. | | [...] | | | St. | | | [place] | | | y H. | | [...] | | | St. | | | [place] | | | y H. | | [...] | | | St. | | | [place] | | | y H. | | [...] | | | St. | | | [place] | | | y H. | | | [place] | | | [place] | | | Emerge | | | ncy | | | Chief | | | Compla | | | int: | | | ANEMIA | | | May | | | 9, | | | 2019 | | | [facility] | | [facility] | | | [place] | | | y H. | | [...] | | | St. | | | [place] | | | y H. | | [...] | | | St. | | | [place] | | | y H. | | [...] | | | St. | | | [place] | | | y H. | | [...] | | | [id number] | | | [id number] | | | 7c | | | [...] [address] | [place] | [phone] | | [facility] | | [id number] | | | - LABORATORY | | [...] [address] | [place] | [phone] | | [facility] | | [id number] | | | - LABORATORY | | [...] + | [address] | [address] | [place] | [phone] | | [facility] | | [id number] | | | - LABORATORY | | [...] [address] | [place] | [phone] | | [facility] | | [address] | | | - LABORATORY | | [...] [address] | [place] | [phone] | | [facility] | | [id number] | | | - LABORATORY | | [...] [address] | [place] | [phone] | | [facility] | | [id number] | | | - LABORATORY | | [...]
--- OUTSIDE RECORDS SUMMARY | ~2020-04-13 | XMS | Encounter Summary ---
Demographics + + + | Address | [address] | | | [place] [address] | + + + | Home Phone | | + + + | Preferred Language | Unknown | + + + | Marital Status | | + + + | Buddhism Affiliation | Unknown | + + + | Race | Unknown | + + + | Ethnic Group | Unknown | + + + Author + + + | Author | [facility] | | | and [place] | + + + | Organization | [facility] | | | and [...] [place] | | | | | [address] | | + + + + + Care Team Providers + +------+ + | Care Blasting Coal Miner Name | Role | Phone | + [...] + + | 09/05/ | Telephone | [facility] | [place], | Patient Concerns | | 2019 | | MED CTR MEDICAL | Sundeep Ramirez MD [address] | | | | | ONCOLOGY CLIN[facility] [address] | [facility] | | | | | [facility] | [place] [address] | | | | | [place] [address] | [phone] | | | | | [phone] | | | +--------+ + + + [...]
--- OUTSIDE RECORDS SUMMARY | ~2020-04-13 | XMS | Encounter Summary ---
Demographics + + + | Address | [address] | | | [place] [address] | + + + | Home Phone [...] [place] | | | | | [address] | | + + + + + Care Team Providers + +------+ + | Care Want Ad Clerk Name | Role | Phone | [...] | | | | [address] [facility] | Moshe Longo | | | | | [address] | [place] [address] | | | | | [address] | | | | | | [phone] | | | +--------+ + + + [...]
--- OUTSIDE RECORDS SUMMARY | 2020-04-13 18:36 | XMS ---
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 Care History Medical/Surgical 09/20/2019 [facility] - PATIENT PCP- DR RAYMUNDO HAS MADE A REFERRAL TO DR LEONE - [place] STAFF RADIOGRAPHER. 08/29/2019 [facility] - PATIENT NOW HAS DR AMRII LION PATIENT PCP AT [facility]. - PATIENT DOES HAVE IN HOME CARE SERVICES THROUGH THE ID- RN HOME VISITS ALONG WITH PROVIDER IN HOME VISITS. 06/20/2019 [facility] - PATIENT STATED HE HAS SOMEONE COMING FROM THE ID TO COME AND EVALUATE HIS HOME FOR SAFETY/FALL RISK THIS WEEK. - PATIENT DECLINED ANY FURTHER SERVICES/RESOURCES AT THIS TIME-STATED HE IS WORKING WITH THE ID AND [facility]. E.D. VISIT COUNT (12 MO.) 1 [place] 14 [facility] [place] TOTAL 15 NOTE: Visits indicate total known visits. 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 - Type 2 diabetes mellitus with diabetic neuropathy, unspecifie - Pain in left shoulder - Personal history of nicotine dependence - Strain of unspecified muscle, fascia and tendon at shoulder a - intermediate (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 01/20/2020 13:20 [facility] [place] TYPE: Emergency COMPLAINT: - PAIN, WEAKNESS DIAGNOSES: - Personal history of nicotine dependence - Other exterminator helper (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 - Type 2 diabetes mellitus with diabetic neuropathy, unspecifie - Essential (primary) hypertension - Allergy status to other drugs, medicaments and biological sub - Nausea with vomiting, unspecified - Unspecified abdominal pain - Post-traumatic stress disorder, unspecified - intermediate (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 12/25/2019 02:51 [facility] [place] TYPE: Emergency COMPLAINT: - NAUSEA DIAGNOSES: - Type 2 diabetes mellitus with diabetic neuropathy, unspecifie - Allergy status to other drugs, medicaments and biological sub - Post-traumatic stress disorder, unspecified - Personal history of nicotine dependence - Nausea with vomiting, unspecified - Unspecified abdominal pain - Essential (primary) hypertension - Other exterminator helper (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 11/23/2019 22:20 [facility] [place] TYPE: Emergency COMPLAINT: - VOMITING DIAGNOSES: - Malignant neoplasm of colon, unspecified - Allergy status to other drugs, medicaments and biological sub - 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 - Post-traumatic stress disorder, unspecified - Type 2 diabetes mellitus with diabetic neuropathy, unspecifie - Allergy status to narcotic agent status - Personal history of nicotine dependence - Essential (primary) hypertension - Other exterminator helper (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 - Vomiting, unspecified - Acute gastritis without bleeding 10/22/2019 18:49 [facility] [place] TYPE: Emergency COMPLAINT: - VOMITING DIAGNOSES: - Type 2 diabetes mellitus with diabetic neuropathy, unspecifie - Allergy status to analgesic agent status - intermediate (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 - Allergy status to other drugs, medicaments and biological sub - Anemia, unspecified - Other intermediate (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 - Vomiting, unspecified 09/30/2019 20:11 [facility] [place] TYPE: Emergency COMPLAINT: - POST OP PROBLEM DIAGNOSES: - Encounter for change or removal of surgical wound dressing - Encounter for change or removal of surgical wound dressing - Type 2 diabetes mellitus with diabetic neuropathy, unspecifie - Personal history of nicotine dependence - Other exterminator helper (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 09/19/2019 11:53 [facility] Re[facility] TYPE: Emergency COMPLAINT: - FOOT WOUND DIAGNOSES: - Allergy status to other drugs, medicaments and biological sub - Type 2 diabetes mellitus with foot ulcer - Allergy status to narcotic agent status - Type 2 diabetes mellitus with diabetic neuropathy, unspecifie - Other exterminator helper (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 - intermediate (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 - Pain in right foot - Non-pressure chronic ulcer of other part of right foot with u - Personal history of other malignant neoplasm of large intesti [facility] DIAGNOSES: - Wound [...] of antineoplastic and immunosuppressive drugs, - Other exterminator helper (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 - Post-traumatic stress disorder, unspecified - intermediate (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 - Allergy status to narcotic agent status - Allergy status to other drugs, medicaments and biological sub - Anemia, unspecified 07/26/2019 10:53 STE[facility] Lopez [...] diabetes mellitus with diabetic neuropathy, unspecifie - intermediate (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 - Vomiting, unspecified - Other intermediate (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 - Migraine, unspecified, not intractable, without status migrai 07/24/2019 02:43 [facility] [place] TYPE: Emergency COMPLAINT: - NECK PAIN/PORT ISSUE DIAGNOSES: - Essential (primary) hypertension - Personal history of nicotine dependence - Cervicalgia - Malignant neoplasm of colon, unspecified - Type 2 diabetes mellitus with diabetic neuropathy, unspecifie - Anemia, unspecified - Allergy status to narcotic agent status - intermediate (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 - Post-traumatic stress disorder, unspecified - Other intermediate (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 - Allergy status to [...] Abrasion, left lower leg, initial encounter - intermediate (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 - Fall on same level from slipping, tripping and stumbling with - Type 2 diabetes mellitus with diabetic neuropathy, unspecifie - Allergy status to other drugs, medicaments and biological sub - Personal history of other malignant neoplasm of large intesti - Other intermediate (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 05/28/2019 06:21 [facility] [place] TYPE: Emergency COMPLAINT: - VOMITING/DIARRHEA/HEADACHE DIAGNOSES: - Allergy status to other drugs, medicaments and biological sub - Allergy status to narcotic agent status - Generalized abdominal pain - Secondary malignant neoplasm of large intestine and rectum - Other exterminator helper (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 - Type 2 diabetes mellitus without complications - Dehydration - intermediate (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 of aspirin - Personal history [...] d - Post-traumatic stress disorder, unspecified - intermediate (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 of inhaled steroids - Iron deficiency anemia secondary to blood loss (chronic) - Allergy status to other drugs, medicaments and biological sub - Hyperlipidemia, unspecified - Other intermediate (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 - Body mass index (BMI) 20.0-20.9, adult - Essential (primary) hypertension - Allergy status to narcotic agent status - Allergy status to narcotic agent status - Other seasonal allergic rhinitis - intermediate (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 of inhaled steroids - 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
[2020-04-13] MEDS ORDERED: K-TAB ER20 MEQ PO (21:35)
== END 2020-04-13 21:59 | disposition home or self-care (01) ==
LOC: ED 18:33
DX: I95.9 Hypotension, unspecified (principal); E87.6 Hypokalemia; E11.40 Type 2 diabetes mellitus with diabetic neuropathy, unspecified; I10 Essential (primary) hypertension; Z88.8 Allergy status to other drugs, medicaments and biological substances; Z79.899 Other long term (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
CPT/HCPCS: 71045; 80053; 81001; 85025; 96360; 99285-25; J7030

== ENCOUNTER 2020-05-07 09:40 | Emergency (ER) | payer MEDICARE, OTHER ==
[~2020-05-07] VITALS: Ht 193 cm; Wt 81.7 kg
[~2020-05-07 09:40] MED LIST changes: +K-TAB ER20 MEQ PO
--- OUTSIDE RECORDS SUMMARY | 2020-05-07 09:44 | XMS ---
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 Care History Medical/Surgical 09/20/2019 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 08/29/2019 [facility] - PATIENT NOW HAS DR MARII LION PATIENT PCP AT [facility]. - PATIENT DOES HAVE IN [facility] CARE SERVICES [facility]OUGH [facility]- RN HOME VISITS ALONG WITH PROVIDER IN HOME VISITS. 06/20/2019 [facility] - PATIENT STATED HE HAS SOMEONE COMING FROM [facility] TO COME AND EVALUATE HIS HOME FOR SAFETY/FALL RISK THIS WEEK. - PATIENT DECLINED ANY FURTHER SERVICES/RESOURCES AT THIS TIME-STATED [facility]ING WITH [facility]. E.D. VISIT COUNT (12 MO.) 1 [place] MLucia 15 STEPHY Howard TOTAL 16 NOTE: Visits indicate total known visits. ED/UCC VISIT TRACKING (12 MO.) 05/07/2020 09:41 STEPHY Lopez [place] TYPE: Emergency COMPLAINT: - CONSTIPATION 04/13/2020 18:34 STE[facility] [place] TYPE: Emergency COMPLAINT: - LOW BP DIAGNOSES: - Type 2 diabetes mellitus with diabetic neuropathy, unspecifie - Hypotension, unspecified - Other intermediate (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 - Essential (primary) hypertension - Allergy status to other drugs, medicaments and biological sub - Hypotension, unspecified - Hypokalemia 04/05/2020 10:55 STE[facility] [place] TYPE: Emergency COMPLAINT: - LEFT SHOULDER PAIN DIAGNOSES: - Essential (primary) hypertension - Allergy status to other drugs, medicaments and biological sub - Overexertion from strenuous movement or load, initial encount - Other intermediate (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 - Type 2 diabetes mellitus with diabetic neuropathy, unspecifie - Pain in left shoulder - Personal history of nicotine dependence - Strain of unspecified muscle, fascia and tendon at shoulder a - 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 operator (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 01/20/2020 13:20 STE[facility] [place] TYPE: Emergency COMPLAINT: - PAIN, WEAKNESS DIAGNOSES: - Personal history of nicotine dependence - Other terminal superintendent (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 - Type 2 diabetes mellitus with diabetic neuropathy, unspecifie - Essential (primary) hypertension - Allergy status to other drugs, medicaments and biological sub - Nausea with vomiting, unspecified - Unspecified abdominal pain - Post-traumatic stress disorder, unspecified - [facility] (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 12/25/2019 02:51 STEPHY [facility] [place] TYPE: Emergency COMPLAINT: - NAUSEA DIAGNOSES: - Type 2 diabetes mellitus with diabetic neuropathy, unspecifie - Allergy status to other drugs, medicaments and biological sub - Post-traumatic stress disorder, unspecified - Personal history of nicotine dependence - Nausea with vomiting, unspecified - Unspecified abdominal pain - Essential (primary) hypertension - Other terminal superintendent (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 [facility]2019 [facility] [place] [facility] COMPLAINT: - VOMITING DIAGNOSES: - Malignant neoplasm of colon, unspecified - Allergy status to other drugs, medicaments and biological sub - [facility] (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 - Post-traumatic stress disorder, unspecified - Type 2 diabetes mellitus with diabetic neuropathy, unspecifie - Allergy status to narcotic agent status - Personal history of nicotine dependence - Essential (primary) hypertension - Other intermediate (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 - Vomiting, unspecified - Acute gastritis without bleeding 10/22/2019 18:49 [facility] [place] TYPE: Emergency COMPLAINT: - VOMITING DIAGNOSES: - Type 2 diabetes mellitus with diabetic neuropathy, unspecifie - Allergy status to analgesic agent status - 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 operator (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 - Allergy status to other drugs, medicaments and biological sub - Anemia, unspecified - Other intermediate (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 - Vomiting, unspecified 09/30/2019 20:11 STEPHY Reeves TYPE: Emergency COMPLAINT: - POST OP PROBLEM DIAGNOSES: - Encounter for change or removal of surgical wound dressing - Encounter for change or removal of surgical wound dressing - Type 2 diabetes mellitus with diabetic neuropathy, unspecifie - Personal history of nicotine dependence - Other intermediate (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 09/19/2019 11:53 STEPHY Reeves TYPE: Emergency COMPLAINT: - FOOT WOUND DIAGNOSES: - Allergy status to other drugs, medicaments and biological sub - Type 2 diabetes mellitus with foot ulcer - Allergy status to narcotic agent status - Type 2 diabetes mellitus with diabetic neuropathy, unspecifie - Other intermediate (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 - 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 operator (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 - Pain in right foot - Non-pressure chronic ulcer of other part of right foot with u - Personal history of other malignant neoplasm of large intesti 08/29/2019 10:53 [facility] Liz MARINO TYPE: Emergency DIAGNOSES: - Wound Check - Non-pressure chronic ulcer of other part of right foot with u - Cellulitis of right lower limb - Type 2 diabetes mellitus with diabetic polyneuropathy - wound care/rt foot - Foot Pain 08/25/2019 12:39 [facility] [place] TYPE: Emergency COMPLAINT: - VOMITING DIAGNOSES: - Personal history of nicotine dependence - Nausea with vomiting, unspecified - Type 2 diabetes mellitus with diabetic neuropathy, unspecifie - Adverse effect of antineoplastic and immunosuppressive drugs, - Other terminal superintendent (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 - Post-traumatic stress disorder, unspecified - 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 operator (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 of oral hypoglycemic [...] diabetes mellitus with diabetic neuropathy, unspecifie - [facility] (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 [...] Allergy status to narcotic agent status - [facility] (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 - Post-traumatic stress disorder, unspecified - Other terminal superintendent (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 - Allergy status to [...] malignant neoplasm of large intesti - Other terminal superintendent (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 05/28/2019 06:21 STE[facility] [place] TYPE: Emergency COMPLAINT: - VOMITING/DIARRHEA/HEADACHE DIAGNOSES: - Allergy status to other drugs, medicaments and biological sub - Allergy status to narcotic agent status - Generalized abdominal pain - Secondary malignant neoplasm of large intestine and rectum - Other intermediate (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 - [...] d - Post-traumatic stress disorder, unspecified - 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 operator (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 of inhaled steroids - [...] status - Other seasonal allergic rhinitis - 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 operator (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 of inhaled steroids - 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
[2020-05-07] MEDS ORDERED: AMLODIPINE BESY10 MG PO (09:49)
[2020-05-07] MEDS ORDERED: BUSPIRONE HCL5 MG PO (09:52)
[2020-05-07] MEDS ORDERED: REGLAN10 MG PO (12:48)
== END 2020-05-07 13:05 | disposition home or self-care (01) ==
LOC: ED 09:40
DX: K29.00 Acute gastritis without bleeding (principal); C18.9 Malignant neoplasm of colon, unspecified; K59.00 Constipation, unspecified; E86.0 Dehydration; E11.40 Type 2 diabetes mellitus with diabetic neuropathy, unspecified; I10 Essential (primary) hypertension; Z88.8 Allergy status to other drugs, medicaments and biological substances; Z79.899 Other long term (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
CPT/HCPCS: 74177; 80053; 81001; 82378; 83615; 83690; 85025; 96361; 96375; 99284-25; J1170; J2405; J2765; J7030; Q9967

== ENCOUNTER 2020-05-27 13:42 | Observation (INO) | payer MEDICARE, OTHER ==
[~2020-05-27] VITALS: Ht 193 cm; Wt 81.7 kg
--- OUTSIDE RECORDS SUMMARY | ~2020-05-27 | XMS | Encounter Summary ---
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 | | | Other | | | long | | | term | | | (curre | | | nt) | | | drug | | | therap | | | y | | | Allerg | | | y | | | status | | | to | | | narcot | | | ic | | | agent | | | status | | | | | | Cyclic | | | al | | | vomiti | | | ng, | | | not | | | intrac | | | table | | | Apr | | | 8, | | | 2019 | | | [facility] [place] | | | [place] | | | Emerge | | | ncy | | | | | | Allerg | | | y | | | status | | | to | | | other | | | drugs, | | | | | | medica | | | ments | | | and | | | biolog | | | ical | | | substa | | | nces | | | status | | | | | | Nausea | | | with | | | vomiti | | | ng, | | | unspec | | | ified | | | | | | Acute | | | gastri | | | tis | | | withou | | | t | | | bleedi | | | ng | | | Type 2 | | | | | | diabet | | | es | | | mellit | | | us | | | with | | | diabet | | | ic | | | neurop | | | athy, | | | unspec | | | ified | | | | | | Person | | | al | | | histor | | | y of | | | nicoti | | | ne | | | depend | | | ence | | | | | | Other | | | long | | | term | | | (curre | | | nt) | | | drug | | | therap | | | y | | | Post-t | | | raumat | | | ic | | | stress | | | | | | disord | | | er, | | | unspec | | | ified | | | | | | Anemia | | | , | | | unspec | | | ified | | | | | | Recent | | | | | | Inpati | | | ent | | | Visit | | | Summar | | | yDate | | | Facili | | | ty | | | City | | | State | | | Type | | | Diagno | | | ses or | | | Chief | | | | | | Compla | | | int | | | Julio | | | 10, | | | 2019 | | | [facility] 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 | | | ant | | | neopla | | | sm of | | | liver | | | and | | | intrah | | | epatic | | | bile | | | duct | | | | | | Cachex | | | ia | | | Dehydr | | | ation | | | | | | Other | | | season | | | al | | | allerg | | | ic | | | rhinit | | | is | | | Body | | | mass | | | index | | | (BMI) | | | 20.0-2 | | | 0.9, | | | adult | | | | | | Essent | | | ial | | | (prima | | | ry) | | | hypert | | | ension | | | | | | Allerg | | | y | | | status | | | to | | | narcot | | | ic | | | agent | | | status | | | | | | Long | | | term | | | (curre | | | nt) | | | use of | | | | | | inhale | | | d | | | steroi | | | ds | | | Person | | | al | | | histor | | | y of | | | nicoti | | | ne | | | depend | | | ence | | | Julio 1, | | | 2019 | | | [facility] [place] | | [place] | | | Observ | | | ation | | | | | | Diaphr | | | agmati | | | c | | | hernia | | | | | | withou | | | t | | | obstru | | | ction | | | or | | | gangre | | | ne | | | Second | | | pablo | | | malign | | | ant | | | neopla | | | sm of | | | unspec | | | ified | | | site | | | | | | Anemia | | | in | | | neopla | | | stic | | | diseas | | | e | | | Type 2 | | | | | | diabet | | | es | | | mellit | | | us | | | with | | | diabet | | | ic | | | polyne | | | uropat | | | hy | | | Other | | | long | | | term | | | (curre | | | nt) | | | drug | | | therap | | | y | | | Allerg | | | y | | | status | | | to | | | other | | | drugs, | | | | | | medica | | | ments | | | and | | | biolog | | | ical | | | substa | | | nces | | | status | | | | | | Malign | | | ant | | | neopla | | | sm of | | | cecum | | | | | | Post-t | | | raumat | | | ic | | | stress | | | | | | disord | | | er, | | | unspec | | | ified | | | | | | Anemia | | | , | | | unspec | | | ified | | | | | | Long | | | term | | | (curre | | | nt) | | | use of | | | | | | aspiri | | | n | | | Care | | | TeamPr | | | ovider | | | | | | Specia | | | lty | | | Phone | | | Fax | | | Servic | | | e | | | Dates | | | ZACKARY, | | | | | | MICAIA | | | H M, | | | MD | | | Family | | | | | | Medici | | | ne | | | Julio 8, | | | 2019 | | | - | | | Curren | | | t | | | Colle[facility] | | | tive | | | Portal | | | This | | | patien | | | t has | | | regist | | | ered | | | at the | | | | | | [facility] en[facility] | | | [facility] | | | [facility] | | | Med[facility] | | | l | | | Center | | | | | | Emerge | | | ncy | | | Depart | | | ment | | | For | | | more | | | inform | | | ation | | | visit: | | | | | | https: | | | //secu | | | [email or web address] | | | lectiv | | | emedic | | | [email or web address] | | | /[email or web address] | | | [id number] | | | [email or web address] | | | [phone] | | | [phone] | | | [phone] | | | [id number] | | | 7c | | | PLEASE | | | NOTE: | | | 1. | | | Any | | | care | | | recomm | | | endati | | | ons | | | and | | | other | | | clinic | | | al | | | inform | | | ation | | | are | | | provid | | | ed as | | | guidel | | | andres | | | or for | | | | | | histor | | | ical | | | purpos | | | es | | | only, | | | and | | | provid | | | ers | | | should | | | | | | exerci | | | se | | | their | | | own | | | clinic | | | al | | | judgme | | | nt | | | when | | | provid | | | ing | | | care. | | | 2. | | | You | | | may | | | only | | | use | | | this | | | inform | | | ation | | | for | | | purpos | | | es of | | | treatm | | | ent, | | | paymen | | | t or | | | health | | | care | | | operat | | | ions | | | activi | | | ties, | | | and | | | subjec | | | t to | | | the | | | limita | | | tions | | | of | | | applic | | | able | | | Collec | | | tive | | | Polici | | | es. | | | 3. | | | You | | | should | | | | | | consul | | | t | | | direct | | | ly | | | with | | | the | | | organi | | | zation | | | that | | | provid | | | ed a | | | care | | | guidel | | | ine or | | | other | | | | | | clinic | | | al | | | histor | | | y with | | | any | | | questi | | | ons | | | about | | | additi | | | onal | | | inform | | | ation | | | or | | | accura | | | cy or | | | comple | | | teness | | | of | | | inform | | | ation | | | provid | | | ed.? | | | 2019 | | | [facility] | | | tive | | | Medica | | | l | | | Techn[employer] | | | logies | | | , Inc[employer] | | | - | | | [email or web address] | | | llecti | | | vemedi | | | [email or web address] | | | m | +---+--------+ documented in this encounter Results Culture, Blood (08/29/2019 12:48 PM PDT) + + + + + + | Component | Value | Ref Range | Performed | Pathologist | | | | | At | Signature | + + + + + + | Culture | No growth after 5 days | | [facility] | | | | incubation. | | [facility] | | | | | [facility] | | | | | | [facility] - | | | | | | LABORATORY | | + + + + + + + + | Specimen | + + | Blood - Peripheral | | blood specimen | | (specimen) | + + + + + + + | Performing | Address | City/State/Zipcode | Phone Number | | Organization | | | | + + + + + | [facility] | [address] | [place] | [phone] | | [facility] | | [address] | | | - LABORATORY | | | | + + + + + XR Foot Right 3 + Vw (08/29/2019 12:24 PM PDT) + + | Specimen | + + | | + + + + + | Narrative | Performed At | + + + | EXAM:XR FOOT RIGHT 3 + VW CLINICAL HISTORY: Ulcerated foot | [facility] | | wound, evaluate for osteomyelitis WOUND CHECK COMPARISON: None. | | | FINDINGS: 3 nonweightbearing views of the right foot. There is | | | been prior amputation of the great toe distal phalanx. The proximal | | | phalanx appears unremarkable. There is soft tissue irregularity | | | adjacent to the fifth metatarsal phalangeal joint. No visible bony | | | erosion or destruction. No acute or healing fractures. | | | IMPRESSION - No radiographic evidence for osteomyelitis. | | | Negative radiographs do not exclude the presence of early | | | osteomyelitis. Dictated and Signed by: Maurizio Cade MD | | | Electronically signed: 08/29/2019 12:27 PM | | + + + + + | Procedure Note | + + | Taj, Rad Results In - 08/29/2019 12:30 PM PDT EXAM:XR FOOT RIGHT 3 + VW | | | | CLINICAL HISTORY: Ulcerated foot wound, evaluate for osteomyelitis | | WOUND CHECK | | | | COMPARISON: None. | | | | FINDINGS: 3 nonweightbearing views of the right foot. 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 The proximal | | phalanx appears unremarkable. There is soft tissue irregularity adjacent to the | | fifth metatarsal phalangeal joint. No visible bony erosion or destruction. No | | acute or healing fractures. | | | | IMPRESSION - | | | | No radiographic evidence for osteomyelitis. | | | | Negative radiographs do not exclude the presence of early osteomyelitis. | | | | Dictated and Signed by: Maurizio Cade MD | | Electronically signed: 08/29/2019 12:27 PM | + + + +---------+ + + | Performing | Address | City/State/Zipcode | Phone Number | | Organization | | | | + +---------+ + + | [facility] | | | | + +---------+ + + Extra Blue Top Tube (08/29/2019 12:24 PM PDT) + +-------+ + + + | Component | Value | Ref Range | Performed | Pathologist | | | | | At | Signature | + +-------+ + + + | Extra Blue | Done | | [facility] | | | Top Tube | | | [facility] | | [facility] | [facility] | | | | | | [facility] - | | | | | | LABORATORY | | + +-------+ + + + + + | Specimen | + + | Blood | + + + + + + + | Performing | Address | City/State/Zipcode | Phone Number | | Organization | | | | + + + + + | [facility] | [address] | [place], [place] | [phone] | | [facility] | | [address] | | | - LABORATORY | | | | + + + + + Extra Green Top Tube (08/29/2019 12:24 PM PDT) + +-------+ + + + | Component | Value | Ref Range | Performed | Pathologist | | | | | At | Signature | + +-------+ + + + | Extra Green | Done | | [facility] | | | Top Tube | | | [facility] | | [facility] | [facility] | [facility] | | | | | | CENTER - | | | | | | LABORATORY | | + +-------+ + + + + + | Specimen | + + | Blood | + + + + + + + | Performing | Address | City/State/Zipcode | Phone Number | | Organization | | | | + + + + + | [facility] | [address] | [place] | [phone] | | [facility] | | [address] | | | - LABORATORY | | | | + + + + + Extra Green Top Tube (08/29/2019 12:24 PM PDT) + +-------+ + + + | Component | Value | Ref Range | Performed | Pathologist | | | | | At | Signature | + +-------+ + + + | Extra Green | Done | | [facility] | | | Top Tube | | | [facility] | | | | | | [facility] | | | | | | CENTER - | | | | | | LABORATORY | | + +-------+ + + + + + | Specimen | + + | Blood | + + + + + + + | Performing | Address | City/State/Zipcode | Phone Number | | Organization | | | | + + + + + | [facility] | [address] | [place] | [phone] | | [facility] | | [address] | | | - LABORATORY | | | | + + + + + Culture, Blood (08/29/2019 12:20 PM PDT) + + + + + + | Component | Value | Ref Range | Performed | Pathologist | | | | | At | Signature | + + + + + + | Culture | No growth after 5 days | | [facility] | | | | incubation. | | [facility] | | | [facility] | | [facility] | | | | | | CENTER - | | | | | | LABORATORY | | + + + + + + + + | Specimen | + + | Blood - Swab of line | | insertion site | | (specimen) | + + + + + + + | Performing | Address | City/State/Zipcode | Phone Number | | Organization | | | | + + + + + | [facility] | [address] | [place], [place] | [phone] | | [facility] | | [address] | | | - LABORATORY | | | | + + + + + CBC with Differential (08/29/2019 12:20 PM PDT) + + + + + + | Component | Value | Ref Range | Performed | Pathologist | | | | | At | Signature | + + + + + + | WBC | 4.7 | 4.0 - 11.0 K/uL | [facility] | | | | | | [facility] | | | | | | [facility]ICAL | | | | | | CENTER - | | | | | | LABORATORY | | + + + + + + | RBC | 4.43 | 4.30 - 5.70 | [facility] | | | | | M/uL | [facility] | | | | | | MEDICAL | | | | | | CENTER - | | | | | | LABORATORY | | + + + + + + | Hemoglobin | 9.8 (L) | 13.5 - 18.0 | [facility] | | | | | g/dL | [facility] | | | | | | MEDICAL | | | | | | CENTER - | | | | | | LABORATORY | | + + + + + + | Hematocrit | 32.0 (L) | 40.0 - 51.0 % | [facility] | | | | | | [facility] | | | | | | MEDICAL | | | | | | CENTER - | | | | | | LABORATORY | | + + + + + + | MCV | 72.2 (L) | 83.0 - 101.0 fL | [facility] | | | | | | [facility] | | | | | | MEDICAL | | | | | | CENTER - | | | | | | LABORATORY | | + + + + + + | MCH | 22.1 (L) | 28.0 - 35.0 pg | [facility] | | | | | | [facility] | | | | | | MEDICAL | | | | | | CENTER - | | | | | | LABORATORY | | + + + + + + | MCHC | 30.6 (L) | 32.0 - 36.0 | [facility] | | | | | g/dL | [facility] | | | | | | MEDICAL | | | | | | CENTER - | | | | | | LABORATORY | | + + + + + + | RDW-CV | 19.9 (H) | <15.0 % | [facility] | | | | | | [facility] | | [facility] | | | [facility]ICAL | | | | | | CENTER - | | | | | | LABORATORY | | + + + + + + | RDW-SD | 51.0 (H) | 35.1 - 46.3 fL | [facility] | | | | | | [facility] | | [facility] | | | [facility]ICAL | | | | | | CENTER - | | | | | | LABORATORY | | + + + + + + | Platelet | 288 | 140 - 440 K/uL | [facility] | | | Count | | | [facility] | | [facility] | | | MEDICAL | | | | | | CENTER - | | | | | | LABORATORY | | + + + + + + | MPV | 9.1 | 6.5 - 12.4 fL | [facility] | | | | | | [facility] | | | | | | [facility]ICAL | | | | | | CENTER - | | | | | | LABORATORY | | + + + + + + | % | 53.2 | 45.0 - 82.0 % | [facility] | | | Neutrophils | | | [facility] | | | | | | MEDICAL | | | | | | CENTER - | | | | | | LABORATORY | | + + + + + + | % | 33.7 | 20.0 - 45.0 % | [facility] | | | Lymphocytes | | | [facility] | | | | | | MEDICAL | | | | | | CENTER - | | | | | | LABORATORY | | + + + + + + | % Monocytes | 7.1 | 4.0 - 12.0 % | [facility] | | | | | | [facility] | | | | | | MEDICAL | | | | | | CENTER - | | | | | | LABORATORY | | + + + + + + | % | 5.2 (H) | 0.0 - 5.0 % | [facility] | | | Eosinophils | | | [facility] | | | | | | MEDICAL | | | | | | CENTER - | | | | | | LABORATORY | | + + + + + + | % Basophils | 0.6 | 0.0 - 1.0 % | [facility] | | | | | | [facility] | | | | | | MEDICAL | | | | | | CENTER - | | | | | | LABORATORY | | + + + + + + | % Immature | 0.2 | 0.0 - 0.4 % | [facility] | | | Granulocyte | | | [facility] | | | s | | | MEDICAL | | | | | | CENTER - | | | | | | LABORATORY | | + + + + + + | Absolute | 2.48 | 1.80 - 8.50 | [facility] | | | Neutrophils | | K/uL | [facility] | | | | | | MEDICAL | | | | | | CENTER - | | | | | | LABORATORY | | + + + + + + | Absolute | 1.57 | 0.60 - 3.20 | [facility] | | | Lymphocytes | | K/uL | [facility] | | | | | | MEDICAL | | | | | | CENTER - | | | | | | LABORATORY | | + + + + + + | Absolute | 0.33 | 0.00 - 1.00 | [facility] | | | Monocytes | | K/uL | [facility] | | | | | | MEDICAL | | | | | | CENTER - | | | | | | LABORATORY | | + + + + + + | Absolute | 0.24 | 0.00 - 0.40 | [facility] | | | Eosinophils | | K/uL | [facility] | | | | | | MEDICAL | | | | | | CENTER - | | | | | | LABORATORY | | + + + + + + | Absolute | 0.03 | 0.00 - 0.10 | [facility] | | | Basophils | | K/uL | [facility] | | | | | | MEDICAL | | | | | | CENTER - | | | | | | LABORATORY | | + + + + + + | Absolute | 0.01 | 0.00 - 0.03 | [facility] | | | Immature | | K/uL | [facility] | | | Granulocyte | | | MEDICAL | | | s | | | CENTER - | | | | | | LABORATORY | | + + + + + + | % nRBC | 0 | 0 - 2 per 100 | [facility] | | | | | WBCs | [facility] | | | | | | MEDICAL | | | | | | CENTER - | | | | | | LABORATORY | | + + + + + + | Absolute | 0.00 | 0.00 - 0.01 | [facility] | | | nRBC | | K/uL | [facility] | | | | | | MEDICAL | | | | | | CENTER - | | | | | | LABORATORY | | + + + + + + + + | Specimen | + + | Blood | + + + + + + + | Performing | Address | City/State/Zipcode | Phone Number | | Organization | | | | + + + + + | [facility] | 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) | + + documented in this encounter Administered Medications + +---------+ +------+-------+------+ | Medication Order | MAR | Action | Dose | Rate | Site | | | Action | Date | | | | + +---------+ +------+-------+------+ | ampicillin-sulbactam (UNASYN) 3 | New Bag | 08/29/20 | 3 g | 200 | | | g in sodium chloride 0.9% 100 mL | | 19 12:48 | | mL/hr | | | IVPB 3 g, Intravenous, | | PM PDT | | | | | Administer over 30 Minutes, ONCE, | | | | | | | 08/29/19 at 1140, For 1 dose, | | | | | | | Activate system and mix before | | | | | | | use., Indications: PURULENT SKIN | | | | | | | AND SOFT TISSUE INFECTION | | | | | | + +---------+ +------+-------+------+ +---+---+ | | | +---+---+ documented in this encounter
--- OUTSIDE RECORDS SUMMARY | ~2020-05-27 | XMS | Clinical Summary ---
Demographics + + + | Address | [address] | | | [place] [address] | + + + | Home Phone | | + + + | Preferred Language | Unknown | + + + | Marital Status | | + + + | Anabaptism Affiliation | Unknown | + + + | Race | Unknown | + + + | Ethnic Group | Unknown | + + + Author + + + | Author | [facility] | | | and [place] | + + + | Organization | [facility] | | | [...] [place] | | | | | [address] | | + + + + + Care Team Providers + +------+ + | Care Steward/Stewardess Third Class Name | Role | Phone | + [...] e | + + + +---------+------+------+-------+ | omeprazole | Take 1 capsule by | 30 | 0 | 10/3 | | Activ | | (PRILOSEC) 20 mg | mouth every morning | capsule | | 0/20 | | e | | capsule | (before breakfast). | | | 18 | | | + + + +---------+------+------+-------+ | oxyCODONE | Take 1 tablet by | 40 | 0 | 10/1 | | Activ | | (ROXICODONE) 5 mg | mouth every 4 hours | tablet | | 4/20 | | e | | tablet | as needed for Pain. | | | 19 | | | + + + +---------+------+------+-------+ Active [...] | 04/15/2019 | + + + | Bishopo yanira plastica | 04/15/2019 | + + [...] on file | | + + + Last Filed Vital Signs + [...] | | + + + + + Plan of Treatment + + + + + | Health Maintenance | Due Date | Last | Comments | | | | Done | | + + + + + | Vaccine: | | | | | Pneumococcal 19-64 | 8 | | | | (1 of 1 - PPSV23) | | | | + + [...] + + | Hemoglobin A1c | | 02/15/20 | | | Screening | 9 | 19, | | | | | 08/06/20 | | | | | 18, | | | | | 06/24/20 | | | | | 18 | | + + + + + | Vaccine: Influenza | | 07/24/20 | | | (#1) | 0 | 18, | | | | | 12/07/19 | | | | | 18, | | | | | 10/26/20 | | | | | 13, | | | | | Addition | | | | | al | | | | | history | | | | | exists | | + + + + + | Colorectal Cancer | | 09/21/20 | | | Screening | 3 | 18 | | | (Colonoscopy) | | | | + + + + + | Vaccine: | | 03/06/20 | | | Dtap/Tdap/Td (2 - | 7 | 17 | | | Td) | | | [...] +--------+-------+---------+--------+ | [facility] | [place] | [id number] | | | | Indemn | | | COMMUN | | 018-Pr | | | ity | | | ITY | | esent | | | | | | CARE | | | | | | + +--------+ +--------+-------+---------+--------+ | [facility] | [place] | [id number] | | | | Indemn | | | COMMUN | | 019-Pr | | | ity | | | ITY | | esent | | | | | | CARE | | | | | | + +--------+ +--------+-------+---------+--------+ | [facility] | [facility] | [id number] | | | | Indemn | | | NS | | 019-Pr | | | ity | | | ADMIN | | esent | | | | | | [place] | | | | | | | | [place] | | | | | | + [...] Person | Self [birth year] | [address] | | | al/Fam | | 1970 | [phone] | [place], [place] | | | paul | | | 1 (Home) | [address] | + +--------+ +--------+ + + | Oh Moreno | Person | Self [birth year] | [address] | | | al/Fam | | 1969 | [phone] | [place], [place] | | | paul | | | 1 (Home) | [address] | + +--------+ +--------+ + + Advance Directives + + + + + | Type | Date Recorded | Patient | Explanation | | | | 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
--- OUTSIDE RECORDS SUMMARY | ~2020-05-27 | XMS | Encounter Summary ---
Demographics + + + | Address | [address] | | | [place] [address] | + + + | Home Phone | | + + + | Preferred Language | Unknown | + + + | Marital Status | | + + + | Congregation Affiliation | Unknown | + + + | Race | Unknown | + + + | Ethnic Group | Unknown | + + + Author + + + | Author | [facility] | | | and [place] | + + + | Organization | [facility] | | | and [...] [place] | | | | | [address] | | + + + + + Care Team Providers + +------+ + | Care Medical Office Representative Name | Role | Phone | + +------+ + | Imer Woodard MD | PCP | | + +------+ + Reason for Visit + +--------+ + | Reason | Onset | Comments | | | Date | | + +--------+ + | Patient Concerns | 09/05/ | | | | 2018 | | + +--------+ + Encounter Details +--------+ + + + + | Date | Type | Department | Care Team | Description | +--------+ + + + + | 09/05/ | Telephone | [facility] | Tamika, | Patient Concerns | | 2018 | | [facility] | Sundeep Ramirez MD [address] | | | | | [facility] [address] | | | | | [address] [place] | [place] [address] | | | | | [place] [address] | [phone] | | | | | [phone] | | | +--------+ + + + [...] + + documented as of this encounter Miscellaneous Notes Telephone Encounter - Anisha Suarez RN - 09/05/2019 1:51 PM PDTPatient notified. E lectronically signed by Anisha Suarez RN at 09/05/2019 1:52 PM PDTTelephone Encounmarichuy bennett - Sundeep Lundberg MD - 09/05/2019 1:08 PM PDTprescription for oxycodone approved. Please notify patient. Electronically signed by: Sundeep Lundberg MD 09/05/2019 13:08 elephone Helena ernandez - Daniel Hendricks - 09/05/2019 11:37 AM PDTPt called [facility] pt, wants doctor to know that foot wound is still pretty bad, does not think he should do his chemo Thursday and in addition his father and he has to leave for [place]. He also needs refill on Oxycodone 5 mg tablet he is willing to drive to as he will be in [place] when he runs out, he will be there for at least a week. documented in this enc nter Plan of Treatment Not on filedocumented as of this encounter Visit Diagnoses Not on filedocumented in this encounter"
--- OUTSIDE RECORDS SUMMARY | ~2020-05-27 | XMS | Encounter Summary ---
Demographics + + + | Address | [address] | | | [place] [address] | + + + | Home Phone | | + + + | Preferred Language | Unknown | + + + | Marital Status | | + + + | Spiritism Affiliation | Unknown | + + + [...] [place] | | | | | [address] | | + + + + + Care Team Providers + +------+ + | Care Wave Solder Offbearer Name | Role | Phone | + +------+ + | Imer Woodard MD | PCP | | + +------+ + Reason for Visit +--------+--------+ + | Reason | Onset | Comments | | | Date | | +--------+--------+ + | Other | 10/27/ | | | | 2017 | | +--------+--------+ + Encounter Details +--------+ + + + [...] | | | | | | [place] [address] | | | | | | [phone] | | | +--------+ + + + [...] this encounter Miscellaneous Notes Telephone Encounter - Carina Soria RN - 10/27/2018 11:29 AM PSTCalled patient and exp lained that patient need to reschedule for colonoscopy and need a two day prep per Dr. Tu kovacs. The procedure for colonoscopy on 09/21/2018 was cancelled due to no prep was done. Tamra romeo is aware somebody will be calling patient to schedule colonoscopy. Two day prep will be mailed to: [address], [place] [address]. Please update patient's address since he mo [place]. Thank you. documente d in this encounter Plan of Treatment Not on filedocumented as of this encounter Visit Diagnoses Not on filedocumented in this encounter"
--- OUTSIDE RECORDS SUMMARY | ~2020-05-27 | XMS | Encounter Summary ---
Demographics + + + | Address | [address] | | | [place] [address] | + + + | Home Phone | | + + + | Preferred Language | Unknown | + + + | Marital Status | | + + + | Rastafarian Affiliation | Unknown | + + + | Race | Unknown | + + + | Ethnic Group | Unknown | + + + Author + + + | Author | [facility] | | | and [place] | + + + | Organization | [facility] | | [...] [place] | | | | | [address] | | + + + + + Care Team Providers + +------+ + | Care Surfboard Designer Name | Role | Phone | [...] | | | | MAURILIO THORPE, | [facility], [place] | | | | | | [place] [address] | [address] | | | | | | Phone: | Phone: | | | | | | [phone] | [phone] | | | | | | Fax: | Fax: | | | | | | [phone] | [phone] | +--------+--------+ + + + + Encounter [...] | SURGERY [address] | MD [address] | | | | | DR DEWAYNE VAZQUEZ, | [place], [place] | | | | | [place] [address] | [address] | | | | | [phone] | [phone] | | | | | | | [...] note might be different from the original. [facility] D.O. Leighton Martino M.D [address] , [place], [place] [address] - PATIENT NAME: Oh Moreno IF YOU [...] Gatorade, carbonated and non-carbonated soft drink, Jose Raafel-aid, plain Jell-O, and Popsicles. ? Avoid red [...] Needle Localization [] Lumpectomy [] Mastectomy [] [place] Node Biopsy [] Isosulfan Blue Dye [] Technesium 99 HERNIA [] Left [] Right [] Bilateral [] Inguinal [] Ventral [] Umbilical [] Open [] Laparoscopic COLON [] Right [] Left [] Sigmoid [] Open [] Laparoscopic [] Preop Ureteral Stent Placement - [] Left / [] Right GALLBLADDER [] Planned [facility] - 09/08/2018 1:30 PM PDT History & Physical HISTORY OF PRESENT ILLNESS Oh Moreno is a 47 y.o. male referred to me by Imer Woodard to discuss a history o f microcytic anemia for unclear reasons. He is also had about 6 months of a sensation of fe lnady urgency and occasional diarrhea. He also has [...] seizure. 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 documented in this encounter Plan of Treatment Not on filedocumented as of this encounter Visit Diagnoses + + | Diagnosis | + + | Nausea - Primary Nausea alone | + + | Microcytic anemia Iron deficiency anemia, unspecified | + + documented in this encounter
--- OUTSIDE RECORDS SUMMARY | ~2020-05-27 | XMS | Encounter Summary ---
Demographics + + + | Address | [address] | | | [place] [address] | + + + | Home Phone | | + + + | Preferred Language | Unknown | + + + | Marital Status | | + + + | Jain Affiliation | Unknown | + + + | Race | Unknown | + + + | Ethnic Group | Unknown | + + + Author + + + | Author | [facility] | | | and [place] | + + + | Organization | [facility] | | | [...] [place] | | | | | [address] | | + + + + + Care Team Providers + +------+ + | Care Senior Wind Turbine Technician Name | Role | Phone | [...] | | | | | | [place] [address] | | | | | | [phone] | | | +--------+ + + + [...] Two day prep will be mailed to: [address], [place] [address]. Please update patient's address since he mo ruby. Thank you. documente d in this encounter Plan of Treatment Not on filedocumented as of this encounter Visit Diagnoses Not on filedocumented in this encounter"
--- OUTSIDE RECORDS SUMMARY | ~2020-05-27 | XMS | Encounter Summary ---
Demographics + + + | Address | [address] | | | [place] [address] | + + + | Home Phone | | + + + | Preferred Language | Unknown | + + + | Marital Status | | + + + | Gnosticist Affiliation | Unknown | + + + [...] [place] | | | | | [address] | | + + + + + Care Team Providers + +------+ + | Care Environmental Engineering Intern Name | Role | Phone | + +------+ + | Imer Woodard MD | PCP | | + +------+ + Reason for Visit +--------+--------+ + | Reason | Onset | Comments | | | Date | | +--------+--------+ + | Other | 12/23/ | | | | 2018 | | +--------+--------+ + Encounter Details +--------+ [...] | | | | | | [place] [address] | | | | | | [phone] | | | +--------+ + + + [...] Telephone Encounter - Carina Soria RN - 12/23/2018 1:15 PM PSTNotedElectronically si gned by Carina Soria RN at 12/23/2018 1:15 PM PSTTelephone Encounter - Carina Soria RN - 12/23/2018 1:15 PM PST----- Message from Honey Paul sent at 12/23/2018 13:07 PS T ----- Pt was scheduled 09/21/18 for EGD [place] with Salena. Pt cancelled. I called to RS and pe r pt's son, he did not want to RS. I will hold PPW until his [facility] auth expires on 03/07/19.Tamra ctronically signed by Carina Soria RN at 12/23/2018 1:15 PM PSTdocumented in this enco unter Plan of Treatment Not on filedocumented as of this encounter Visit Diagnoses Not on filedocumented in this encounter"
--- OUTSIDE RECORDS SUMMARY | ~2020-05-27 | XMS | Encounter Summary ---
Demographics + + + | Address | [address] | | | [place] [address] | + + + | Home Phone | | + + + | Preferred Language | Unknown | + + + | Marital Status | | + + + | Baptist Affiliation | Unknown | + + + | Race | Unknown | + + + | Ethnic Group | Unknown | + + + Author + + + | Author | [facility] | | | and [place] | + + + | Organization | [facility] | | [...] [place] | | | | | [address] | | + + + + + Care Team Providers + +------+ + | Care Telesales Agent Name | Role | Phone | + [...] | | | | [address] [facility] | Moshe Longo | | | | | [address] | [place] [address] | | | | | [address] | | | | | | [phone] | | | +--------+ + + + [...]
--- OUTSIDE RECORDS SUMMARY | ~2020-05-27 | XMS | Encounter Summary ---
Demographics + + + | Address | [address] | | | [place] [address] | + + + | Home Phone | | + + + | Preferred Language | Unknown | + + + | Marital Status | | + + + | Adventism Affiliation | Unknown | + + + | Race | Unknown | + + + | Ethnic Group | Unknown | + + + Author + + + | Author | [facility] | | | and [place] | + + + | Organization | [facility] | | [...] [place] | | | | | [address] | | + + + + + Care Team Providers + +------+ + | Care Speech And Language Clinician Name | Role | Phone | + [...] | | | | | | | CT | | | | | | | COLONOSCOPY | | | | | | | FLX DX | | | | | | | W/COLLJ SPEC | | | | | | | WHEN PFRMD | | | | | | | CT | | | | | | | ESOPHAGOGAST | | | | | | | RODUODENOSCO | | | | | | | PY TRANSORAL | | | | | | | DIAGNOSTIC | | | | | | | CT EGD | | | | | | [...] | | [place], [place] | [place] [address] | | | | | [address] | [phone] | | | | | [phone] | | | +--------+ + + + + Anesthesia Record + + + + + | Procedure Name | Responsible | Anesthesia Start | Anesthesia Stop Time | | | Anesthesiologist | Time | | + + + + + | EGD (N/A Mouth) | Manas Sears, | 09/21/18 1248 | 09/21/18 1323 | | | COMMERCIAL HOUSEKEEPER | | | + + + + [...] Oh Darrin Moreno 47 y.o. male 1970 [id number] Procedure(s) EGD (N/A Mouth) COLONOSCOPY (N/A Rectum) [...] this time, Pt tolerated anesthetic well with [facility]'s noted @ this time. Vitals: 09/21/18 1345 09/21/18 1405 09/21/18 1406 BP: 137/80 (!) 162/98 Pulse: 80 93 86 Temp: 36.5 C (97.7 F) Resp: 16 16 SpO2: 99% 99% 100% Electronically signed by Manas Sears CRNA 09/21/2018 15:04 CC [facility] nesthesia Preprocedure Evaluation - Manas Sears CRNA - 09/21/2018 11:05 AM PDT ANESTHESIA PREANESTHESIA EVALUATION Oh Moreno 47 y.o. male 1970 [id number] Procedure(s): EGD (N/A Mouth) COLONOSCOPY (N/A Rectum) [...]
--- OUTSIDE RECORDS SUMMARY | ~2020-05-27 | XMS | Encounter Summary ---
Demographics + + + | Address | [address] | | | [place] [address] | + + + | Home Phone | | + + + | Preferred Language | Unknown | + + + | Marital Status | | + + + | Zoroastrian Affiliation | Unknown | + + + | Race | Unknown | + + + | Ethnic Group | Unknown | + + + Author + + + | Author | [facility] | | | and [place] | + + + | Organization | [facility] | | | and [place] | + + + | Address | Unknown | + + + | Phone | Unavailable | + + + Support + + + + + | Name | Relationship | Address | Phone | + + + + + | Cintia oMreno | ECON | Unknown | | + + + + + | Dayana Moreno | ECON | [address] | | | | | [place] | | | | | [address] | | + + + + + Care Team Providers + +------+ + | Care Brush Filler Hand Name | Role | Phone | + [...] + + | 09/05/ | [facility] | [facility] | Tamika, | Patient Concerns | | 2018 | | [facility] | Sundeep Ramirez MD [address] | | | | [facility] [address] | | | | | [address] | [place] [address] | | | | | [place] [address] | [phone] | | | | | [phone] | | | +--------+ + + + [...] father and he has to leave for [place]. He also needs refill on Oxycodone 5 mg tablet he is willing to drive to as he will be in [place] when he runs out, he will be there for at least a week. documented in this enc nter Plan of Treatment Not on filedocumented as of this encounter Visit Diagnoses Not on filedocumented in this encounter"
--- OUTSIDE RECORDS SUMMARY | ~2020-05-27 | XMS | Encounter Summary ---
Demographics + + + | Address | [address] | | | [place] [address] | + + + | Home Phone [...] + + + | Author | [facility] | | | and [place] | + + + | Organization | [facility] | | | [...] [place] | | | | | [address] | | + + + + + Care Team Providers + +------+ + | Care Safety Lamp Keeper Name | Role | Phone | + [...] | | | | | | [place] [address] | | | | | | [phone] | | | +--------+ + + + [...] ----- Pt was scheduled 09/21/[address] [place] with Salena. Pt cancelled. I called to [...]
--- OUTSIDE RECORDS SUMMARY | ~2020-05-27 | XMS | Encounter Summary ---
Demographics + + + | Address | [address] | | | [place] [address] | + + + | Home Phone | | + + + | Preferred Language | Unknown | + + + | Marital Status | | + + + | Protestant Affiliation | Unknown | + + + | Race | Unknown | + + + | Ethnic Group | Unknown | + + + Author + + + | Author | [facility] | | | and [place] | + + + | Organization | [facility] | | [...] [place] | | | | | [address] | | + + + + + Care Team Providers + +------+ + | Care Management Information Systems Director Name | Role | Phone | [...] | | [place], [place] | [place] [address] | | | | | [address] | [phone] | | | | | [phone] | | | +--------+ + + + + Anesthesia Record + + + + + | Procedure Name | Responsible | Anesthesia Start | Anesthesia Stop Time | | | Anesthesiologist | Time | | + + + + + | EGD (N/A Mouth) | Manas Sears, | 09/21/18 1248 | 09/21/18 1323 | | | STATIONARY EQUIPMENT MECHANIC | | | + + + + [...] Oh Darrin Moreno 47 y.o. male 1970 [id number] Procedure(s) EGD (N/A Mouth) COLONOSCOPY (N/A Rectum) [...] this time, Pt tolerated anesthetic well with [facility]'s noted @ this time. Vitals: 09/21/18 1345 09/21/18 1405 09/21/18 1406 BP: 137/80 (!) 162/98 Pulse: 80 93 86 Temp: 36.5 C (97.7 F) Resp: 16 16 SpO2: 99% 99% 100% Electronically signed by Manas Sears CRNA 09/21/2018 15:04 CC [facility] nesthesia Preprocedure Evaluation - Manas Sears CRNA - 09/21/2018 11:05 AM PDT ANESTHESIA PREANESTHESIA EVALUATION Oh Moreno 47 y.o. male 1970 [id number] Procedure(s): EGD (N/A Mouth) COLONOSCOPY (N/A Rectum) [...]
--- OUTSIDE RECORDS SUMMARY | ~2020-05-27 | XMS | Encounter Summary ---
Demographics + + + | Address | [address] | | | [place] [address] | + + + | Home Phone | | + + + | Preferred Language | Unknown | + + + | Marital Status | | + + + | Uatsdin Affiliation | Unknown | + + + | Race | Unknown | + + + | Ethnic Group | Unknown | + + + Author + + + | Author | [facility] | | | and [place] | + + + | Organization | [facility] | | [...] [place] | | | | | [address] | | + + + + + Care Team Providers + +------+ + | Care Station Mechanic Apprentice Name | Role | Phone | + [...] 09/21/ | Hospital | [place] [facility] | [place], | | | 2018 | Encounter | [facility] | Leighton Malagon, | | | | | [address] [place] | [address] | | | | | [place], [place] | [place] | | | | | [address] | [address] | | | | | [phone] | [phone] | | | | | | | [...] any questions, call your physician at or [phone]. If you need assistance after normal business hours, please contact the [facility] at . documented in this encounter [...] by: Leighton Martino MD, 09/21/2018 12:[address] [facility] signed by Leighton Martino MD at 12:37 [...] speech recognition errors which escaped detection during aeronautical inspector. documented in this encounter Procedure Notes Leighton Martino MD - 09/21/2018 12:51 PM PDTAssociated Order(s): ENDOSCOPYPro cedure(s): [place] EGD TRANSORAL BIOPSY SINGLE/MULTIPLE Endoscopy Report OPERATION PERFORMED: Flexible EGD with biopsies REFERRING PROVIDER: Imer Woodard PRE-OP DIAGNOSIS: Iron deficiency anemia POST-OP DIAGNOSIS: Same SURGEON: Leighton Martino MD ANESTHESIA: Sedation ANESTHESIA PROVIDER: CASE PACKER AND SEALER: Manas Sears CRNA SPECIMEN: ID Type Source [...] by: Leighton Martino MD, 09/21/2018 13:[address] [facility] This note was transcribed using voice recognition software; there may be speech recognition errors which escaped detection during aeronautical inspector. document ed in this encounter Plan of [...] + + | [place] [facility] | [address] | [place] | [phone] | | HOSPITAL LAB[facility]ATORY | | [address] | | + + + + + [...] ANESTHESIA: Sedation | | | ANESTHESIA PROVIDER: CASE PACKER AND SEALER: Manas Sears CRNA SPECIMEN: | | | [...] MD, | | | 09/21/2018 13:[address] [facility] This note was | | | transcribed using voice recognition software; there may be speech | | | recognition errors which escaped detection during aeronautical inspector. | | | | | + + [...] + + | [place] [facility] | [address] | [place] | [phone] | | HOSPITAL LAB[facility]ATORY | | [address] | | + + + + + [...] | | technical component was performed by [facility] | | | [place] [address] (Medical | | | Director: Samir Leija MD; CLIA# [id number]). Professional | | | interpretation was performed by [facility] | | | [place] [address] (Medical | | | Director: Samir Leija MD; CLIA# [id number]). ADDITIONAL | | | NOTES: Immunohistochemical and/or in situ hybridization studies were | | | performed on this case with the appropriate positive controls that | | | react as expected. This test was developed and its performance | | | characteristics determined by [employer]. It has not been | | | cleared or approved by the U.S. Food and Drug Administration. The | | | FDA has determined that such clearance or approval is not necessary. | | | This test is used for clinical purposes. It should not be regarded | | | as investigational or for research. [employer] is certified | | | under the Clinical Laboratory Improvement Amendments of 1988 (CLIA) | | | as qualified to perform high complexity clinical laboratory testing. | | | The technical component was performed by [employer], [facility] | | | [place] [facility] [address] (Automotive Brake Technician: Sindy Bernal MD; | | | CLIA# [id number]). Professional interpretation was performed by | | | [employer], [facility], [address], [place] | | | [place], [place] [address] (Automotive Brake Technician: Samir Leija MD; CLIA# | | | [id number]). PAS stain: The technical component was performed by | | | [employer], [facility], [address], [place] | | | [place], [place] [address] (Automotive Brake Technician: Samir Leija MD; CLIA# | | | [id number]). Professional interpretation was performed by [facility] | | | [facility], [facility], [address], [place] | | | [place], [place] [address] (Automotive Brake Technician: Samir Leija MD; CLIA# | | | [id number]). REASON FOR ADDENDUM: To add the results [...]
--- OUTSIDE RECORDS SUMMARY | ~2020-05-27 | XMS | Encounter Summary ---
Demographics + + + | Address | [address] | | | [place] [address] | + + + | Home Phone [...] [place] | | | | | [address] | | + + + + + Care Team Providers + +------+ + | Care Industrial Maintenance Technician Name | Role | Phone | [...] | | | | | | | ID | | | | | | | COLONOSCOPY | | | | | | | FLX DX | | | | | | | W/COLLJ SPEC | | | | | | | WHEN PFRMD | | | | | | | ID | | | | | | | ESOPHAGOGAST | | | | | | | RODUODENOSCO | | | | | | | PY TRANSORAL | | | | | | | DIAGNOSTIC | | | | | | | ID EGD | | | | | | [...] 09/21/ | Hospital | [place] [facility] | [place], | | | 2018 | Encounter | HOSPITAL [facility] | Leighton Malagon, | | | | | [address] [place] | [address] | | | | | [place], [place] | [place] | | | | | [address] | [address] | | | | | [phone] | [phone] | | | | | | | [...] normal business hours, please contact the [facility] at . documented in this encounter [...] by: Leighton Martino MD, 09/21/2018 12:37 CC [facility] by Leighton Martino MD at [...] seizure. 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 documented in this encounter Procedure Notes Leighton Martino MD - 09/21/2018 12:51 PM PDTAssociated Order(s): ENDOSCOPYPro cedure(s): [place] EGD TRANSORAL BIOPSY SINGLE/MULTIPLE Endoscopy Report OPERATION PERFORMED: Flexible EGD with biopsies REFERRING PROVIDER: Imer Woodard PRE-OP DIAGNOSIS: Iron deficiency anemia POST-OP DIAGNOSIS: Same SURGEON: Leighton Martino MD ANESTHESIA: Sedation ANESTHESIA PROVIDER: REMOTE OPERATIONS PRODUCER: Manas Sears CRNA SPECIMEN: ID Type Source [...] by: Leighton Martino MD, 09/21/2018 13:13 CC [facility] This note was transcribed using voice recognition software; there may be speech recognition errors which escaped detection during efficiency expert. document ed in this encounter Plan of [...] + + | [place] [facility] | [address] | [place] | [phone] | | HOSPITAL LAB[facility]ATORY | | [address] | | + + + + + [...] ANESTHESIA: Sedation | | | ANESTHESIA PROVIDER: REMOTE OPERATIONS PRODUCER: Manas Sears CRNA SPECIMEN: | | | [...] | | | 09/21/2018 13:13 CC [facility] This note was | | | transcribed using voice recognition software; there may be speech | | | recognition errors which escaped detection during efficiency expert. | | | | | + + [...] + + | [facility] [facility] | [address] | [place] | [phone] | | HOSPITAL LAB[facility]ATORY | | [address] | | + + + + + [...] | | technical component was performed by [facility] | | | [place] [address] (Medical | | | Director: Samir Leija MD; CLIA# [id number]). Professional | | | interpretation was performed by [facility] | | | [place] [address] (Medical | | | Director: Samir Leija MD; CLIA# [id number]). ADDITIONAL | | | NOTES: Immunohistochemical and/or in situ hybridization studies were | | | performed on this case with the appropriate positive controls that | | | react as expected. This test was developed and its performance | | | characteristics determined by [employer] [facility]. It has not been | | | cleared or approved by the U.S. Food and Drug Administration. The | | | FDA has determined that such clearance or approval is not necessary. | | | This test is used for clinical purposes. It should not be regarded | | | as investigational or for research. [employer] [facility] is certified | | | under the Clinical Laboratory Improvement Amendments of 1988 (CLIA) | | | as qualified to perform high complexity clinical laboratory testing. | | | The technical component was performed by [employer], [facility] | | | [place] [facility] [address] (Anesthesiology Medical Doctor: Sindy Bernal MD; | | | CLIA# [id number]). Professional interpretation was performed by | | | [employer], [facility], [address], [place] | | | [place], [place] [address] (Anesthesiology Medical Doctor: Samir Leija MD; CLIA# | | | [id number]). PAS stain: The technical component was performed by | | | [employer], [facility], [address], [place] | | | [place], [place] [address] (Anesthesiology Medical Doctor: Samir Leija MD; CLIA# | | | [id number]). Professional interpretation was performed by [facility] | | | [facility]ostics, [facility], [address], [place] | | | [place], [place] [address] (Anesthesiology Medical Doctor: Samir Leija MD; CLIA# | | | [id number]). REASON FOR ADDENDUM: To add the results [...]
--- OUTSIDE RECORDS SUMMARY | ~2020-05-27 | XMS | Encounter Summary ---
Demographics + + + | Address | [address] | | | [place] [address] | + + + | Home Phone [...] [place] | | | | | [address] | | + + + + + Care Team Providers + +------+ + | Care Safety Analyst Name | Role | Phone | + [...] | [address] [place] | [address] | | | | | [place], [place] | [place] | | | | | [address] | [address] | | | | | [phone] | [phone] | | | | | | | [...] by: Leighton Martino MD, 09/21/2018 12:37 [facility] Leighton Martino MD [...] seizure. 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 documented in this encounter Procedure Notes Leighton Martino MD - 09/21/2018 12:51 PM PDTAssociated Order(s): ENDOSCOPYPro cedure(s): NM EGD TRANSORAL BIOPSY SINGLE/MULTIPLE Endoscopy Report OPERATION PERFORMED: Flexible EGD with biopsies REFERRING PROVIDER: Imer Woodard PRE-OP DIAGNOSIS: Iron deficiency anemia POST-OP DIAGNOSIS: Same SURGEON: Leighton Martino MD ANESTHESIA: Sedation ANESTHESIA PROVIDER: DEPUTY SHERIFF GENERALIST/BAILIFF: Manas Sears CRNA SPECIMEN: ID Type Source [...] by: Leighton Martino MD, 09/21/2018 13:13 CC [facility] This note was transcribed using voice recognition software; there may be speech recognition errors which escaped detection during health careers instructor. document ed in this encounter Plan of [...] + + | [place] [facility] | [address] | [place] | [phone] | | [facility] | | [address] | | + + + + + [...] ANESTHESIA: Sedation | | | ANESTHESIA PROVIDER: DEPUTY SHERIFF GENERALIST/BAILIFF: Manas Sears CRNA SPECIMEN: | | | [...] MD, | | | 09/21/2018 13:13 CC [facility] This note was | | | transcribed using voice recognition software; there may be speech | | | recognition errors which escaped detection during health careers instructor. | | | | | + + [...] + + | [facility] [facility] | [address] | [place] | [phone] | | [facility] | | [address] | | + + + + + [...] | | technical component was performed by [facility] | | | [place] [address] (Medical | | | Director: Samir Leija MD; CLIA# [id number]). Professional | | | interpretation was performed by [facility] | | | [place] [address] (Medical | | | Director: Samir Leija MD; CLIA# [id number]). ADDITIONAL | | | NOTES: Immunohistochemical and/or in situ hybridization studies were | | | performed on this case with the appropriate positive controls that | | | react as expected. This test was developed and its performance | | | characteristics determined by [facility]. It has not been | | | cleared or approved by the U.S. Food and Drug Administration. The | | | FDA has determined that such clearance or approval is not necessary. | | | This test is used for clinical purposes. It should not be regarded | | | as investigational or for research. [facility] is certified | | | under the Clinical Laboratory Improvement Amendments of 1988 (CLIA) | | | as qualified to perform high complexity clinical laboratory testing. | | | The technical component was performed by [facility], [facility] | | | [facility] [address] (Third Helper: Sindy Bernal MD; | | | CLIA# [id number]). Professional interpretation was performed by | | | [facility], [facility], [address], [place] | | | [place], [place] [address] (Third Helper: Samir Leija MD; CLIA# | | | [id number]). PAS stain: The technical component was performed by | | | [facility], [facility], [address], [place] | | | [place], [place] [address] (Third Helper: Samir Leija MD; CLIA# | | | [id number]). Professional interpretation was performed by [facility] | | | [employer], [facility], [address], [place] | | | [place], [place] [address] (Third Helper: Samir Leija MD; CLIA# | | | [id number]). REASON FOR ADDENDUM: To add the results [...]
--- OUTSIDE RECORDS SUMMARY | ~2020-05-27 | XMS | Encounter Summary ---
Demographics + + + | Address | [address] | | | [place] [address] | + + + | Home Phone | | + + + | Preferred Language | Unknown | + + + | Marital Status | | + + + | Alevism Affiliation | Unknown | + + + | Race | Unknown | + + + | Ethnic Group | Unknown | + + + Author + + + | Author | [facility] | | | and [place] | + + + | Organization | [facility] | | | [...] [place], [place] | | | | | [address] | | + + + + + Care Team Providers + +------+ + | Care Principal Technical Specialist Name | Role | Phone | [...] | | | | | | [place] [address] | | | | | | [phone] | | | +--------+ + + + [...]
--- OUTSIDE RECORDS SUMMARY | ~2020-05-27 | XMS | Encounter Summary ---
Demographics + + + | Address | [address] | | | [place] [address] | + + + | Home Phone | | + + + | Preferred Language | Unknown | + + + | Marital Status | | + + + | Samaritan Affiliation | Unknown | + + + [...] [place], [place] | | | | | [address] | | + + + + + Care Team Providers + +------+ + | Care Graduate School Dean Name | Role | Phone | + [...] | | | | | | [place] [address] | | | | | | [phone] | | | +--------+ + + + [...]
--- OUTSIDE RECORDS SUMMARY | ~2020-05-27 | XMS | Clinical Summary ---
Demographics + + + | Address | [address] | | | [place] [address] | + + + | Home Phone | | + + + | Preferred Language | Unknown | + + + | Marital Status | | + + + | Mormon Affiliation | Unknown | + + + [...] [place] | | | | | [address] | | + + + + + Care Team Providers + +------+ + | Care Orthodontic Band Maker Name | Role | Phone | + [...] Influenza | | 07/24/20 | | | (Season Ended) | 0 | 18, | | | [...] +--------+-------+---------+--------+ | [facility] | [place] | [id number] | | | | Indemn | | | COMMUN | | 018-Pr | | | ity | | | ITY | | esent | | | | | | CARE | | | | | | + +--------+ +--------+-------+---------+--------+ | [facility] | [place] | [id number] | | | | Indemn | | | COMMUN | | 019-Pr | | | ity | | | ITY | | esent | | | | | | CARE | | | | | | + +--------+ +--------+-------+---------+--------+ | [facility] [employer] | [place] | [id number] | | | | Indemn | | [...] paul | | | 1 (Home) | [address] | + +--------+ +--------+ + + | Oh Moreno | Person | Self | [birth year] | [address] | | | al/Fam | | 1969 | [phone] | [place], [place] | | | paul | | | 1 (Home) | [address] | + +--------+ +--------+ + + Advance Directives + + + + + | Type | Date Recorded | Patient | Explanation | | | | Robotic Machine Tender Production | | + + + + + | Power of | | | | | Order Schedule Clerk | | | | + + + + + | Advance | 09/21/2018 | | | | Directive | 10:15 AM | | | + + + + +
--- OUTSIDE RECORDS SUMMARY | ~2020-05-27 | XMS | Encounter Summary ---
Demographics + + + | Address | [address] | | | [place] [address] | + + + | Home Phone | | + + + | Preferred Language | Unknown | + + + | Marital Status | | + + + | Bahai Affiliation | Unknown | + + + [...] [place] | | | | | [address] | | + + + + + Care Team Providers + +------+ + | Care Food Safety Technician Name | Role | Phone | [...] | [address] [place] | [address] | | | | | [place], [place] | [place] | | | | | [address] | [address] | | | | | [phone] | [phone] | | | | | | | [...] by: Leighton Martino MD, 09/21/2018 12:37 [facility] by Leighton Martino MD at [...] seizure. 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 documented in this encounter Procedure Notes Leighton Martino MD - 09/21/2018 12:51 PM PDTAssociated Order(s): ENDOSCOPYPro cedure(s): [place] EGD TRANSORAL BIOPSY SINGLE/MULTIPLE Endoscopy Report OPERATION PERFORMED: Flexible EGD with biopsies REFERRING PROVIDER: Imer Woodard PRE-OP DIAGNOSIS: Iron deficiency anemia POST-OP DIAGNOSIS: Same SURGEON: Leighton Martino MD ANESTHESIA: Sedation ANESTHESIA PROVIDER: AUTOMOBILE SERVICE ADVISOR: Manas Sears CRNA SPECIMEN: ID Type Source [...] by: Leighton Martino MD, 09/21/2018 13:13 CC [facility] This note was transcribed using voice recognition software; there may be speech recognition errors which escaped detection during die out worker. document ed in this encounter Plan of [...] + + | [place] [facility] | [address] | [place] | [phone] | | [facility] | | [address] | | + + + + + [...] ANESTHESIA: Sedation | | | ANESTHESIA PROVIDER: AUTOMOBILE SERVICE ADVISOR: Manas Sears CRNA SPECIMEN: | | | [...] | | | 09/21/2018 13:13 CC [facility] This note was | | | transcribed using voice recognition software; there may be speech | | | recognition errors which escaped detection during die out worker. | | | | | + + [...] + + | [facility] | [address] | [place] | [phone] | | HOSPITAL LAB[facility]ORY | | [address] | | + + + + + [...] | | | the patient's name Oh Moreon and date of 1970. A. | | [...] | | technical component was performed by [facility] | | | [place] [address] (Medical | | | Director: Samir Leija MD; CLIA# [id number]). Professional | | | interpretation was performed by [facility] | | | [place] [address] (Medical | | | Director: Samir Leija MD; CLIA# [id number]). ADDITIONAL | | | NOTES: Immunohistochemical and/or in situ hybridization studies were | | | performed on this case with the appropriate positive controls that | | | react as expected. This test was developed and its performance | | | characteristics determined by [facility]. It has not been | | | cleared or approved by the U.S. Food and Drug Administration. The | | | FDA has determined that such clearance or approval is not necessary. | | | This test is used for clinical purposes. It should not be regarded | | | as investigational or for research. [facility] is certified | | | under the Clinical Laboratory Improvement Amendments of 1988 (CLIA) | | | as qualified to perform high complexity clinical laboratory testing. | | | The technical component was performed by [facility], [facility] | | | [facility] [address] (Seconds Handler: Sindy Bernal MD; | | | CLIA# [id number]). Professional interpretation was performed by | | | [facility], [facility], [address], [place] | | | [place], [place] [address] (Seconds Handler: Samir Leija MD; CLIA# | | | [id number]). PAS stain: The technical component was performed by | | | [facility], [facility], [address], [place] | | | [place], [place] [address] (Seconds Handler: Samir Leija MD; CLIA# | | | [id number]). Professional interpretation was performed by [facility] | | | [facility], [facility], [address], [place] | | | [place], [place] [address] (Seconds Handler: Samir Leija MD; CLIA# | | | [id number]). REASON FOR ADDENDUM: To add the results [...]
--- OUTSIDE RECORDS SUMMARY | ~2020-05-27 | XMS | Encounter Summary ---
Demographics + + + | Address | [address] | | | [place] [address] | + + + | Home Phone [...] [place] | | | | | [address] | | + + + + + Care Team Providers + +------+ + | Care Duct Layer Supervisor Name | Role | Phone | [...] | | | | [address] [facility] | [place]he [place] | | | | | [address] | [place] [address] | | | | | [address] | | | | | | [phone] | | | +--------+ + + + [...]
--- OUTSIDE RECORDS SUMMARY | ~2020-05-27 | XMS | Encounter Summary ---
Demographics + + + | Address | [address] | | | [place] [address] | + + + | Home Phone | | + + + | Preferred Language | Unknown | + + + | Marital Status | | + + + | Mormon Affiliation | Unknown | + + + | Race | Unknown | + + + | Ethnic Group | Unknown | + + + Author + + + | Author | [facility] | | | and [place] | + + + | Organization | [facility] | | | [...] [place] | | | | | [address] | | + + + + + Care Team Providers + +------+ + | Care Ip Counsel Name | Role | Phone | + [...] | | | | MAURILIO THORPE, | [facility], [place] | | | | | | [place] [address] | [address] | | | | | | Phone: | Phone: | | | | | | [phone] | [phone] | | | | | | Fax: | Fax: | | | | | | [phone] | [phone] | +--------+--------+ + + + + Encounter [...] | SURGERY [address] | MD [address] | | | | | DR DEWAYNE [place]Z, | [place], [place] | | | | | [place] [address] | [address] | | | | | [phone] | [phone] | | | | | | | [...] might be different from the original. [facility] Leighton Martino M.D [address] , [place], [place] [address] - PATIENT NAME: Oh Moreno IF YOU [...] Needle Localization [] Lumpectomy [] Mastectomy [] [place] Node Biopsy [] Isosulfan Blue Dye [] Technesium 99 HERNIA [] Left [] Right [] Bilateral [] Inguinal [] Ventral [] Umbilical [] Open [] Laparoscopic COLON [] Right [] Left [] Sigmoid [] Open [] Laparoscopic [] Preop Ureteral Stent Placement - [] Left / [] Right GALLBLADDER [] Planned [facility] - 09/08/2018 1:30 PM PDT [...] seizure. 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 documented in this encounter Plan of Treatment Not on filedocumented as of this encounter Visit Diagnoses + + | Diagnosis | + + | Nausea - Primary Nausea alone | + + | Microcytic anemia Iron deficiency anemia, unspecified | + + documented in this encounter
--- OUTSIDE RECORDS SUMMARY | ~2020-05-27 | XMS | Encounter Summary ---
Demographics + + + | Address | [address] | | | [place] [address] | + + + | Home Phone [...] [place] | | | | | [address] | | + + + + + Care Team Providers + +------+ + | Care Linux Systems Analyst Name | Role | Phone | [...] | 08/29/ | Emergency | [facility] | [place], | Cellulitis of right | | 2019 | | [facility] | Sundeep Keller MD [address] | foot (Primary Dx); | | | | CENTER [address] | [address] [place] | Ulcer of right foot, | | | | [place], [place] | [place] [address] | unspecified ulcer | | | | [address] | [phone] | stage ([facility]); | | | | [phone] | | Peripheral sensory | | | | | | neuropathy due to | | | | | | type 2 diabetes | | | | | | mellitus ([facility]) | +--------+ + + + + Social [...] might be differe nt from the original. [facility] [place] Moreno Emergency Department Encounter Note [address] [place] [id number] PCP:Imer Woodard MD Room: [facility] DIAGNOSIS: 1. Cellulitis of right foot 2. [...] followed at the wound clinic at the [facility] for this. 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 CURRENT MEDICATIONS DIRECTOR BUSINESS INTEGRATION Home Medications Medication Sig amitriptyline (ELAVIL) 10 [...] were reviewed along with EMS notes and halfway record s if applicable. (See chart for [...] Ulcer of right foot, unspecified ulcer stage ([facility]) L97.519 707.15 3. Peripheral sensory neuropathy due to type 2 diabetes mellitus ([facility]) E11.42 250.60 356.2 Follow-up Information Imer Woodard MD In 3 days. Specialty: Family Medicine Why: For wound re-check [facility] [address] New Prescriptions CEPHALEXIN (KEFLEX) 500 [...] Portions of this chart were created with [employer] voice recognition software. Inadvertent so und alike [...] O?MRN: | | | | | | [id number] | | | [id number] | | | riteri | | | [...] | | | St. | | | [place] | | | y | | | [...] | | | St. | | | [place] | | | y | | | [...] | | | St. | | | [place] | | | y | | | [...] | | | St. | | | [place] | | | y | | | [...] | | | St. | | | [place] | | | y H. | | [...] | | | St. | | | [place] | | | y H. | | [...] | | | St. | | | [place] | | | y H. | | [...] | | | St. | | | [place] | | | y H. | | [...] | | | St. | | | [place] | | | y H. | | [...] | | | St. | | | [place] | | | y H. | | | [place] | | | [place] | | | Emerge | | | ncy | | | Chief | | | Compla | | | int: | | | ANEMIA | | | May | | | 9, | | | 2019 | | | [facility] | | | [facility] | | | [place] | | | y H. | | [...] | | | St. | | | [place] | | | y H. | | [...] | | | St. | | | [place] | | | y H. | | [...] | | | St. | | | [place] | | | y H. | | [...] | | | [id number] | | | [id number] | | | 7c | | | [...] [address] | [place] | [phone] | | [facility] | | [address] | | | - LABORATORY | | [...] + | [facility] | [address] | [place], [place] | [phone] | | [facility] | | [address] | | | - LABORATORY | | [...] [address] | [place] | [phone] | | [facility] | | [address] | | | - LABORATORY | | [...] + | [facility] | [address] | [place] | [phone] | | [facility] | | [address] | | | - LABORATORY | | [...] ST. | [address] | [place], [place] | [phone] | | [facility] | | [address] | | | - LABORATORY | | [...] + | [facility] | [address] | [place] | [phone] | | [facility] | | [address] | | | - LABORATORY | | [...]
[~2020-05-27 13:42] MED LIST changes: +AMLODIPINE BESY10 MG PO; +BUSPIRONE HCL5 MG PO; -CATAPRES0.1 MG PO; +CATAPRES0.2 MG PO; +REGLAN10 MG PO
--- OUTSIDE RECORDS SUMMARY | 2020-05-27 13:46 | XMS ---
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 Care History Medical/Surgical 09/20/2019 [facility] - PATIENT PCP- DR RAYMUNDO HAS MADE A REFERRAL TO DR LEONE - [place] INCIDENT RESPONSE LEAD. 08/29/2019 [facility] - PATIENT NOW HAS DR MARII LION PATIENT PCP AT [facility]. - PATIENT DOES HAVE IN HOME CARE SERVICES THROUGH THE [facility]- RN HOME VISITS ALONG WITH PROVIDER IN HOME VISITS. 06/20/2019 [facility] - PATIENT STATED HE HAS SOMEONE COMING FROM [facility] TO COME AND EVALUATE HIS HOME FOR SAFETY/FALL RISK THIS WEEK. - PATIENT DECLINED ANY FURTHER SERVICES/RESOURCES AT THIS TIME-STATED HE IS [facility]ING [facility]. Yordan VISIT COUNT (12 MO.) 1 [facility]. Mary Eric 15 STEPHY Howard TOTAL 16 NOTE: Visits indicate total known visits. ED/UCC VISIT TRACKING (12 MO.) 05/27/2020 13:43 [facility] [place] TYPE: Emergency COMPLAINT: - LOW BP, DIZZYNESS 05/07/2020 09:41 STE[facility] [place] TYPE: Emergency COMPLAINT: - CONSTIPATION DIAGNOSES: - Dehydration - Malignant neoplasm of colon, unspecified - Essential (primary) hypertension - Other assisted (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 - Acute gastritis without bleeding - Constipation, unspecified - Nausea with vomiting, unspecified - Allergy status to other drugs, medicaments and biological sub - Type 2 diabetes mellitus with diabetic neuropathy, unspecifie 04/13/2020 18:34 STE[facility] [place] TYPE: Emergency COMPLAINT: - LOW BP DIAGNOSES: - Type 2 diabetes mellitus with diabetic neuropathy, unspecifie - Hypotension, unspecified - Other ad terminal makeup operator (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 - Essential (primary) hypertension - Allergy status to other drugs, medicaments and biological sub - Hypotension, unspecified - Hypokalemia 04/05/2020 10:55 STE[facility] [place] TYPE: Emergency COMPLAINT: - LEFT SHOULDER PAIN DIAGNOSES: - Essential (primary) hypertension - Allergy status to other drugs, medicaments and biological sub - Overexertion from strenuous movement or load, initial encount - Other ad terminal makeup operator (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 - Type 2 diabetes mellitus with diabetic neuropathy, unspecifie - Pain in left shoulder - Personal history of nicotine dependence - Strain of unspecified muscle, fascia and tendon at shoulder a - terminologist (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 01/20/2020 [...] pain - Post-traumatic stress disorder, unspecified - terminologist (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 12/25/2019 02:51 STE[facility] [place] TYPE: Emergency COMPLAINT: - NAUSEA DIAGNOSES: - Type 2 diabetes mellitus with diabetic neuropathy, unspecifie - Allergy status to other drugs, medicaments and biological sub - Post-traumatic stress disorder, unspecified - Personal history of nicotine dependence - Nausea with vomiting, unspecified - Unspecified abdominal pain - Essential (primary) hypertension - Other ad terminal makeup operator (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 11/23/2019 22:20 [facility] [place] TYPE: Emergency COMPLAINT: - VOMITING DIAGNOSES: - Malignant neoplasm of colon, unspecified - Allergy status to other drugs, medicaments and biological sub - terminologist (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 - Post-traumatic stress disorder, unspecified - Type 2 diabetes mellitus with diabetic neuropathy, unspecifie - Allergy status to narcotic agent status - Personal history of nicotine dependence - Essential (primary) hypertension - Other assisted (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 - Vomiting, unspecified - Acute gastritis without bleeding 10/22/2019 18:49 STE[facility] [place] TYPE: Emergency COMPLAINT: - VOMITING DIAGNOSES: - Type 2 diabetes mellitus with diabetic neuropathy, unspecifie - Allergy status to analgesic agent status - group home (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 - Allergy status to other drugs, medicaments and biological sub - Anemia, unspecified - Other ad terminal makeup operator (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 - Vomiting, unspecified 09/30/2019 20:11 STE[facility] Lopez [place] TYPE: Emergency COMPLAINT: - POST OP PROBLEM DIAGNOSES: - Encounter for change or removal of surgical wound dressing - Encounter for change or removal of surgical wound dressing - Type 2 diabetes mellitus with diabetic neuropathy, unspecifie - Personal history of nicotine dependence - Other assisted (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 09/19/2019 11:[address] [facility] [address] [facility] SILVA TYPE: Emergency COMPLAINT: - FOOT WOUND DIAGNOSES: - Allergy status to other drugs, medicaments and biological sub - Type 2 diabetes mellitus with foot ulcer - Allergy status to narcotic agent status - Type 2 diabetes mellitus with diabetic neuropathy, unspecifie - Other ad terminal makeup operator (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 - terminologist (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 - Pain in right foot - Non-pressure chronic ulcer of other part of right foot with u - Personal history of other malignant neoplasm of large intesti 08/29/2019 10:[facility]: [facility] DIAGNOSES: - Wound Check [...] of antineoplastic and immunosuppressive drugs, - Other ad terminal makeup operator (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 - Post-traumatic stress disorder, unspecified - terminologist (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 - [...] diabetes mellitus with diabetic neuropathy, unspecifie - terminologist (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 - Vomiting, unspecified - Other ad terminal makeup operator (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 - Migraine, unspecified, not intractable, without status migrai 07/24/2019 02:43 STE[facility] Lopez [place] TYPE: Emergency COMPLAINT: - NECK PAIN/PORT ISSUE DIAGNOSES: - Essential (primary) hypertension - Personal history of nicotine dependence - Cervicalgia - Malignant neoplasm of colon, unspecified - Type 2 diabetes mellitus with diabetic neuropathy, unspecifie - Anemia, unspecified - Allergy status to narcotic agent status - terminologist (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 - Post-traumatic stress disorder, unspecified - Other assisted (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 [...] Abrasion, left lower leg, initial encounter - terminologist (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 - Fall on same level from slipping, tripping and stumbling with - Type 2 diabetes mellitus with diabetic neuropathy, unspecifie - Allergy status to other drugs, medicaments and biological sub - Personal history of other malignant neoplasm of large intesti - Other assisted (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 05/28/2019 06:21 [facility] [place] TYPE: Emergency COMPLAINT: - VOMITING/DIARRHEA/HEADACHE DIAGNOSES: - Allergy status to other drugs, medicaments and biological sub - Allergy status to narcotic agent status - Generalized abdominal pain - Secondary malignant neoplasm of large intestine and rectum - Other ad terminal makeup operator (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 - Type 2 diabetes mellitus without complications - Dehydration - terminologist (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 of aspirin - Personal history of nicotine dependence - Nausea with vomiting, unspecified INPATIENT VISIT TRACKING (12 MO.) 06/01/2019 12:[address] [facility] [address] [facility] [place] TYPE: Medical Surgical COMPLAINT: - DEHYDRATION, [...] d - Post-traumatic stress disorder, unspecified - terminologist (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 of inhaled steroids - Iron deficiency anemia secondary to blood loss (chronic) - Allergy status to other drugs, medicaments and biological sub - Hyperlipidemia, unspecified - Other ad terminal makeup operator (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 - Body mass index (BMI) 20.0-20.9, adult - Essential (primary) hypertension - Allergy status to narcotic agent status - Allergy status to narcotic agent status - Other seasonal allergic rhinitis - terminologist (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 of inhaled steroids - 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
--- NOTE | 2020-05-27 20:00 | NUR ---
PT ARRIVED ON FLOOR VIA GURNEY. PT WAS ABLE TO TRANSFER TO BED WITH SBA. ARRIVED TO FLOOR IMMEDIATELY THEREAFTER. PT STATES HE HAS NAUSEA AND ABDOMINAL PAIN. PRN REGLAN AND FENTANYL PROVIDED WELL ORDERED FENTANYL PATCH. PT WAS UP TO TOILET AND COULD VOID CLEAR YELLOW URINE. PT HAD EPISODE OF NAUSEA AND DRY HEAVES. PT IS LAYING BED WITH AT BEDSIDE. PT REQUESTS JELLO AND WATER WHICH IS PROVIDED. CALL LIGHT WITH IN REACH.
--- NOTE | 2020-05-27 20:51 | NUR ---
PT ARRIVED TO THE UNIT VIA STRETCHER. ABLE TO STAND AND PIVOT TO BED. ADMISSION PROCESS COMPLETE. PT UP TO BATHROOM WITH 1 PA. TOLERATED WELL. PT'S PRESENT AT BEDSIDE. ORIENTED TO POC FOR THIS SHIFT AND TO ROOM AND CALL LIGHT. QUESTIONS OR CONCERNS DENIED AT THIS TIME. CALL LIGHT IN REACH.
--- NOTE | 2020-05-27 21:45 | NUR ---
CALL LIGHT ANSWERED. PT UP TO BATHROOM TO HAVE A BM BUT WAS UNABLE TO PRODUCE STOOL. PT RETURNED TO BED AND REQUESTS PAIN MEDS FOR ABDOMINAL PAIN.
--- NOTE | 2020-05-27 22:15 | NUR ---
PT PROVIDED WITH PRN FENTANYL REQUESTED. PT ALSO RECEIEVED GATORADE, CHICKEN NOODLE SOUP AND YOGURT ON REQUEST. NO FURTHER NEEDS AT THIS TIME.
--- NOTE | 2020-05-27 23:08 | NUR ---
CALL LIGHT ANSWERED. PT REQUESTS PRN FENTANYL FOR ABDOMINAL PAIN 06/01. FENTANYL PROVIDED.
--- NOTE | 2020-05-28 00:03 | EKG ---
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
--- NOTE | 2020-05-28 00:39 | NUR ---
CALL LIGHT ANSWERED. PT REQUESTS PRN PAIN MEDS WHICH ARE PROVIDED. PT RATES PAIN 9/10 IN ABDOMEN. PT UP TO TOILET FOR BM WHICH IS UNSUCCESSFUL. WHILE ON TOILET, PT VOMITED. PT RETURNED TO BED AND WAS MOANING IN PAIN AND STATES PAIN IS GETTING WORSE DESPITE PAIN MEDS. ZOFRAN IV PROVIDED FOR NAUSEA. CALL TO DR TUCKER; NEW ORDERS RECEIVED. UPON RETURNING TO ROOM TO DISCUSS NEW ORDERS WITH PT, PT IS SLEEPING. WILL WAIT UNTIL PT WAKES AGAIN. CALL LIGHT WITHIN REACH.
--- NOTE | 2020-05-28 01:12 | NUR ---
ROUNDS COMPLETE. PT AND SEEN SLEEPING. NO APPARENT SIGNS OF DISTRESS.
--- NOTE | 2020-05-28 01:56 | NUR ---
CALL LIGHT ANSWERED. PT REQUESTS PRN FENTANYL FOR ABDOMINAL PAIN. PT AGREED TO ONE TIME EXTRA 25MCG DOSE OF FENTANYL ORDERED BY DR TUCKER. PHENERGAN ALSO PROVIDED AT THIS TIME. NO FURTHER REQUESTS AT THIS TIME. CALL LIGHT WITHIN REACH.
--- NOTE | 2020-05-28 03:29 | NUR ---
CALL LIGHT ANSWERED. PT REQUESTS PAIN MEDS. PRN FENTANYL PROVIDED FOR 06/01 PAIN IN ABDOMEN. AT 06/01 PT MOANS AND STATES THAT THE PAIN IS A SHARP STABBING PAIN. PT CALMS SOON MEDS ARE INJECTED. NO FURTHER NEEDS AT THIS TIME. CALL LIGHT WITHIN REACH.
--- NOTE | 2020-05-28 04:37 | NUR ---
CALL LIGHT ANSWERED. PT REQUESTS REGLAN AND FENTANYL WHICH ARE PROVIDED. ASSESSMENT COMPLETE. VSS, BOWEL TONES HYPOACTIVE. GOOD URINE OUTPUT. CALL LIGHT AND BEDSIDE TABLE WITHIN REACH.
--- NOTE | 2020-05-28 05:29 | NUR ---
PT HAD A LOT OF PAIN THROUGH THE NIGHT. HE RATED HIS ABDOMINAL PAIN 7-9 THROUGHOUT THE NIGHT. PT WILL CRY OUT IN PAIN WHEN HE HAS BREAKTHROUGH PAIN BUT THEN CALMS SOON THE MEDICATION IS ADMINISTERED. PT CALLS ON THE HOUR FOR THE Q1H FENTANYL. INCREASED ONE TIME DOSE DID NOT SEEM TO CHANGE THE PAIN OUTCOME. PT HAD NAUSEA THROUGHOUT NIGHT ALTHOUGH ONLY VOMITED ONCE. PRN NAUSEA MEDS USED AVAILABLE. PT CALLS APPROPRIATELY AND HAD GOOD URINE OUTPUT. PT AMBULATES WITH FWW PER HIS CHOICE. PT WAS UP TO TOILET TO HAVE A BM SEVERAL TIMES THIS SHIFT BUT WAS UNSUCCESFUL. BOWEL TONES HYPOACTIVE THIS SHIFT. PT NO LONGER HYPOTENSIVE BUT IS NOW HYPERTENSIVE.
--- NOTE | 2020-05-28 07:35 | NUR ---
REPORT RECEIVED. PT IN BED REPROTING PAIN 07/02. NS AT 125 INFUSING. CALL LIGHT IN REACH.
--- NOTE | 2020-05-28 07:48 | NUR ---
PT REPORTING STABBING ABDOMINAL PAIN AT 8/10. PRN PAIN MEDS GIVEN.
--- NOTE | 2020-05-28 08:30 | NUR ---
PT WITH 100ML EMESIS. 4MG ZOFRAN ADMINSTERED.
--- NOTE | 2020-05-28 09:50 | NUR ---
8/10 ABDOMINAL PAIN. PRN PAIN MEDS GIVEN. SBA TO BATHROOM FOR MED BOWEL MOVEMENT. BACK TO BED WITH CALL LIGHT IN REACH.
--- NOTE | 2020-05-28 11:53 | NUR ---
pt resting in bed reports pain 8/10 25mcg of fentanyl iv given at this time.
--- NOTE | 2020-05-28 13:22 | NUR ---
REPORTING PAIN AND PT APPEARS ANXIOUS. PRN ATIVAN 0.5MG ADMINSITERED.
[2020-05-28] MEDS ORDERED: ZYRTEC10 MG PO (13:47)
[2020-05-28] MEDS ORDERED: SENNA-S 8.6-501 EACH PO (13:48)
[2020-05-28] MEDS ORDERED: PEPCID40 MG PO (13:49)
[2020-05-28] MEDS ORDERED: ZESTRIL40 MG PO (13:51)
[2020-05-28] MEDS ORDERED: MAG-OXIDE400 MG PO (13:53)
--- NOTE | 2020-05-28 14:00 | NUR ---
PT REPORTING PAIN 07/02. PRN PAIN MEDICATIONS GIVEN.
[2020-05-28] MEDS ORDERED: ZINC50 M1 PO (14:05)
[2020-05-28] MEDS ORDERED: REGLAN10 MG PO (14:06)
[2020-05-28] MEDS ORDERED: OXYCODONE HCL5 MG PO (14:12)
[2020-05-28] MEDS ORDERED: CARAFATE1 GM PO (14:13)
[2020-05-28] MEDS ORDERED: EMEND150 MG IV (14:20)
--- NOTE | 2020-05-28 14:25 | NUR ---
Medications reconciled using [facility] chart notes
--- NOTE | 2020-05-28 18:50 | NUR ---
PATIENT IN BED WATCHING TV, AT BEDSIDE. CALL LIGHT IN REACH. NO FURTHER NEEDS AT THIS TIME.
--- NOTE | 2020-05-28 18:58 | NUR ---
REPORTING ABDOMINAL PAIN/HEADACHE. PRN MEDICATIONS GIVEN.
--- NOTE | 2020-05-28 20:27 | NUR ---
PT ASSESSMENT COMPLETE. PT REPORTS PAIN 8/10 TO ABD, PRN PAIN MEDICATION ADMINISTERED, SEE EMAR. PT DENIES NAUSEA OR SOB AT THIS TIME. BT'S HYPOACTIVE, ABD VERY TENDER TO LIGHT TOUCH. PT UP TO VOID WITH 'S ASSISTANCE PRIOR TO ICT BUSINESS ANALYST'S ARRIVAL TO ROOM, URINE DARK IN COLOR. QUANTITY SUFFIECIENT. SCHEDULED MEDICATION ADIMINISTERED. VS OBTAINED. TEMP NOTED TO BE 101.3, NOTIFIED, NEW ORDER RECEIVED, SEE EMAR. PT REQUESTS POPSICLE, TO BE PROVIDED. HE AND DENY FURTHER NEEDS AT THIS TIME. PT DROWSY AFTER PAIN MED ADMINISTRATION. TO REMAIN AT BEDSIDE. CALL LIGHT IN REACH.
--- NOTE | 2020-05-28 23:29 | NUR ---
PT RESTING IN BED WITH EYES CLOSED. RESPIRATIONS EVEN AND UNLABORED. PT APPEARS TO BE SLEEPING. PT'S RESTING ON COUCH. CALL LIGHT IN REACH.
--- NOTE | 2020-05-29 00:22 | NUR ---
PT'S UTILIZES CALL LIGHT, REPORTS THAT PT OULLED HIS IV OUT IN HIS SLEEP. PT WAKES, DOES NOT REALIZED THAT THIS IS WHAT HAPPENED. PT UP TO BATHROOM, GOWN AND BED LINENS CHANGED DUE TO DIAPHORESIS. TEMP RECHECKED, 97.7. VOCATIONAL NURSING INSTRUCTOR ATTEMPTS IV X 2, UNSUCCESSFUL. ANOTHER RN TO ATTEMPT. PT AND HIS STATE UNDERSTANDING. DENY FURTHER NEEDS AT THIS TIME. CALL LIGHT IN REACH.
--- NOTE | 2020-05-29 00:50 | NUR ---
PRN PAIN MEDCIATION ADMINISTERED AFTER NEW IV SITE PLACED. PT DENIES FURTHER NEEDS AT THIS TIME. CALL LIGHT IN REACH. REMAINS AT BEDSIDE.
--- NOTE | 2020-05-29 04:00 | NUR ---
PT ASSESSMENT COMPLETE. PT'S UTILIZES CALL LIGHT, REQUESTS PRN PAIN MEDICATION. ADMINISTERED, SEE EMAR. PT DIAPHORETIC. BED LINENS CHANGED AGAIN. PT SAT UP IN CHAIR WHILE LINENS CHANGED, IS MORE TALKATIVE AT THIS TIME. ABD VERY TENDER, PT RATING PAIN TO ABD 9/10. DENIES NAUSEA. IV FLUSHED, WNL, WRAPPED WITH COBAN. PT ASKS ABOUT PAIN MEDICATION, EDUCATION PROVIDED. PT REQUESTS PRN ATIVAN. ADMINISTERED. PT REQUESTS POPSICLE, PROVIDED. DENIES FURTHER NEEDS AT THIS TIME. CALL LIGHT IN REACH.
--- NOTE | 2020-05-29 06:11 | NUR ---
PT UTILIZES CALL LIGHT, REQUESTS PRN PAIN MEDCIATION. IN SITTING UP IN BED LOOKING OVER BREAKFAST MENU. RATES PAIN 7/10. PRN MEDICATION ADMINISTERED, SEE EMAR. PT DENIES FURTHER NEEDS AT THIS TIME. CALL LIGHT IN REACH. RESTING ON COUCH AT BEDSIDE.
--- NOTE | 2020-05-29 06:28 | NUR ---
YULIET RN FROM [facility], PRIMARY CARE PHYSICIAN OFFICE CALLED. UPDATED, PLANS TO CALL BACK AFTER 10:30 AM TO HEAR THE PLAN. [phone]
--- NOTE | 2020-05-29 07:00 | NUR ---
BEDSIDE HANDOFF REPORT RECEIVED FROM PLASTIC PRODUCTION MACHINE SETTER RN. PT RESTING IN BED. PT REQUESTING PAIN MEDICATION. PT DENIES OTHER NEEDS AT THIS TIME.
--- NOTE | 2020-05-29 07:20 | NUR ---
PT REPORT OF PAIN 08/02 TO ABD. GIVEN 25MCG IV FENTANYL PER ORDER. PT ASKING TO BE PREMEDICATED WITH REGLAN FOR BREAKFAST, DSICUSSED WITH PT. PT DENIES OTHER NEEDS AT THIS TIME.
--- NOTE | 2020-05-29 08:07 | NUR ---
PT GIVEN 5MG IV REGLAN REQUESTED FOR NAUSEA AND BREAKFAST.
--- NOTE | 2020-05-29 08:27 | NUR ---
PT RESTING IN BED EATING BREAKFATS. PT REPORTING PAIN 8/10, GIVEN 25 MCG IV FENTANYL. PT ON ROOM AIR, LUNG SOUNDS CLEAR. BOWEL TONES ACTIVE, TOLERATING DIET, HAS MILD NAUSEA CONSISTENTLY. BLOOD GLUCOSE 183, GIVEN 3 UNITS SS HUMALOG. PT WITH NEUROPATHY IN BLE, PULSES STRONG. IV FLUIDS INFUSING NS AT 125ML/HR TO LEFT ARM. DISCUSSED PLAN OF CARE FOR THE DAY. AT BEDSIDE. PT DENIES OTHER NEEEDS AT THIS TIME.
[2020-05-29] MEDS ORDERED: METOCLOPRAMIDE H5 MG PO (10:40)
[2020-05-29] MEDS ORDERED: OXYCODONE HCL5 MG PO (10:41)
[2020-05-29] MEDS ORDERED: LORAZEPAM1 MG PO (10:50)
[2020-05-29] MEDS ORDERED: FENTANYL1 EACH TD (10:52)
== END 2020-05-29 11:47 | disposition home or self-care (01) ==
LOC: ED 13:42 → MS 13:44
PROVIDERS: ADMIT Internal Medicine
DX: I95.9 Hypotension, unspecified (principal); N17.9 Acute kidney failure, unspecified; C18.9 Malignant neoplasm of colon, unspecified; C78.7 Secondary malignant neoplasm of liver and intrahepatic bile duct; F43.10 Post-traumatic stress disorder, unspecified; E11.9 Type 2 diabetes mellitus without complications; I11.0 Hypertensive heart disease with heart failure; I50.9 Heart failure, unspecified; D64.9 Anemia, unspecified; E78.5 Hyperlipidemia, unspecified; Z90.49 Acquired absence of other specified parts of digestive tract; Z79.84 Long term (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; Z79.899 Other long term (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; Z87.891 Personal history of nicotine dependence; Z88.8 Allergy status to other drugs, medicaments and biological substances
CPT/HCPCS: 36415; 71045; 74176; 80048; 80053; 82140; 83690; 83735; 84484; 85025; 85610; 93005; 93010; 96361; 96374; 96375; 96376; 99285-25; C9113; C9803; G0378; J1815; J2060; J2270; J2405; J2550; J2765; J3010; J7030; U0002

== ENCOUNTER 2020-06-10 11:42 | Emergency (ER) | payer MEDICARE, OTHER ==
[~2020-06-10] VITALS: Ht 193 cm; Wt 80.3 kg
[~2020-06-10 11:42] MED LIST changes: +CARAFATE1 GM PO; +EMEND150 MG IV; +FENTANYL1 EACH TD; +MAG-OXIDE400 MG PO; +METOCLOPRAMIDE H5 MG PO; +PEPCID40 MG PO; +SENNA-S 8.6-501 EACH PO; +ZESTRIL40 MG PO; +ZINC50 M1 PO
--- OUTSIDE RECORDS SUMMARY | 2020-06-10 11:46 | XMS ---
PreManage Notification: SONIA VIVAS Security Appeals Representative Events No recent Security Events currently on file CRITERIA MET - 6 ED Visits in 6 Months - [facility] - Has Care Guidelines - PDMP - [facility] - 2 Visits in 30 Days CARE PROVIDERS EDDY RamirezH Internal Medicine: Medical Oncology 05/08/2020-Current JEROME PHONE: [phone] TYRESE RAYMUNDOH Emelyn [facility] Medicine 05/30/2019-Current PHONE: Unknown Jamal has no Care Guidelines for this patient. Care History Medical/Surgical 09/20/2019 [facility] - PATIENT PCP- DR RAYMUNDO HAS MADE A REFERRAL TO DR LEONE - J[employer] WAGE AND HOUR INVESTIGATOR. 08/29/2019 [facility] - PATIENT NOW HAS DR MARII LION PATIENT PCP AT [facility]. - PATIENT DOES HAVE [facility]- RN HOME VISITS ALONG WITH PROVIDER IN HOME VISITS. 06/20/2019 [facility] - PATIENT STATED HE HAS SOMEONE COMING FROM THE [facility] TO COME AND EVALUATE HIS HOME FOR SAFETY/FALL RISK THIS WEEK. - PATIENT DECLINED ANY FURTHER SERVICES/RESOURCES AT THIS TIME-STATED [facility]ING WITH [facility]. Yordan VISIT COUNT (12 MO.) 1 [facility]. Mary Eric 15 STEPHY Howard TOTAL 16 NOTE: Visits indicate total known visits. ED/UCC VISIT TRACKING (12 MO.) 06/10/2020 11:43 STE[facility] [place] TYPE: Emergency COMPLAINT: - VOMITING 05/27/2020 13:43 [facility] [place] TYPE: Emergency COMPLAINT: - LOW BP, DIZZYNESS 05/07/2020 09:41 [facility] [place] TYPE: Emergency COMPLAINT: - CONSTIPATION DIAGNOSES: - Dehydration - Malignant neoplasm of colon, unspecified - Essential (primary) hypertension - Other joint terminal attack controller (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 - Acute gastritis without bleeding - Constipation, unspecified - Nausea with vomiting, unspecified - Allergy status to other drugs, medicaments and biological sub - Type 2 diabetes mellitus with diabetic neuropathy, unspecifie 04/13/2020 18:34 [facility] [place] TYPE: Emergency COMPLAINT: - LOW BP DIAGNOSES: - Type 2 diabetes mellitus with diabetic neuropathy, unspecifie - Hypotension, unspecified - Other longterm (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 - Essential (primary) hypertension - Allergy status to other drugs, medicaments and biological sub - Hypotension, unspecified - Hypokalemia 04/05/2020 10:55 [facility] [place] TYPE: Emergency COMPLAINT: - LEFT SHOULDER PAIN DIAGNOSES: - Essential (primary) hypertension - Allergy status to other drugs, medicaments and biological sub - Overexertion from strenuous movement or load, initial encount - Other longterm (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 - Type 2 diabetes mellitus with diabetic neuropathy, unspecifie - Pain in left shoulder - Personal history of nicotine dependence - Strain of unspecified muscle, fascia and tendon at shoulder a - salvage determiner (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 01/20/2020 13:20 [facility] [place] TYPE: Emergency COMPLAINT: - PAIN, WEAKNESS DIAGNOSES: - Personal history of nicotine dependence - Other joint terminal attack controller (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 - Type 2 diabetes mellitus with diabetic neuropathy, unspecifie - Essential (primary) hypertension - Allergy status to other drugs, medicaments and biological sub - Nausea with vomiting, unspecified - Unspecified abdominal pain - Post-traumatic stress disorder, unspecified - salvage determiner (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 12/25/2019 02:51 [facility] [place] TYPE: Emergency COMPLAINT: - NAUSEA DIAGNOSES: - Type 2 diabetes mellitus with diabetic neuropathy, unspecifie - Allergy status to other drugs, medicaments and biological sub - Post-traumatic stress disorder, unspecified - Personal history of nicotine dependence - Nausea with vomiting, unspecified - Unspecified abdominal pain - Essential (primary) hypertension - Other longterm (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 11/23/2019 22:20 [facility] [place] TYPE: Emergency COMPLAINT: - VOMITING DIAGNOSES: - Malignant neoplasm of colon, unspecified - Allergy status to other drugs, medicaments and biological sub - salvage determiner (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 - Post-traumatic stress disorder, unspecified - Type 2 diabetes mellitus with diabetic neuropathy, unspecifie - Allergy status to narcotic agent status - Personal history of nicotine dependence - Essential (primary) hypertension - Other longterm (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 - Vomiting, unspecified - Acute gastritis without bleeding 10/22/2019 18:49 [facility] [place] TYPE: Emergency COMPLAINT: - VOMITING DIAGNOSES: - Type 2 diabetes mellitus with diabetic neuropathy, unspecifie - Allergy status to analgesic agent status - intermediate (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 - Allergy status to other drugs, medicaments and biological sub - Anemia, unspecified - Other joint terminal attack controller (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 - Vomiting, unspecified 09/30/2019 20:11 [facility] [place] TYPE: Emergency COMPLAINT: - POST OP PROBLEM DIAGNOSES: - Encounter for change or removal of surgical wound dressing - Encounter for change or removal of surgical wound dressing - Type 2 diabetes mellitus with diabetic neuropathy, unspecifie - Personal history of nicotine dependence - Other joint terminal attack controller (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 09/19/2019 11:53 STEPHY Reeves TYPE: Emergency COMPLAINT: - FOOT WOUND DIAGNOSES: - Allergy status to other drugs, medicaments and biological sub - Type 2 diabetes mellitus with foot ulcer - Allergy status to narcotic agent status - Type 2 diabetes mellitus with diabetic neuropathy, unspecifie - Other longterm (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 - intermediate (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 - Pain in right foot - Non-pressure chronic ulcer of other part of right foot with u - Personal history of other malignant neoplasm of large intesti [facility] DIAGNOSES: - Wound Check [...] of antineoplastic and immunosuppressive drugs, - Other joint terminal attack controller (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 - Post-traumatic stress disorder, [...] diabetes mellitus with diabetic neuropathy, unspecifie - salvage determiner (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 - Vomiting, unspecified - Other longterm (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 - Migraine, unspecified, not intractable, without status migrai 07/24/2019 02:43 [facility] [place] TYPE: Emergency COMPLAINT: - NECK PAIN/PORT ISSUE DIAGNOSES: - Essential (primary) hypertension - Personal history of nicotine dependence - Cervicalgia - Malignant neoplasm of colon, unspecified - Type 2 diabetes mellitus with diabetic neuropathy, unspecifie - Anemia, unspecified - Allergy status to narcotic agent status - salvage determiner (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 - Post-traumatic stress disorder, unspecified - Other joint terminal attack controller (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 - Allergy status to [...] malignant neoplasm of large intesti - Other longterm (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 INPATIENT VISIT TRACKING (12 MO.) 05/27/2020 13:44 [facility] [place] TYPE: Observation COMPLAINT: - ACUTE KIDNEY INJURY, HYPOTENSION DIAGNOSES: - Allergy status to other drugs, medicaments and biological sub - Hypotension, unspecified - Heart failure, unspecified - Hypertensive heart disease with heart failure - Acute kidney failure, unspecified - Personal history of nicotine dependence - Anemia, unspecified - Other longterm (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 - Type 2 diabetes mellitus without complications - Hyperlipidemia, unspecified - Malignant neoplasm of colon, unspecified - 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
[2020-06-10] MEDS ORDERED: DURAGESIC1 EAC1 TD (17:07)
[2020-06-10] MEDS ORDERED: REGLAN10 MG PO (17:41)
== END 2020-06-10 18:05 | disposition home or self-care (01) ==
LOC: ED 11:42
DX: R10.9 Unspecified abdominal pain (principal); C18.9 Malignant neoplasm of colon, unspecified; C78.7 Secondary malignant neoplasm of liver and intrahepatic bile duct; E11.40 Type 2 diabetes mellitus with diabetic neuropathy, unspecified; I10 Essential (primary) hypertension; Z88.8 Allergy status to other drugs, medicaments and biological substances; Z79.899 Other long term (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; Z79.84 Long term (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
CPT/HCPCS: 71045; 80053; 81001; 83690; 83735; 85025; 96361; 96374; 96375; 96376; 99284-25; J1170; J2405; J2765; J3480; J7030; J7121

== ENCOUNTER 2020-06-14 20:56 | Emergency (ER) | payer MEDICARE, OTHER ==
[~2020-06-14] VITALS: Ht 193 cm; Wt 79.4 kg
--- OUTSIDE RECORDS SUMMARY | ~2020-06-14 | XMS | Encounter Summary ---
Demographics + + + | Address | [address] | | | [place] [address] | + + + | Home Phone | | + + + | Preferred Language | Unknown | + + + | Marital Status | | + + + | Sabianism Affiliation | Unknown | + + + | Race | Unknown | + + + | Ethnic Group | Unknown | + + + Author + + + | Author | [facility] | | | and [place] | + + + | Organization | [facility] | | [...] [place] | | | | | [address] | | + + + + + Care Team Providers + +------+ + | Care Office Services Coordinator Name | Role | Phone | + [...] | | | | MAURILIO THORPE, | [facility], [place] | | | | | | [place] [address] | [address] | | | | | | Phone: | Phone: | | | | | | [phone] | [phone] | | | | | | Fax: | Fax: | | | | | | [phone] | [phone] | +--------+--------+ + + + + Encounter [...] | SURGERY [address] | MD [address] | | | | | DR DEWAYNE VAZ[place]Z, | [place], [place] | | | | | [place] [address] | [address] | | | | | [phone] | [phone] | | | | | | | [...] note might be different from the original. [facility] Leighton Martino M.D [address] , [place], [place] [address] - PATIENT NAME: Oh Moreno IF YOU [...] Needle Localization [] Lumpectomy [] Mastectomy [] [place] Node Biopsy [] Isosulfan Blue Dye [] Technesium 99 HERNIA [] Left [] Right [] Bilateral [] Inguinal [] Ventral [] Umbilical [] Open [] Laparoscopic COLON [] Right [] Left [] Sigmoid [] Open [] Laparoscopic [] Preop Ureteral Stent Placement - [] Left / [] Right GALLBLADDER [] [facility] - 09/08/2018 1:30 PM PDT History [...] seizure. 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 documented in this encounter Plan of Treatment Not on filedocumented as of this encounter Visit Diagnoses + + | Diagnosis | + + | Nausea - Primary Nausea alone | + + | Microcytic anemia Iron deficiency anemia, unspecified | + + documented in this encounter
--- OUTSIDE RECORDS SUMMARY | ~2020-06-14 | XMS | Encounter Summary ---
Demographics + + + | Address | [address] | | | [place] [address] | + + + | Home Phone | | + + + | Preferred Language | Unknown | + + + | Marital Status | | + + + | Orthodox Affiliation | Unknown | + + + | Race | Unknown | + + + | Ethnic Group | Unknown | + + + Author + + + | Author | [facility] | | | and [place] | + + + | Organization | [facility] | | | and [...] [place] | | | | | [address] | | + + + + + Care Team Providers + +------+ + | Care Lab Engineer Name | Role | Phone | + +------+ + | Imer Woodard MD | PCP | | + +------+ + Encounter Details +--------+ + + + + | Date | Type | Department | Care Team | Description | +--------+ + + + + | 04/15/ | Abstract | [facility] | [place], | | | 2019 | | GASTROENTEROLOGY | MD [address] | | | | | [address] [facility] | Moshe Longo | | | | | [address] | [place] [address] | | | | | [address] | | | | | | [phone] | | | +--------+ + + + [...] | EXTERNAL LAB: CBC | Routin | 03/23/2019 | | Results [...] | EXTERNAL LAB: DOUG | Routin | 08/06/2018 | | Results [...] + + | EXTERNAL LAB: CHRISTINE | Florentino | 08/06/2018 | | Results for this | | | e | | | procedure are in the | | | | | | results section. | + +--------+ + + + | EXTERNAL LAB: LUIS ENRIQUE | Florentino | 08/06/2018 | | Results for this [...] | EXTERNAL LAB: BUN | Routin | 06/24/2018 | | Results [...] | EXTERNAL LAB: ALT | Routin | 06/24/2018 | | Results for this | | | e | | | procedure are in the | | | | | | results section. | + +--------+ + + + | EXTERNAL LAB: AST | Routin | 06/24/2018 | | Results [...] documented in this encounter Results External Lab: ARTHUR (03/23/2019) + +-------+ + + + | [...] | + +--------+ + + + | Erythrocyte | 43 (A) | 0 - 10 mm/hr | | | | | | | | | | Sedimentati | | | | | | on Rate | | | | | + +--------+ [...] | + +--------+ + + + | Erythrocyte | 43 (A) | 0 - 10 mm/hr | | | | | | | | | | Sedimentati | | | | | | on Rate | | | | | + +--------+ [...] | + +-------+ + + + | Erythrocyte | 28 | mm/hr | | | | | | | | | | Sedimentati | | | | | | on Rate | | | | | + +-------+ [...] + +---------+ + + External Lab: BUN (02/14/2019) + +-------+ + + + | [...] + +---------+ + + External Lab: DOUG (08/06/2018) + +-------+ + + + | [...] | + +---------+ + + External Lab: LUIS ENRIQUE (08/06/2018) + +--------+ + + + | [...] +-------+ + + + | BUN, | 9 | 7 - 23 | [...]
--- OUTSIDE RECORDS SUMMARY | ~2020-06-14 | XMS | Encounter Summary ---
Demographics + + + | Address | [address] | | | [place] [address] | + + + | Home Phone | | + + + | Preferred Language | Unknown | + + + | Marital Status | | + + + | Confucianism Affiliation | Unknown | + + + | Race | Unknown | + + + | Ethnic Group | Unknown | + + + Author + + + | Author | [facility] | | | and [place] | + + + | Organization | [facility] | | | [...] [place] | | | | | [address] | | + + + + + Care Team Providers + +------+ + | Care Dispatcher Clerk Name | Role | Phone | [...] | 08/29/ | Emergency | [facility] | [place], | Cellulitis of right | | 2019 | | [facility] | Sundeep Keller MD [address] | foot (Primary Dx); | | | | CENTER [address] | [address] [place] | Ulcer of right foot, | | | | [place], [place] | [place] [address] | unspecified ulcer | | | | [address] | [phone] | stage ([facility]); | | | | [phone] | | Peripheral sensory | | | | | | neuropathy due to | | | | | | type 2 diabetes | | | | | | mellitus ([facility]) | +--------+ + + [...] might be differe nt from the original. [facility] Emergency Department Encounter Note [address] [place] [address] PCP:Imer Woodard MD Room: [facility] DIAGNOSIS: 1. Cellulitis of right foot 2. [...] followed at the wound clinic at the [place] for this. 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 (See chart for [...] Ulcer of right foot, unspecified ulcer stage ([facility]) L97.519 707.15 3. Peripheral sensory neuropathy due to type 2 diabetes mellitus ([facility]) E11.42 250.60 356.2 Follow-up Information Imer Woodard MD In 3 days. Specialty: Family Medicine Why: For wound re-check [facility] [address] New Prescriptions CEPHALEXIN [...] Portions of this chart were created with [employer] voice recognition software. Inadvertent so und alike [...] O?MRN: | | | | | | [id number] | | | [id number] | | | riteri | | | [...] | | | St. | | | [place] | | | y | | | [...] | | | St. | | | [place] | | | y | | | [...] | | | St. | | | [place] | | | y | | | [...] | | | St. | | | [place] | | | y | | | [...] | | | St. | | | [place] | | | y H. | | [...] | | | St. | | | [place] | | | y H. | | [...] | | | St. | | | [place] | | | y H. | | [...] | | | St. | | | [place] | | | y H. | | [...] | | | St. | | | [place] | | | y H. | | [...] | | | St. | | | [place] | | | y H. | | | [place] | | | [place] | | | Emerge | | | ncy | | | Chief | | | Compla | | | int: | | | ANEMIA | | | May | | | 9, | | | 2019 | | | [facility] | | | [facility] | | | [place] | | | y H. | | [...] | | | St. | | | [place] | | | y H. | | [...] | | | St. | | | [place] | | | y H. | | [...] | | | St. | | | [place] | | | y H. | | [...] | | | [id number] | | | [id number] | | | 7c | | | [...] [address] | [place] | [phone] | | [facility] | | [address] | | | - LABORATORY | | [...] + | [facility] | [address] | [place], [place] | [phone] | | [facility] | | [address] | | | - LABORATORY | | [...] [address] | [place] | [phone] | | [facility] | | [address] | | | - LABORATORY | | [...] + | [facility] | [address] | [place] | [phone] | | [facility] | | [address] | | | - LABORATORY | | [...] ST. | [address] | [place], [place] | [phone] | | [facility] | | [address] | | | - LABORATORY | | | | + + + + + CBC with Differential (08/29/2019 12:20 PM PDT) + + + + + + | Component | Value | Ref Range | Performed | Pathologist | | | | | At | Signature | + + + + + + | White Blood | 4.7 | 4.0 - 11.0 K/uL | [facility] | | | Cells | | | [facility] | | | | | | [facility]ICAL | | | | | | CENTER - | | | | | | LABORATORY | | + + + + + + | Red Blood | 4.43 | 4.30 - 5.70 | [facility] | | | Cells | | M/uL | [facility] | [...] | | | Granulocyte | | | [facility] | | | s | | [...] + | [facility] | [address] | [place] | [phone] | | [facility] | | [address] | | | - LABORATORY | | [...]
--- OUTSIDE RECORDS SUMMARY | ~2020-06-14 | XMS | Encounter Summary ---
Demographics + + + | Address | [address] | | | [place] [address] | + + + | Home Phone [...] [facility] | | | and [place] | + + + | Organization | [facility] | | | and [...] [place], [place] | | | | | [address] | | + + + + + Care Team Providers + +------+ + | Care Fusion Operator Name | Role | Phone | [...] | | | | | | [place] [address] | | | | | | [phone] | | | +--------+ + + + [...]
--- OUTSIDE RECORDS SUMMARY | ~2020-06-14 | XMS | Encounter Summary ---
Demographics + + + | Address | [address] | | | [place] [address] | + + + | Home Phone | | + + + | Preferred Language | Unknown | + + + | Marital Status | | + + + | Spiritism Affiliation | Unknown | + + + | Race | Unknown | + + + | Ethnic Group | Unknown | + + + Author + + + | Author | [facility] | | | and [place] | + + + | Organization | [facility] | | | [...] [place] | | | | | [address] | | + + + + + Care Team Providers + +------+ + | Care Blanket Cutting Machine Operator Name | Role | Phone [...] | | | | | | | [place] | | | | | | | COLONOSCOPY | | | | | | | FLX DX | | | | | | | W/COLLJ SPEC | | | | | | | WHEN PFRMD | | | | | | | [place] | | | | | | | ESOPHAGOGAST | | | | | | | RODUODENOSCO | | | | | | | PY TRANSORAL | | | | | | | DIAGNOSTIC | | | | | | | [place] EGD | | | | | | [...] | [address] [place] | [address] | | | | | [place], [place] | [place] | | | | | [address] | [address] | | | | | [phone] | [phone] | | | | | | | [...] + + + | Blood Pressure | 141/87 | 09/21/2018 10:49 AM | | | | | PDT | | + + + + + | Pulse | 87 | 09/21/2018 10:49 AM | | | | | PDT | | + + + + + | Temperature | 36.9 C (98.4 F) | 09/21/2018 10:49 AM | | | | | PDT | | + + + + + | Respiratory Rate | 18 | 09/21/2018 10:49 AM | | | | | PDT | | + + + + + | Oxygen Saturation | 100% | 09/21/2018 10:49 AM | | | | | PDT [...] after normal business hours, please contact the [facility] at . documented in this encounter [...] + + documented as of this encounter H&P Notes Leighton Martino MD - 09/21/2018 12:37 PM PDTSURGICAL INTERIM HISTORY & PHYSIC AL UPDATE Pt. Name/Age/: Oh Moreno 47 y.o. 1970 Date of admission: 09/21/2018 The current H&P was reviewed. The patient was reexamined. Re-evaluation of the patient co nfirms the necessity for the scheduled procedure. No change has occurred in the patient s condition since the H&P was completed less than 30 days ago. VERIFICATION OF CONSENT (PARQ) The patient was counseled regarding the procedure, its indications, risks, potential compli cations and alternatives. Any questions were answered. Consent was obtained. Electronically signed by: Leighton Martino MD, 09/21/2018 12:37 [facility] Leighton Martino MD at 12:37 PM PDTLeighton Martino MD - 09/08/2018 1:30 PM PDT History [...] seizure. 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 documented in this encounter Procedure Notes Leighton Martino MD - 09/21/2018 12:51 PM PDTAssociated Order(s): ENDOSCOPYPro cedure(s): [place] EGD TRANSORAL BIOPSY SINGLE/MULTIPLE Endoscopy Report OPERATION PERFORMED: Flexible EGD with biopsies REFERRING PROVIDER: Imer Woodard PRE-OP DIAGNOSIS: Iron deficiency anemia POST-OP DIAGNOSIS: Same SURGEON: Leighton Martino MD ANESTHESIA: Sedation ANESTHESIA PROVIDER: EDGE SANDER: Manas Sears CRNA SPECIMEN: ID Type Source Tests Collected by Time Destination A : fundus biopsy Tissue SURGICAL PATHOLOGY EXAM Leighton Martino MD 8 1304 Pathology B : GE junction biopsy Tissue SURGICAL PATHOLOGY EXAM Leigthon Martino MD 08/25 1306 Pathology COMPLICATIONS: None INDICATIONS FOR PROCEDURE: Oh Moreno is a 47 y.o. male PROCEDURE IN DETAIL: With consent obtained, the patient was taken to the endoscopy suite and placed in the left lateral decubitus position. A timeout was taken, and the patient was adequately sedated by the department of anesthesia. I began by advancing a flexible gastroscope into the orophar ynx and into the patient's esophagus under direct visualization. I continued to advance the scope into the gastric lumen. I traversed the pylorus and advanced the scope to the second portion of the duodenum. The duodenal mucosa was normal appearing without ulcer. The scope was withdrawn through t he pylorus. The antrum was inspected and was also fairly normal-appearing without ulcer. S michelle biopsy was obtained for CLOtest. At this point, the instrument was retroflexed. The incisura was normal. The stomach was insufflated such that the rugal folds flattened. Ther e was no significant hiatal hernia but there were hemorrhagic mucosal lesions in the fundal mucosa. These were biopsied. The scope was anteverted and the remainder of the gastric muc hansel was inspected. No other abnormalities were identified. The scope was slowly withdrawn through the GE junction. The squamocolumnar mucosa was inspected and found to be somewhat c hronically inflamed. Biopsies were taken of the EG junction. The instrument was ultimatel y removed from the patient's mouth. Attention was then turned to the colonoscopy, but it was apparent that there was no signif icant prep that had been done. Decision was made to cancel the colonoscopy and talked to e patient regarding a 2 day preparation. The patient tolerated the procedure well and there were no immediate complications. Electronically Signed by: Leighton Martino MD, 09/21/2018 13:13 [facility] This note was transcribed using voice recognition software; there may be speech recognition errors which escaped detection during cryptanalyst. document ed in this encounter Plan of Treatment Not [...] + + | [facility] | [address] | [place] | [phone] | | [facility] | | [address] | | + + + + + [...] ANESTHESIA: Sedation | | | ANESTHESIA PROVIDER: EDGE SANDER: Manas Sears CRNA SPECIMEN: | | | [...] MD, | | | 09/21/2018 13:13 [facility] This note was | | | transcribed using voice recognition software; there may be speech | | | recognition errors which escaped detection during cryptanalyst. | | | | | + + [...] + + + + + | [facility] | [address] | [place] | [phone] | | HOSPITAL LAB[facility]ATORY | | [address] | | + + + + + [...] | | technical component was performed by [facility] | | | [place] [address] (Medical | | | Director: Samir Leija MD; CLIA# [id number]). Professional | | | interpretation was performed by [facility] | | | [place] [address] (Medical | | | Director: Samir Leija MD; CLIA# [id number]). ADDITIONAL | | | NOTES: Immunohistochemical and/or in situ hybridization studies were | | | performed on this case with the appropriate positive controls that | | | react as expected. This test was developed and its performance | | | characteristics determined by [facility]. It has not been | | | cleared or approved by the U.S. Food and Drug Administration. The | | | FDA has determined that such clearance or approval is not necessary. | | | This test is used for clinical purposes. It should not be regarded | | | as investigational or for research. [facility] is certified | | | under the Clinical Laboratory Improvement Amendments of 1988 (CLIA) | | | as qualified to perform high complexity clinical laboratory testing. | | | The technical component was performed by [facility], [facility] | | | [facility] [address] (Robotics Specialist: Sindy Bernal MD; | | | CLIA# [id number]). Professional interpretation was performed by | | | [facility], [facility], [address], [place] | | | [place], [place] [address] (Robotics Specialist: Samir Leija MD; CLIA# | | | [id number]). PAS stain: The technical component was performed by | | | [facility], [facility], [address], [place] | | | [place], [place] [address] (Robotics Specialist: Samir Leija MD; CLIA# | | | [id number]). Professional interpretation was performed by [facility] | | | [place], [facility], [address], [place] | | | [place], [place] [address] (Robotics Specialist: Samir Leija MD; CLIA# | | | [id number]). REASON FOR ADDENDUM: To add the results [...] see admin | | | instruction, Starting Thu | | | 09/21/18 at 1111, CORRECTION [...]
--- OUTSIDE RECORDS SUMMARY | ~2020-06-14 | XMS | Encounter Summary ---
Demographics + + + | Address | [address] | | | [place] [address] | + + + | Home Phone | | + + + | Preferred Language | Unknown | + + + | Marital Status | | + + + | Roman Catholic Affiliation | Unknown | + + + | Race | Unknown | + + + | Ethnic Group | Unknown | + + + Author + + + | Author | [facility] | | | and [place] | + + + | Organization | [facility] | | | [...] [place] | | | | | [address] | | + + + + + Care Team Providers + +------+ + | Care Elastic Attacher Zigzag Name | Role | Phone | + [...] | | | | | | | [place] | | | | | | | COLONOSCOPY | | | | | | | FLX DX | | | | | | | W/COLLJ SPEC | | | | | | | WHEN PFRMD | | | | | | | [place] | | | | | | | ESOPHAGOGAST | | | | | | | RODUODENOSCO | | | | | | | PY TRANSORAL | | | | | | | DIAGNOSTIC | | | | | | | [place] EGD | | | | | | [...] 09/21/ | Hospital | [facility] | [place], | | | 2018 | Encounter | [facility] | Leighton Malagon, | | | | | [address] [place] | [address] | | | | | [place], [place] | [place] | | | | | [address] | [address] | | | | | [phone] | [phone] | | | | | | | [...] after normal business hours, please contact the [facility] at . documented in this encounter [...] by: Leighton Martino MD, 09/21/2018 12:37 [facility] Leighton Martino MD at [...] seizure. 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 documented in this encounter Procedure Notes Leighton Martino MD - 09/21/2018 12:51 PM PDTAssociated Order(s): ENDOSCOPYPro cedure(s): [place] EGD TRANSORAL BIOPSY SINGLE/MULTIPLE Endoscopy Report OPERATION PERFORMED: Flexible EGD with biopsies REFERRING PROVIDER: Imer Woodard PRE-OP DIAGNOSIS: Iron deficiency anemia POST-OP DIAGNOSIS: Same SURGEON: Leighton Martino MD ANESTHESIA: Sedation ANESTHESIA PROVIDER: FINAL EXPENSE AGENT: Manas Sears CRNA SPECIMEN: ID Type Source [...] by: Leighton Martino MD, 09/21/2018 13:13 [facility] This note was transcribed using voice recognition software; there may be speech recognition errors which escaped detection during guide excursion. document ed in this encounter Plan of [...] + + | [facility] | [address] | [place] | [phone] | | HOSPITAL LAB[facility]ATORY | | [address] | | + + + + + [...] ANESTHESIA: Sedation | | | ANESTHESIA PROVIDER: FINAL EXPENSE AGENT: Manas Sears CRNA SPECIMEN: | | | [...] MD, | | | 09/21/2018 13:13 [facility] This note was | | | transcribed using voice recognition software; there may be speech | | | recognition errors which escaped detection during guide excursion. | | | | | + + [...] + + | [facility] | [address] | [place] | [phone] | | HOSPITAL LAB[facility]ATORY | | [address] | | + + + + + [...] | | technical component was performed by [facility] | | | [place] [address] (Medical | | | Director: Samir Leija MD; CLIA# [id number]). Professional | | | interpretation was performed by [facility] | | | [place] [address] (Medical | | | Director: Samir Leija MD; CLIA# [id number]). ADDITIONAL | | | NOTES: Immunohistochemical and/or in situ hybridization studies were | | | performed on this case with the appropriate positive controls that | | | react as expected. This test was developed and its performance | | | characteristics determined by [facility]. It has not been | | | cleared or approved by the U.S. Food and Drug Administration. The | | | FDA has determined that such clearance or approval is not necessary. | | | This test is used for clinical purposes. It should not be regarded | | | as investigational or for research. [facility] is certified | | | under the Clinical Laboratory Improvement Amendments of 1988 (CLIA) | | | as qualified to perform high complexity clinical laboratory testing. | | | The technical component was performed by [facility], [facility] | | | [place] [facility] [address] (Teacher Aide: Sindy Bernal MD; | | | CLIA# [id number]). Professional interpretation was performed by | | | [facility], [facility], [address], [place] | | | [place], [place] [address] (Teacher Aide: Samir Leija MD; CLIA# | | | [id number]). PAS stain: The technical component was performed by | | | [facility], [facility], [address], [place] | | | [place], [place] [address] (Teacher Aide: Samir Leija MD; CLIA# | | | [id number]). Professional interpretation was performed by [facility] | | | Diagnostics, [facility], [address], [place] | | | [place], [place] [address] (Teacher Aide: Samir Leija MD; CLIA# | | | [id number]). REASON FOR ADDENDUM: To add the results [...]
--- OUTSIDE RECORDS SUMMARY | ~2020-06-14 | XMS | Encounter Summary ---
Demographics + + + | Address | [address] | | | [place] [address] | + + + | Home Phone [...] | Author | [facility] | | | and [place] | + + + | Organization | [facility] | | | [...] [place] | | | | | [address] | | + + + + + Care Team Providers + +------+ + | Care Rotary Drum Dyer Name | Role | Phone | + [...] + + | 09/05/ | [facility] | [facility] | Tamika, | Patient Concerns | | 2018 | | [facility] | Sundeep Ramirez MD [address] | | | | | [facility] [address] [place] | | | | | [address] [place] | [place] [address] | | | | | [place] [address] | [phone] | | | | | [phone] | | | +--------+ + + + [...] father and he has to leave for [place]. He also needs refill on Oxycodone 5 mg tablet he is willing to drive to as he will be in [place] when he runs out, he will be there for at least a week. documented in this enc nter Plan of Treatment Not on filedocumented as of this encounter Visit Diagnoses Not on filedocumented in this encounter"
--- OUTSIDE RECORDS SUMMARY | ~2020-06-14 | XMS | Encounter Summary ---
Demographics + + + | Address | [address] | | | [place] [address] | + + + | Home Phone | | + + + | Preferred Language | Unknown | + + + | Marital Status | | + + + | Orthodox Affiliation | Unknown | + + + | Race | Unknown | + + + | Ethnic Group | Unknown | + + + Author + + + | Author | [facility] | | | and [place] | + + + | Organization | [facility] | | [...] [place] | | | | | [address] | | + + + + + Care Team Providers + +------+ + | Care Assessment Manager Name | Role | Phone | [...] | | | | | | | [place] | | | | | | | COLONOSCOPY | | | | | | | FLX DX | | | | | | | W/COLLJ SPEC | | | | | | | WHEN PFRMD | | | | | | | [place] | | | | | | | ESOPHAGOGAST | | | | | | | RODUODENOSCO | | | | | | | PY TRANSORAL | | | | | | | DIAGNOSTIC | | | | | | | [place] EGD | | | | | | [...] | | [place], [place] | [place] [address] | | | | | [address] | [phone] | | | | | [phone] | | | +--------+ + + + + Anesthesia Record + + + + + | Procedure Name | Responsible | Anesthesia Start | Anesthesia Stop Time | | | Anesthesiologist | Time | | + + + + + | EGD (N/A Mouth) | Manas Sears, | 09/21/18 1248 | 09/21/18 1323 | | | ELECTRIC FORK OPERATOR | | | + + + [...] Oh Darrin Moreno 47 y.o. male 1970 [id number] Procedure(s) EGD (N/A Mouth) COLONOSCOPY (N/A Rectum) [...] this time, Pt tolerated anesthetic well with [facility]'s noted @ this time. Vitals: 09/21/18 1345 09/21/18 1405 09/21/18 1406 BP: 137/80 (!) 162/98 Pulse: 80 93 86 Temp: 36.5 C (97.7 F) Resp: 16 16 SpO2: 99% 99% 100% Electronically signed by Manas Sears CRNA 09/21/2018 15:04 CC [facility] nesthesia Preprocedure Evaluation - Manas Sears CRNA - 09/21/2018 11:05 AM PDT ANESTHESIA PREANESTHESIA EVALUATION Oh Moreno 47 y.o. male 1970 [id number] Procedure(s): EGD (N/A Mouth) COLONOSCOPY (N/A Rectum) [...]
--- OUTSIDE RECORDS SUMMARY | ~2020-06-14 | XMS | Clinical Summary ---
Demographics + + + | Address | [address] | | | [place] [address] | + + + | Home Phone | | + + + | Preferred Language | Unknown | + + + | Marital Status | | + + + | Baptist Affiliation | Unknown | + + + | Race | Unknown | + + + | Ethnic Group | Unknown | + + + Author + + + | Author | [facility] | | | and [place] | + + + | Organization | [facility] | | | [...] [place] | | | | | [address] | | + + + + + Care Team Providers + +------+ + | Care Public Service Representative Name | Role | Phone | [...] | + + + + + | Medication | | | | | Management | 2 | | | + + + + + | Vaccine: | | | | | Pneumococcal 19- | 8 | | | | (1 [...] | + + + + + | Med Mgmt: HBA1C | | 02/15/20 | | | | 9 | 19, | | | | | 08/06/20 | | | | | 18, | | | | | 06/24/20 | | | | | 18 | | + + + + + | Med Mgmt: Cr | | 02/15/20 | | | | 0 | 19, | | | | | 08/06/20 | | | | | 18, | | | | | 08/06/20 | | | | | 18, | | | | | Addition | | | | | al | | | | | history | | | | | exists | | + + + + + | Med Mgmt: K | | 02/15/20 | | | | 0 | 19, | | | | | 08/06/20 | | | | | 18, | | | | | 08/06/20 | | | | | 18, | | | | | Addition | | | | | al | | | | | history | | | | | exists | | + + + + + | Med Mgmt: eGFR | | 02/15/20 | | | | 0 | 19, | | | | | 08/06/20 | | | | | 18, | | | | | 08/06/20 | | | | | 18, | | | | | Addition | [...] +--------+-------+---------+--------+ | [facility] | [place] | [id number] | | | | Indemn | | | COMMUN | | 018-Pr | | | ity | | | ITY | | esent | | | | | | CARE | | | | | | + +--------+ +--------+-------+---------+--------+ | [facility] | [place] | [id number] | | | | Indemn | | | COMMUN | | 019-Pr | | | ity | | | ITY | | esent | | | | | | CARE | | | | | | + +--------+ +--------+-------+---------+--------+ | [facility] | [facility] | [id number] | | | | Indemn | | [...] | Self | [birth year] | [address] | | | [place] | | 1970 | [phone] | [place] | | | paul | | | 1 (Home) | [address] | + +--------+ +--------+ + + | Oh Moreno | Person | Self | [birth year] | [address] | | | [place] | | 1970 | [phone] | [place] | | | [place] | | | 1 (Home) | [address] | + +--------+ +--------+ + + Advance Directives + + + + + | Type | Date Recorded | Patient | Explanation | | | | [facility] | | + + + + + | Power of | | | | | Stockholder | | | | + + + + + | Advance | 09/21/2018 | | | | Directive | 10:15 AM | | | + + + + +
--- OUTSIDE RECORDS SUMMARY | ~2020-06-14 | XMS | Encounter Summary ---
Demographics + + + | Address | [address] | | | [place] [address] | + + + | Home Phone | | + + + | Preferred Language | Unknown | + + + | Marital Status | | + + + | Mosque Affiliation | Unknown | + + + | Race | Unknown | + + + | Ethnic Group | Unknown | + + + Author + + + | Author | [facility] | | | and [place] | + + + | Organization | [facility] | | [...] [place] | | | | | [address] | | + + + + + Care Team Providers + +------+ + | Care Bleach Machine Operator Name | Role | Phone [...] | | | | | | [place] [address] | | | | | | [phone] | | | +--------+ + + + [...] ----- Pt was scheduled 09/21/18 for EGD [place] with [facility]. Pt cancelled. I called to [...]
--- OUTSIDE RECORDS SUMMARY | ~2020-06-14 | XMS | Encounter Summary ---
Demographics + + + | Address | [address] | | | [place] [address] | + + + | Home Phone | | + + + | Preferred Language | Unknown | + + + | Marital Status | | + + + | Restoration Affiliation | Unknown | + + + | Race | Unknown | + + + | Ethnic Group | Unknown | + + + Author + + + | Author | [facility] | | | and [place] | + + + | Organization | [facility] | | [...] [place] | | | | | [address] | | + + + + + Care Team Providers + +------+ + | Care Vehicle Dynamics Engineer Name | Role | Phone | [...] | | | | | | [place] [address] | | | | | | [phone] | | | +--------+ + + + [...] Two day prep will be mailed to: [address], [place] [address]. Please update patient's address since he mo ruby. Thank you. documente d in this encounter Plan of Treatment Not on filedocumented as of this encounter Visit Diagnoses Not on filedocumented in this encounter"
[~2020-06-14 20:56] MED LIST changes: +DURAGESIC1 EAC1 TD
--- OUTSIDE RECORDS SUMMARY | 2020-06-14 20:58 | XMS ---
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 Care History Medical/Surgical 09/20/2019 [facility] - PATIENT PCP- DR RAYMUNDO HAS MADE A REFERRAL TO DR LEONE - [place] VICE PRESIDENT DIVERSITY. 08/29/2019 [facility] - PATIENT NOW HAS DR MARII LION PATIENT PCP AT [facility]. - PATIENT DOES HAVE IN HOME CARE SERVICES THROUGH THE [facility]- RN HOME VISITS ALONG WITH PROVIDER IN HOME VISITS. 06/20/2019 [facility] - PATIENT STATED HE HAS SOMEONE COMING FROM THE [facility] TO COME AND EVALUATE HIS HOME FOR SAFETY/FALL RISK THIS WEEK. - PATIENT DECLINED ANY FURTHER SERVICES/RESOURCES AT THIS TIME-STATED HE IS WORKING WITH THE ME AND FOLLOWING UP WITH THE ME AT THIS TIME. Yordan [facility] COUNT (12 MO[address] [facility] T[facility] NOTE: Visits indicate total known visits. 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 - Malignant neoplasm of colon, unspecified - intermediate (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 - Unspecified abdominal pain 05/27/2020 13:43 [facility] [place] [place] TYPE: Emergency COMPLAINT: - LOW BP, DIZZYNESS 05/07/2020 09:41 [facility] [place] TYPE: Emergency COMPLAINT: - CONSTIPATION DIAGNOSES: - Dehydration - Malignant neoplasm of colon, unspecified - Essential (primary) hypertension - Other lobsterman (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 - Acute gastritis without [...] movement or load, initial encount - Other lobsterman (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 - Type 2 diabetes mellitus with diabetic neuropathy, unspecifie - Pain in left shoulder - Personal history of nicotine dependence - Strain of unspecified muscle, fascia and tendon at shoulder a - intermediate accountant (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 01/20/2020 13:20 [facility] [place] TYPE: Emergency COMPLAINT: - PAIN, WEAKNESS DIAGNOSES: - Personal history of nicotine dependence - Other lobsterman (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 - Type 2 diabetes [...] pain - Essential (primary) hypertension - Other lobsterman (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 11/23/2019 22:20 [facility] [place] TYPE: Emergency COMPLAINT: - VOMITING DIAGNOSES: - Malignant neoplasm of colon, unspecified - Allergy status to other drugs, medicaments and biological sub - intermediate accountant (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 - Post-traumatic stress disorder, unspecified - Type 2 diabetes mellitus with diabetic neuropathy, unspecifie - Allergy status to narcotic agent status - Personal history of nicotine dependence - Essential (primary) hypertension - Other lobsterman (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 - Vomiting, unspecified - Acute gastritis without bleeding 10/22/2019 18:49 [facility] [place] TYPE: Emergency COMPLAINT: - VOMITING DIAGNOSES: - Type 2 diabetes mellitus with diabetic neuropathy, unspecifie - Allergy status to analgesic agent status - intermediate (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 - Allergy status to other drugs, medicaments and biological sub - Anemia, unspecified - Other lobsterman (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 - Vomiting, unspecified 09/30/2019 20:11 [facility] [place] TYPE: Emergency COMPLAINT: - POST OP PROBLEM DIAGNOSES: - Encounter for change or removal of surgical wound dressing - Encounter for change or removal of surgical wound dressing - Type 2 diabetes mellitus with diabetic neuropathy, unspecifie - Personal history of nicotine dependence - Other lobsterman (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 09/19/2019 11:53 [facility] [place] TYPE: Emergency COMPLAINT: - FOOT WOUND DIAGNOSES: - Allergy status to other drugs, medicaments and biological sub - Type 2 diabetes mellitus with foot ulcer - Allergy status to narcotic agent status - Type 2 diabetes mellitus with diabetic neuropathy, unspecifie - Other lobsterman (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 - intermediate accountant (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 - Pain in right foot - Non-pressure chronic ulcer of other part of right foot with u - Personal history of other malignant neoplasm of large intesti 08/29/2019 10:53 [facility] Eric MARINO TYPE: Emergency DIAGNOSES: [...] of antineoplastic and immunosuppressive drugs, - Other longterm (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 - Post-traumatic stress disorder, unspecified - intermediate accountant (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 - Allergy status to narcotic agent status - Allergy status to other drugs, medicaments and biological sub - Anemia, unspecified 07/26/2019 10:[address] [facility] [address] [facility] TYPE: Emergency COMPLAINT: - VOMITING, NAUSEA DIAGNOSES: [...] mellitus with diabetic neuropathy, unspecifie - intermediate accountant (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 - [...] - Post-traumatic stress disorder, unspecified - Other longterm (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 - Allergy status to [...] left lower leg, initial encounter - intermediate accountant (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 - Fall on same level from slipping, tripping and stumbling with - Type 2 diabetes mellitus with diabetic neuropathy, unspecifie - Allergy status to other drugs, medicaments and biological sub - Personal history of other malignant neoplasm of large intesti - Other lobsterman (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 INPATIENT VISIT TRACKING (12 MO.) 05/27/2020 13:[address] [facility] [place] TYPE: Observation COMPLAINT: - ACUTE KIDNEY [...] of digestive tract - Dizziness and giddiness [email or web address]
== END 2020-06-15 00:44 | disposition home or self-care (01) ==
LOC: ED 20:56
DX: R11.10 Vomiting, unspecified (principal); E87.6 Hypokalemia; E11.40 Type 2 diabetes mellitus with diabetic neuropathy, unspecified; I10 Essential (primary) hypertension; Z88.8 Allergy status to other drugs, medicaments and biological substances; Z79.899 Other long term (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; Z79.84 Long term (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
CPT/HCPCS: 80053; 83690; 85025; 96361; 96365; 96375; 99284-25; J1170; J2405; J2765; J3480; J7030

== ENCOUNTER 2020-06-18 09:03 | Emergency (ER) | payer MEDICARE, OTHER ==
[~2020-06-18] VITALS: Ht 193 cm; Wt 79.4 kg
--- OUTSIDE RECORDS SUMMARY | ~2020-06-18 | XMS | Encounter Summary ---
Demographics + + + | Address | [address] | | | [place] [address] | + + + | Home Phone | | + + + | Preferred Language | Unknown | + + + | Marital Status | | + + + | Taoist Affiliation | Unknown | + + + | Race | Unknown | + + + | Ethnic Group | Unknown | + + + Author + + + | Author | [facility] | | | and [place] | + + + | Organization | [facility] | | | and [...] [place] | | | | | [address] | | + + + + + Care Team Providers + +------+ + | Care Workday Director Name | Role | Phone | + [...] | | | | | | | NM | | | | | | | COLONOSCOPY | | | | | | | FLX DX | | | | | | | W/COLLJ SPEC | | | | | | | WHEN PFRMD | | | | | | | NM | | | | | | | ESOPHAGOGAST | | | | | | | RODUODENOSCO | | | | | | | PY TRANSORAL | | | | | | | DIAGNOSTIC | | | | | | | NM EGD | | | | | | [...] + + + + | 09/21/ | Anesthesia | [place] | [place], | | | 2017 | Event | [facility] | [address] | | | | | [address] | [address] | | | | | [place], [place] | [place] [address] | | | | | [address] | [phone] | | | | | [phone] | | | +--------+ + + + + Anesthesia Record + + + + + | Procedure Name | Responsible | Anesthesia Start | Anesthesia Stop Time | | | Anesthesiologist | Time | | + + + + + | EGD (N/A Mouth) | Manas Sears, | 09/21/18 1248 | 09/21/18 1323 | | | YEAST CULTURE OPERATOR | | | + + + + + +----+---+ + + | Da | T | Event | Comment | | te | i | | | | | m | | | | | e | | | +----+---+ + + | 10 | 1 | An Checkout | Pre-use anesthesia machine/equipment checkout. | | /3 | 1 | | | | 0/ | 0 | | | | 20 | 5 | | | | 18 | | | | +----+---+ + + | | 1 | | | | | 1 | | | | | 0 | | | | | 7 | | | +----+---+ + + | | 1 | Pre-Procedu | | | | 2 | ral Timeout | | | | 4 | Completed | | | | 7 | | | +----+---+ + + | | 1 | An Start | Reassessment prior to anesthesia induction/procedure. Pt to ENDO | | | 2 | | per cart, monitors placed, VSS, preO2, preRx with Versed 2mg, | | | 4 | | Lidocaine 20mg, Benzocaine spray OP- x2, Induction- Propofol | | | 8 | | titrated / gtt slow with Pt maintaining SR with adeq Vt/rate, VSS | | | | | | +----+---+ + + | | 1 | Breathing | | | | 2 | Spontaneous | | | | 4 | ly | | | | 9 | | | +----+---+ + + | | 1 | Preoxygenat | | | | 2 | ed | | | | 5 | | | | | 0 | | | +----+---+ + + | | 1 | An | | | | 2 | Induction | | | | 5 | | | | | 5 | | | +----+---+ + + | | 1 | First | | | | 2 | Inc/Proc St | | | | 5 | | | | | 8 | | | +----+---+ + + | | 1 | an stop | | | | 3 | data | | | | 2 | | | | | 2 | | | +----+---+ + + | | 1 | An Stop | Patient handed off to recovery nurse. | | | 2 | | | | | 3 | | | +----+---+ + + +------+ | Meds | +------+ + + + | Name | Total | + + + | midazolam 1 mg/mL (2 mL vial) | 2 mg | + + + | benzocaine (HURRICAINE) oral | 2 Application | | spray 20% | | + + + | lidocaine 2% | 20 mg | + + + | propofol | 250 mg | + + + | lactated ringers (LR) infusion | 200 mL | + + + + + | Name | + + | N2O Flow Rate (L/Min) | + + | O2 Flow Rate (L/Min) | + + | Insp O2 | + + | Exp N2O | + + | Exp SEV | + + | Air Flow Rate (L/Min) | + + + + | No blood administrations on file. | + + +--------+ + + + | Type | Details | Placement | Removal | +--------+ + + + | Periph | 09/21/18; 1100; Right; | 09/21/18 1100 by | 09/21/18 1410 by | | eral | Antecubital; 22 gauge; 0; | Patrizia Liao RN | Augusta Rodgers RN | | IV | distraction; no longer indicated; | | | | | healing within expectations; | | | | | 09/21/18; 1410 | | | +--------+ + + + documented in this encounter Social History + +-------+ +--------+------+ | Tobacco [...] on file | | + + + documented as of this encounter [place] Notes Anesthesia Postprocedure Evaluation - Manas Sears CRNA - 09/21/2018 3:04 PM PDTFor matting of this note might be different from the original. ANESTHESIA POSTANESTHESIA EVALUATION Oh Darrin Moreno 47 y.o. male 1970 [id number] Procedure(s) EGD (N/A Mouth) COLONOSCOPY (N/A Rectum) Cooperates? Yes Mental Status Answers questions appropriately., Performs simple tasks. and Alert Respiratory Satisfactory - Airway patent (self maintained). Cardiovascular Satisfactory - Blood pressure and heart rate acceptable Temperature Satisfactory Pain Satisfactory N/V Control Satisfactory Hydration Satisfactory - No signs of dehydration Complications None apparent Pt states has minimal procedural - pain / discomfort , 0- N/V, 0- Respiratory difficulty, no other C/O @ this time, Pt tolerated anesthetic well with [facility]'s noted @ this time. Vitals: 09/21/18 1345 09/21/18 1405 09/21/18 1406 BP: 137/80 (!) 162/98 Pulse: 80 93 86 Temp: 36.5 C (97.7 F) Resp: 16 16 SpO2: 99% 99% 100% Electronically signed by Manas Sears CRNA 09/21/2018 15:04 [facility] nesthesia Preprocedure Evaluation - Manas Sears CRNA - 09/21/2018 11:05 AM PDT ANESTHESIA PREANESTHESIA EVALUATION Oh Moreno 47 y.o. male 1970 [id number] Procedure(s): EGD (N/A Mouth) COLONOSCOPY (N/A Rectum) Medical history, anesthesia, medications, allergy, NPO status verified histories reviewed. Review of Systems / Med History Anesthesia History No anesthesia complications. Cardiovascular (+) hypertension Pulmonary (+) smoking history Neurology Negative except where noted below. Psychology (+) depression Renal Negative except where noted below. Gastrointestinal/Hepatic (+) hyperlipidemia Endocrine (+) Diabetes: type 2, NIDDM Pediatric History Negative except where noted below. Obstetrics Negative except where noted below. Other Negative except where noted below. Cancer Negative except where noted below. Physical Exam Airway MP II, TM >3 FB, Mouth opening >2 FB. Neck: full ROM, extends >30 degrees. Jaw protrus ion normal. Dental ; (+) implants(s)/bridges(s)/caps(s) and Age appropriate dentition. CV cardiovascular normal Rhythm regular. Rate normal. Pulm Clear to auscultation bilaterally. Neuro Grossly normal. Anesthesia Plan ASA 3 Type: MAC. Induction: Intravenous. Potential problems: None anticipated. Monitors: Standard ASA monitors. Consent statement:Anesthetic plan, alternatives, risks and benefits discussed with patient. Risks discussed included (but were not limited to): pain, perioperative CV events, respirat ory events, nausea, . Consenting person understands and agrees to proceed. Anesthesia consent form used. Electronically Signed by: Manas Sears CRNA ESig date/time: 09/21/2018 11:05 documented in th is encounter Plan of Treatment Not on filedocumented as of this encounter Visit Diagnoses Not on filedocumented in this encounter Administered Medications + +--------+ + +------+------+ | Medication Order | MAR | Action | Dose | Rate | Site | | | Action | Date | | | | + +--------+ + +------+------+ | benzocaine (AMERICAINE) 20 % | Given | 09/21/20 | 2 | | | | topical spray PRN, Pain, | | 18 12:51 | Applicat | | | | Starting 09/21/18 at 1251, | | PM PDT | ion | | | | Anesthesia Intra-op | | | | | | + +--------+ + +------+------+ +---+---+ | | | +---+---+ + +---------+ +---+---+---+ | lactated ringers (LR) infusion | New Bag | 09/21/20 | | | | | at 10-100 mL/hr, Intravenous, | | 18 11:00 | | | | | CONTINUOUS, Starting 09/21/18 | | AM PDT | | | | | at 1130, TKO., Pre-op | | | | | | + +---------+ +---+---+---+ +---+---+ | | | +---+---+ + +-------+ +-------+---+---+ | lidocaine 20 mg/mL IV syringe | Given | 09/21/20 | 20 mg | | | | Intravenous, PRN, Starting e | | 18 12:50 | | | | | 09/21/18 at 1250, Anesthesia | | PM PDT | | | | | Intra-op | | | | | | + +-------+ +-------+---+---+ +---+---+ | | | +---+---+ + +-------+ +------+---+---+ | midazolam (VERSED) 1 mg/mL | Given | 09/21/20 | 2 mg | | | | injection Intravenous, PRN, | | 18 12:51 | | | | | Anxiety, Starting Thu09/21/18 at | | PM PDT | | | | | 1251, Anesthesia Intra-op | | | | | | + +-------+ +------+---+---+ +---+---+ | | | +---+---+ + +-------+ +--------+---+---+ | propofol (DIPRIVAN) injection | Given | 09/21/20 | 250 mg | | | | Intravenous, PRN, Starting Thu | | 18 12:55 | | | | | 09/21/18 at 1255, Anesthesia | | PM PDT | | | | | Intra-op | | | | | | + +-------+ +--------+---+---+ +---+---+ | | | +---+---+ documented in this encounter"
--- OUTSIDE RECORDS SUMMARY | ~2020-06-18 | XMS | Encounter Summary ---
Demographics + + + | Address | [address] | | | [place] [address] | + + + | Home Phone | | + + + | Preferred Language | Unknown | + + + | Marital Status | | + + + | Faith Affiliation | Unknown | + + + | Race | Unknown | + + + | Ethnic Group | Unknown | + + + Author + + + | Author | [facility] | | | and [place] | + + + | Organization | [facility] | | | [...] [place] | | | | | [address] | | + + + + + Care Team Providers + +------+ + | Care Quality Assurance Auditor Name | Role | Phone | + [...] + + | 09/05/ | Telephone | [facility] | [place], | Patient Concerns | | 2018 | | [facility] | Sundeep Ramirez MD [address] | | | | | [facility] [address] | | | | | [address] | [place] [address] | | | | | [place] [address] | [phone] | | | | | [phone] | | | +--------+ + + + [...] father and he has to leave for [place]. He also needs refill on Oxycodone 5 mg tablet he is willing to drive to as he will be in [place] when he runs out, he will be there for at least a week. documented in this enc nter Plan of Treatment Not on filedocumented as of this encounter Visit Diagnoses Not on filedocumented in this encounter"
--- OUTSIDE RECORDS SUMMARY | ~2020-06-18 | XMS | Encounter Summary ---
Demographics + + + | Address | [address] | | | [place] [address] | + + + | Home Phone | | + + + | Preferred Language | Unknown | + + + | Marital Status | | + + + | Synagogue Affiliation | Unknown | + + + [...] [place] | | | | | [address] | | + + + + + Care Team Providers + +------+ + | Care Supervisor Aluminum Boat Assembly Name | Role | Phone | + [...] | | | | | | [place] [address] | | | | | | [phone] | | | +--------+ + + + [...] Two day prep will be mailed to: [address], [place] [address]. Please update patient's address since he mo ruby. Thank you. documente d in this encounter Plan of Treatment Not on filedocumented as of this encounter Visit Diagnoses Not on filedocumented in this encounter"
--- OUTSIDE RECORDS SUMMARY | ~2020-06-18 | XMS | Encounter Summary ---
Demographics + + + | Address | [address] | | | [place] [address] | + + + | Home Phone | | + + + | Preferred Language | Unknown | + + + | Marital Status | | + + + | Judaism Affiliation | Unknown | + + + | Race | Unknown | + + + | Ethnic Group | Unknown | + + + Author + + + | Author | [facility] | | | and [place] | + + + | Organization | [facility] | | | [...] [place] | | | | | [address] | | + + + + + Care Team Providers + +------+ + | Care Mechanical Systems Designer Name | Role | Phone | + [...] | | | | [address] [facility] | [place]he [place] | | | | | [address] | [place] [address] | | | | | [address] | | | | | | [phone] | | | +--------+ + + + [...]
--- OUTSIDE RECORDS SUMMARY | ~2020-06-18 | XMS | Encounter Summary ---
Demographics + + + | Address | [address] | | | [place] [address] | + + + | Home Phone | | + + + | Preferred Language | Unknown | + + + | Marital Status | | + + + | Mu-Ism Affiliation | Unknown | + + + | Race | Unknown | + + + | Ethnic Group | Unknown | + + + Author + + + | Author | [facility] | | | and [place] | + + + | Organization | [facility] | | | [...] | + + + + + | Daynaa Moreno | ECON | [address] | | | | | [place] | | | | | [address] | | + + + + + Care Team Providers + +------+ + | Care Service Administrator Name | Role | Phone | [...] | | | | | | | [place] | | | | | | | COLONOSCOPY | | | | | | | FLX DX | | | | | | | W/COLLJ SPEC | | | | | | | WHEN PFRMD | | | | | | | [place] | | | | | | | ESOPHAGOGAST | | | | | | | RODUODENOSCO | | | | | | | PY TRANSORAL | | | | | | | DIAGNOSTIC | | | | | | | [place] EGD | | | | | | [...] 09/21/ | Hospital | [facility] [facility] | [place], | | | 2018 | Encounter | [facility] | Leighton Malagon, | | | | | [address] [place] | [address] | | | | | [place], [place] | [place] | | | | | [address] | [address] | | | | | [phone] | | | | | | | [...] any questions, call your physician at or [phone]. If you need assistance after normal business hours, please contact the [facility] at . documented in this encounter [...] by: Leighton Martino MD, 09/21/2018 12:37 [facility] at [...] seizure. 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 documented in this encounter Procedure Notes Leighton Martino MD - 09/21/2018 12:51 PM PDTAssociated Order(s): ENDOSCOPYPro cedure(s): [place] EGD TRANSORAL BIOPSY SINGLE/MULTIPLE Endoscopy Report OPERATION PERFORMED: Flexible EGD with biopsies REFERRING PROVIDER: Imer Woodard PRE-OP DIAGNOSIS: Iron deficiency anemia POST-OP DIAGNOSIS: Same SURGEON: Leighton Martino MD ANESTHESIA: Sedation ANESTHESIA PROVIDER: ARTILLERY METEOROLOGICAL MAN: Manas Sears CRNA SPECIMEN: ID Type Source Tests Collected by Time Destination A : fundus biopsy Tissue SURGICAL PATHOLOGY EXAM Leighton Martino MD 8 1304 Pathology B : GE junction biopsy Tissue SURGICAL PATHOLOGY EXAM Leighton Martino MD 08/25 1306 Pathology COMPLICATIONS: None INDICATIONS FOR PROCEDURE: hO Moreno is a 47 y.o. male PROCEDURE [...] by: Leighton Martino MD, 09/21/2018 13:13 [facility] This note was transcribed using voice recognition software; there may be speech recognition errors which escaped detection during customs manager. document ed in this encounter Plan of [...] + + | [place] [facility] | [address] | [place] | [phone] | | HOSPITAL [facility]ORY | | [address] | | + + + + + [...] ANESTHESIA: Sedation | | | ANESTHESIA PROVIDER: ARTILLERY METEOROLOGICAL MAN: Manas Sears CRNA SPECIMEN: | | | [...] | recognition errors which escaped detection during customs manager. | | | | | + [...] + + + + + | [facility] [facility] | [address] | [place] | [phone] | | HOSPITAL LABORATORY | | [address] | | + + + + + [...] | | technical component was performed by [employer] | | | [place] [address] (Medical | | | Director: Samir Leija MD; CLIA# [id number]). Professional | | | interpretation was performed by [employer] | | | [place] [address] (Medical | | | Director: Samir Leija MD; CLIA# [id number]). ADDITIONAL | | | NOTES: Immunohistochemical and/or in situ hybridization studies were | | | performed on this case with the appropriate positive controls that | | | react as expected. This test was developed and its performance | | | characteristics determined by [employer] It has not been | | | cleared or approved by the U.S. Food and Drug Administration. The | | | FDA has determined that such clearance or approval is not necessary. | | | This test is used for clinical purposes. It should not be regarded | | | as investigational or for research. [employer] is certified | | | under the Clinical Laboratory Improvement Amendments of 1988 (CLIA) | | | as qualified to perform high complexity clinical laboratory testing. | | | The technical component was performed by [employer] [facility] | | | [facility] [address] (Television Writer: Sindy Bernal MD; | | | CLIA# [id number]). Professional interpretation was performed by | | | [employer] [facility], [address], [place] | | | [place], [place] [address] (Television Writer: Samir Leija MD; CLIA# | | | [id number]). PAS stain: The technical component was performed by | | | [employer] [facility], [address], [place] | | | [place], [place] [address] (Television Writer: Samir Leija MD; CLIA# | | | [id number]). Professional interpretation was performed by [facility] | | | [facility], [facility], [address], [place] | | | [place], [place] [address] (Television Writer: Samir Leija MD; CLIA# | | | [id number]). REASON FOR ADDENDUM: To add the results [...] PRN, Nausea, Starting Tue | | | 10/30/18 at 1350, For 1 dose, | | | Recovery/Phase I | | + +---+ | | | + +---+ documented in this encounter
--- OUTSIDE RECORDS SUMMARY | ~2020-06-18 | XMS | Encounter Summary ---
Demographics + + + | Address | [address] | | | [place] [address] | + + + | Home Phone | | + + + | Preferred Language | Unknown | + + + | Marital Status | | + + + | Anabaptism Affiliation | Unknown | + + + | Race | Unknown | + + + | Ethnic Group | Unknown | + + + Author + + + | Author | [facility] | | | and [place] | + + + | Organization | [facility] | | | [...] [place] | | | | | [address] | | + + + + + Care Team Providers + +------+ + | Care Turpentine Farmer Name | Role | Phone | + [...] | | | | | | | [place] | | | | | | | COLONOSCOPY | | | | | | | FLX DX | | | | | | | W/COLLJ SPEC | | | | | | | WHEN PFRMD | | | | | | | [place] | | | | | | | ESOPHAGOGAST | | | | | | | RODUODENOSCO | | | | | | | PY TRANSORAL | | | | | | | DIAGNOSTIC | | | | | | | [place] EGD | | | | | | [...] | [address] [place] | [address] | | | | | [place], [place] | [place] | | | | | [address] | [address] | | | | | [phone] | | | | | | | [...] after normal business hours, please contact the [facility] at . documented in this [...] by: Leighton Martino MD, 09/21/2018 12:37 CC [facility] by Leighton Martino MD at 12:37 [...] seizure. 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 documented in this encounter Procedure Notes Leighton Martino MD - 09/21/2018 12:51 PM PDTAssociated Order(s): ENDOSCOPYPro cedure(s): [place] EGD TRANSORAL BIOPSY SINGLE/MULTIPLE Endoscopy Report OPERATION PERFORMED: Flexible EGD with biopsies REFERRING PROVIDER: Imer Woodard PRE-OP DIAGNOSIS: Iron deficiency anemia POST-OP DIAGNOSIS: Same SURGEON: Leighton Martino MD ANESTHESIA: Sedation ANESTHESIA PROVIDER: AIR TWISTER WINDER: Manas Sears CRNA SPECIMEN: ID Type Source [...] by: Leighton Martino MD, 09/21/2018 13:13 CC [facility] This note was transcribed using voice recognition software; there may be speech recognition errors which escaped detection during cost estimating engineer. document ed in this encounter Plan of [...] + + | [place] [facility] | [address] | [place] | [phone] | | [facility] | | [address] | | + + + + + [...] ANESTHESIA: Sedation | | | ANESTHESIA PROVIDER: AIR TWISTER WINDER: Manas Sears CRNA SPECIMEN: | | | [...] MD, | | | 09/21/2018 13:13 CC [facility] This note was | | | transcribed using voice recognition software; there may be speech | | | recognition errors which escaped detection during cost estimating engineer. | | | | | + + [...] + + | [place] [facility] | [address] | [place] | [phone] | | HOSPITAL LABORATORY | | [address] | | + + + + + [...] | | technical component was performed by [employer] | | | [place] [address] (Medical | | | Director: Samir Leija MD; CLIA# [id number]). Professional | | | interpretation was performed by [facility] [facility] | | | [place] [address] (Medical | | | Director: Samir Leija MD; CLIA# [id number]). ADDITIONAL | | | NOTES: Immunohistochemical and/or in situ hybridization studies were | | | performed on this case with the appropriate positive controls that | | | react as expected. This test was developed and its performance | | | characteristics determined by [employer]. It has not been | | | cleared or approved by the U.S. Food and Drug Administration. The | | | FDA has determined that such clearance or approval is not necessary. | | | This test is used for clinical purposes. It should not be regarded | | | as investigational or for research. [employer] is certified | | | under the Clinical Laboratory Improvement Amendments of 1988 (CLIA) | | | as qualified to perform high complexity clinical laboratory testing. | | | The technical component was performed by [employer], [facility] | | | [facility] [address] (Directory Compiler: Sindy Bernal MD; | | | CLIA# [id number]). Professional interpretation was performed by | | | [employer], [facility], [address], [place] | | | [place], [place] [address] (Directory Compiler: Samir Leija MD; CLIA# | | | [id number]). PAS stain: The technical component was performed by | | | [employer], [facility], [address], [place] | | | [place], [place] [address] (Directory Compiler: Samir Leija MD; CLIA# | | | [id number]). Professional interpretation was performed by [employer] | | | [employer], [facility], [address], [place] | | | [place], [place] [address] (Directory Compiler: Samir Leija MD; CLIA# | | | [id number]). REASON FOR ADDENDUM: To add the results [...]
--- OUTSIDE RECORDS SUMMARY | ~2020-06-18 | XMS | Encounter Summary ---
Demographics + + + | Address | [address] | | | [place] [address] | + + + | Home Phone | | + + + | Preferred Language | Unknown | + + + | Marital Status | | + + + | Nondenominational Affiliation | Unknown | + + + | Race | Unknown | + + + | Ethnic Group | Unknown | + + + Author + + + | Author | [facility] | | | and [place] | + + + | Organization | [facility] | | | [...] [place] | | | | | [address] | | + + + + + Care Team Providers + +------+ + | Care Terrazzo Layer Name | Role | Phone | + [...] + + | 08/29/ | Emergency | [facility] | [place], | Cellulitis of right | | 2019 | | [facility] | Sundeep Keller MD [address] | foot (Primary Dx); | | | | CENTER [address] | [address] [place] | Ulcer of right foot, | | | | [place], [place] | [place] [address] | unspecified ulcer | | | | [address] | [phone] | stage ([facility]); | | | | [phone] | | Peripheral sensory | | | | | | neuropathy due to | | | | | | type 2 diabetes | | | | | | mellitus ([facility]) | +--------+ + + + + Social [...] might be differe nt from the original. [facility] [place] [facility] Emergency Department Encounter Note [address] [place] [id number] PCP:Imer Woodard MD Room: [facility] DIAGNOSIS: 1. Cellulitis of right foot 2. [...] followed at the wound clinic at the [place] for this. 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 (See chart for [...] right foot, unspecified ulcer stage ([facility]) L97.519 707.15 3. Peripheral sensory neuropathy due to type 2 diabetes mellitus ([facility]) E11.42 250.60 356.2 Follow-up Information Imer Woodard MD In 3 days. Specialty: Family Medicine Why: For wound re-check [facility] [address] New Prescriptions CEPHALEXIN (KEFLEX) 500 [...] Portions of this chart were created with Section 101 voice recognition software. Inadvertent so und alike [...] O?MRN: | | | | | | [id number] | | | [id number] | | | riteri | | | [...] | | | St. | | | [place] | | | y | | | [...] | | | St. | | | [place] | | | y | | | [...] | | | St. | | | [place] | | | y | | | [...] | | | St. | | | [place] | | | y | | | [...] | | | St. | | | [place] | | | y H. | | [...] | | | St. | | | [place] | | | y H. | | [...] | | | St. | | | [place] | | | y H. | | [...] | | | St. | | | [place] | | | y H. | | [...] | | | St. | | | [place] | | | y H. | | [...] | | | St. | | | [place] | | | y H. | | | [place] | | | [place] | | | Emerge | | | ncy | | | Chief | | | Compla | | | int: | | | ANEMIA | | | May | | | 9, | | | 2019 | | | [facility] | | | St[facility] | | | [place] | | | y H. | | [...] | | | St. | | | [place] | | | y H. | | [...] | | | St. | | | [place] | | | y H. | | [...] | | | St. | | | [place] | | | y H. | | [...] | | | [id number] | | | [id number] | | | 7c | | | [...] [address] | [place] | [phone] | | [facility] | | [address] | | | - LABORATORY | | [...] + | [facility] | [address] | [place], [place] | [phone] | | [facility] | | [address] | | | - LABORATORY | | [...] [address] | [place] | [phone] | | [facility] | | [address] | | | - LABORATORY | | [...] + | [facility] | [address] | [place] | [phone] | | [facility] | | [address] | | | - LABORATORY | | [...] ST. | [address] | [place], [place] | [phone] | | [facility] | | [address] | | | - LABORATORY | | [...] + | [facility] | [address] | [place] | [phone] | | [facility] | | [address] | | | - LABORATORY | | [...]
--- OUTSIDE RECORDS SUMMARY | ~2020-06-18 | XMS | Encounter Summary ---
Demographics + + + | Address | [address] | | | [place] [address] | + + + | Home Phone | | + + + | Preferred Language | Unknown | + + + | Marital Status | | + + + | Judaism Affiliation | Unknown | + + + | Race | Unknown | + + + | Ethnic Group | Unknown | + + + Author + + + | Author | [facility] | | | and [place] | + + + | Organization | [facility] | | | [...] [place] | | | | | [address] | | + + + + + Care Team Providers + +------+ + | Care Bread Room Hand Name | Role | Phone | [...] | | | | MAURILIO THORPE, | [facility], [place] | | | | | | [place] [address] | [address] | | | | | | Phone: | Phone: | | | | | | [phone] | [phone] | | | | | | Fax: | Fax: | | | | | | [phone] | [phone] | +--------+--------+ + + + + Encounter [...] | SURGERY [address] | MD [address] | | | | | DR [place]NE [place], | [place], [place] | | | | | [place] [address] | [address] | | | | | [phone] | [phone] | | | | | | | [...] might be different from the original. [facility] Leighton Martino M.D [address] , [place], [place] [address] - PATIENT NAME: Oh Moreno IF YOU [...] Needle Localization [] Lumpectomy [] Mastectomy [] [place] Node Biopsy [] Isosulfan Blue Dye [] Technesium 99 HERNIA [] Left [] Right [] Bilateral [] Inguinal [] Ventral [] Umbilical [] Open [] Laparoscopic COLON [] Right [] Left [] Sigmoid [] Open [] Laparoscopic [] Preop Ureteral Stent Placement - [] Left / [] Right GALLBLADDER [] Planned Cholangiogram [facility]odwhca midwest divisionLeighton MD - 09/08/2018 1:30 PM PDT History [...] seizure. 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 documented in this encounter Plan of Treatment Not on filedocumented as of this encounter Visit Diagnoses + + | Diagnosis | + + | Nausea - Primary Nausea alone | + + | Microcytic anemia Iron deficiency anemia, unspecified | + + documented in this encounter
--- OUTSIDE RECORDS SUMMARY | ~2020-06-18 | XMS | Encounter Summary ---
Demographics + + + | Address | [address] | | | [place] [address] | + + + | Home Phone | | + + + | Preferred Language | Unknown | + + + | Marital Status | | + + + | Mandaen Affiliation | Unknown | + + + | Race | Unknown | + + + | Ethnic Group | Unknown | + + + Author + + + | Author | [facility] | | | and [place] | + + + | Organization | [facility] | | [...] [place] | | | | | [address] | | + + + + + Care Team Providers + +------+ + | Care Tablet Making Machine Operator Helper Name | Role | Phone | + [...] | | | | | | [place] [address] | | | | | | [phone] | | | +--------+ + + + [...] ----- Pt was scheduled 09/21/18 for EGD [place] with [facility]. Pt cancelled. I called to [...]
--- OUTSIDE RECORDS SUMMARY | ~2020-06-18 | XMS | Clinical Summary ---
Demographics + + + | Address | [address] | | | [place] [address] | + + + | Home Phone | | + + + | Preferred Language | Unknown | + + + | Marital Status | | + + + | Temple Affiliation | Unknown | + + + [...] [place] | | | | | [address] | | + + + + + Care Team Providers + +------+ + | Care Motion Picture Projectionist Apprentice Name | Role | Phone | [...] | + + + + + | Hepatitis C | | | | | Screening | 2 | | | + + [...] +--------+-------+---------+--------+ | [facility] | [place] | [id number] | | | | Indemn | | | COMMUN | | 018-Pr | | | ity | | | ITY | | esent | | | | | | CARE | | | | | | + +--------+ +--------+-------+---------+--------+ | [facility] | [place] | [id number] | | | | Indemn | | | COMMUN | | 019-Pr | | | ity | | | ITY | | esent | | | | | | CARE | | | | | | + +--------+ +--------+-------+---------+--------+ | [facility] | [facility] | [id number] | | | | Indemn | | [...] | [address] | | | al/Fam | | 1970 | [phone] | [place] | | | paul | | | 1 (Home) | [address] | + +--------+ +--------+ + + | Oh Moreno | Person | Self | [birth year] | [address] | | | al/Graeme | | 1970 | [phone] | [place] | | | paul | | | 1 (Home) | [address] | + +--------+ +--------+ + + Advance Directives + + + + + | Type | Date Recorded | Patient | Explanation | | | | Housing Quality Standard Inspector | | + + + + + | Power of | | | | | Seed Analyst | | | | + + + + + | Advance | 09/21/2018 | | | | Directive | 10:15 AM | | | + + + + +
--- OUTSIDE RECORDS SUMMARY | ~2020-06-18 | XMS | Encounter Summary ---
Demographics + + + | Address | [address] | | | [place] [address] | + + + | Home Phone | | + + + | Preferred Language | Unknown | + + + | Marital Status | | + + + | Hoahaoism Affiliation | Unknown | + + + [...] [place], [place] | | | | | [address] | | + + + + + Care Team Providers + +------+ + | Care Global Logistics Manager Name | Role | Phone | [...] | | | | | | [place] [address] | | | | | | [phone] | | | +--------+ + + + [...]
--- OUTSIDE RECORDS SUMMARY | 2020-06-18 09:06 | XMS ---
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 Care History Medical/Surgical 09/20/2019 [facility] - PATIENT PCP- DR RAYMUNDO HAS MADE A REFERRAL TO DR LEONE - [place] PROJECT SYSTEMS ENGINEER. 08/29/2019 [facility] - PATIENT NOW HAS DR MARII LION PATIENT PCP AT [facility]. - PATIENT DOES HAVE [facility] C[facility]- RN HOME VISITS ALONG WITH PROVIDER IN HOME VISITS. 06/20/2019 [facility] - PATIENT STATED HE HAS SOMEONE COMING FROM [facility] TO COME AND EVALUATE HIS HOME FOR SAFETY/FALL RISK THIS WEEK. - PATIENT DECLINED ANY FURTHER SERVICES/RESOURCES AT THIS TIME-STATED HE IS WORKING WITH THE [facility] AND FOLLOWING UP WITH THE [facility] AT THIS TIME. [facility] (12 MO.) [facility] TOTAL 17 NOTE: Visits indicate total known visits. 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 - Malignant neoplasm of colon, unspecified - 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 - Unspecified abdominal pain 05/27/2020 13:43 [facility] [place] TYPE: Emergency COMPLAINT: - LOW BP, DIZZYNESS 05/07/2020 09:41 [facility] [place] TYPE: Emergency COMPLAINT: - CONSTIPATION DIAGNOSES: - Dehydration - Malignant neoplasm of colon, unspecified - Essential (primary) hypertension - Other residential (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 - Acute gastritis without bleeding - Constipation, unspecified - Nausea with vomiting, unspecified - Allergy status to other drugs, medicaments and biological sub - Type 2 diabetes mellitus with diabetic neuropathy, unspecifie 04/13/2020 18:34 [facility] [place] TYPE: Emergency COMPLAINT: - LOW BP DIAGNOSES: - Type 2 diabetes mellitus with diabetic neuropathy, unspecifie - Hypotension, unspecified - 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 (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 - Essential (primary) hypertension - Allergy status to other drugs, medicaments and biological sub - Hypotension, unspecified - Hypokalemia 04/05/2020 10:55 [facility] [place] TYPE: Emergency COMPLAINT: - LEFT SHOULDER PAIN DIAGNOSES: - Essential (primary) hypertension - Allergy status to other drugs, medicaments and biological sub - Overexertion from strenuous movement or load, initial encount - Other residential (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 - Type 2 diabetes mellitus with diabetic neuropathy, unspecifie - Pain in left shoulder - Personal history of nicotine dependence - Strain of unspecified muscle, fascia and tendon at shoulder a - 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 01/20/2020 13:20 [facility] [place] TYPE: Emergency COMPLAINT: - PAIN, WEAKNESS DIAGNOSES: - Personal history of nicotine dependence - Other residential (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 - Type 2 diabetes mellitus with diabetic neuropathy, unspecifie - Essential (primary) hypertension - Allergy status to other drugs, medicaments and biological sub - Nausea with vomiting, unspecified - Unspecified abdominal pain - Post-traumatic stress disorder, unspecified - [facility] (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 12/25/2019 02:51 [facility] [place] TYPE: Emergency COMPLAINT: - NAUSEA DIAGNOSES: - Type 2 diabetes mellitus with diabetic neuropathy, unspecifie - Allergy status to other drugs, medicaments and biological sub - Post-traumatic stress disorder, unspecified - Personal history of nicotine dependence - Nausea with vomiting, unspecified - Unspecified abdominal pain - Essential (primary) hypertension - 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 (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 11/23/2019 22:20 [facility] [place] TYPE: Emergency COMPLAINT: - VOMITING DIAGNOSES: - Malignant neoplasm of colon, unspecified - Allergy status to other drugs, medicaments and biological sub - 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 - Post-traumatic stress disorder, unspecified - Type 2 diabetes mellitus with diabetic neuropathy, unspecifie - Allergy status to narcotic agent status - Personal history of nicotine dependence - Essential (primary) hypertension - Other residential (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 - Vomiting, unspecified - Acute gastritis without bleeding 10/22/2019 18:49 [facility] [place] TYPE: Emergency COMPLAINT: - VOMITING DIAGNOSES: - Type 2 diabetes mellitus with diabetic neuropathy, unspecifie - Allergy status to analgesic agent status - [facility]CI (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 - Allergy status to other drugs, medicaments and biological sub - Anemia, unspecified - Other residential (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 - Vomiting, unspecified 09/30/2019 20:11 [facility] [place] TYPE: Emergency COMPLAINT: - POST OP PROBLEM DIAGNOSES: - Encounter for change or removal of surgical wound dressing - Encounter for change or removal of surgical wound dressing - Type 2 diabetes mellitus with diabetic neuropathy, unspecifie - Personal history of nicotine dependence - Other residential (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 09/19/2019 11:53 [facility] [place] TYPE: Emergency COMPLAINT: - FOOT WOUND DIAGNOSES: - Allergy status to other drugs, medicaments and biological sub - Type 2 diabetes mellitus with foot ulcer - Allergy status to narcotic agent status - Type 2 diabetes mellitus with diabetic neuropathy, unspecifie - Other residential (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 - [facility]CI (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 - Pain in right foot - Non-pressure chronic ulcer of other part of right foot with u - Personal history of other malignant neoplasm of large intesti [facility] DIAGNOSES: - Wound [...] of antineoplastic and immunosuppressive drugs, - Other residential (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 - Post-traumatic stress disorder, unspecified - 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 - Vomiting, unspecified - Other residential (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 - Migraine, unspecified, not intractable, without status migrai 07/24/2019 02:43 [facility] [place] TYPE: Emergency COMPLAINT: - NECK PAIN/PORT ISSUE DIAGNOSES: - Essential (primary) hypertension - Personal history of nicotine dependence - Cervicalgia - Malignant neoplasm of colon, unspecified - Type 2 diabetes mellitus with diabetic neuropathy, unspecifie - Anemia, unspecified - Allergy status to narcotic agent status - [facility]CI (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 - Post-traumatic stress disorder, unspecified - Other residential (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 - Allergy status to other drugs, medicaments and biological sub INPATIENT VISIT TRACKING (12 MO.) 05/27/2020 13:[address] 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
[2020-06-18] MEDS ORDERED: K-TAB10 MEQ PO (13:07)
[2020-06-18] MEDS ORDERED: POTASSIUM CHLO20 ME1 PO (13:34)
== END 2020-06-18 13:35 | disposition home or self-care (01) ==
LOC: ED 09:03
DX: R11.2 Nausea with vomiting, unspecified (principal); C18.9 Malignant neoplasm of colon, unspecified; C78.7 Secondary malignant neoplasm of liver and intrahepatic bile duct; I10 Essential (primary) hypertension; E11.40 Type 2 diabetes mellitus with diabetic neuropathy, unspecified; Z87.891 Personal history of nicotine dependence; Z88.8 Allergy status to other drugs, medicaments and biological substances; Z79.899 Other long term (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
CPT/HCPCS: 80053; 81001; 83690; 85025; 96361; 96365; 96366; 96375; 99284-25; J1170; J1200; J1790; J2405; J3480; J7030; J7060

== ENCOUNTER 2020-09-29 23:34 | Emergency (ER) | payer OTHER ==
[~2020-09-29] VITALS: Ht 193 cm; Wt 72.6 kg
[~2020-09-29 23:34] MED LIST changes: +K-TAB10 MEQ PO; +POTASSIUM CHLO20 ME1 PO
--- OUTSIDE RECORDS SUMMARY | 2020-09-29 23:38 | XMS ---
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 Care History Medical/Surgical 06/18/2020 [facility] - PATIENT HAS AN APT WITH DR GONZALEZ ON 06/20/20 AND 06/22/20. 09/20/2019 [facility] - PATIENT PCP- DR RAYMUNDO HAS MADE A REFERRAL TO DR LEONE - [place] [employer] [facility]. 08/29/2019 [facility] - PATIENT NOW HAS DR MARII LION PATIENT PCP AT [facility]. - PATIENT DOES HAVE IN HOME CARE SERVICES THROUGH THE ID- RN HOME VISITS ALONG WITH PROVIDER IN HOME VISITS. E.D. VISIT COUNT (12 MO.) STEPHY Howard TOTAL 13 NOTE: Visits indicate total known visits. ED/UCC VISIT TRACKING (12 MO.) 09/29/2020 23:35 [facility] [place] TYPE: Emergency COMPLAINT: - ABDOMINAL PAIN,TESTICULAR SWELLING 07/22/2020 05:39 STEPHY King [facility] [place] TYPE: Emergency COMPLAINT: - VOMITING,FATIGUE DIAGNOSES: - Vomiting, unspecified - 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uct - Personal history of nicotine dependence - Allergy status to other drugs, medicaments and biological substances - Type 2 diabetes mellitus with diabetic neuropathy, unspecified - Essential (primary) hypertension - Malignant neoplasm of colon, unspecified - Other nursing home (current) drug therapy 06/18/2020 09:03 [facility] Ritchey [facility] [place] TYPE: Emergency COMPLAINT: - ABD PAIN, NAUSEA, VOMITING DIAGNOSES: - Essential (primary) hypertension - Other nursing home (current) drug therapy - Malignant neoplasm of colon, unspecified - Nausea with vomiting, unspecified - Type 2 diabetes mellitus with diabetic neuropathy, unspecified - 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uct - Upper abdominal pain, unspecified - Personal history of nicotine dependence - Allergy status to other drugs, medicaments and biological substances 06/14/2020 20:56 [facility] Rit[facility]y [facility] [place] TYPE: Emergency COMPLAINT: - VOMITING DIAGNOSES: - Hypokalemia - Vomiting, unspecified - Allergy status to other drugs, medicaments and biological substances - Essential (primary) hypertension - 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 - Type 2 diabetes mellitus with diabetic neuropathy, unspecified - 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 06/10/2020 11:43 [facility] Lopez [place] TYPE: Emergency COMPLAINT: - VOMITING DIAGNOSES: - Right upper quadrant pain - Other nursing home (current) drug therapy - Essential (primary) hypertension - Allergy status to other drugs, medicaments and biological substances - Type 2 diabetes mellitus with diabetic neuropathy, unspecified - 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uct - Malignant neoplasm of colon, unspecified - 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 - Unspecified abdominal pain 05/27/2020 13:43 [facility] [place] TYPE: Emergency COMPLAINT: - LOW BP, DIZZYNESS 05/07/2020 09:41 STE[facility] Lopez [place] TYPE: Emergency COMPLAINT: - CONSTIPATION DIAGNOSES: - Dehydration - Malignant neoplasm of colon, unspecified - Essential (primary) hypertension - 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 - Acute gastritis without bleeding - Constipation, unspecified - Nausea with vomiting, unspecified - Allergy status to other drugs, medicaments and biological substances - Type 2 diabetes mellitus with diabetic neuropathy, unspecified 04/13/2020 18:34 [facility] [place] TYPE: Emergency COMPLAINT: - LOW BP DIAGNOSES: - Type 2 diabetes mellitus with diabetic neuropathy, unspecified - Hypotension, unspecified - Other nursing home (current) drug therapy - Essential (primary) hypertension - Allergy status to other drugs, medicaments and biological substances - Hypotension, unspecified - Hypokalemia 04/05/2020 10:55 [facility] [place] TYPE: Emergency COMPLAINT: - LEFT SHOULDER PAIN DIAGNOSES: - Essential (primary) hypertension - Allergy status to other drugs, medicaments and biological substances - Overexertion from strenuous movement or load, initial encounter - Other nursing home (current) drug therapy - Type 2 diabetes mellitus with diabetic neuropathy, unspecified - Pain in left shoulder - Personal history of nicotine dependence - Strain of unspecified muscle, fascia and tendon at shoulder and upper arm level, left arm, initial encounter - 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 01/20/2020 13:20 [facility] [place] TYPE: Emergency COMPLAINT: - PAIN, WEAKNESS DIAGNOSES: - Personal history of nicotine dependence - 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 - Type 2 diabetes mellitus with diabetic neuropathy, unspecified - Essential (primary) hypertension - Allergy status to other drugs, medicaments and biological substances - Nausea with vomiting, unspecified - Unspecified abdominal pain - Post-traumatic stress disorder, unspecified - 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 12/25/2019 02:51 [facility] [place] TYPE: Emergency COMPLAINT: - NAUSEA DIAGNOSES: - Type 2 diabetes mellitus with diabetic neuropathy, unspecified - Allergy status to other drugs, medicaments and biological substances - Post-traumatic stress disorder, unspecified - Personal history of nicotine dependence - Nausea with vomiting, unspecified - Unspecified abdominal pain - Essential (primary) hypertension - Other nursing home (current) drug therapy 11/23/2019 22:20 [facility] [place] TYPE: Emergency COMPLAINT: - VOMITING DIAGNOSES: - Malignant neoplasm of colon, unspecified - Allergy status to other drugs, medicaments and biological substances - 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 - Post-traumatic stress disorder, unspecified - Type 2 diabetes mellitus with diabetic neuropathy, unspecified - Allergy status to narcotic agent - Personal history of nicotine dependence - Essential (primary) hypertension - Other nursing home (current) drug therapy - Vomiting, unspecified - Acute gastritis without bleeding 10/22/2019 18:49 STE[facility] Lopez [place] TYPE: Emergency COMPLAINT: - VOMITING DIAGNOSES: - Type 2 diabetes mellitus with diabetic neuropathy, unspecified - Allergy status to analgesic agent - [facility] (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 - Allergy status to other drugs, medicaments and biological substances - Anemia, unspecified - Other nursing home (current) drug therapy - Vomiting, unspecified 09/30/2019 20:11 STE[facility] Lopez [place] TYPE: Emergency COMPLAINT: - POST OP PROBLEM DIAGNOSES: - Encounter for change or removal of surgical wound dressing - Encounter for change or removal of surgical wound dressing - Type 2 diabetes mellitus with diabetic neuropathy, unspecified - Personal history of nicotine dependence - 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 INPATIENT VISIT TRACKING (12 MO.) 05/27/2020 13:44 STE[facility] Lopez [place] TYPE: Observation COMPLAINT: - ACUTE KIDNEY INJURY, HYPOTENSION DIAGNOSES: - 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 - Dizziness and giddiness - Acquired absence of other specified parts of digestive tract - [facility] (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 - Post-traumatic stress disorder, unspecified - 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uct - Malignant neoplasm of colon, unspecified - Hyperlipidemia, unspecified - Type 2 diabetes mellitus without complications - Allergy status to other drugs, medicaments and biological substances - Anemia, unspecified - Personal history of nicotine dependence - Acute kidney failure, unspecified - Hypertensive heart disease with heart failure - Heart failure, unspecified - Hypotension, unspecified - Encounter for screening for other viral diseases [email or web address]
[2020-09-30] MEDS ORDERED: MORPHINE SULFAT15 M1 PO
[2020-09-30] MEDS ORDERED: LASIX20 MG PO (02:56)
[2020-09-30] MEDS ORDERED: SPIRONOLACTONE50 MG PO (02:56)
[2020-09-30] MEDS ORDERED: POTASSIUM CHLO10 MEQ PO (02:56)
== END 2020-09-30 03:10 | disposition home or self-care (01) ==
LOC: ED 23:34
DX: K72.90 Hepatic failure, unspecified without coma (principal); R18.8 Other ascites; N50.89 Other specified disorders of the male genital organs; C78.7 Secondary malignant neoplasm of liver and intrahepatic bile duct; C18.9 Malignant neoplasm of colon, unspecified; E11.40 Type 2 diabetes mellitus with diabetic neuropathy, unspecified; F43.10 Post-traumatic stress disorder, unspecified; I10 Essential (primary) hypertension; Z87.891 Personal history of nicotine dependence; Z88.8 Allergy status to other drugs, medicaments and biological substances; Z79.899 Other long term (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; Z79.84 Long term (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
CPT/HCPCS: 74177; 80053; 81001; 83690; 85025; 99284-25; J1170; J2405; Q9967